=== PATIENT | male | born 1940 | race Caucasian/White ===

== ENCOUNTER 2016-08-18 17:53 | Inpatient (IN) | payer BC, MEDICARE, OTHER ==
[2016-08-18] MEDS ORDERED: NORMAL SALINE 1000 ML 250 ML IV ONE (18:00)
--- NOTE | 2016-08-18 18:31 | ER Document Report ---
ED Respiratory Problem - General Time seen by provider: 17:56 Mode of Arrival: Medic Information source: Patient TRAVEL OUTSIDE OF THE [place] IN LAST 30 DAYS: No - HPI EMS treatments: Oxygen Similar symptoms previously: Yes Recently seen / treated by doctor: Yes <JAYE WILL - Last Filed: 08/18/16 19:43> <NATHANBURTON RUDY - Last Filed: 08/18/16 22:17> - General Chief Complaint: Breathing Difficulty Stated Complaint: SHORTNESS OF BREATH Notes: Patient is a 76 year old male presenting to the emergency department for flu like symptoms. Patient states he started feeling sick Tuesday night. Patient states he went to work today and went to [facility] with his after he got home. Patient was positive for influenza B at this facility and was also diagnosed with pneumonia. Patient states he has been feeling nauseated, had abdominal cramps, and has had some fevers. Patient denies any recent steroid or antibiotic use. Patient denies any at home oxygen use. Patient has a history of COPD and states he has been admitted for pneumonia x3 times in the past but not within the past 2 years. Patient did receive the pneumonia and influenza vaccinations this season. Patient's primary care physician is Dr. Alba. Patient is allergic to codeine. 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 (JAYE WILL) - Related Data Allergies/Adverse Reactions: codeine [Codeine] Adverse Reaction (Intermediate, Verified 08/18/16 18:15) Anxiety Home Medications: Current Home Medications Tiotropium [place] [Spiriva Handihaler 18 mcg/dose (30 Dose)] 1 cap IH DAILY 04/24 [History] Tramadol HCl [Ultram 50 mg Tablet] 50 mg PO TID 08/18/16 [History] Past Medical History - General Information source: Patient - Social History Smoking Status: Smoker,Current Status Unk Family History: Reviewed & Not Pertinent, Malignancy - Past Medical History Cardiac Medical History: Reports: Hx Coronary Artery Disease, Hx Hypercholesterolemia, Hx Hypertension, Hx Peripheral Vascular Disease Pulmonary Medical History: Reports: Hx Bronchitis, Hx COPD, Hx Pneumonia GI Medical History: Reports: Hx Gastroesophageal Reflux Disease, Hx Ulcer Musculoskeltal Medical History: Denies Hx Arthritis - Painful joints, but no diagnosis of arthritis per se Past Surgical History: Reports: Hx Appendectomy, Hx Cardiac Surgery - bipass, Hx Coronary Artery Bypass Graft - 5 VESSEL, September 1999, Hx Orthopedic Surgery - back, Hx Tonsillectomy - Immunizations Hx Diphtheria, Pertussis, Tetanus Vaccination: Yes Hx Pneumococcal Vaccination: 12/22/09 <JAYE WILL - Last Filed: 08/18/16 19:43> Review of Systems - Review of Systems Constitutional: See HPI, Fever, Malaise EENT: No symptoms reported Cardiovascular: No symptoms reported Respiratory: No symptoms reported Gastrointestinal: See HPI, Abdominal pain, Nausea Genitourinary: No symptoms reported Male Genitourinary: No symptoms reported Musculoskeletal: No symptoms reported Skin: No symptoms reported Hematologic/Lymphatic: No symptoms reported Neurological/Psychological: No symptoms reported -: Yes All other systems reviewed and negative <JAYE WILL - Last Filed: 08/18/16 19:43> Physical Exam - Vital signs Interpretation: Hypoxic, Tachypneic - General General appearance: Alert In distress: Mild - Respiratory Respiratory status: Depressed respirations Breath sounds: Decreased air movement - b/l, Wheezing - Cardiovascular Rhythm: Regular - Abdominal Inspection: Normal Distension: No distension Bowel sounds: Normal Tenderness: Nontender Organomegaly: No organomegaly - Back Back: Normal, Nontender - Extremities General upper extremity: Normal inspection, Nontender, Normal color, Normal ROM , Normal temperature General lower extremity: Normal inspection, Nontender, Normal color, Normal ROM , Normal temperature, Normal weight bearing. No: Humberto's sign - Neurological Neuro grossly intact: Yes Cognition: Normal Orientation: AAOx4 [place] Coma Scale Eye Opening: Spontaneous Josh Coma Scale Verbal: Oriented [place] Coma Scale Motor: Obeys Commands Josh Coma Scale Total: 15 Speech: Normal Motor strength normal: LUE, RUE, LLE, RLE Sensory: Normal - Psychological Associated symptoms: Normal affect, Normal mood - Skin Skin Temperature: Warm Skin Moisture: Dry Skin Color: Normal <BURTON EVANS - Last Filed: 08/18/16 22:17> - Vital signs Vitals: Temp Pulse Resp BP Pulse Ox 99.8 F 81 24 H 129/86 H 94 08/18/16 18:00 08/18/16 18:00 08/18/16 18:00 08/18/16 18:00 08/18/16 18:00 Course - Laboratory Result Diagrams: 08/18/16 18:15 08/18/16 18:15 - Consults Dr. Cardona Time consulted: 18:18 Dr. Mitchell Time consulted: 19:20 Consulted provider: will see as inpatient <JAYE WILL - Last Filed: 08/18/16 19:43> - Laboratory Result Diagrams: 08/18/16 18:15 08/18/16 18:15 - Diagnostic Test Radiology reviewed: Reports reviewed <BURTON EVANS - Last Filed: 08/18/16 22:17> - Re-evaluation Re-evalutation: 08/18/16 22:14 Patient comes with report from outpatient showing pneumonia. Patient has a history of COPD and is wheezing on exam. Patient given nebulizer treatment, Solu-Medrol, and started on antibiotics including vancomycin for influenza related pneumonia. Patient is resting comfortably on nasal cannula. He is hypoxemic without it. He does not have oxygen at home. Patient discussed with the hospitalist service and will be admitted. Agrees with this plan. 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 (BURTON EVANS) - Vital Signs Vital signs: Temp Pulse Resp BP Pulse Ox 99.8 F 81 19 125/74 94 08/18/16 18:00 08/18/16 18:00 08/18/16 20:01 08/18/16 20:01 08/18/16 20:01 - Laboratory Laboratory results interpreted by me: 08/18/16 08/18/16 08/18/16 18:15 18:15 18:15 WBC 14.2 H Hgb 11.4 L Hct 35.0 L MCV 79 L MCH 25.6 L RDW 15.8 H Seg Neutrophils % 86.0 H Lymphocytes % 8.2 L Absolute Neutrophils 12.2 H PT 15.8 H Glucose 125 H - Consults Dr. Cardona Reason for consultation: 08/18/16 18:[address] 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 (JAYE WILL) Dr. Mitchell Reason for consultation: 08/18/16 19:[address] Mitchell about patient; he will admit the patient to IMCU. (JAYE WILL) Critical Care Note - Critical Care Note Total time excluding time spent on procedures (mins): 45 - evaluation and management of respiratory distress, pneumonia, multiple re-evaluations, coordination of admission <BURTON EVANS - Last Filed: 08/18/16 22:17> Discharge <JAYE WILL - Last Filed: 08/18/16 19:43> - Discharge Admitting Provider: [place] [facility] Admitted: IMCU <BURTON EVANS - Last Filed: 08/18/16 22:17> - Discharge Clinical Impression: Hypoxemia, COPD exacerbation Pneumonia Qualifiers: Pneumonia type: due to unspecified organism Laterality: bilateral Lung location : unspecified part of lung Qualified Code(s): J18.9 - Pneumonia, unspecified organism Condition: Stable Disposition: ADMITTED INPATIENT Scribe Attestation: 08/18/16 22:15 I personally performed the services described in the documentation, reviewed and edited the documentation which was dictated to the scribe in my presence, and it accurately records my words and actions. (BURTON EVANS) Scribe Documentation - Scribe Written by Scribe:: Jaye Will 08/18/16 19:12 acting as scribe for :: Nathan <JAYE WILL - Last Filed: 08/18/16 19:43>
[2016-08-18 18:36] LABS: ABSOLUTE EOSINOPHILS # (AUTO) 0.1 10^3/uL (0.0-0.6); ABSOLUTE LYMPHOCYTES (AUTO) 1.2 10^3/uL (0.5-4.7); ABSOLUTE MONOCYTES (AUTO) 0.7 10^3/uL (0.1-1.4); ABSOLUTE NEUT (AUTO) 12.2 10^3/uL (1.7-8.2); BASOPHILS % (AUTO) 0.2 % (0-2); EOSINOPHILS % (AUTO) 0.8 % (0-6); HEMOGLOBIN 11.4 g/dL (13.5-17.0); HGB HCT DIFFERENCE -0.8; LYMPHOCYTES % (AUTO) 8.2 % (13-45); MEAN CORPUSCULAR HEMOGLOBIN 25.6 pg (27.0-33.4); MEAN CORPUSCULAR HGB CONC 32.6 g/dL (32.0-36.0); MEAN CORPUSCULAR VOLUME 79 fl (80-97); MONOCYTES % (AUTO) 4.8 % (3-13); RED BLOOD COUNT 4.45 10^6/uL (4.35-5.55); RED CELL DISTRIBUTION WIDTH 15.8 % (11.5-14.0); WHITE BLOOD COUNT 14.2 10^3/uL (4.0-10.5)
[2016-08-18] MEDS ORDERED: IPRATROPIUM/ALBUTEROL 0.5-2.5 MG/3 ML AMPUL NEB ONE ×2 (18:42→22:13)
[2016-08-18] MEDS ORDERED: METHYLPREDNISOLONE INJ 125 MG/2 ML SDV IV ONE (18:42)
[2016-08-18 18:43] LABS: APPEARANCE,URINE CLEAR; BILIRUBIN,URINE NEGATIVE (NEGATIVE); GLUCOSE, URINE NEGATIVE (NEGATIVE); KETONES,URINE NEGATIVE (NEGATIVE); LEUKOCYTE ESTERASE,URINE NEGATIVE (NEGATIVE); NITRITE,URINE NEGATIVE (NEGATIVE); PROTEIN,URINE NEGATIVE (NEGATIVE); URINE SPECIFIC GRAVITY 1.014; UROBILINOGEN,URINE NEGATIVE mg/dL (<2.0)
[2016-08-18 18:44] LABS: PROTHROMBIN TIME 15.8 SEC (11.4-15.4)
[2016-08-18 18:52] LABS: ALANINE AMINOTRANSFERASE 24 U/L (21-72); ALBUMIN 4.3 g/dL (3.5-5.0); ALKALINE PHOSPHATASE 97 U/L (38-126); ANION GAP 16 (5-19); ASPARTATE AMINO TRANSFERASE 19 U/L (17-59); BILIRUBIN,DIRECT 0.2 mg/dL (0.0-0.4); BILIRUBIN,TOTAL 1.3 mg/dL (0.2-1.3); BLOOD UREA NITROGEN 18 mg/dL (7-20); CALCIUM 9.2 mg/dL (8.4-10.2); CARBON DIOXIDE 22 mmol/L (22-30); CHLORIDE 104 mmol/L (98-107); GLUCOSE 125 mg/dL (75-110); SODIUM 141.7 mmol/L (137-145); TOTAL PROTEIN 7.4 g/dL (6.3-8.2)
[2016-08-18 18:58] LABS: VENOUS BLOOD HCO3 22.6 mmol/L (20-32); VENOUS BLOOD PCO2 38.1 mmHg (35-63); VENOUS BLOOD PH 7.39 (7.30-7.42)
--- NOTE | 2016-08-18 19:09 | EKG REPORT ---
SEVERITY:- ABNORMAL ECG - ECTOPIC ATRIAL RHYTHM LEFT VENTRICULAR HYPERTROPHY : Confirmed by: Gregory Pascual MD 18-Aug-2016 19:08:46
[2016-08-18] MEDS ORDERED: LEVOFLOXACIN 750 MG/D5W RTU 150 ML IV ONE (19:10)
[2016-08-18] MEDS ORDERED: VANCOMYCIN HCL INJ 1000 MG VIAL IV ONE (19:10)
[2016-08-18] MEDS ORDERED: CEFEPIME 2 GM/D5W RTU 50 ML IV ONE (19:10)
[2016-08-18] MEDS ORDERED: OXYCODONE HCL IR 5 MG TABLET PO PRN (19:30)
[2016-08-18] MEDS ORDERED: IPRATROPIUM/ALBUTEROL 0.5-2.5 MG/3 ML AMPUL NEB PRN (19:32)
[2016-08-18] MEDS ORDERED: ONDANSETRON HCL INJ/PF 4 MG/2 ML SDV IV PRN (19:32)
[2016-08-18] MEDS ORDERED: NORMAL SALINE 1000 ML 1,000 ML IV ONE (19:35)
[2016-08-18] MEDS ORDERED: OSELTAMIVIR PHOSPHATE 75 MG CAPSULE PO ONE (20:00)
[2016-08-18] MEDS: IPRATROPIUM/ALBUTEROL 0.5-2.5 MG/3 ML AMPUL NEB SCH (21:33)
[2016-08-18] MEDS ORDERED: MAGNESIUM SULFATE/D5W 100 ML IV SCH (22:15)
[2016-08-18] MEDS ORDERED: VANCOMYCIN HCL INJ 1000 MG VIAL ONE (23:04)
[2016-08-18] MEDS ORDERED: CEFEPIME 2 GM/D5W RTU 2 GM/50 ML RTUPB IV ONE (23:04)
[2016-08-18] MEDS: FLUTICASONE/SALMETEROL DISKUS 250-50 MCG/DOSE IH SCH (23:54)
[2016-08-18] MEDS: ACETAMINOPHEN 325 MG TABLET PO PRN (23:55)
[2016-08-18] MEDS: GABAPENTIN 300 MG CAPSULE PO SCH (23:56)
[2016-08-18] MEDS: MONTELUKAST SODIUM 10 MG TABLET PO SCH (23:56)
[2016-08-18] MEDS: ATORVASTATIN CALCIUM 40 MG TABLET PO SCH (23:56)
[2016-08-18] MEDS: HEPARIN SOD (PORCINE) 5,000 UNIT/ML 1 ML SYRINGE SUBCUT SCH (23:58)
--- NOTE | 2016-08-19 03:31 | PDOC H&P ---
History of Present Illness Admission Date/PCP: 08/18/16 19:32 BLAINE MCKAY, Patient complains of: Myalgias and shortness of breath History of Present Illness: HARVEY YBARRA is a 76 year old male with a past medical history of COPD who is had 48 hours of myalgias shortness of breath and nonproductive cough prompting to seek evaluation at the [facility] where his found to have influenza B and referred to the hospital ER for evaluation where his found to be febrile, tachypneic with leukocytosis. He started on vancomycin cefepime and Levaquin empirically and referred to the hospitalist for admission. Patient admits exposure to his granddaughter thought to have influenza, denying recent change in medications chest pain or nausea. Past Medical History Cardiac Medical History: Reports: Coronary Artery Disease, Hyperlipidema, Hypertension, Peripheral Vascular Disease Denies: Atrial Fibrillation, Congestive Heart Failure, DVT, Pulmonary Embolism Pulmonary Medical History: Reports: Bronchitis, Chronic Obstructive Pulmonary Disease (COPD), Pneumonia Denies: Tuberculosis Neurological Medical History: Denies: Seizures Endocrine Medical History: Denies: Diabetes Mellitus Type 1, Diabetes Mellitus Type 2, Hyperthyroidism, Hypothyroidism GI Medical History: Reports: Gastroesophageal Reflux Disease Denies: Cirrhosis, Hepatitis Musculoskeltal Medical History: Denies: Arthritis - Painful joints, but no diagnosis of arthritis per se Skin Medical History: Denies: Eczema, Psoriasis Psychiatric Medical History: Denies: Depression Past Surgical History Past Surgical History: Reports: Appendectomy, Coronary Artery Bypass Graft - 5 VESSEL, September 1999, Orthopedic Surgery - back, Tonsillectomy Denies: Pacemaker Social History Information Source: Patient, Emergency Med Personnel Lives with: Family Smoking Status: Unknown if Ever Smoked Frequency of Alcohol Use: None Hx Recreational Drug Use: No Drugs: None Hx Prescription Drug Abuse: No - Advance Directive Resuscitation Status: Full Code Family History Family History: Malignancy Parental Family History Reviewed: Yes Children Family History Reviewed: Yes Sibling(s) Family History Reviewed.: Yes Medication/Allergy Home Medications: Aspirin [Aspirin 81 mg Chewable Tablet] 81 mg PO DAILY 04/13/16 Atorvastatin Calcium [Lipitor 40 mg Tablet] 40 mg PO DAILY 04/13/16 Cetirizine HCl [Zyrtec] 10 mg PO DAILY 04/13/16 Clopidogrel Bisulfate [Plavix] 75 mg PO DAILY 04/13/16 Cyanocobalamin (Vitamin B-12) [B-12] 1,000 mcg PO DAILY 04/13/16 Esomeprazole Mag Trihydrate [Nexium] 40 mg PO DAILY 04/13/16 Fluticasone/Salmeterol [Advair 250-50 Diskus 28 dose] 1 inh IH Q12 04/13/16 Folic Acid 1 mg PO DAILY 04/13/16 Gabapentin 300 mg PO Q12 04/13/16 Isosorbide Mononitrate [Imdur 30 mg Tablet.er] 30 mg PO DAILY 04/13/16 Metoprolol Succinate 50 mg PO DAILY 04/13/16 Montelukast Sodium 10 mg PO QHS 04/13/16 Ranolazine [Ranexa 500 mg Tab.sr] 500 mg PO Q12 04/13/16 Tiotropium [place] [Spiriva Handihaler 18 mcg/dose (30 Dose)] 1 cap IH DAILY 04/24 Tramadol HCl [Ultram 50 mg Tablet] 50 mg PO TID 08/18/16 Allergies/Adverse Reactions: codeine [Codeine] Adverse Reaction (Intermediate, Verified 08/18/16 18:15) Anxiety Review of Systems Constitutional: ABSENT: chills, fever(s), headache(s), weight gain, weight loss Eyes: ABSENT: visual disturbances Ears: ABSENT: hearing changes Cardiovascular: ABSENT: chest pain, dyspnea on exertion, edema, orthropnea, palpitations Respiratory: ABSENT: cough, hemoptysis Gastrointestinal: ABSENT: abdominal pain, constipation, diarrhea, hematemesis, hematochezia, nausea, vomiting Genitourinary: ABSENT: dysuria, hematuria Musculoskeletal: ABSENT: joint swelling Integumentary: ABSENT: rash, wounds Neurological: ABSENT: abnormal gait, abnormal speech, confusion, dizziness, focal weakness, syncope Psychiatric: ABSENT: anxiety, depression, homidical ideation, suicidal ideation Endocrine: ABSENT: cold intolerance, heat intolerance, polydipsia, polyuria Hematologic/Lymphatic: ABSENT: easy bleeding, easy bruising Physical Exam Vital Signs: Temp Pulse Resp BP Pulse Ox 98 F 62 20 129/64 H 96 08/19/16 02:23 08/19/16 02:23 08/19/16 02:23 08/19/16 02:23 08/19/16 02:23 Intake & Output 08/17/16 08/18/16 08/19/16 11:59 11:59 11:59 Weight 96.5 kg General appearance: PRESENT: cooperative, mild distress Head exam: PRESENT: atraumatic, normocephalic Eye exam: PRESENT: conjunctiva pink, EOMI, PERRLA. ABSENT: scleral icterus Ear exam: PRESENT: normal external ear exam Mouth exam: PRESENT: moist, tongue midline Neck exam: ABSENT: carotid bruit, JVD, lymphadenopathy, thyromegaly Respiratory exam: PRESENT: accessory muscle use, crackles, prolonged expiratory phas, rales, rhonchi, symmetrical, tachypnea. ABSENT: chest wall tenderness, wheezes Cardiovascular exam: PRESENT: RRR. ABSENT: diastolic murmur, rubs, systolic murmur Pulses: PRESENT: normal dorsalis pedis pul Vascular exam: PRESENT: normal capillary refill GI/Abdominal exam: PRESENT: normal bowel sounds, soft. ABSENT: distended, guarding, mass, organolmegaly, rebound, tenderness Rectal exam: PRESENT: deferred Extremities exam: PRESENT: full ROM. ABSENT: calf tenderness, clubbing, pedal edema Neurological exam: PRESENT: alert, awake, oriented to person, oriented to place , oriented to time, oriented to situation, CN II-XII grossly intact. ABSENT: motor sensory deficit Psychiatric exam: PRESENT: appropriate affect, normal mood. ABSENT: homicidal ideation, suicidal ideation Skin exam: PRESENT: dry, intact, warm. ABSENT: cyanosis, rash Assessment & Plan - Diagnosis (1) Influenza Is this a current diagnosis for this admission?: YesPlan: Symptomatically management, Tamiflu initiated continuation of empiric antibiotics given COPD and risk of decompensation, follow-up CBC and 2 view chest x-ray (2) COPD exacerbation Is this a current diagnosis for this admission?: YesPlan: In addition to above flutter valve, incentive spirometry, albuterol and Atrovent - Time Time Spent: 30 to 50 Minutes
[2016-08-19 05:41] LABS: HEMATOCRIT 33.9 % (37.9-51.0); HEMOGLOBIN 11.2 g/dL (13.5-17.0); HGB HCT DIFFERENCE -0.3; MEAN CORPUSCULAR HEMOGLOBIN 25.8 pg (27.0-33.4); MEAN CORPUSCULAR VOLUME 78 fl (80-97); RED BLOOD COUNT 4.34 10^6/uL (4.35-5.55); RED CELL DISTRIBUTION WIDTH 15.8 % (11.5-14.0); WHITE BLOOD COUNT 14.6 10^3/uL (4.0-10.5)
[2016-08-19] MEDS: HEPARIN SOD (PORCINE) 5,000 UNIT/ML 1 ML SYRINGE SUBCUT SCH (05:45)
[2016-08-19] MEDS: ACETAMINOPHEN 325 MG TABLET PO PRN ×2 (05:45→17:10)
[2016-08-19 05:54] LABS: BASOPHILS % (MANUAL) 0 % (0-2); EOSINOPHILS % (MANUAL) 0 % (0-6); LYMPHOCYTES % (MANUAL) 5 % (13-45); TOTAL CELLS COUNTED 100
[2016-08-19 05:57] LABS: ANISOCYTOSIS SLIGHT; HYPOCHROMASIA SLIGHT; MICROCYTOSIS SLIGHT; OVALOCYTES SLIGHT; TOXIC GRANULATION SLIGHT
[2016-08-19] MEDS: IPRATROPIUM/ALBUTEROL 0.5-2.5 MG/3 ML AMPUL NEB SCH ×3 (08:04→20:11)
--- NOTE | 2016-08-19 08:30 | PDOC PROGRESS REPORT ---
Subjective Progress Note for:: 08/19/16 Subjective:: The patient states to feel slightly better compared to yesterday. He is still short of breath with productive cough. The myalgias have improved. Physical Exam Vital Signs: Temp Pulse Resp BP Pulse Ox 97.4 F 71 18 140/61 H 90 L 08/19/16 04:00 08/19/16 08:10 08/19/16 08:07 08/19/16 04:00 08/19/16 08:07 Intake & Output 08/18/16 08/19/16 08/20/16 06:59 06:59 06:59 Intake Total 300 Balance 300 Weight 96.5 kg General appearance: PRESENT: mild distress Head exam: PRESENT: atraumatic Eye exam: PRESENT: conjunctiva pink Neck exam: PRESENT: full ROM. ABSENT: carotid bruit Respiratory exam: PRESENT: prolonged expiratory phas, rhonchi, wheezes Cardiovascular exam: PRESENT: RRR, +S1, +S2 Pulses: PRESENT: normal carotid pulses Vascular exam: PRESENT: normal capillary refill GI/Abdominal exam: PRESENT: normal bowel sounds, soft Extremities exam: PRESENT: full ROM Neurological exam: PRESENT: alert, awake Results Laboratory Results: 08/19/16 04:00 08/19/16 04:00 WBC 14.6 H RBC 4.34 L Hgb 11.2 L Hct 33.9 L MCV 78 L MCH 25.8 L MCHC 33.0 RDW 15.8 H Plt Count 254 Seg Neutrophils % Not Reportable Lymphocytes % Not Reportable Monocytes % Not Reportable Eosinophils % Not Reportable Basophils % Not Reportable Absolute Neutrophils Not Reportable Absolute Lymphocytes Not Reportable Absolute Monocytes Not Reportable Absolute Eosinophils Not Reportable Absolute Basophils Not Reportable Assessment & Plan - Diagnosis (1) COPD exacerbation Is this a current diagnosis for this admission?: YesPlan: We'll continue nebulization treatments and IV steroids (2) Bacterial pneumonia Is this a current diagnosis for this admission?: YesPlan: We'll switch to by mouth Levaquin and Z-Abhi (3) CAD (coronary artery disease) Qualifiers: Coronary Disease-Associated Artery/Lesion type: unspecified vessel or lesion type [place] vs. transplanted heart: [place] heart Associated angina: angina presence unspecified Qualified Code(s): I25.10 - Atherosclerotic heart disease of [place] coronary artery without angina pectoris Is this a current diagnosis for this admission?: YesPlan: Stable continue current medications (4) Influenza Is this a current diagnosis for this admission?: YesPlan: We'll continue with current medications (5) Hypertensive disorder, systemic arterial Is this a current diagnosis for this admission?: YesPlan: Continue current medications
[2016-08-19] MEDS ORDERED: (PENDING PHARMACY ID) (Cetirizine Hcl [Zyrtec] 10 MG) PO SCH (10:00)
[2016-08-19] MEDS ORDERED: (PENDING PHARMACY ID) (Esomeprazole Mag Trihydrate [Nexium] 40 MG) PO SCH (10:00)
[2016-08-19] MEDS: METHYLPREDNISOLONE INJ 125 MG/2 ML SDV IV SCH ×3 (10:15→21:25)
[2016-08-19] MEDS: AZITHROMYCIN 250 MG TABLET PO SCH (10:15)
[2016-08-19] MEDS: METOPROLOL SUCCINATE 50 MG TAB.SR.24H PO SCH (10:16)
[2016-08-19] MEDS: CETIRIZINE 10 MG TABLET PO SCH (10:16)
[2016-08-19] MEDS: CYANOCOBALAMIN (VITAMIN B-12) 1,000 MCG TABLET PO SCH (10:16)
[2016-08-19] MEDS: LANSOPRAZOLE 30 MG TAB.RAP.DR PO SCH (10:16)
[2016-08-19] MEDS: ASPIRIN 81 MG TABLET, CHEWABLE PO SCH (10:17)
[2016-08-19] MEDS: GABAPENTIN 300 MG CAPSULE PO SCH ×2 (10:17→21:25)
[2016-08-19] MEDS: FOLIC ACID 1 MG TABLET PO SCH (10:17)
[2016-08-19] MEDS: LEVOFLOXACIN 500 MG TABLET PO SCH (10:17)
[2016-08-19] MEDS: DOCUSATE SODIUM 100 MG CAPSULE PO SCH ×2 (10:17→17:10)
[2016-08-19] MEDS: CLOPIDOGREL BISULFATE 75 MG TABLET PO SCH (10:17)
[2016-08-19] MEDS: ISOSORBIDE MONONITRATE 30 MG TAB.ER.24H PO SCH (10:18)
[2016-08-19] MEDS: FLUTICASONE/SALMETEROL DISKUS 250-50 MCG/DOSE IH SCH ×2 (10:18→21:25)
[2016-08-19] MEDS: ATORVASTATIN CALCIUM 40 MG TABLET PO SCH (21:25)
[2016-08-19] MEDS: MONTELUKAST SODIUM 10 MG TABLET PO SCH (21:25)
[2016-08-20] MEDS: METHYLPREDNISOLONE INJ 125 MG/2 ML SDV IV SCH ×4 (05:07→22:05)
[2016-08-20 06:10] LABS: HEMATOCRIT 33.2 % (37.9-51.0); HEMOGLOBIN 11.2 g/dL (13.5-17.0); HGB HCT DIFFERENCE 0.4; MEAN CORPUSCULAR HGB CONC 33.8 g/dL (32.0-36.0); MEAN CORPUSCULAR VOLUME 77 fl (80-97); RED BLOOD COUNT 4.32 10^6/uL (4.35-5.55); RED CELL DISTRIBUTION WIDTH 16.2 % (11.5-14.0); WHITE BLOOD COUNT 18.4 10^3/uL (4.0-10.5)
[2016-08-20 06:15] LABS: ALANINE AMINOTRANSFERASE 24 U/L (21-72); ALBUMIN 3.6 g/dL (3.5-5.0); ALKALINE PHOSPHATASE 84 U/L (38-126); ANION GAP 13 (5-19); ASPARTATE AMINO TRANSFERASE 15 U/L (17-59); BILIRUBIN,DIRECT 0.2 mg/dL (0.0-0.4); BILIRUBIN,TOTAL 0.6 mg/dL (0.2-1.3); BLOOD UREA NITROGEN 28 mg/dL (7-20); CALCIUM 9.4 mg/dL (8.4-10.2); CARBON DIOXIDE 21 mmol/L (22-30); CHLORIDE 108 mmol/L (98-107); CREATININE RESULT 0.89 mg/dL (0.52-1.25); GLUCOSE 145 mg/dL (75-110); POTASSIUM 4.6 mmol/L (3.6-5.0); SODIUM 142.4 mmol/L (137-145); TOTAL PROTEIN 6.6 g/dL (6.3-8.2)
[2016-08-20 06:30] LABS: ANISOCYTOSIS 1+; BAND NEUTROPHILS % (MANUAL) 2 % (3-5); BASOPHILS % (MANUAL) 0 % (0-2); BURR CELLS SLIGHT; EOSINOPHILS % (MANUAL) 0 % (0-6); HYPOCHROMASIA SLIGHT; LYMPHOCYTES % (MANUAL) 6 % (13-45); MICROCYTOSIS SLIGHT; OVALOCYTES SLIGHT; POIKILOCYTOSIS SLIGHT; POLYCHROMASIA SLIGHT; SCHISTOCYTES SLIGHT; TOTAL CELLS COUNTED 100; TOXIC VACUOLATION PRESENT
[2016-08-20] MEDS: IPRATROPIUM/ALBUTEROL 0.5-2.5 MG/3 ML AMPUL NEB SCH ×3 (08:06→20:10)
[2016-08-20] MEDS: ACETAMINOPHEN 325 MG TABLET PO PRN (08:14)
[2016-08-20] MEDS: LEVOFLOXACIN 500 MG TABLET PO SCH (09:41)
[2016-08-20] MEDS: FLUTICASONE/SALMETEROL DISKUS 250-50 MCG/DOSE IH SCH ×2 (09:41→22:05)
[2016-08-20] MEDS: DOCUSATE SODIUM 100 MG CAPSULE PO SCH ×2 (09:42→17:07)
[2016-08-20] MEDS: CYANOCOBALAMIN (VITAMIN B-12) 1,000 MCG TABLET PO SCH (09:42)
[2016-08-20] MEDS: CLOPIDOGREL BISULFATE 75 MG TABLET PO SCH (09:42)
[2016-08-20] MEDS: FOLIC ACID 1 MG TABLET PO SCH (09:42)
[2016-08-20] MEDS: ASPIRIN 81 MG TABLET, CHEWABLE PO SCH (09:42)
[2016-08-20] MEDS: AZITHROMYCIN 250 MG TABLET PO SCH (09:42)
[2016-08-20] MEDS: GABAPENTIN 300 MG CAPSULE PO SCH ×2 (09:42→22:06)
[2016-08-20] MEDS: ISOSORBIDE MONONITRATE 30 MG TAB.ER.24H PO SCH (09:42)
[2016-08-20] MEDS: METOPROLOL SUCCINATE 50 MG TAB.SR.24H PO SCH (09:43)
[2016-08-20] MEDS: CETIRIZINE 10 MG TABLET PO SCH (09:43)
[2016-08-20] MEDS: LANSOPRAZOLE 30 MG TAB.RAP.DR PO SCH (09:43)
[2016-08-20] MEDS ORDERED: VANCOMYCIN HCL 0 MG in DEXTROSE 5%-WATER 250 ML IV NR (13:30)
[2016-08-20] MEDS: VANCOMYCIN HCL 1,250 MG in DEXTROSE 5%-WATER 250 ML IV SCH (15:03)
--- NOTE | 2016-08-20 16:26 | PDOC PROGRESS REPORT ---
Subjective Progress Note for:: 08/20/16 Subjective:: Patient states is having some chest pressure And more difficulty breathing He does not have much more productive cough The somewhat tachypneic today and his leukocytosis is increased at 18,000 Physical Exam Vital Signs: Temp Pulse Resp BP Pulse Ox 97.5 F 77 22 H 156/71 H 94 08/20/16 15:48 08/20/16 15:48 08/20/16 15:48 08/20/16 15:48 08/20/16 15:48 Intake & Output 08/19/16 08/20/16 08/21/16 00:59 00:59 00:59 Intake Total 3425 360 Balance 3425 360 Weight 96.5 kg 96.5 kg General appearance: PRESENT: cooperative, mild distress, well-developed, well- nourished Head exam: PRESENT: atraumatic, normocephalic Eye exam: PRESENT: conjunctiva pink, EOMI, PERRLA. ABSENT: scleral icterus Neck exam: ABSENT: carotid bruit, JVD, lymphadenopathy, thyromegaly Respiratory exam: PRESENT: clear to auscultation stephanie, tachypnea. ABSENT: accessory muscle use Cardiovascular exam: PRESENT: RRR. ABSENT: diastolic murmur, rubs, systolic murmur Pulses: PRESENT: normal dorsalis pedis pul GI/Abdominal exam: PRESENT: normal bowel sounds, soft. ABSENT: distended, guarding, mass, organolmegaly, rebound, tenderness Neurological exam: PRESENT: alert, awake, oriented to person, oriented to place , oriented to time, oriented to situation, CN II-XII grossly intact. ABSENT: motor sensory deficit Results Laboratory Results: 08/20/16 05:05 08/20/16 05:05 08/20/16 08/20/16 05:05 05:05 WBC 18.4 H RBC 4.32 L Hgb 11.2 L Hct 33.2 L MCV 77 L MCH 26.0 L MCHC 33.8 RDW 16.2 H Plt Count 299 Seg Neutrophils % Not Reportable Lymphocytes % Not Reportable Monocytes % Not Reportable Eosinophils % Not Reportable Basophils % Not Reportable Absolute Neutrophils Not Reportable Absolute Lymphocytes Not Reportable Absolute Monocytes Not Reportable Absolute Eosinophils Not Reportable Absolute Basophils Not Reportable Sodium 142.4 Potassium 4.6 Chloride 108 H Carbon Dioxide 21 L Anion Gap 13 BUN 28 H Creatinine 0.89 Est GFR ( Amer) > 60 Est GFR (Non-Af Amer) > 60 Glucose 145 H Calcium 9.4 Total Bilirubin 0.6 AST 15 L ALT 24 Alkaline Phosphatase 84 Total Protein 6.6 Albumin 3.6 08/20/16 13:47 Troponin I < 0.012 EKG Comments: SINUS RHYTHM [LVH] . LEFT VENTRICULAR HYPERTROPHY Impressions: Chest X-Ray 08/19/16 00:00 IMPRESSION: COPD AND CHRONIC CHANGES ABOVE. INCREASED DENSITY IN THE RIGHT LUNG BASE SUSPICIOUS FOR PNEUMONIA. Chest/Abdomen CTA 08/20/16 13:26 IMPRESSION: 1. NORMAL CTA OF THE CHEST. NO PULMONARY EMBOLI. 2. COPD. SCATTERED LINEAR DENSITIES IN THE LUNG BASES MOST CONSISTENT WITH ATELECTASIS AND SCARRING. THIS CORRESPONDS WITH THE DENSITY SEEN ON THE RECENT CHEST X-RAY. PNEUMONIA IS FELT TO BE LESS LIKELY. 3. DILATION OF THE ASCENDING THORACIC AORTA, CURRENTLY MEASURING 4.6 CM. PREVIOUS MEASUREMENTS UP TO 5 CM. NO DISSECTION. Assessment & Plan - Diagnosis (1) COPD exacerbation Is this a current diagnosis for this admission?: YesPlan: Continue the present management patient is currently on steroids and nebs (2) Influenza Is this a current diagnosis for this admission?: YesPlan: Patient states he had a positive flu test on Tuesday at [facility] We will treat him with Tamiflu (3) Pneumonia Qualifiers: Pneumonia type: due to unspecified organism Laterality: bilateral Lung location: unspecified part of lung Qualified Code(s): J18.9 - Pneumonia , unspecified organism Is this a current diagnosis for this admission?: YesPlan: We will broaden the spectrum of antibiotics with cefepime and and vancomycin as the patient seems to have worsened since his admission (4) Coronary artery disease Is this a current diagnosis for this admission?: YesPlan: EKG is normal and initial trauma troponins are normal We will cycle troponins to exclude an acute coronary syndrome - Time Time Spent with patient: CTA of the chest was essentially negative excluding pulmonary embolism and pericardial effusion We will continue the present management and continue to monitor Time Spent with patient: 35 or more minutes
--- NOTE | 2016-08-20 16:30 | EKG REPORT ---
SEVERITY:- ABNORMAL ECG - SINUS RHYTHM LEFT VENTRICULAR HYPERTROPHY : Confirmed by: Gregory Pascual MD 20-Aug-2016 16:30:09
[2016-08-20] MEDS: CEFEPIME HCL 2 GM in DEXTROSE 5%-WATER 100 ML IV SCH (17:06)
[2016-08-20] MEDS: OSELTAMIVIR PHOSPHATE 75 MG CAPSULE PO SCH (17:06)
[2016-08-20] MEDS ORDERED: FLUTICASONE/SALMETEROL DISKUS 250-50 MCG/DOSE IH ONE (21:54)
[2016-08-20] MEDS ORDERED: CEFEPIME 2 GM/D5W RTU 50 ML IV SCH (22:00)
[2016-08-20] MEDS: MONTELUKAST SODIUM 10 MG TABLET PO SCH (22:05)
[2016-08-20] MEDS: ATORVASTATIN CALCIUM 40 MG TABLET PO SCH (22:05)
[2016-08-21] MEDS: VANCOMYCIN HCL 1,250 MG in DEXTROSE 5%-WATER 250 ML IV SCH ×2 (03:50→14:25)
[2016-08-21] MEDS: ACETAMINOPHEN 325 MG TABLET PO PRN ×3 (03:57→14:25)
[2016-08-21] MEDS: CEFEPIME HCL 2 GM in DEXTROSE 5%-WATER 100 ML IV SCH ×2 (06:21→17:41)
[2016-08-21] MEDS: IPRATROPIUM/ALBUTEROL 0.5-2.5 MG/3 ML AMPUL NEB SCH ×3 (08:25→20:08)
[2016-08-21] MEDS: ASPIRIN 81 MG TABLET, CHEWABLE PO SCH (10:29)
[2016-08-21] MEDS: ISOSORBIDE MONONITRATE 30 MG TAB.ER.24H PO SCH (10:30)
[2016-08-21] MEDS: CYANOCOBALAMIN (VITAMIN B-12) 1,000 MCG TABLET PO SCH (10:30)
[2016-08-21] MEDS: METOPROLOL SUCCINATE 50 MG TAB.SR.24H PO SCH (10:30)
[2016-08-21] MEDS ORDERED: BENZONATATE 100 MG CAPSULE PO ONE (10:30)
[2016-08-21] MEDS: GABAPENTIN 300 MG CAPSULE PO SCH ×2 (10:30→21:26)
[2016-08-21] MEDS: DOCUSATE SODIUM 100 MG CAPSULE PO SCH ×2 (10:30→17:41)
[2016-08-21] MEDS: FOLIC ACID 1 MG TABLET PO SCH (10:30)
[2016-08-21] MEDS: CETIRIZINE 10 MG TABLET PO SCH (10:31)
[2016-08-21] MEDS: CLOPIDOGREL BISULFATE 75 MG TABLET PO SCH (10:31)
[2016-08-21] MEDS: METHYLPREDNISOLONE INJ 125 MG/2 ML SDV IV SCH (10:31)
[2016-08-21] MEDS: LANSOPRAZOLE 30 MG TAB.RAP.DR PO SCH (10:31)
[2016-08-21] MEDS: FLUTICASONE/SALMETEROL DISKUS 250-50 MCG/DOSE IH SCH ×2 (10:32→21:27)
[2016-08-21] MEDS: OSELTAMIVIR PHOSPHATE 75 MG CAPSULE PO SCH ×2 (10:44→17:41)
[2016-08-21] MEDS: BENZONATATE 100 MG CAPSULE PO SCH ×2 (14:24→21:27)
--- NOTE | 2016-08-21 15:18 | PDOC PROGRESS REPORT ---
Subjective Progress Note for:: 08/21/16 Subjective:: Patient is improved somewhat Decreased pleuritic chest pain No fever no chills Oxygenating adequately on room air Physical Exam Vital Signs: Temp Pulse Resp BP Pulse Ox 97.8 F 69 16 132/61 H 94 08/21/16 12:00 08/21/16 13:32 08/21/16 13:31 08/21/16 12:00 08/21/16 13:31 Intake & Output 08/20/16 08/21/16 08/22/16 00:59 00:59 00:59 Intake Total 3425 2380 372 Balance 3425 2380 372 Weight 96.5 kg 96.5 kg 96.5 kg Results Laboratory Results: 08/20/16 05:05 08/20/16 05:05 08/20/16 08/20/16 08/21/16 13:47 19:25 01:25 Troponin I < 0.012 < 0.012 < 0.012 Impressions: Chest X-Ray 08/19/16 00:00 IMPRESSION: COPD AND CHRONIC CHANGES ABOVE. INCREASED DENSITY IN THE RIGHT LUNG BASE SUSPICIOUS FOR PNEUMONIA. Chest/Abdomen CTA 08/20/16 13:26 IMPRESSION: 1. NORMAL CTA OF THE CHEST. NO PULMONARY EMBOLI. 2. COPD. SCATTERED LINEAR DENSITIES IN THE LUNG BASES MOST CONSISTENT WITH ATELECTASIS AND SCARRING. THIS CORRESPONDS WITH THE DENSITY SEEN ON THE RECENT CHEST X-RAY. PNEUMONIA IS FELT TO BE LESS LIKELY. 3. DILATION OF THE ASCENDING THORACIC AORTA, CURRENTLY MEASURING 4.6 CM. PREVIOUS MEASUREMENTS UP TO 5 CM. NO DISSECTION. Assessment & Plan - Diagnosis (1) COPD exacerbation Is this a current diagnosis for this admission?: Yes (2) Influenza Is this a current diagnosis for this admission?: Yes (3) Pneumonia Qualifiers: Pneumonia type: due to unspecified organism Laterality: bilateral Lung location: unspecified part of lung Qualified Code(s): J18.9 - Pneumonia , unspecified organism Is this a current diagnosis for this admission?: Yes (4) Coronary artery disease Is this a current diagnosis for this admission?: Yes - Time Time Spent with patient: We'll continue present management Decrease steroids Evaluate for discharge in a.m.
[2016-08-21] MEDS: FLUTICASONE NASAL SPRAY 50 MCG/SPRY 120 SPRAY/16 GM NASL SCH (17:41)
[2016-08-21] MEDS: MONTELUKAST SODIUM 10 MG TABLET PO SCH (21:26)
[2016-08-21] MEDS: ATORVASTATIN CALCIUM 40 MG TABLET PO SCH (21:26)
[2016-08-22] MEDS: VANCOMYCIN HCL 1,250 MG in DEXTROSE 5%-WATER 250 ML IV SCH (03:11)
[2016-08-22 03:22] LABS: ABSOLUTE LYMPHOCYTES (AUTO) 1.2 10^3/uL (0.5-4.7); ABSOLUTE NEUT (AUTO) 13.4 10^3/uL (1.7-8.2); BASOPHILS % (AUTO) 0.2 % (0-2); HEMOGLOBIN 11.8 g/dL (13.5-17.0); HGB HCT DIFFERENCE -0.6; LYMPHOCYTES % (AUTO) 7.6 % (13-45); MEAN CORPUSCULAR HEMOGLOBIN 25.7 pg (27.0-33.4); MEAN CORPUSCULAR HGB CONC 32.8 g/dL (32.0-36.0); MEAN CORPUSCULAR VOLUME 78 fl (80-97); MONOCYTES % (AUTO) 6.1 % (3-13); RED BLOOD COUNT 4.59 10^6/uL (4.35-5.55); RED CELL DISTRIBUTION WIDTH 16.5 % (11.5-14.0); SEGMENTED NEUTROPHILS % (AUTO) 86.1 % (42-78); WHITE BLOOD COUNT 15.6 10^3/uL (4.0-10.5)
[2016-08-22 03:35] LABS: ALANINE AMINOTRANSFERASE 86 U/L (21-72); ALBUMIN 3.4 g/dL (3.5-5.0); ALKALINE PHOSPHATASE 75 U/L (38-126); ANION GAP 10 (5-19); ASPARTATE AMINO TRANSFERASE 43 U/L (17-59); BILIRUBIN,DIRECT 0.3 mg/dL (0.0-0.4); BILIRUBIN,TOTAL 0.6 mg/dL (0.2-1.3); BLOOD UREA NITROGEN 24 mg/dL (7-20); CALCIUM 9.1 mg/dL (8.4-10.2); CARBON DIOXIDE 25 mmol/L (22-30); CHLORIDE 109 mmol/L (98-107); CREATININE RESULT 0.92 mg/dL (0.52-1.25); GLUCOSE 116 mg/dL (75-110); POTASSIUM 4.2 mmol/L (3.6-5.0); TOTAL PROTEIN 6.6 g/dL (6.3-8.2)
[2016-08-22] MEDS: CEFEPIME HCL 2 GM in DEXTROSE 5%-WATER 100 ML IV SCH (06:42)
[2016-08-22] MEDS: BENZONATATE 100 MG CAPSULE PO SCH ×3 (06:42→22:12)
[2016-08-22] MEDS: IPRATROPIUM/ALBUTEROL 0.5-2.5 MG/3 ML AMPUL NEB SCH ×3 (08:15→20:18)
[2016-08-22] MEDS: ACETAMINOPHEN 325 MG TABLET PO PRN ×2 (09:04→17:23)
[2016-08-22] MEDS: CLOPIDOGREL BISULFATE 75 MG TABLET PO SCH (09:05)
[2016-08-22] MEDS: ASPIRIN 81 MG TABLET, CHEWABLE PO SCH (09:05)
[2016-08-22] MEDS: LANSOPRAZOLE 30 MG TAB.RAP.DR PO SCH (09:05)
[2016-08-22] MEDS: CYANOCOBALAMIN (VITAMIN B-12) 1,000 MCG TABLET PO SCH (09:05)
[2016-08-22] MEDS: CETIRIZINE 10 MG TABLET PO SCH (09:05)
[2016-08-22] MEDS: ISOSORBIDE MONONITRATE 30 MG TAB.ER.24H PO SCH (09:05)
[2016-08-22] MEDS: METOPROLOL SUCCINATE 50 MG TAB.SR.24H PO SCH (09:06)
[2016-08-22] MEDS: DOCUSATE SODIUM 100 MG CAPSULE PO SCH ×2 (09:06→17:21)
[2016-08-22] MEDS: OSELTAMIVIR PHOSPHATE 75 MG CAPSULE PO SCH ×2 (09:06→17:21)
[2016-08-22] MEDS: GABAPENTIN 300 MG CAPSULE PO SCH ×2 (09:06→22:12)
[2016-08-22] MEDS: FLUTICASONE NASAL SPRAY 50 MCG/SPRY 120 SPRAY/16 GM NASL SCH ×2 (09:06→17:21)
[2016-08-22] MEDS: FOLIC ACID 1 MG TABLET PO SCH (09:06)
[2016-08-22] MEDS: FLUTICASONE/SALMETEROL DISKUS 250-50 MCG/DOSE IH SCH ×2 (09:07→22:11)
[2016-08-22] MEDS ORDERED: ONDANSETRON 4 MG TAB.RAPDIS PO PRN (09:47)
[2016-08-22] MEDS ORDERED: PREDNISONE 20 MG TABLET PO SCH (10:00)
--- NOTE | 2016-08-22 12:38 | PDOC PROGRESS REPORT ---
Subjective Progress Note for:: 08/22/16 Subjective:: Patient is definitely doing much better He was nauseous this morning But his breathing is good His oxygenation is adequate on room air The pleuritic chest pain has decreased He likely will be well enough to go home tomorrow Physical Exam Vital Signs: Temp Pulse Resp BP Pulse Ox 98.0 F 63 18 117/63 98 08/22/16 12:00 08/22/16 12:00 08/22/16 12:00 08/22/16 12:00 08/22/16 12:00 Intake & Output 08/21/16 08/22/16 08/23/16 00:59 00:59 00:59 Intake Total 2380 1922 1524 Balance 2380 1922 1524 Weight 96.5 kg 96.5 kg 95.2 kg General appearance: PRESENT: no acute distress, well-developed, well-nourished Head exam: PRESENT: atraumatic, normocephalic Eye exam: PRESENT: conjunctiva pink, EOMI, PERRLA. ABSENT: scleral icterus Ear exam: PRESENT: normal external ear exam Mouth exam: PRESENT: moist, tongue midline Neck exam: ABSENT: carotid bruit, JVD, lymphadenopathy, thyromegaly Respiratory exam: PRESENT: clear to auscultation stephanie. ABSENT: rales, rhonchi, wheezes Cardiovascular exam: PRESENT: RRR. ABSENT: diastolic murmur, rubs, systolic murmur Pulses: PRESENT: normal dorsalis pedis pul Vascular exam: PRESENT: normal capillary refill GI/Abdominal exam: PRESENT: normal bowel sounds, soft. ABSENT: distended, guarding, mass, organolmegaly, rebound, tenderness Rectal exam: PRESENT: deferred Extremities exam: PRESENT: full ROM. ABSENT: calf tenderness, clubbing, pedal edema Neurological exam: PRESENT: alert, awake, oriented to person, oriented to place , oriented to time, oriented to situation, CN II-XII grossly intact. ABSENT: motor sensory deficit Psychiatric exam: PRESENT: appropriate affect, normal mood. ABSENT: homicidal ideation, suicidal ideation Skin exam: PRESENT: dry, intact, warm. ABSENT: cyanosis, rash Results Laboratory Results: 08/22/16 03:10 08/22/16 03:10 08/22/16 08/22/16 03:10 03:10 WBC 15.6 H RBC 4.59 Hgb 11.8 L Hct 36.0 L MCV 78 L MCH 25.7 L MCHC 32.8 RDW 16.5 H Plt Count 330 Seg Neutrophils % 86.1 H Lymphocytes % 7.6 L Monocytes % 6.1 Eosinophils % 0.0 Basophils % 0.2 Absolute Neutrophils 13.4 H Absolute Lymphocytes 1.2 Absolute Monocytes 1.0 Absolute Eosinophils 0.0 Absolute Basophils 0.0 Sodium 144.0 Potassium 4.2 Chloride 109 H Carbon Dioxide 25 Anion Gap 10 BUN 24 H Creatinine 0.92 Est GFR ( Amer) > 60 Est GFR (Non-Af Amer) > 60 Glucose 116 H Calcium 9.1 Total Bilirubin 0.6 AST 43 ALT 86 H Alkaline Phosphatase 75 Total Protein 6.6 Albumin 3.4 L 08/20/16 08/20/16 08/21/16 13:47 19:25 01:25 Troponin I < 0.012 < 0.012 < 0.012 Impressions: Chest X-Ray 08/19/16 00:00 IMPRESSION: COPD AND CHRONIC CHANGES ABOVE. INCREASED DENSITY IN THE RIGHT LUNG BASE SUSPICIOUS FOR PNEUMONIA. Chest/Abdomen CTA 08/20/16 13:26 IMPRESSION: 1. NORMAL CTA OF THE CHEST. NO PULMONARY EMBOLI. 2. COPD. SCATTERED LINEAR DENSITIES IN THE LUNG BASES MOST CONSISTENT WITH ATELECTASIS AND SCARRING. THIS CORRESPONDS WITH THE DENSITY SEEN ON THE RECENT CHEST X-RAY. PNEUMONIA IS FELT TO BE LESS LIKELY. 3. DILATION OF THE ASCENDING THORACIC AORTA, CURRENTLY MEASURING 4.6 CM. PREVIOUS MEASUREMENTS UP TO 5 CM. NO DISSECTION. Assessment & Plan - Diagnosis (1) COPD exacerbation Is this a current diagnosis for this admission?: Yes (2) Influenza Is this a current diagnosis for this admission?: Yes (3) Pneumonia Qualifiers: Pneumonia type: due to unspecified organism Laterality: bilateral Lung location: unspecified part of lung Qualified Code(s): J18.9 - Pneumonia , unspecified organism Is this a current diagnosis for this admission?: Yes (4) Coronary artery disease Is this a current diagnosis for this admission?: Yes - Time Time Spent with patient: We'll switch medications to by mouth Patient to continue doxycycline and Tamiflu Decrease prednisone Discharge in a.m. if stable Time Spent with patient: 25-34 minutes
[2016-08-22] MEDS ORDERED: PREDNISONE 20 MG TABLET PO ONE (14:00)
[2016-08-22] MEDS ORDERED: VANCOMYCIN HCL 1,500 MG in DEXTROSE 5%-WATER 250 ML IV SCH (15:00)
[2016-08-22] MEDS: ATORVASTATIN CALCIUM 40 MG TABLET PO SCH (22:12)
[2016-08-22] MEDS: MONTELUKAST SODIUM 10 MG TABLET PO SCH (22:12)
[2016-08-22] MEDS: DOXYCYCLINE HYCLATE 100 MG TABLET PO SCH (22:12)
[2016-08-23] MEDS: BENZONATATE 100 MG CAPSULE PO SCH (06:24)
[2016-08-23] MEDS: ACETAMINOPHEN 325 MG TABLET PO PRN (06:26)
--- NOTE | 2016-08-23 07:46 | PDOC DISCHARGE SUMMARY ---
General - Admit/Disc Date/PCP Admission Date/Primary Care Provider: 08/18/16 19:32 BLAINE MCKAY, Discharge Date: 08/23/16 - Discharge Diagnosis (1) COPD exacerbation Is this a current diagnosis for this admission?: Yes (2) Bacterial pneumonia Is this a current diagnosis for this admission?: Yes (3) CAD (coronary artery disease) Is this a current diagnosis for this admission?: Yes (4) Influenza Is this a current diagnosis for this admission?: Yes (5) Hypertensive disorder, systemic arterial Is this a current diagnosis for this admission?: Yes - Additional Information Resuscitation Status: Full Code Home Medications: Aspirin [Aspirin 81 mg Chewable Tablet] 81 mg PO DAILY 04/13/16 Atorvastatin Calcium [Lipitor 40 mg Tablet] 40 mg PO DAILY 04/13/16 Cetirizine HCl [Zyrtec] 10 mg PO DAILY 04/13/16 Clopidogrel Bisulfate [Plavix] 75 mg PO DAILY 04/13/16 Cyanocobalamin (Vitamin B-12) [B-12] 1,000 mcg PO DAILY 04/13/16 Esomeprazole Mag Trihydrate [Nexium] 40 mg PO DAILY 04/13/16 Fluticasone/Salmeterol [Advair 250-50 Diskus 28 dose] 1 inh IH Q12 04/13/16 Folic Acid 1 mg PO DAILY 04/13/16 Gabapentin 300 mg PO Q12 04/13/16 Isosorbide Mononitrate [Imdur 30 mg Tablet.er] 30 mg PO DAILY 04/13/16 Metoprolol Succinate 50 mg PO DAILY 04/13/16 Montelukast Sodium 10 mg PO QHS 04/13/16 Ranolazine [Ranexa 500 mg Tab.sr] 500 mg PO Q12 04/13/16 Tiotropium [place] [Spiriva Handihaler 18 mcg/dose (30 Dose)] 1 cap IH DAILY 04/24 Tramadol HCl [Ultram 50 mg Tablet] 50 mg PO TID 08/18/16 Doxycycline Hyclate [Vibramycin 100 mg Tablet] 100 mg PO Q12 #10 tablet Oseltamivir Phosphate [Tamiflu 75 mg Capsule] 75 mg PO BID #4 capsule 08/23/16 Prednisone [Deltasone 20 mg Tablet] 20 mg PO DAILY #20 tablet 08/23/16 History of Present Illness History of Present Illness: HARVEY YBARRA is a 76 year old male Hospital Course Hospital Course: The patient did well during hospitalization. His upper respiratory symptoms have improved. He tolerated medications well. Physical Exam Vital Signs: Temp Pulse Resp BP Pulse Ox 98.0 F 60 16 153/76 H 94 08/23/16 03:59 08/23/16 03:59 08/23/16 03:59 08/23/16 03:59 08/23/16 03:59 Intake & Output 08/22/16 08/23/16 08/24/16 06:59 06:59 06:59 Intake Total 2474 1496 Output Total 1100 Balance 2474 396 Weight 95.2 kg 95.2 kg General appearance: PRESENT: no acute distress Head exam: PRESENT: atraumatic Eye exam: PRESENT: conjunctiva pink Neck exam: ABSENT: carotid bruit Respiratory exam: PRESENT: rhonchi. ABSENT: wheezes Cardiovascular exam: PRESENT: RRR, +S1, +S2 Pulses: PRESENT: normal carotid pulses GI/Abdominal exam: PRESENT: normal bowel sounds, soft Extremities exam: PRESENT: full ROM Musculoskeletal exam: PRESENT: ambulatory Neurological exam: PRESENT: alert, awake Results Laboratory Results: 08/22/16 03:10 08/22/16 03:10 08/20/16 08/20/16 08/21/16 13:47 19:25 01:25 Troponin I < 0.012 < 0.012 < 0.012 Impressions: Chest X-Ray 08/19/16 00:00 IMPRESSION: COPD AND CHRONIC CHANGES ABOVE. INCREASED DENSITY IN THE RIGHT LUNG BASE SUSPICIOUS FOR PNEUMONIA. Chest/Abdomen CTA 08/20/16 13:26 IMPRESSION: 1. NORMAL CTA OF THE CHEST. NO PULMONARY EMBOLI. 2. COPD. SCATTERED LINEAR DENSITIES IN THE LUNG BASES MOST CONSISTENT WITH ATELECTASIS AND SCARRING. THIS CORRESPONDS WITH THE DENSITY SEEN ON THE RECENT CHEST X-RAY. PNEUMONIA IS FELT TO BE LESS LIKELY. 3. DILATION OF THE ASCENDING THORACIC AORTA, CURRENTLY MEASURING 4.6 CM. PREVIOUS MEASUREMENTS UP TO 5 CM. NO DISSECTION. Plan Discharge Plan: The patient is being discharged home. Continue current medications. Complete antibiotics and steroids. Follow up in the office in one week and when necessary thank you
[2016-08-23] MEDS: IPRATROPIUM/ALBUTEROL 0.5-2.5 MG/3 ML AMPUL NEB SCH (08:22)
[2016-08-23 08:29] VITALS: BP 123/55
[2016-08-23] MEDS: LANSOPRAZOLE 30 MG TAB.RAP.DR PO SCH (09:22)
[2016-08-23] MEDS: CLOPIDOGREL BISULFATE 75 MG TABLET PO SCH (09:23)
[2016-08-23] MEDS: FLUTICASONE/SALMETEROL DISKUS 250-50 MCG/DOSE IH SCH (09:23)
[2016-08-23] MEDS: ASPIRIN 81 MG TABLET, CHEWABLE PO SCH (09:23)
[2016-08-23] MEDS: DOCUSATE SODIUM 100 MG CAPSULE PO SCH (09:24)
[2016-08-23] MEDS: FLUTICASONE NASAL SPRAY 50 MCG/SPRY 120 SPRAY/16 GM NASL SCH (09:24)
[2016-08-23] MEDS: CYANOCOBALAMIN (VITAMIN B-12) 1,000 MCG TABLET PO SCH (09:25)
[2016-08-23] MEDS: FOLIC ACID 1 MG TABLET PO SCH (09:25)
[2016-08-23] MEDS: CETIRIZINE 10 MG TABLET PO SCH (09:25)
[2016-08-23] MEDS: GABAPENTIN 300 MG CAPSULE PO SCH (09:25)
[2016-08-23] MEDS: OSELTAMIVIR PHOSPHATE 75 MG CAPSULE PO SCH (09:25)
[2016-08-23] MEDS: ISOSORBIDE MONONITRATE 30 MG TAB.ER.24H PO SCH (09:26)
[2016-08-23] MEDS: DOXYCYCLINE HYCLATE 100 MG TABLET PO SCH (09:26)
[2016-08-23] MEDS: METOPROLOL SUCCINATE 50 MG TAB.SR.24H PO SCH (09:26)
[2016-08-23] MEDS ORDERED: PREDNISONE 20 MG TABLET PO SCH (10:00)
== END 2016-08-23 11:13 | disposition home or self-care (01) | DRG 190 ==
LOC: ER 17:53 → EH 19:32 → UNDOADMIN 21:31 → 4N 08-19 02:09
PROVIDERS: ADMIT Internal Medicine; ATTEND Internal Medicine
PROC: 3E0F73Z Introduction of Anti-inflammatory into Respiratory Tract, Via Natural or Artificial Opening (ICD-10-PCS; principal; 2016-08-18)
PROC: 5A09457 Assistance with Respiratory Ventilation, 24-96 Consecutive Hours, Continuous Positive Airway Pressure (ICD-10-PCS; 2016-08-18)
DX: J44.0 Chronic obstructive pulmonary disease with (acute) lower respiratory infection (principal); J15.9 Unspecified bacterial pneumonia; J44.1 Chronic obstructive pulmonary disease with (acute) exacerbation; I25.10 Atherosclerotic heart disease of native coronary artery without angina pectoris; I10 Essential (primary) hypertension; J11.1 Influenza due to unidentified influenza virus with other respiratory manifestations; I77.810 Thoracic aortic ectasia; E78.5 Hyperlipidemia, unspecified; I73.9 Peripheral vascular disease, unspecified; I51.7 Cardiomegaly; M19.90 Unspecified osteoarthritis, unspecified site; K21.9 Gastro-esophageal reflux disease without esophagitis; Z79.899 Other long term (current) drug therapy; Z95.1 Presence of aortocoronary bypass graft; Z79.82 Long term (current) use of aspirin; Z88.6 Allergy status to analgesic agent; Z88.8 Allergy status to other drugs, medicaments and biological substances; Z80.9 Family history of malignant neoplasm, unspecified
CPT/HCPCS: 36415; 71020; 71275; 80053; 80202; 81001; 82803; 83605; 84484; 85025; 85610; 87040; 87086; 93005; 93010; 94667; 94668; 94799; 99291; J0692; J1644; J1956; J2930; J3370; J3475; J3490; J7030; J7060; J7512; J7620; S0119

== ENCOUNTER → 2017-03-02 | Outpatient (CLI) | payer BC, MEDICARE, OTHER ==
[2017-03-02 15:48] LABS: ABSOLUTE EOSINOPHILS # (AUTO) 0.2 10^3/uL (0.0-0.6); ABSOLUTE LYMPHOCYTES (AUTO) 1.6 10^3/uL (0.5-4.7); ABSOLUTE MONOCYTES (AUTO) 0.6 10^3/uL (0.1-1.4); ABSOLUTE NEUT (AUTO) 6.4 10^3/uL (1.7-8.2); BASOPHILS % (AUTO) 0.5 % (0-2); EOSINOPHILS % (AUTO) 1.7 % (0-6); HEMOGLOBIN 11.5 g/dL (13.5-17.0); HGB HCT DIFFERENCE 0.5; LYMPHOCYTES % (AUTO) 18.7 % (13-45); MEAN CORPUSCULAR HEMOGLOBIN 26.7 pg (27.0-33.4); MEAN CORPUSCULAR VOLUME 78 fl (80-97); MONOCYTES % (AUTO) 6.8 % (3-13); RED BLOOD COUNT 4.33 10^6/uL (4.35-5.55); RED CELL DISTRIBUTION WIDTH 16.2 % (11.5-14.0); SEGMENTED NEUTROPHILS % (AUTO) 72.3 % (42-78); WHITE BLOOD COUNT 8.8 10^3/uL (4.0-10.5)
--- NOTE | 2017-03-02 15:52 | RADIOLOGY REPORT (SQ) ---
EXAM DESCRIPTION: CHEST PA/LATERAL COMPLETED DATE/TIME: 03/02/2017 3:38 pm REASON FOR STUDY: SHORTNESS OF BREATH,COUGH COMPARISON: CT chest 02/19/2016, 04/12/2016, 08/20/2016 Chest films 02/19/2016, 04/12/2016, 08/19/2016 EXAM PARAMETERS: NUMBER OF VIEWS: two views TECHNIQUE: Digital Frontal and Lateral radiographic views of the chest acquired. RADIATION DOSE: NA LIMITATIONS: none FINDINGS: LUNGS AND PLEURA: Minimal bibasilar bandlike atelectasis. No fluffy alveolar infiltrates worrisome for edema or pneumonia. No pleural effusion. No pneumothor ax. MEDIASTINUM AND HILAR STRUCTURES: No masses or contour abnormalities. HEART AND VASCULAR STRUCTURES: Moderate cardiomegaly. Old sternotomy and CABG. BONES: Osteopenic. No thoracic compression fractures HARDWARE: None in the chest. OTHER: No other significant finding. IMPRESSION: Bibasilar bandlike atelectasis or scarring TECHNICAL DOCUMENTATION: JOB ID: [id number] [employer]- All Rights Reserved
== END ==
LOC: OD 15:04
PROVIDERS: ATTEND Internal Medicine
DX: J06.9 Acute upper respiratory infection, unspecified (principal); J20.9 Acute bronchitis, unspecified; R06.02 Shortness of breath; R05 Cough
CPT/HCPCS: 36415; 71020; 85025

== ENCOUNTER → 2017-04-12 | Outpatient (CLI) | payer BC, MEDICARE, OTHER ==
--- NOTE | 2017-04-12 16:39 | RADIOLOGY REPORT (SQ) ---
EXAM DESCRIPTION: KNEE LEFT 2 VIEWS COMPLETED DATE/TIME: 04/12/2017 4:24 pm REASON FOR STUDY: PAIN IN LEFT KNEE M25.562 PAIN IN LEFT KNEE COMPARISON: April 2016 NUMBER OF VIEWS: Two views TECHNIQUE: AP and lateral radiographic images acquired of the left knee. LIMITATIONS: None. FINDINGS: MINERALIZATION: Normal. BONES: There is some residual cortical irregularity and residual depression of the lateral tibial [place] related to the previously described lateral tibial plateau fracture. No definite acute changes are identified. Patellar spurring is identified. JOINT: No effusion. SOFT TISSUES: No soft tissue swelling. No radio-opaque foreign body. Vascular calcifications are ag ain identified. OTHER: Multiple surgical clips are again identified IMPRESSION: No acute changes are identified. There is some residual cortical irregularity and resid ual depression of the lateral tibial plateau related to the previously described lateral tibial plate au fracture. Other findings as noted above TECHNICAL DOCUMENTATION: JOB ID: [id number] [employer]- All Rights Reserved
== END ==
LOC: OD 15:45
PROVIDERS: ATTEND Internal Medicine
DX: M25.562 Pain in left knee (principal)

== ENCOUNTER → 2017-05-06 | Outpatient (CLI) | payer BC, MEDICARE, OTHER ==
--- NOTE | 2017-05-06 16:19 | RADIOLOGY REPORT (SQ) ---
EXAM DESCRIPTION: MRI LT LOWER JOINT WITHOUT COMPLETED DATE/TIME: 05/06/2017 3:08 pm REASON FOR STUDY: S82.142A DISPLACED BICONDYLAR FRACTURE OF LEFT TIBIA, INIT S82.142A DISPLACED BIC ONDYLAR FRACTURE OF LEFT TIBIA, INIT COMPARISON: Plain radiograph TECHNIQUE: Leftknee images acquired and stored on PACS. Multiplanar images include fat sensitive se quences as T1, water sensitive sequences as FST2 or STIR, cartilage sensitive sequences as FSPD, and gradient echo sequences. LIMITATIONS: None. FINDINGS: JOINT AND BURSAE: Joint effusion. 5 cm popliteal cyst. BONE CORTEX AND MARROW: No alteration of signal to suggest marrow replacement. No worrisome bone lesi ons. No occult fracture. ACL: Intact. No degeneration or ganglion cyst. PCL: Intact. MCL: Intact. No periligamentous edema or fluid. LCL: Intact. No periligamentous edema or fluid. MEDIAL MENISCUS: Flap tear of the posterior horn the medial meniscus. The flap is displaced inferior ly along the medial joint line. LATERAL MENISCUS: No tears. No abnormal signal. MEDIAL COMPARTMENT: Cartilage preserved. No bone bruises or reactive marrow edema. No osteophytes. LATERAL COMPARTMENT: Cartilage preserved. No bone bruises or reactive marrow edema. No osteophytes. 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 Trochlear cartilage is normal. EXTENSOR MECHANISM: Intact. Quadriceps and patella tendons normal. SOFT TISSUES: Adjacent muscles and subcutaneous tissues normal. Normal flow void in popliteal artery and vein. OTHER: No other significant finding. IMPRESSION: Flap tear with a displaced fragment along the medial joint line medial meniscus. Large joint effusion with popliteal cyst. TECHNICAL DOCUMENTATION: JOB ID: [id number] [employer]- All Rights Reserved
== END ==
LOC: RAD 04-28 07:22
PROVIDERS: ATTEND Internal Medicine
DX: S82.142A Displaced bicondylar fracture of left tibia, initial encounter for closed fracture (principal); X58.XXXA Exposure to other specified factors, initial encounter

== ENCOUNTER 2017-06-15 05:36 | Day surgery (SDC) | payer BC, MEDICARE, OTHER ==
[2017-06-09 10:49] LABS: ABSOLUTE EOSINOPHILS # (AUTO) 0.2 10^3/uL (0.0-0.6); ABSOLUTE LYMPHOCYTES (AUTO) 1.4 10^3/uL (0.5-4.7); ABSOLUTE MONOCYTES (AUTO) 0.5 10^3/uL (0.1-1.4); ABSOLUTE NEUT (AUTO) 5.4 10^3/uL (1.7-8.2); BASOPHILS % (AUTO) 0.6 % (0-2); EOSINOPHILS % (AUTO) 2.3 % (0-6); HEMATOCRIT 34.3 % (37.9-51.0); HEMOGLOBIN 11.1 g/dL (13.5-17.0); LYMPHOCYTES % (AUTO) 19.1 % (13-45); MEAN CORPUSCULAR HEMOGLOBIN 24.5 pg (27.0-33.4); MEAN CORPUSCULAR HGB CONC 32.2 g/dL (32.0-36.0); MEAN CORPUSCULAR VOLUME 76 fl (80-97); MONOCYTES % (AUTO) 6.9 % (3-13); PLATELET COUNT 241 10^3/uL (150-450); RED BLOOD COUNT 4.52 10^6/uL (4.35-5.55); RED CELL DISTRIBUTION WIDTH 15.9 % (11.5-14.0); SEGMENTED NEUTROPHILS % (AUTO) 71.1 % (42-78); TOTAL CELLS COUNTED % (AUTO) 100 %; WHITE BLOOD COUNT 7.6 10^3/uL (4.0-10.5)
[2017-06-09 10:57] LABS: APPEARANCE,URINE CLEAR; BILIRUBIN,URINE NEGATIVE (NEGATIVE); COLOR,URINE YELLOW; GLUCOSE, URINE NEGATIVE (NEGATIVE); KETONES,URINE NEGATIVE (NEGATIVE); LEUKOCYTE ESTERASE,URINE NEGATIVE (NEGATIVE); NITRITE,URINE NEGATIVE (NEGATIVE); PROTEIN,URINE NEGATIVE (NEGATIVE); URINE SPECIFIC GRAVITY 1.025; UROBILINOGEN,URINE NEGATIVE mg/dL (<2.0)
[2017-06-09 11:07] LABS: ANION GAP 9 (5-19); BLOOD UREA NITROGEN 22 mg/dL (7-20); CALCIUM 9.5 mg/dL (8.4-10.2); CARBON DIOXIDE 25 mmol/L (22-30); CHLORIDE 108 mmol/L (98-107); GLUCOSE 99 mg/dL (75-110); POTASSIUM 4.7 mmol/L (3.6-5.0); SODIUM 142.2 mmol/L (137-145)
--- NOTE | 2017-06-09 11:29 | RADIOLOGY REPORT (SQ) ---
EXAM DESCRIPTION: CHEST PA/LATERAL COMPLETED DATE/TIME: 06/09/2017 10:38 am REASON FOR STUDY: PRE-OP COMPARISON: TWO-VIEW CHEST 03/02/2017, 08/19/2016, 04/12/2016 CT ANGIO CHEST 08/20/2016, 04/12/2016 EXAM PARAMETERS: NUMBER OF VIEWS: two views TECHNIQUE: Digital Frontal and Lateral radiographic views of the chest acquired. RADIATION DOSE: NA LIMITATIONS: none FINDINGS: LUNGS AND PLEURA: Mild bibasilar bandlike atelectasis. No fluffy alveolar infiltrates worrisome for edema or pneumonia. No pleural effusion. No pneumothorax. MEDIASTINUM AND HILAR STRUCTURES: No masses or contour abnormalities. HEART AND VASCULAR STRUCTURES: Stable moderate cardiomegaly, old sternotomy and CABG BONES: Osteopenic with multilevel thoracic spine degenerative disc changes HARDWARE: None in the chest. OTHER: No other significant finding. IMPRESSION: Bibasilar bandlike atelectasis or scarring TECHNICAL DOCUMENTATION: JOB ID: [id number] [employer]- All Rights Reserved
--- NOTE | 2017-06-09 12:59 | EKG REPORT ---
SEVERITY:- OTHERWISE NORMAL ECG - SINUS BRADYCARDIA ATRIAL PREMATURE COMPLEX : Confirmed by: Gregory Pascual MD 09-Jun-2017 12:58:30
[~2017-06-15 05:36] MED LIST: CEFAZOLIN 2 GM/D5W RTU 2 GM/50 ML RTUPB IV PRN; LACTATED RINGERS 1000 ML IV PRN; LIDOCAINE 0.5% INJ-PF (5 MG/ML) 50 ML SDV SUBCUT PRN
[2017-06-15 06:20] LABS: INTERNATIONAL RATION (INR) 1.13; PROTHROMBIN TIME 15.3 SEC (11.4-15.4)
[2017-06-15 06:21] LABS: PARTIAL THROMBOPLASTIN TIME 30.4 SEC (23.5-35.8)
[2017-06-15] MEDS ORDERED: ALBUTEROL SULFATE 0.083% NEB 2.5 MG/3 ML AMPUL NEB ONE (06:22)
[2017-06-15] MEDS ORDERED: BUPIVACAINE HCL 0.5 % INJ/PF 30 ML SDV ONE (06:43)
[2017-06-15] MEDS ORDERED: LIDOCAINE 1%/EPINEPHRINE INJ 20 ML VIAL ONE (06:44)
[2017-06-15] MEDS ORDERED: MIDAZOLAM 2 MG/2 ML INJ ONE (07:11)
[2017-06-15] MEDS ORDERED: FENTANYL CITRATE INJ/PF 100 MCG/2 ML AMPUL ONE (07:11)
[2017-06-15] MEDS ORDERED: EPHEDRINE SULFATE INJ 50 MG/1 ML AMPULE ONE (07:12)
[2017-06-15] MEDS ORDERED: PROPOFOL INJ 200 MG/20 ML VIAL IV ONE (07:12)
[2017-06-15] MEDS ORDERED: KETAMINE HCL INJ 500 MG/10 ML VIAL ONE (07:12)
[2017-06-15] MEDS ORDERED: MEPERIDINE HCL/PF INJ 25 MG/1 ML DISP.SYRIN IV PRN (07:44)
[2017-06-15] MEDS ORDERED: DIPHENHYDRAMINE HCL 50 MG/ML VIAL IV PRN (07:44)
[2017-06-15] MEDS ORDERED: PROMETHAZINE HCL INJ 25 MG/1 ML VIAL IV PRN ×2 (07:44)
[2017-06-15] MEDS ORDERED: FENTANYL CITRATE INJ/PF 100 MCG/2 ML AMPUL IV PRN ×3 (07:44)
[2017-06-15] MEDS ORDERED: OXYCODONE-ACETAMINOPHEN 5-325 MG TABLET PO PRN ×2 (07:44)
[2017-06-15] MEDS ORDERED: MORPHINE SULFATE 10 MG/ML INJ IV PRN (07:44)
--- NOTE | 2017-06-15 07:54 | Operative Report ---
Operative Report DATE OF SURGERY: 06/15/17 PREOPERATIVE DIAGNOSIS: Left medial meniscal tear POSTOPERATIVE DIAGNOSIS: Left medial meniscal tear. Grade II-III chondromalacia the medial compartment. Intact ACL. Grade 1-2 chondral malacia lateral compartment. Lateral meniscal tear. 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 The knee is insufflated with combination of Marcaine, Xylocaine, and epinephrine. Subsequent medial lateral infrapatellar portals are created for the introduction of the arthroscope and debridement instrumentation. These are inserted. Subsequent the joint is examined in a systematic fashion with the findings as above. Using a combination of mechanical rondure, mechanical shaver, electric frequency ablation probe a partial medial meniscectomy was performed from approximately 8:00 to 12:00 on the face of the dial. Partial lateral meniscectomy performed from approximately 3:00 to 12:00 on the face of the dial. The joint is again examined in systematic fashion with no new findings. Instrumentation was removed. Portals closed with interrupted nylon. Sterile compressive dressing is applied. The patient's return to the PACU in satisfactory condition.
[2017-06-15] MEDS ORDERED: OXYCODONE HCL IR 5 MG TABLET PO PRN (08:13)
[2017-06-15] MEDS ORDERED: ONDANSETRON 4 MG TAB.RAPDIS SL PRN (08:14)
[2017-06-15 10:23] VITALS: BP 173/83
[2017-06-15] MEDS ORDERED: DEXAMETHASONE SOD PHOSPHATE INJ 4 MG/1 ML VIAL ONE (10:57)
[2017-06-15] MEDS ORDERED: LIDOCAINE 2% INJ-PF (20 MG/ML) 2 ML AMPUL ONE (10:57)
== END 2017-06-15 09:30 | disposition home or self-care (01) ==
LOC: OROUT 05:36
PROVIDERS: ATTEND Orthopaedic Surgery
PROC: 0SBD4ZZ Excision of Left Knee Joint, Percutaneous Endoscopic Approach (ICD-10-PCS; 2017-06-15)
PROC: 0SBD4ZZ Excision of Left Knee Joint, Percutaneous Endoscopic Approach (ICD-10-PCS; principal; 2017-06-15 07:30)
DX: S83.222A Peripheral tear of medial meniscus, current injury, left knee, initial encounter (principal); S83.282A Other tear of lateral meniscus, current injury, left knee, initial encounter; X58.XXXA Exposure to other specified factors, initial encounter; M22.42 Chondromalacia patellae, left knee; E78.5 Hyperlipidemia, unspecified; I10 Essential (primary) hypertension; J44.9 Chronic obstructive pulmonary disease, unspecified; K21.9 Gastro-esophageal reflux disease without esophagitis; M19.90 Unspecified osteoarthritis, unspecified site; Z88.5 Allergy status to narcotic agent; Z79.51 Long term (current) use of inhaled steroids; Z79.82 Long term (current) use of aspirin; Z79.899 Other long term (current) drug therapy; Z79.891 Long term (current) use of opiate analgesic
CPT/HCPCS: 93005; 36415 ×2; 85025; 85610; 85730; 80048; 81001; 71046; 93010; 29880; J2250; J3490 ×4; J1100; J3010; J2704; J0690; 1400

== ENCOUNTER → 2017-08-24 | Outpatient (CLI) | payer BC, MEDICARE, OTHER ==
--- NOTE | 2017-08-24 14:52 | RADIOLOGY REPORT (SQ) ---
EXAM DESCRIPTION: CTA CHEST COMPLETED DATE/TIME: 08/24/2017 2:30 pm REASON FOR STUDY: THORACIC AORTIC ANEURYSM (I71.2) I71.2 THORACIC AORTIC ANEURYSM, WITHOUT RUPTURE COMPARISON: 2016. TECHNIQUE: CT scan of the chest performed using helical scanning technique with dynamic intravenous contrast injection. Images reviewed with lung, soft tissue and bone windows. Reconstructed coronal and sagittal MPR images reviewed. Additional 3 dimensional post-processing performed to develop Maximal Intensity Projection images (ME P). All images stored on PACS. All CT scanners at this facility use dose modulation, iterative reconstruction, and/or weight based d osing when appropriate to reduce radiation dose to as low as reasonably achievable (ALARA). [facility]: Dose Right [facility]: CareDose [facility]: Dose Right [facility]: Teradose 4D [facility]: IPM [place] CONTRAST TYPE AND DOSE: contrast/concentration: Isovue 370.00 mg/ml; Total Contrast Delivered: 58.0 ml; Total Saline Delivered: 72.0 ml Contrast bolus optimized for the aorta. Limited assessment of the pulmonary arteries. RENAL FUNCTION: GFR > 60. RADIATION DOSE: CT Rad equipment meets quality standard of care and radiation dose reduction techniq ues were employed. CTDIvol: 14.4 - 37.6 mGy. DLP: 568 mGy-cm. . LIMITATIONS: None. FINDINGS: LUNGS AND PLEURA: Mild motion artifact. No acute or suspicious lesions or significant ple ural disease. AORTA AND GREAT VESSELS: Dilated ascending aorta, 4.5 cm. No change detected. No dissection. Great vessel origins look normal. HEART: Cardiac enlargement without pericardial fluid. Previous CABG. PULMONARY ARTERIES: No gross central thrombus. Limited assessment due to contrast bolus. HILAR AND MEDIASTINAL STRUCTURES: No identified masses or abnormal nodes. HARDWARE: None in the chest. UPPER ABDOMEN: No significant findings. Limited exam. THYROID AND OTHER SOFT TISSUES: No masses. No adenopathy. BONES: No acute or significant finding. 3D MIPS: Confirm above findings. OTHER: No other significant finding. IMPRESSION: 1. Stable dilation of the ascending aorta, 4.5 cm. COMMENT: Quality ID # [id number]: Final reports with documentation of one or more dose reduction techniques (e.g., Automated exposure control, adjustment of the mA and/or kV according to patient size, use of iterative reconstruction technique) TECHNICAL DOCUMENTATION: JOB ID: [id number] [employer]- All Rights Reserved Reading location - IP/workstation name: [email or web address]
== END ==
LOC: RAD 13:33
PROVIDERS: ATTEND Internal Medicine Cardiovascular Disease
DX: I71.2 Thoracic aortic aneurysm, without rupture (principal)
CPT/HCPCS: 71275; 82565

== ENCOUNTER 2017-10-02 06:06 | Emergency (ER) | payer BC, MEDICARE, OTHER ==
[2017-10-02 07:42] LABS: ABSOLUTE EOSINOPHILS # (AUTO) 0.1 10^3/uL (0.0-0.6); ABSOLUTE LYMPHOCYTES (AUTO) 1.2 10^3/uL (0.5-4.7); ABSOLUTE MONOCYTES (AUTO) 0.8 10^3/uL (0.1-1.4); ABSOLUTE NEUT (AUTO) 6.6 10^3/uL (1.7-8.2); BASOPHILS % (AUTO) 0.5 % (0-2); EOSINOPHILS % (AUTO) 1.7 % (0-6); HEMATOCRIT 36.1 % (37.9-51.0); HEMOGLOBIN 11.7 g/dL (13.5-17.0); LYMPHOCYTES % (AUTO) 13.8 % (13-45); MEAN CORPUSCULAR HEMOGLOBIN 24.8 pg (27.0-33.4); MEAN CORPUSCULAR HGB CONC 32.5 g/dL (32.0-36.0); MEAN CORPUSCULAR VOLUME 76 fl (80-97); MONOCYTES % (AUTO) 8.8 % (3-13); PLATELET COUNT 216 10^3/uL (150-450); RED BLOOD COUNT 4.72 10^6/uL (4.35-5.55); SEGMENTED NEUTROPHILS % (AUTO) 75.2 % (42-78); TOTAL CELLS COUNTED % (AUTO) 100 %; WHITE BLOOD COUNT 8.7 10^3/uL (4.0-10.5)
[2017-10-02 07:44] LABS: INTERNATIONAL RATION (INR) 1.07; PROTHROMBIN TIME 14.4 SEC (11.4-15.4)
[2017-10-02 07:59] LABS: ALANINE AMINOTRANSFERASE 26 U/L (21-72); ALBUMIN 4.2 g/dL (3.5-5.0); ALKALINE PHOSPHATASE 98 U/L (38-126); ANION GAP 12 (5-19); ASPARTATE AMINO TRANSFERASE 22 U/L (17-59); BILIRUBIN,DIRECT 0.3 mg/dL (0.0-0.4); BILIRUBIN,TOTAL 0.3 mg/dL (0.2-1.3); BLOOD UREA NITROGEN 23 mg/dL (7-20); CALCIUM 9.3 mg/dL (8.4-10.2); CARBON DIOXIDE 28 mmol/L (22-30); CHLORIDE 106 mmol/L (98-107); CREATINE KINASE 89 U/L (55-170); GLUCOSE 97 mg/dL (75-110); POTASSIUM 4.3 mmol/L (3.6-5.0); SODIUM 146.1 mmol/L (137-145); TOTAL PROTEIN 7.2 g/dL (6.3-8.2)
[2017-10-02 08:09] LABS: CREATINE KINASE MB 6.64 ng/mL (<4.55)
[2017-10-02 08:11] LABS: TROPONIN I 0.685 ng/mL
--- NOTE | 2017-10-02 08:17 | RADIOLOGY REPORT (SQ) ---
EXAM DESCRIPTION: CHEST 2 VIEWS COMPLETED DATE/TIME: 10/02/2017 7:50 am REASON FOR STUDY: sob COMPARISON: 08/19/2016 EXAM PARAMETERS: NUMBER OF VIEWS: two views TECHNIQUE: Digital Frontal and Lateral radiographic views of the chest acquired. RADIATION DOSE: NA LIMITATIONS: none FINDINGS: LUNGS AND PLEURA: Chronic interstitial changes. Scarring in the lung bases. Mild hyperin flation. Attenuated vessels. MEDIASTINUM AND HILAR STRUCTURES: Stable. HEART AND VASCULAR STRUCTURES: Stable cardiomegaly. BONES: No acute findings. HARDWARE: CABG. OTHER: No other significant finding. IMPRESSION: COPD. Cardiomegaly. No acute findings. TECHNICAL DOCUMENTATION: JOB ID: [id number] [employer]- All Rights Reserved Reading location - IP/workstation name: [email or web address]
[2017-10-02] MEDS ORDERED: IPRATROPIUM/ALBUTEROL 0.5-2.5 MG/3 ML AMPUL NEB ONE (08:53)
--- NOTE | 2017-10-02 09:04 | EKG REPORT ---
SEVERITY:- ABNORMAL ECG - SINUS RHYTHM LEFT VENTRICULAR HYPERTROPHY : Confirmed by: Gregory Pascual MD 02-Oct-2017 09:03:59
[2017-10-02] MEDS ORDERED: METOPROLOL SUCCINATE 50 MG TAB.SR.24H PO ONE (09:26)
[2017-10-02] MEDS ORDERED: CLOPIDOGREL BISULFATE 75 MG TABLET PO ONE (09:37)
[2017-10-02] MEDS ORDERED: ASPIRIN 325 MG TABLET PO ONE (09:37)
[2017-10-02 13:47] VITALS: BP 165/79
--- NOTE | 2017-10-02 13:59 | ER Document Report ---
ED General - General Chief Complaint: Shortness Of Breath Stated Complaint: DIFFICULTY BREATHING Time Seen by Provider: 10/02/17 06:47 TRAVEL OUTSIDE OF THE [place] IN LAST 30 DAYS: No - HPI Patient complains to provider of: Dyspnea Notes: Patient coming in for dyspnea patient is status post 2 stent placement at [facility] on the of this month. States shortness of breath since discharge denies any chest pain states chills shortness of breath worse at 2:00 this morning therefore came into the ER for further evaluation patient came in the 6:00. Patient denies any chest pain denies any fever chills nausea vomiting diarrhea denies productive cough. Patient does have a history of COPD states he has been compliant with his medications. Patient does not currently smoke. Patient catheterization was done through the right groin with dressing still in place. - Related Data Allergies/Adverse Reactions: codeine [Codeine] Adverse Reaction (Intermediate, Verified 06/09/17 08:57) Anxiety Past Medical History - Social History Smoking Status: Former Smoker Chew tobacco use (# tins/day): No Frequency of alcohol use: None Drug Abuse: None Family History: Malignancy Patient has suicidal ideation: No Patient has homicidal ideation: No - Past Medical History Cardiac Medical History: Reports: Hx Coronary Artery Disease, Hx Hypercholesterolemia, Hx Hypertension, Hx Peripheral Vascular Disease Denies: Hx Atrial Fibrillation, Hx Congestive Heart Failure, Hx DVT, Hx Heart Attack, Hx Pulmonary Embolism Pulmonary Medical History: Reports: Hx COPD, Hx Pneumonia Denies: Hx Asthma, Hx Bronchitis, Hx Tuberculosis Neurological Medical History: Denies: Hx Cerebrovascular Accident, Hx Seizures Endocrine Medical History: Denies: Hx Diabetes Mellitus Type 1, Hx Diabetes Mellitus Type 2, Hx Hyperthyroidism, Hx Hypothyroidism Renal/ Medical History: Denies: Hx Peritoneal Dialysis GI Medical History: Reports: Hx Gastroesophageal Reflux Disease, Hx Ulcer. Denies: Hx Cirrhosis, Hx Hepatitis Musculoskeltal Medical History: Reports Hx Arthritis - GENERALIZED Skin Medical History: Denies Hx Eczema, Denies Hx Psoriasis Psychiatric Medical History: Denies: Hx Depression Infectious Medical History: Denies: Hx Hepatitis Past Surgical History: Reports: Hx Appendectomy, Hx Cardiac Surgery - bipass, Hx Coronary Artery Bypass Graft - 5 VESSEL, September 1999, Hx Orthopedic Surgery - back, Hx Tonsillectomy. Denies: Hx Pacemaker - Immunizations Hx Diphtheria, Pertussis, Tetanus Vaccination: - UNSURE Hx Pneumococcal Vaccination: 05/09/14 Review of Systems - Review of Systems Constitutional: No symptoms reported EENT: No symptoms reported Cardiovascular: No symptoms reported Respiratory: Short of breath Gastrointestinal: No symptoms reported Genitourinary: No symptoms reported Male Genitourinary: No symptoms reported Musculoskeletal: No symptoms reported Skin: No symptoms reported Hematologic/Lymphatic: No symptoms reported Neurological/Psychological: No symptoms reported -: Yes All other systems reviewed and negative Physical Exam - Vital signs Vitals: Temp Pulse Resp BP Pulse Ox 97.9 F 57 L 28 H 174/77 H 97 10/02/17 06:22 10/02/17 06:22 10/02/17 06:22 10/02/17 06:22 10/02/17 06:22 Interpretation: Tachypneic - General General appearance: Appears well, Alert - HEENT Head: Normocephalic, Atraumatic Eyes: Normal Pupils: PERRL - Respiratory Respiratory status: No respiratory distress, Tachypnea Chest status: Nontender Breath sounds: Normal Chest palpation: Normal - Cardiovascular Rhythm: Regular Heart sounds: Normal auscultation Murmur: No - Abdominal Inspection: Normal Distension: No distension Bowel sounds: Normal Tenderness: Nontender Organomegaly: No organomegaly - Genitourinary Notes: Right groin with dressing in place no swelling or hematoma formation - Back Back: Normal, Nontender - Extremities General upper extremity: Normal inspection, Nontender, Normal color, Normal ROM , Normal temperature General lower extremity: Normal inspection, Nontender, Normal color, Normal ROM , Normal temperature, Normal weight bearing. No: Humberto's sign - Neurological Neuro grossly intact: Yes Cognition: Normal Orientation: AAOx4 [place] Coma Scale Eye Opening: Spontaneous [place] Coma Scale Verbal: Oriented Josh Coma Scale Motor: Obeys Commands Josh Coma Scale Total: 15 Speech: Normal Motor strength normal: LUE, RUE, LLE, RLE Sensory: Normal - Psychological Associated symptoms: Normal affect, Normal mood - Skin Skin Temperature: Warm Skin Moisture: Dry Skin Color: Normal Course - Re-evaluation Re-evalutation: 10/02/17 13:56 Patient seen for dyspnea with recent cardiac stent placement. Bedside ultrasound did not show any signs of pericardial effusion. Patient's chest x- ray also did not show any significant pathology. Examination revealed patient was tachypneic with a mild amount of wheezing mostly on the right side. Patient was given a breathing treatment with improvement of his breathing symptoms however patient's initial troponin did come back slightly elevated at 0.6. 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 An EKG was repeated upon my entrance into the examination room at the time EKG was being done patient stated that he was no longer having any chest pain. Patient was unable to quantify the length of time he was having pain to the point to the middle of his chest. EKG did not show any acute changes. Second troponin did return at 0.9. Patient has remained chest pain-free did discuss with our broach trouble shooter here at [facility] for possible observation however states that he would recommend the patient be transferred to the facility to perform a cardiac catheterization. Did discuss with Dr. Kerns at [facility] to accept the patient in transfer. Patient has remained chest pain-free during the rest of his stay here. At this time I believe the slight elevation in his troponin is more likely due to unless any dyspnea but I do believe that it will require observation due to lack of cardiology being able to observe the patient here patient will necessitate transfer - Vital Signs Vital signs: Temp Pulse Resp BP Pulse Ox 98.3 F 57 L 18 165/79 H 96 10/02/17 13:44 10/02/17 06:22 10/02/17 13:44 10/02/17 13:44 10/02/17 13:44 - Laboratory Result Diagrams: 10/02/17 07:05 10/02/17 07:05 Laboratory results interpreted by me: 10/02/17 10/02/17 10/02/17 07:05 07:05 07:05 Hgb 11.7 L Hct 36.1 L MCV 76 L MCH 24.8 L RDW 18.0 H Sodium 146.1 H BUN 23 H CK-MB (CK-2) 6.64 H NT-Pro-B Natriuret Pep 535 H Discharge - Discharge Clinical Impression: Dyspnea, Wheezing, Elevated troponin Condition: Stable Disposition: [facility] Referrals: BLAINE MCKAY MD [Primary Care Provider] - Follow up as needed
--- NOTE | 2017-10-02 14:38 | ER Document Report ---
ED General - General Chief Complaint: Shortness Of Breath Stated Complaint: DIFFICULTY BREATHING Time Seen by Provider: 10/02/17 06:47 TRAVEL OUTSIDE OF THE [place] IN LAST 30 DAYS: No - Related Data Allergies/Adverse Reactions: codeine [Codeine] Adverse Reaction (Intermediate, Verified 06/09/17 08:57) Anxiety Past Medical History - Social History Smoking Status: Former Smoker Chew tobacco use (# tins/day): No Frequency of alcohol use: None Drug Abuse: None Family History: Malignancy Patient has suicidal ideation: No Patient has homicidal ideation: No - Past Medical History Cardiac Medical History: Reports: Hx Coronary Artery Disease, Hx Hypercholesterolemia, Hx Hypertension, Hx Peripheral Vascular Disease Denies: Hx Atrial Fibrillation, Hx Congestive Heart Failure, Hx DVT, Hx Heart Attack, Hx Pulmonary Embolism Pulmonary Medical History: Reports: Hx COPD, Hx Pneumonia Denies: Hx Asthma, Hx Bronchitis, Hx Tuberculosis Neurological Medical History: Denies: Hx Cerebrovascular Accident, Hx Seizures Endocrine Medical History: Denies: Hx Diabetes Mellitus Type 1, Hx Diabetes Mellitus Type 2, Hx Hyperthyroidism, Hx Hypothyroidism Renal/ Medical History: Denies: Hx Peritoneal Dialysis GI Medical History: Reports: Hx Gastroesophageal Reflux Disease, Hx Ulcer. Denies: Hx Cirrhosis, Hx Hepatitis Musculoskeltal Medical History: Reports Hx Arthritis - GENERALIZED Skin Medical History: Denies Hx Eczema, Denies Hx Psoriasis Psychiatric Medical History: Denies: Hx Depression Infectious Medical History: Denies: Hx Hepatitis Past Surgical History: Reports: Hx Appendectomy, Hx Cardiac Surgery - bipass, Hx Coronary Artery Bypass Graft - 5 VESSEL, September 1999, Hx Orthopedic Surgery - back, Hx Tonsillectomy. Denies: Hx Pacemaker - Immunizations Hx Diphtheria, Pertussis, Tetanus Vaccination: - UNSURE Hx Pneumococcal Vaccination: 05/09/14 Physical Exam - Vital signs Vitals: Temp Pulse Resp BP Pulse Ox 97.9 F 57 L 28 H 174/77 H 97 10/02/17 06:22 10/02/17 06:22 10/02/17 06:22 10/02/17 06:22 10/02/17 06:22 Course - Vital Signs Vital signs: Temp Pulse Resp BP Pulse Ox 98.3 F 57 L 18 165/79 H 96 10/02/17 13:44 10/02/17 06:22 10/02/17 13:44 10/02/17 13:44 10/02/17 13:44 - Laboratory Result Diagrams: 10/02/17 07:05 10/02/17 07:05 Laboratory results interpreted by me: 10/02/17 10/02/17 10/02/17 07:05 07:05 07:05 Hgb 11.7 L Hct 36.1 L MCV 76 L MCH 24.8 L RDW 18.0 H Sodium 146.1 H BUN 23 H CK-MB (CK-2) 6.64 H NT-Pro-B Natriuret Pep 535 H Discharge - Discharge Clinical Impression: Dyspnea, Wheezing, Elevated troponin Condition: Stable Disposition: [facility] Referrals: BLAINE MCKAY MD [Primary Care Provider] - Follow up as needed
--- NOTE | 2017-10-02 14:45 | EKG REPORT ---
SEVERITY:- ABNORMAL ECG - ECTOPIC ATRIAL RHYTHM LEFT VENTRICULAR HYPERTROPHY : Confirmed by: Gregory Pascual MD 02-Oct-2017 14:45:20
== END 2017-10-02 14:15 | disposition short-term general hospital (02) ==
LOC: ER 06:06
DX: R06.02 Shortness of breath (principal); R06.00 Dyspnea, unspecified; R06.2 Wheezing; R94.8 Abnormal results of function studies of other organs and systems; E78.00 Pure hypercholesterolemia, unspecified; J44.9 Chronic obstructive pulmonary disease, unspecified; I25.10 Atherosclerotic heart disease of native coronary artery without angina pectoris; Z98.890 Other specified postprocedural states; Z88.6 Allergy status to analgesic agent; Z95.1 Presence of aortocoronary bypass graft
CPT/HCPCS: 93005; 94640; 99285; 36415; 82553; 82550; 85025; 85610; 80053; 84484; 83880; 71046; 93010; J7620

== ENCOUNTER → 2017-10-10 | Outpatient (CLI) | payer BC, MEDICARE, OTHER ==
[2017-10-10 15:01] LABS: ALBUMIN 3.8 g/dL (3.5-5.0); ANION GAP 10 (5-19); BLOOD UREA NITROGEN 21 mg/dL (7-20); CALCIUM 8.9 mg/dL (8.4-10.2); CARBON DIOXIDE 28 mmol/L (22-30); CHLORIDE 106 mmol/L (98-107); GLUCOSE 80 mg/dL (75-110); PHOSPHORUS 3.2 mg/dL (2.5-4.5); POTASSIUM 4.6 mmol/L (3.6-5.0)
== END ==
LOC: OD 13:50
PROVIDERS: ATTEND Internal Medicine
DX: N17.9 Acute kidney failure, unspecified (principal)
CPT/HCPCS: 36415; 80069

== ENCOUNTER → 2017-12-16 | Outpatient (CLI) | payer BC, MEDICARE, OTHER ==
--- NOTE | 2017-12-16 11:41 | RADIOLOGY REPORT (SQ) ---
EXAM DESCRIPTION: U/S ABDOMEN COMPLETE W/O DOP COMPLETED DATE/TIME: 12/16/2017 11:28 am REASON FOR STUDY: UNSPECIFIED ABDOMINAL PAIN R10.9 UNSPECIFIED ABDOMINAL PAIN N20.0 CALCULUS OF KI DNEY K80.20 CALCULUS OF GALLBLADDER W/O CHOLECYSTITIS W/O OBSTRUC COMPARISON: None. TECHNIQUE: Dynamic and static grayscale images acquired of the abdomen and recorded on PACS. Additio nal selected color Doppler and spectral images recorded. LIMITATIONS: None. FINDINGS: PANCREAS: Poorly seen. No obvious masses. LIVER: 16.7 cm. Normal echotexture. LIVER VASCULATURE: Normal directional flow of the main portal vein and hepatic veins. GALLBLADDER: Gallbladder is somewhat contracted. Multiple gallstones. The largest is 1 cm. Gallbla dder wall is slightly thickened at 4 mm. ULTRASOUND-DETECTED DESAI'S SIGN: Negative. INTRAHEPATIC DUCTS AND COMMON DUCT: CBD and intrahepatic ducts normal caliber. No filling defects. INFERIOR VENA CAVA: Patent. AORTA: Poorly seen. RIGHT KIDNEY: Normal size, 10.5 cm. Normal echogenicity. No solid or suspicious masses. A 14 mm cortical cyst. No hydronephrosis. No calcifications. LEFT KIDNEY: Normal size, 9.9 cm. Normal echogenicity. No solid or suspicious masses. Multiple cortical cysts. The largest measures 3 cm. No hydronephrosis. No calcifications. SPLEEN: Normal size, 11 cm. No masses. PERITONEAL AND PLEURAL SPACES: No ascites or effusions. OTHER: No other significant finding. IMPRESSION: Cholelithiasis with slight thickening of gallbladder wall that may merely be secondary t o nondistention. There is no sonographic Desai sign. There is no ductal dilatation. TECHNICAL DOCUMENTATION: JOB ID: [id number] [employer]- All Rights Reserved Reading location - IP/workstation name: [email or web address]
== END ==
LOC: RAD 10:48
PROVIDERS: ATTEND Internal Medicine
DX: K80.20 Calculus of gallbladder without cholecystitis without obstruction (principal); R10.9 Unspecified abdominal pain; N20.0 Calculus of kidney
CPT/HCPCS: 76700

== ENCOUNTER → 2017-12-16 | Outpatient (CLI) | payer BC, MEDICARE, OTHER ==
[2017-12-16 14:36] LABS: ABSOLUTE EOSINOPHILS # (AUTO) 0.1 10^3/uL (0.0-0.6); ABSOLUTE LYMPHOCYTES (AUTO) 1.7 10^3/uL (0.5-4.7); ABSOLUTE MONOCYTES (AUTO) 0.7 10^3/uL (0.1-1.4); ABSOLUTE NEUT (AUTO) 3.8 10^3/uL (1.7-8.2); BASOPHILS % (AUTO) 0.5 % (0-2); HEMATOCRIT 35.5 % (37.9-51.0); HEMOGLOBIN 11.6 g/dL (13.5-17.0); LYMPHOCYTES % (AUTO) 26.8 % (13-45); MEAN CORPUSCULAR HEMOGLOBIN 25.1 pg (27.0-33.4); MEAN CORPUSCULAR HGB CONC 32.6 g/dL (32.0-36.0); MEAN CORPUSCULAR VOLUME 77 fl (80-97); MONOCYTES % (AUTO) 10.9 % (3-13); PLATELET COUNT 278 10^3/uL (150-450); RED BLOOD COUNT 4.61 10^6/uL (4.35-5.55); RED CELL DISTRIBUTION WIDTH 17.4 % (11.5-14.0); SEGMENTED NEUTROPHILS % (AUTO) 59.8 % (42-78); TOTAL CELLS COUNTED % (AUTO) 100 %; WHITE BLOOD COUNT 6.4 10^3/uL (4.0-10.5)
[2017-12-16 14:52] LABS: APPEARANCE,URINE CLEAR; BILIRUBIN,URINE NEGATIVE (NEGATIVE); COLOR,URINE YELLOW; GLUCOSE, URINE NEGATIVE (NEGATIVE); KETONES,URINE NEGATIVE (NEGATIVE); LEUKOCYTE ESTERASE,URINE NEGATIVE (NEGATIVE); NITRITE,URINE NEGATIVE (NEGATIVE); PROTEIN,URINE NEGATIVE (NEGATIVE); URINE SPECIFIC GRAVITY 1.013; UROBILINOGEN,URINE NEGATIVE mg/dL (<2.0)
[2017-12-16 15:14] LABS: ALANINE AMINOTRANSFERASE 30 U/L (21-72); ALBUMIN 4.4 g/dL (3.5-5.0); ALKALINE PHOSPHATASE 75 U/L (38-126); ANION GAP 13 (5-19); ASPARTATE AMINO TRANSFERASE 21 U/L (17-59); BILIRUBIN,DIRECT 0.3 mg/dL (0.0-0.4); BILIRUBIN,TOTAL 0.7 mg/dL (0.2-1.3); BLOOD UREA NITROGEN 38 mg/dL (7-20); CALCIUM 8.8 mg/dL (8.4-10.2); CARBON DIOXIDE 24 mmol/L (22-30); CHLORIDE 106 mmol/L (98-107); GLUCOSE 87 mg/dL (75-110); POTASSIUM 4.9 mmol/L (3.6-5.0); SODIUM 143.1 mmol/L (137-145); TOTAL PROTEIN 7.4 g/dL (6.3-8.2)
== END ==
LOC: OD 13:30
PROVIDERS: ATTEND Internal Medicine
DX: N20.0 Calculus of kidney (principal); I10 Essential (primary) hypertension; K80.20 Calculus of gallbladder without cholecystitis without obstruction
CPT/HCPCS: 36415; 80053; 81001; 85025; 87086

== ENCOUNTER 2018-07-21 09:12 | Emergency (ER) | payer BC, MEDICARE, OTHER ==
[2018-07-21] MEDS ORDERED: IPRATROPIUM/ALBUTEROL 0.5-2.5 MG/3 ML AMPUL NEB ONE ×2 (10:46→12:59)
--- NOTE | 2018-07-21 10:50 | ER Document Report ---
ED General - General Chief Complaint: Cold Symptoms Stated Complaint: COLD SYMPTOMS Time Seen by Provider: 07/21/18 10:41 Primary Care Provider: BLAINE MCKAY MD [Primary Care Provider] - Follow up as needed TRAVEL OUTSIDE OF THE [place] IN LAST 30 DAYS: No - HPI Notes: Patient is a 78-year-old male that presents to the emergency department for chief complaint of cough and congestion. Patient reports cough, congestion and intermittent fevers over the last week. He is currently on 01/16 of [facility]. Patient states he was feeling much better and return to work Tuesday and Tuesday however on (yesterday) he began to feel worse. He states yesterday he had subjective fever, chills and increased coughing. Patient did use his home albuterol inhaler yesterday and today and states today he feels much better. He came to the emergency room today because yesterday he spoke with the nursing line at his PCPs office who instructed him to come to the emergency room if he is not improved since his primary care is out of the office. Today he states he is feeling much better. He denies any fevers today. He does have a coarse cough which he states was improved with his albuterol inhaler that he used at 6 AM. He denies associated chest pain, lightheadedness, numbness, weakness, headache, vision changes, nausea/vomiting and abdominal pain Past Medical History: Hypertension, hyperlipidemia, COPD Past Surgical History: Reviewed in chart Social History: Reviewed in chart Family History: Reviewed and noncontributory for presenting illness Allergies: Reviewed, see documented allergy list. REVIEW OF SYSTEMS: CONSTITUTIONAL : fever chills No diaphoresis recent illness EENT: No vision changes congestion No sore throat CARDIOVASCULAR: No chest pain No palpitations RESPIRATORY: shortness of breath cough No difficulty breathing GASTROINTESTINAL: No abdominal pain No nausea No vomiting No diarrhea GENITOURINARY: No dysuria No hematuria No difficulty urinating MUSCULOSKELETAL: No back pain No leg pain No arm pain SKIN: No rashes No lesions LYMPHATIC: No swollen, enlarged glands. NEUROLOGICAL: No lightheadedness No headache No weakness No paresthesias PSYCHIATRIC: No anxiety No depression PHYSICAL EXAMINATION: Vital signs reviewed, nursing noted reviewed. GENERAL: Well-appearing, well-nourished and in no acute distress. HEAD: Atraumatic, normocephalic. EYES: Eyes appear normal, extraocular movements intact, sclera anicteric, conjunctiva are normal. ENT: nares patent, oropharynx clear without exudates. Moist mucous membranes. NECK: Normal range of motion, supple without lymphadenopathy LUNGS: Breath sounds coarse to auscultation bilaterally with no accessory muscle use or tachypnea HEART: Regular rate and rhythm without murmurs ABDOMEN: Soft, nontender, normoactive bowel sounds. No rebound, guarding, or rigidity. No masses appreciated. EXTREMITIES: Nontender, good range of motion, no pitting or edema. NEUROLOGICAL: No focal neurological deficits. Moves all extremities spontaneously Motor and sensory grossly intact on exam. PSYCH: Normal mood, normal affect. SKIN: Warm, Dry, normal turgor, no rashes or lesions noted on exposed skin - Related Data Allergies/Adverse Reactions: codeine [Codeine] Adverse Reaction (Intermediate, Verified 06/09/17 08:57) Anxiety Past Medical History - Social History Smoking Status: Former Smoker Chew tobacco use (# tins/day): No Frequency of alcohol use: None Drug Abuse: None Family History: Malignancy Patient has suicidal ideation: No Patient has homicidal ideation: No - Past Medical History Cardiac Medical History: Reports: Hx Coronary Artery Disease, Hx Hypercholesterolemia, Hx Hypertension, Hx Peripheral Vascular Disease Denies: Hx Atrial Fibrillation, Hx Congestive Heart Failure, Hx DVT, Hx Heart Attack, Hx Pulmonary Embolism Pulmonary Medical History: Reports: Hx COPD, Hx Pneumonia Denies: Hx Asthma, Hx Bronchitis, Hx Tuberculosis Neurological Medical History: Denies: Hx Cerebrovascular Accident, Hx Seizures Endocrine Medical History: Denies: Hx Diabetes Mellitus Type 1, Hx Diabetes Mellitus Type 2, Hx Hyperthyroidism, Hx Hypothyroidism Renal/ Medical History: Denies: Hx Peritoneal Dialysis GI Medical History: Reports: Hx Gastroesophageal Reflux Disease, Hx Ulcer. D enies: Hx Cirrhosis, Hx Hepatitis Musculoskeletal Medical History: Reports Hx Arthritis - GENERALIZED Skin Medical History: Denies Hx Eczema, Denies Hx Psoriasis Psychiatric Medical History: Denies: Hx Depression Infectious Medical History: Denies: Hx Hepatitis Past Surgical History: Reports: Hx Appendectomy, Hx Cardiac Surgery - bipass and stents, Hx Coronary Artery Bypass Graft - 5 VESSEL, September 1999, Hx Orthopedic Surgery - back, Hx Tonsillectomy. Denies: Hx Pacemaker - Immunizations Hx Diphtheria, Pertussis, Tetanus Vaccination: - UNSURE Hx Pneumococcal Vaccination: 05/09/14 Physical Exam - Vital signs Vitals: Temp Resp BP Pulse Ox 97.8 F 16 135/75 H 93 07/21/18 09:25 07/21/18 09:25 07/21/18 09:25 07/21/18 09:25 Course - Re-evaluation Re-evalutation: 07/21/18 10:50 Vitals reviewed. Nursing notes reviewed. Patient is well-appearing and in no acute respiratory distress. He is afebrile and nontoxic. He was given DuoNeb for cough and shortness of breath. 07/21/18 13:38 After aerosols patient states he is feeling better. His lung sounds are clear to auscultation. Chest x-ray shows bibasilar atelectasis versus edema versus pneumonia. Patient is otherwise afebrile and nontoxic in appearance. He is able to ambulate without excessive tachypnea. He will be started on prednisone for his likely COPD exacerbation. We will switch his antibiotic to Augmentin. He has a mild leukocytosis but no other Sirs criteria and is not septic. Patient encouraged to continue using home albuterol every 4 hours. He will follow with his primary care doctor for reevaluation in the next few days. He will return for new or worsening symptoms. He is stable at discharge. Laboratory 07/21/18 07/21/18 07/21/18 11:27 11:27 12:45 WBC Cancelled 12.5 H RBC Cancelled 4.40 Hgb Cancelled 10.1 L Hct Cancelled 31.8 L MCV Cancelled 72 L MCH Cancelled 22.9 L MCHC Cancelled 31.7 L RDW Cancelled 17.2 H Plt Count Cancelled 232 Seg Neutrophils % Cancelled 79.0 H Lymphocytes % Cancelled 12.2 L Monocytes % Cancelled 6.0 Eosinophils % Cancelled 2.6 Basophils % Cancelled 0.2 Absolute Neutrophils Cancelled 9.9 H Absolute Lymphocytes Cancelled 1.5 Absolute Monocytes Cancelled 0.8 Absolute Eosinophils Cancelled 0.3 Absolute Basophils Cancelled 0.0 Platelet Estimate Cancelled Sodium 140.0 Potassium 4.0 Chloride 106 Carbon Dioxide 26 Anion Gap 8 BUN 36 H Creatinine 1.09 Est GFR ( Amer) > 60 Est GFR (Non-Af Amer) > 60 Glucose 101 Calcium 8.4 Slides for Path Review Cancelled Chest X-Ray 07/21/18 10:42 IMPRESSION: COPD. Basilar atelectasis versus developing pneumonia or asymmetric edema. Clinical correlation is needed. - Vital Signs Vital signs: Temp Pulse Resp BP Pulse Ox 97.8 F 47 L 16 135/75 H 98 07/21/18 09:25 07/21/18 10:43 07/21/18 09:25 07/21/18 09:25 07/21/18 10:45 - Laboratory Result Diagrams: 07/21/18 12:45 07/21/18 11:27 Laboratory results interpreted by me: 07/21/18 07/21/18 11:27 12:45 WBC 12.5 H Hgb 10.1 L Hct 31.8 L MCV 72 L MCH 22.9 L MCHC 31.7 L RDW 17.2 H Seg Neutrophils % 79.0 H Lymphocytes % 12.2 L Absolute Neutrophils 9.9 H BUN 36 H Discharge - Discharge Clinical Impression: COPD exacerbation Community acquired pneumonia Qualifiers: Laterality: unspecified laterality Qualified Code(s): J18.9 - Pneumonia, unspecified organism Condition: Stable Disposition: HOME, SELF-CARE Instructions: Chronic Obstructive Lung Disease ([facility]), Pneumonia ([facility]) Additional Instructions: Please return to the emergency department if you have any worsening, or concern of your symptoms. Please return to the emergency department if you develop chest pain, difficulty breathing, severe abdominal pain, or ongoing vomiting. Please follow-up with your primary care physician in 2-3 days and any other recommended physicians. If prescribed, take all medications as directed. If you have any questions or concerns do not hesitate to return the emergency department for evaluation. Use your albuterol inhaler 2 puffs every 4 hours or 1 nebulized treatment every 4 hours for cough and shortness of breath Prescriptions: Amox Tr/Potassium Clavulanate [Augmentin 875-125 Tablet] 1 tab PO BID 10 Days tablet Prednisone [Deltasone 20 mg Tablet] 2 tab PO DAILY 5 Days tablet Referrals: BLAINE MCKAY MD [Primary Care Provider] - Follow up in 3-5 days
--- NOTE | 2018-07-21 11:13 | RADIOLOGY REPORT (SQ) ---
EXAM DESCRIPTION: CHEST 2 VIEWS COMPLETED DATE/TIME: 07/21/2018 10:55 am REASON FOR STUDY: cough COMPARISON: 10/02/2017 EXAM PARAMETERS: NUMBER OF VIEWS: two views TECHNIQUE: Digital Frontal and Lateral radiographic views of the chest acquired. RADIATION DOSE: NA LIMITATIONS: none FINDINGS: LUNGS AND PLEURA: COPD. Subsegmental airspace opacities in the lung bases partially silho uetting the right diaphragm. MEDIASTINUM AND HILAR STRUCTURES: Stable. HEART AND VASCULAR STRUCTURES: Stable heart size. No evidence for failure. BONES: No acute findings. HARDWARE: None in the chest. OTHER: No other significant finding. IMPRESSION: COPD. Basilar atelectasis versus developing pneumonia or asymmetric edema. Clinical co rrelation is needed. TECHNICAL DOCUMENTATION: JOB ID: [id number] [employer]- All Rights Reserved Reading location - IP/workstation name: [email or web address]
[2018-07-21] MEDS ORDERED: PREDNISONE 20 MG TABLET PO ONE (11:15)
[2018-07-21 12:04] LABS: ANION GAP 8 (5-19); BLOOD UREA NITROGEN 36 mg/dL (7-20); CALCIUM 8.4 mg/dL (8.4-10.2); CARBON DIOXIDE 26 mmol/L (22-30); CHLORIDE 106 mmol/L (98-107); GLUCOSE 101 mg/dL (75-110)
[2018-07-21 13:12] LABS: ABSOLUTE EOSINOPHILS # (AUTO) 0.3 10^3/uL (0.0-0.6); ABSOLUTE LYMPHOCYTES (AUTO) 1.5 10^3/uL (0.5-4.7); ABSOLUTE MONOCYTES (AUTO) 0.8 10^3/uL (0.1-1.4); ABSOLUTE NEUT (AUTO) 9.9 10^3/uL (1.7-8.2); BASOPHILS % (AUTO) 0.2 % (0-2); EOSINOPHILS % (AUTO) 2.6 % (0-6); HEMATOCRIT 31.8 % (37.9-51.0); HEMOGLOBIN 10.1 g/dL (13.5-17.0); LYMPHOCYTES % (AUTO) 12.2 % (13-45); MEAN CORPUSCULAR HEMOGLOBIN 22.9 pg (27.0-33.4); MEAN CORPUSCULAR HGB CONC 31.7 g/dL (32.0-36.0); MEAN CORPUSCULAR VOLUME 72 fl (80-97); PLATELET COUNT 232 10^3/uL (150-450); RED CELL DISTRIBUTION WIDTH 17.2 % (11.5-14.0); TOTAL CELLS COUNTED % (AUTO) 100 %; WHITE BLOOD COUNT 12.5 10^3/uL (4.0-10.5)
[2018-07-21] MEDS ORDERED: AMOXICILLIN TRIHYD 250 MG CAPSULE PO ONE (13:37)
[2018-07-21] MEDS ORDERED: AMOXICILLIN TR/POT CLAVULANATE 500-125 MG TAB PO ONE (13:37)
[2018-07-21 14:21] VITALS: BP 155/79
== END 2018-07-21 14:21 | disposition home or self-care (01) ==
LOC: ER 09:12
DX: J44.1 Chronic obstructive pulmonary disease with (acute) exacerbation (principal); J18.9 Pneumonia, unspecified organism; R68.89 Other general symptoms and signs; I25.10 Atherosclerotic heart disease of native coronary artery without angina pectoris; E78.00 Pure hypercholesterolemia, unspecified; I10 Essential (primary) hypertension; Z95.1 Presence of aortocoronary bypass graft; Z88.6 Allergy status to analgesic agent
CPT/HCPCS: 94640; 99283; 36415; 85025; 80048; 71046; J3490; J7512; J7620

== ENCOUNTER 2018-08-06 16:58 | Inpatient (IN) | payer BC, MEDICARE, OTHER ==
--- NOTE | 2018-08-06 17:24 | ER Document Report ---
ED Medical Screen (RME) - General Chief Complaint: Cough Stated Complaint: COUGH Time Seen by Provider: 08/06/18 17:20 Primary Care Provider: BLAINE MCKAY MD [Primary Care Provider] - Follow up as needed Mode of Arrival: Ambulatory Information source: Patient, Relative TRAVEL OUTSIDE OF THE [place] IN LAST 30 DAYS: No - HPI Patient complains to provider of: cough; fever Onset: Other - pt has been trteated with abx for URI/PNA for the past 2-3 weeks. Finished meds today but not much better. - Related Data Allergies/Adverse Reactions: codeine [Codeine] Adverse Reaction (Intermediate, Verified 06/09/17 08:57) Anxiety Past Medical History - Past Medical History Cardiac Medical History: Reports: Hx Coronary Artery Disease, Hx Hypercholesterolemia, Hx Hypertension, Hx Peripheral Vascular Disease Denies: Hx Atrial Fibrillation, Hx Congestive Heart Failure, Hx DVT, Hx Heart Attack, Hx Pulmonary Embolism Pulmonary Medical History: Reports: Hx COPD, Hx Pneumonia Denies: Hx Asthma, Hx Bronchitis, Hx Tuberculosis Neurological Medical History: Denies: Hx Cerebrovascular Accident, Hx Seizures Endocrine Medical History: Denies: Hx Diabetes Mellitus Type 1, Hx Diabetes Mellitus Type 2, Hx Hyperthyroidism, Hx Hypothyroidism Renal/ Medical History: Denies: Hx Peritoneal Dialysis GI Medical History: Reports: Hx Gastroesophageal Reflux Disease, Hx Ulcer. Denies: Hx Cirrhosis, Hx Hepatitis Musculoskeltal Medical History: Reports Hx Arthritis - GENERALIZED Skin Medical History: Denies Hx Eczema, Denies Hx Psoriasis Psychiatric Medical History: Denies: Hx Depression Infectious Medical History: Denies: Hx Hepatitis Past Surgical History: Reports: Hx Appendectomy, Hx Cardiac Surgery - bipass and stents, Hx Coronary Artery Bypass Graft - 5 VESSEL, September 1999, Hx Orthopedic Surgery - back, Hx Tonsillectomy. Denies: Hx Pacemaker - Immunizations Hx Diphtheria, Pertussis, Tetanus Vaccination: - UNSURE History of Influenza Vaccine for 02/2017 - 07/2017 Season: Yes Influenza Administration Date for 02/2017 - 07/2017 Season: 05/09/17 Physical Exam - Vital signs Vitals: Temp Pulse Resp BP Pulse Ox 98.3 F 66 18 111/55 L 92 08/06/18 17:10 08/06/18 17:10 08/06/18 17:10 08/06/18 17:10 08/06/18 17:10 Course - Vital Signs Vital signs: Temp Pulse Resp BP Pulse Ox 98.3 F 66 18 111/55 L 92 08/06/18 17:10 08/06/18 17:10 08/06/18 17:10 08/06/18 17:10 08/06/18 17:10 Doctor's Discharge - Discharge Referrals: BLAINE MCKAY MD [Primary Care Provider] - Follow up as needed
[2018-08-06 18:03] LABS: ABSOLUTE LYMPHOCYTES (AUTO) 1.1 10^3/uL (0.5-4.7); ABSOLUTE MONOCYTES (AUTO) 0.7 10^3/uL (0.1-1.4); ABSOLUTE NEUT (AUTO) 7.5 10^3/uL (1.7-8.2); BASOPHILS % (AUTO) 0.3 % (0-2); EOSINOPHILS % (AUTO) 0.2 % (0-6); HEMATOCRIT 34.2 % (37.9-51.0); LYMPHOCYTES % (AUTO) 11.9 % (13-45); MEAN CORPUSCULAR HGB CONC 32.1 g/dL (32.0-36.0); MEAN CORPUSCULAR VOLUME 72 fl (80-97); MONOCYTES % (AUTO) 7.7 % (3-13); PLATELET COUNT 227 10^3/uL (150-450); RED BLOOD COUNT 4.78 10^6/uL (4.35-5.55); RED CELL DISTRIBUTION WIDTH 17.3 % (11.5-14.0); SEGMENTED NEUTROPHILS % (AUTO) 79.9 % (42-78); TOTAL CELLS COUNTED % (AUTO) 100 %; WHITE BLOOD COUNT 9.4 10^3/uL (4.0-10.5)
--- NOTE | 2018-08-06 18:14 | RADIOLOGY REPORT (SQ) ---
EXAM DESCRIPTION: CHEST 2 VIEWS COMPLETED DATE/TIME: 08/06/2018 6:01 pm REASON FOR STUDY: cough;fever COMPARISON: 07/21/2018. EXAM PARAMETERS: NUMBER OF VIEWS: two views TECHNIQUE: Digital Frontal and Lateral radiographic views of the chest acquired. RADIATION DOSE: NA LIMITATIONS: none FINDINGS: LUNGS AND PLEURA: Streaky basilar densities. Patchy density in the posterior lung bases b est seen on the lateral image. No large pleural effusion. No pneumothorax. MEDIASTINUM AND HILAR STRUCTURES: No masses or contour abnormalities. HEART AND VASCULAR STRUCTURES: Cardiomegaly. BONES: No acute findings. HARDWARE: Sternotomy wires. OTHER: No other significant finding. IMPRESSION: STABLE CARDIOMEGALY. BASILAR ATELECTASIS. CANNOT EXCLUDE UNDERLYING PNEUMONIA. VEL Barrientos APPEARANCE TO THE PRIOR STUDY. TECHNICAL DOCUMENTATION: JOB ID: [id number] I[employer]- All Rights Reserved Reading location - IP/workstation name: SAM
[2018-08-06 18:15] LABS: ALANINE AMINOTRANSFERASE 26 U/L (21-72); ALKALINE PHOSPHATASE 97 U/L (38-126); ANION GAP 8 (5-19); ASPARTATE AMINO TRANSFERASE 15 U/L (17-59); BILIRUBIN,DIRECT 0.3 mg/dL (0.0-0.4); BILIRUBIN,TOTAL 1.3 mg/dL (0.2-1.3); BLOOD UREA NITROGEN 22 mg/dL (7-20); CALCIUM 8.6 mg/dL (8.4-10.2); CARBON DIOXIDE 27 mmol/L (22-30); CHLORIDE 104 mmol/L (98-107); GLUCOSE 112 mg/dL (75-110); POTASSIUM 4.5 mmol/L (3.6-5.0); SODIUM 139.4 mmol/L (137-145); TOTAL PROTEIN 6.6 g/dL (6.3-8.2)
[2018-08-06 18:18] LABS: APPEARANCE,URINE CLEAR; BILIRUBIN,URINE NEGATIVE (NEGATIVE); COLOR,URINE YELLOW; GLUCOSE, URINE NEGATIVE (NEGATIVE); KETONES,URINE NEGATIVE (NEGATIVE); LEUKOCYTE ESTERASE,URINE NEGATIVE (NEGATIVE); NITRITE,URINE NEGATIVE (NEGATIVE); PROTEIN,URINE NEGATIVE (NEGATIVE); URINE SPECIFIC GRAVITY 1.014; UROBILINOGEN,URINE NEGATIVE mg/dL (<2.0)
[2018-08-06 18:23] LABS: A TYPE INFLUENZA AG NEGATIVE (NEGATIVE); B INFLUENZA AG NEGATIVE (NEGATIVE)
[2018-08-06] MEDS ORDERED: ALBUTEROL SULFATE 0.083% NEB 2.5 MG/3 ML AMPUL NEB ONE (19:13)
[2018-08-06] MEDS ORDERED: ALBUTEROL SULFATE HFA (90 MCG/PUFF) 8 GM MDI (1 MDI/ER DISP) IH ONE (21:27)
[2018-08-06] MEDS ORDERED: AZITHROMYCIN 250 MG TABLET PO ONE (21:27)
[2018-08-06] MEDS ORDERED: METHYLPREDNISOLONE INJ 125 MG/2 ML SDV IV ONE (21:55)
[2018-08-06] MEDS ORDERED: AZITHROMYCIN INJ 500 MG VIAL IV ONE (21:55)
--- NOTE | 2018-08-06 22:00 | ER Document Report ---
Entered by MYESHA HOLLINGSWORTH SCRIBE 08/06/18 [id number] Acting as scribe for:JEREMIAS ECHEVARRIA DO ED Respiratory Problem - General Chief Complaint: Cough Stated Complaint: COUGH Time Seen by Provider: 08/06/18 17:20 Primary Care Provider: BLAINE MCKAY MD [Primary Care Provider] - Follow up as needed Mode of Arrival: Ambulatory Information source: Patient Notes: 78 year old male that presents to the emergency department today with complaints of a productive cough with associated nasal congestion for about the last x3 weeks. Patient states he has had intermittent nausea as well. at bedside states the patient was started on what she believes was a cephalosporin and was then switched to amoxicillin along with prednisone. and state that the patient has taken all of his medications without any improvement. states that the patient has been more tired than normal. Patient denies any chest pain, shortness of breath, or history of PE/DVT. TRAVEL OUTSIDE OF THE [place] IN LAST 30 DAYS: No - Related Data Allergies/Adverse Reactions: codeine [Codeine] Adverse Reaction (Intermediate, Verified 08/06/18 20:23) Anxiety Past Medical History - General Information source: Patient, Relative - Social History Smoking Status: Former Smoker Cigarette use (# per day): No Frequency of alcohol use: None Drug Abuse: None Lives with: Spouse/Significant other Family History: Reviewed & Not Pertinent, Malignancy Patient has suicidal ideation: No Patient has homicidal ideation: No - Past Medical History Cardiac Medical History: Reports: Hx Coronary Artery Disease, Hx Hypercholesterolemia, Hx Hypertension, Hx Peripheral Vascular Disease Pulmonary Medical History: Reports: Hx COPD, Hx Pneumonia GI Medical History: Reports: Hx Gastroesophageal Reflux Disease, Hx Ulcer Musculoskeletal Medical History: Reports Hx Arthritis - GENERALIZED Past Surgical History: Reports: Hx Appendectomy, Hx Cardiac Surgery - bipass and stents, Hx Coronary Artery Bypass Graft - 5 VESSEL, September 1999, Hx Orthopedic Surgery - back, Hx Tonsillectomy - Immunizations Hx Diphtheria, Pertussis, Tetanus Vaccination: - UNSURE Hx Pneumococcal Vaccination: 05/09/14 Review of Systems - Review of Systems Constitutional: See HPI, Diaphoresis, Malaise EENT: See HPI, Nose congestion Cardiovascular: denies: Chest pain Respiratory: See HPI, Cough. denies: Short of breath Gastrointestinal: See HPI, Nausea Genitourinary: No symptoms reported Male Genitourinary: No symptoms reported Musculoskeletal: No symptoms reported Skin: No symptoms reported Hematologic/Lymphatic: No symptoms reported Neurological/Psychological: No symptoms reported -: Yes All other systems reviewed and negative Physical Exam - Vital signs Vitals: Temp Pulse Resp BP Pulse Ox 98.3 F 66 18 111/55 L 92 08/06/18 17:10 08/06/18 17:10 08/06/18 17:10 08/06/18 17:10 08/06/18 17:10 - Notes Notes: PHYSICAL EXAM GENERAL: Sleeping, awakens easily for exam. Hard of hearing but interacts well. No acute distress. HEAD: Normocephalic, atraumatic. EYES: Pupils equal, round, and reactive to light. Extraocular movements intact. ENT: Oral mucosa moist, tongue midline. NECK: Full range of motion. Supple. Trachea midline. LUNGS: Bilateral upper lobe rhonchi, no wheezing, lower lobes are clear. tachypneic during my exam, wet cough. HEART: Regular rate and rhythm. No murmurs, gallops, or rubs. ABDOMEN: Soft, non-tender. Non-distended. Bowel sounds present in all 4 quadrants. No guarding, rigidity, or rebound. EXTREMITIES: Moves all 4 extremities spontaneously. Trace edema of the right lower extremity. NEUROLOGICAL: Alert and oriented x3. Normal speech. PSYCH: Normal affect, normal mood. SKIN: Warm, dry, normal turgor. No rashes or lesions noted. Course - Re-evaluation Re-evalutation: 08/06/18 21:18 CBC shows anemia with hemoglobin 11.0, no leukocytosis, CMP shows slightly elevated BUN at 22, glucose elevated at 112 otherwise unremarkable, lactic acid normal at 1.5, urinalysis shows small blood but no signs of infection or dehydration, flu and strep swabs are negative, chest x-ray shows bibasilar atelectasis and cannot exclude underlying pneumonia, streaky basilar densities and patchy density in the posterior lung bases best seen on the lateral image. Given patient's continuing symptoms, continuing productive cough and continuing shortness of breath patient will be started on a third antibiotic. He is already taken amoxicillin and possibly a cephalosporin according to his . Given the patient's COPD history he will be placed on azithromycin. Patient also notes that he is allergic to pine pollen and thinks that may be worsening things. I agree. Patient will be encouraged to take daily antiallergy medication such as Claritin or Zyrtec, use Flonase, use albuterol inhaler 2 puffs every 4 hours for the next 48 hours, take Mucinex and to follow-up with Dr. Mckay as an outpatient. Patient does not meet any indication for admission. He was ambulated without any difficulty. Had no hypoxia. 08/06/18 21:45 As we are getting ready to discharge the patient and medications were going to be given by mouth the patient fell asleep and while he was sleeping his oxygen saturation dropped down to 84%, when the patient is awake and it will go back up into the low 90s however he has fallen asleep several more times and his oxygen saturation stays between 84 and 87%. This is hypoxic and is concerning to me given the fact that it does have a good waveform. Patient has been placed on 2 L via nasal cannula and will be discussed with the hospitalist for admission. 08/06/18 21:[address] Mitchell, agrees to accept the patient to his service in ob servation status. - Vital Signs Vital signs: Temp Pulse Resp BP Pulse Ox 98.3 F 66 18 111/55 L 92 08/06/18 17:10 08/06/18 17:10 08/06/18 17:10 08/06/18 17:10 08/06/18 17:10 - Laboratory Result Diagrams: 08/06/18 17:41 08/06/18 17:41 Laboratory results interpreted by me: 08/06/18 08/06/18 08/06/18 17:41 17:41 17:41 Hgb 11.0 L Hct 34.2 L MCV 72 L MCH 23.0 L RDW 17.3 H Seg Neutrophils % 79.9 H Lymphocytes % 11.9 L BUN 22 H Glucose 112 H AST 15 L Urine Blood SMALL H Discharge - Discharge Clinical Impression: Hypoxia Pneumonia Qualifiers: Pneumonia type: due to unspecified organism Laterality: bilateral Lung location: lower lobe of lung Qualified Code(s): J18.1 - Lobar pneumonia, unspecified organism Condition: Fair Disposition: ADMITTED OBSERVATION Admitting Provider: Anjali Unit Admitted: Telemetry Additional Instructions: Pneumonia Your examination indicates that you have pneumonia. This is an infection of the lung tissue, usually caused by bacteria or a virus. Symptoms include cough, fever, shaking chills, chest pain, shortness of breath, and coughing up bloody sputum. Treatment for bacterial pneumonia includes rest, antibiotics, increasing your clear liquid intake, a cool mist humidifier at your bedside, and fever medication. Often, a repeat chest X-ray is performed in a few weeks--even if you feel better--to ascertain whether the infection has completely resolved and no underlying lung problem is present. You should call the physician if you develop persistent vomiting, high fever that does not respond to fever medication, increasing shortness of breath, confusion, or lethargy. Also, failure to improve within two to three days is an indication for re-examination. Please take the azithromycin as directed until it is gone. Please use the albuterol inhaler that we gave you 2 puffs every 4 hours while you are awake wit h a needed or not for the next 48 hours. Please use Mucinex also known as guaifenesin as directed. Please continue to take your daily Zyrtec. Please follow-up with Dr. Mckay in 2-3 days for a recheck. Prescriptions: Azithromycin [Zithromax 250 mg Tablet] 250 mg PO DAILY #4 tablet Fluticasone Propionate [Flonase Nasal [place] 50 Mcg/[place] 16 gm] 1 spray NASL Q12 #1 inhaler Guaifenesin [Guaifenesin ER] 600 mg PO BID #20 tab.er.12h Referrals: BLAINE MCKAY MD [Primary Care Provider] - Follow up as needed I personally performed the services described in the documentation, reviewed and edited the documentation which was dictated to the scribe in my presence, and it accurately records my words and actions.
[2018-08-06 22:15] LABS: VENOUS BLOOD BASE EXCESS -0.2 mmol/L; VENOUS BLOOD PCO2 43.2 mmHg (35-63); VENOUS BLOOD PH 7.38 (7.30-7.42)
[2018-08-06] MEDS ORDERED: LACTULOSE SYRUP 20 GM/30 ML UDCUP PO ONE (22:16)
[2018-08-06] MEDS ORDERED: HYDRALAZINE HCL INJ/PF 20 MG/1 ML SDV IV PRN (22:16)
[2018-08-06] MEDS ORDERED: IPRATROPIUM/ALBUTEROL 0.5-2.5 MG/3 ML AMPUL NEB PRN (22:17)
[2018-08-06] MEDS ORDERED: FUROSEMIDE 40 MG TABLET PO ONE (23:53)
[2018-08-07] MEDS: GABAPENTIN 300 MG CAPSULE PO SCH ×3 (00:04→23:12)
[2018-08-07] MEDS: PREDNISONE 20 MG TABLET PO SCH ×3 (00:05→17:56)
[2018-08-07] MEDS ORDERED: CEFTRIAXONE 1 GM/D5W RTU 1 GM/50 ML RTUPB IV ONE (01:00)
[2018-08-07] MEDS: FLUTICASONE NASAL SPRAY 50 MCG/SPRY 120 SPRAY/16 GM NASL SCH ×2 (01:32→10:53)
[2018-08-07] MEDS: CHLORPHENIRAMINE MALEATE 4 MG TABLET PO SCH ×4 (01:42→17:56)
[2018-08-07] MEDS: IPRATROPIUM/ALBUTEROL 0.5-2.5 MG/3 ML AMPUL NEB SCH ×4 (03:25→21:22)
[2018-08-07] MEDS ORDERED: HEPARIN SOD (PORCINE) 5,000 UNIT/ML 1 ML SYRINGE SUBCUT SCH (06:00)
--- NOTE | 2018-08-07 06:02 | PDOC H&P ---
History of Present Illness Admission Date/PCP: 08/06/18 22:16 BLAINE MCKAY MD Patient complains of: Shortness of breath and nonproductive cough History of Present Illness: HARVEY YBARRA is a 78 year old male with a past medical history of coronary artery disease, COPD, hypertension, dyslipidemia and GERD. He presents with 2 weeks of unresolving shortness of breath for which she has had 2 prescriptions of antibiotics the last being Augmentin without significant improvement. In the emergency room he is found to have tachypnea, diminished breath sounds, bilateral rhonchi, anemia and a chest x-ray with bibasilar infiltrate versus atelectasis. He complains of facial pain, rhinorrhea, nasal drip and orthopnea, denies sore throat or uncontrolled GERD. He receives empiric antibiotics and referred to the hospitalist for admission. Denying chest pain nausea vomiting diaphoresis or palpitations and no recent change to medications other than antibiotics. Past Medical History Cardiac Medical History: Reports: Coronary Artery Disease, Hyperlipidema, Hypertension, Peripheral Vascular Disease Denies: Atrial Fibrillation, Congestive Heart Failure, DVT, Myocardial Infarction, Pulmonary Embolism Pulmonary Medical History: Reports: Chronic Obstructive Pulmonary Disease (COPD), Pneumonia Denies: Asthma, Bronchitis, Tuberculosis Neurological Medical History: Denies: Seizures Endocrine Medical History: Denies: Diabetes Mellitus Type 1, Diabetes Mellitus Type 2, Hyperthyroidism, Hypothyroidism GI Medical History: Reports: Gastroesophageal Reflux Disease Denies: Cirrhosis, Hepatitis Musculoskeltal Medical History: Reports: Arthritis - GENERALIZED Skin Medical History: Denies: Eczema, Psoriasis Psychiatric Medical History: Denies: Depression Hematology: Denies: Anemia Past Surgical History Past Surgical History: Reports: Appendectomy, Coronary Artery Bypass Graft - 5 VESSEL, September 1999, Orthopedic Surgery - back, Tonsillectomy Denies: Pacemaker Social History Information Source: Patient, Relative, Emergency Med Personnel, [facility] Records Lives with: Spouse/Significant other Smoking Status: Former Smoker Frequency of Alcohol Use: None Hx Recreational Drug Use: No Drugs: None Hx Prescription Drug Abuse: No - Advance Directive Resuscitation Status: Full Code Family History Family History: COPD, Malignancy Parental Family History Reviewed: Yes Children Family History Reviewed: Yes Sibling(s) Family History Reviewed.: Yes Medication/Allergy Home Medications: Aspirin [Aspirin 81 mg Chewable Tablet] 81 mg PO DAILY 04/13/16 Atorvastatin Calcium [Lipitor 40 mg Tablet] 40 mg PO DAILY 04/13/16 Cetirizine HCl [Zyrtec] 10 mg PO DAILY 04/13/16 Clopidogrel Bisulfate [Plavix] 75 mg PO DAILY 04/13/16 Cyanocobalamin (Vitamin B-12) [B-12] 1,000 mcg PO DAILY 04/13/16 Esomeprazole Mag Trihydrate [Nexium] 40 mg PO DAILY 04/13/16 Fluticasone/Salmeterol [Advair 250-50 Diskus 28 dose] 1 inh IH Q12 04/13/16 Folic Acid 1 mg PO DAILY 04/13/16 Gabapentin 300 mg PO Q12 04/13/16 Isosorbide Mononitrate [Imdur 30 mg Tablet.er] 30 mg PO DAILY 04/13/16 Metoprolol Succinate 50 mg PO DAILY 04/13/16 Montelukast Sodium 10 mg PO QHS 04/13/16 Ranolazine [Ranexa 500 mg Tab.sr] 500 mg PO Q12 04/13/16 Tiotropium [place] [Spiriva Handihaler 18 mcg/dose (30 Dose)] 1 cap IH DAILY 08/18/16 Tramadol HCl [Ultram 50 mg Tablet] 50 mg PO TID 08/18/16 Amox Tr/Potassium Clavulanate [Augmentin 875-125 Tablet] 1 tab PO BID 10 Days tablet 07/21/18 Prednisone [Deltasone 20 mg Tablet] 2 tab PO DAILY 5 Days tablet 07/21/18 Azithromycin [Zithromax 250 mg Tablet] 250 mg PO DAILY #4 tablet 08/06/18 Fluticasone Propionate [Flonase Nasal [place] 50 Mcg/[place] 16 gm] 1 spray NASL Q12 #1 inhaler 08/06/18 Guaifenesin [Guaifenesin ER] 600 mg PO BID #20 tab.er.12h 08/06/18 Allergies/Adverse Reactions: codeine [Codeine] Adverse Reaction (Intermediate, Verified 08/06/18 20:23) Anxiety Review of Systems Constitutional: PRESENT: as per HPI, anorexia, fatigue. ABSENT: fever(s) Eyes: ABSENT: visual disturbances Ears: ABSENT: hearing changes Cardiovascular: PRESENT: dyspnea on exertion, orthropnea. ABSENT: chest pain, edema, palpitations Physical Exam Vital Signs: Temp Pulse Resp BP Pulse Ox 98.3 F 67 19 147/74 H 96 08/07/18 03:56 08/07/18 03:56 08/07/18 03:56 08/07/18 03:56 08/07/18 03:56 Intake & Output 08/05/18 08/06/18 08/07/18 11:59 11:59 11:59 Intake Total 370 Output Total 150 Balance 220 Weight 90.2 kg General appearance: PRESENT: cooperative, mild distress. ABSENT: disheveled, hard of hearing Head exam: PRESENT: atraumatic, normocephalic Eye exam: PRESENT: conjunctiva pink, EOMI, PERRLA. ABSENT: scleral icterus Ear exam: PRESENT: normal external ear exam Mouth exam: PRESENT: moist, tongue midline Neck exam: ABSENT: carotid bruit, JVD, lymphadenopathy, thyromegaly Respiratory exam: PRESENT: accessory muscle use, crackles, decreased breath sounds, prolonged expiratory phas, retraction, rhonchi, symmetrical, tachypnea Cardiovascular exam: PRESENT: RRR, +S2, systolic murmur. ABSENT: diastolic murmur, rubs Pulses: PRESENT: normal dorsalis pedis pul Vascular exam: PRESENT: normal capillary refill GI/Abdominal exam: PRESENT: normal bowel sounds, soft. ABSENT: distended, guarding, mass, organolmegaly, rebound, tenderness Rectal exam: PRESENT: deferred Extremities exam: PRESENT: full ROM, +1 edema. ABSENT: calf tenderness, clubbing Neurological exam: PRESENT: alert, awake, oriented to person, oriented to place, oriented to time, oriented to situation, CN II-XII grossly intact. ABSENT: motor sensory deficit Psychiatric exam: PRESENT: appropriate affect, normal mood. ABSENT: homicidal ideation, suicidal ideation Skin exam: PRESENT: dry, intact, warm. ABSENT: cyanosis, rash Results Laboratory Results: 08/06/18 17:41 08/06/18 17:41 08/06/18 08/06/18 08/06/18 17:41 17:41 17:41 WBC 9.4 RBC 4.78 Hgb 11.0 L Hct 34.2 L MCV 72 L MCH 23.0 L MCHC 32.1 RDW 17.3 H Plt Count 227 Seg Neutrophils % 79.9 H Lymphocytes % 11.9 L Monocytes % 7.7 Eosinophils % 0.2 Basophils % 0.3 Absolute Neutrophils 7.5 Absolute Lymphocytes 1.1 Absolute Monocytes 0.7 Absolute Eosinophils 0.0 Absolute Basophils 0.0 VBG pH VBG pCO2 VBG HCO3 VBG Base Excess Sodium 139.4 Potassium 4.5 Chloride 104 Carbon Dioxide 27 Anion Gap 8 BUN 22 H Creatinine 1.06 Est GFR ( Amer) > 60 Est GFR (Non-Af Amer) > 60 Glucose 112 H Lactic Acid 1.5 Calcium 8.6 Total Bilirubin 1.3 AST 15 L ALT 26 Alkaline Phosphatase 97 Total Protein 6.6 Albumin 4.0 Urine Color Urine Appearance Urine pH Ur Specific [place] Urine Protein Urine Glucose (UA) Urine Ketones Urine Blood Urine Nitrite Ur Leukocyte Esterase Urine WBC (Auto) Urine RBC (Auto) 08/06/18 08/06/18 17:41 21:56 WBC RBC Hgb Hct MCV MCH MCHC RDW Plt Count Seg Neutrophils % Lymphocytes % Monocytes % Eosinophils % Basophils % Absolute Neutrophils Absolute Lymphocytes Absolute Monocytes Absolute Eosinophils Absolute Basophils VBG pH 7.38 VBG pCO2 43.2 VBG HCO3 25.0 VBG Base Excess -0.2 Sodium Potassium Chloride Carbon Dioxide Anion Gap BUN Creatinine Est GFR ( Amer) Est GFR (Non-Af Amer) Glucose Lactic Acid Calcium Total Bilirubin AST ALT Alkaline Phosphatase Total Protein Albumin Urine Color YELLOW Urine Appearance CLEAR Urine pH 6.0 Ur Specific [place] 1.014 Urine Protein NEGATIVE Urine Glucose (UA) NEGATIVE Urine Ketones NEGATIVE Urine Blood SMALL H Urine Nitrite NEGATIVE Ur Leukocyte Esterase NEGATIVE Urine WBC (Auto) 1 Urine RBC (Auto) 2 08/06/18 17:41 NT-Pro-B Natriuret Pep 1860 H Impressions: Chest X-Ray 08/06/18 17:20 IMPRESSION: STABLE CARDIOMEGALY. BASILAR ATELECTASIS. CANNOT EXCLUDE UNDERLYING PNEUMONIA. SIMILAR APPEARANCE TO THE PRIOR STUDY. Assessment and Plan - Diagnosis (1) Pneumonia Is this a current diagnosis for this admission?: Yes Plan: Atypical pneumonia complicated by sinusitis. Incentive spirometry and supplemental oxygen, empiric antibiotic initiated. Follow-up CBC, sputum and blood culture. (2) Sinusitis Is this a current diagnosis for this admission?: Yes Plan: Established history of allergic sinusitis, continue antihistamine, Flonase, sputum culture (3) Congestive heart failure Is this a current diagnosis for this admission?: Yes Plan: Suggested by exam with a flow murmur, Lasix 40 mg x1, follow-up BNP and 2D echo (4) Anemia Is this a current diagnosis for this admission?: Yes Plan: Microcytic likely iron deficient, follow-up anemia studies and CBC (5) COPD exacerbation Is this a current diagnosis for this admission?: Yes Plan: Flutter valve, incentive spirometry, supplemental oxygen, albuterol and Atrovent (6) Shortness of breath Is this a current diagnosis for this admission?: Yes Plan: Multifactorial shortness of breath, sinusitis, atypical pneumonia, anemia, likely high output congestive heart failure. Follow-up studies indicated above - Time Time Spent with patient: 35 or more minutes - Inpatient Certification Medical Necessity: Need Close Monitoring Due to Risk of Patient Decompensation
[2018-08-07] MEDS: PANTOPRAZOLE SODIUM 40 MG TABLET.DR PO SCH (06:29)
[2018-08-07] MEDS: ACETAMINOPHEN 325 MG TABLET PO PRN (06:35)
[2018-08-07 06:54] LABS: HEMATOCRIT 34.9 % (37.9-51.0); HEMOGLOBIN 11.3 g/dL (13.5-17.0); MEAN CORPUSCULAR HGB CONC 32.5 g/dL (32.0-36.0); MEAN CORPUSCULAR VOLUME 71 fl (80-97); PLATELET COUNT 227 10^3/uL (150-450); RED BLOOD COUNT 4.93 10^6/uL (4.35-5.55); RED CELL DISTRIBUTION WIDTH 17.6 % (11.5-14.0)
[2018-08-07 07:13] LABS: ABSOLUTE RETICS # 0.043 10^6/uL (0.028-0.122); RETICULOCYTE COUNT (AUTO) 0.86 % (0.66-2.85)
[2018-08-07 07:24] LABS: ANION GAP 12 (5-19); BLOOD UREA NITROGEN 20 mg/dL (7-20); CALCIUM 9.6 mg/dL (8.4-10.2); CARBON DIOXIDE 24 mmol/L (22-30); CHLORIDE 103 mmol/L (98-107); GLUCOSE 180 mg/dL (75-110); SODIUM 138.9 mmol/L (137-145)
[2018-08-07 08:28] LABS: FOLATE > 20.00 ng/mL (>2.76)
--- NOTE | 2018-08-07 09:41 | Physician Advisory Note ---
Physician Advisor ProgressNote .: [facility] I have reviewed the medical record for this patient. Physician Advisor Statement: 78yo BCFederal pt w/CAD/HTN/PVD/COPD, ?allergy to pollen, on beta harsha. Having cough/nasal congestion x 3 wks, despite 2 courses of po abx. CXR w/bilat atelectasis, ?patchy PNA. - ED dr reported bilat rhonchi, wet cough, tachypnea. GAve Zmax, Solumedrol, albuterol; rec'd Flonase, Zyrtec, Mucinex. Then hypoxemia noted during sleep -> O2. - Admitting attg reported tachypnea, rhonchi, facial pain, rhiinorrhea, orthopnea, REY, fatigue, anorexia, mild distress, accessory muscle use, crackles, retractions, rhonchi, 1+ edema, flow murmur. Dx'd "atypical PNA", sinusitis, COPD exac, possible CHF. Ordered Lasix 40mg po x1, ECHO, O2, Rocephin/Zithromax IV, prednisone 20mg bid, Duonebs q6h + prn, antihist. Definition: Acute Hypoxemic Resp Failure = combo of (1) acute hypoxemia AND (2) increased work of breathing. Attending, please clarify in documentation: 1. Is PNA ruled in or ruled out? - If ruled in, what is the likely reason for equivocal CXR result? Does pt need repeat film to clarify dx (why/why not)? - if (+), what is likely underlying type bacteria - gram neg? gram pos? ... - please be specific. 2. Is sinusitis acute, chronic, or acute on chronic? 3. (As more info comes in): Is CHF ruled in or out? - If ruled in, is it Acute or chronic or both? Systolic or diastolic or both? 4. Is COPD exac ruled in or ruled out? [give reasons] 5. Did patient have Acute Hypoxemic Resp Failure on admission [due to ____?], or was that dx ruled out? (Or does pt more likely have ALEXYS, or ...?) 6. STatus: reasonable to start as Obs, while attending evaluates response to tx.s & results of testing to determine whether or not pt continues to need hospitalization or not. If pt is not quickly responding to tx & safe for d/c, please document ongoing clinical concerns. Thanks! CK
[2018-08-07] MEDS ORDERED: ISOSORBIDE MONONITRATE 30 MG TAB.ER.24H PO SCH (10:00)
[2018-08-07] MEDS ORDERED: ASPIRIN 81 MG TABLET, CHEWABLE PO SCH (10:00)
[2018-08-07] MEDS ORDERED: ATORVASTATIN CALCIUM 40 MG TABLET PO SCH (10:00)
[2018-08-07] MEDS: CLOPIDOGREL BISULFATE 75 MG TABLET PO SCH (10:52)
[2018-08-07] MEDS: METOPROLOL SUCCINATE 50 MG TAB.SR.24H PO SCH (10:52)
[2018-08-07] MEDS: LORATADINE 10 MG TABLET PO SCH (10:52)
[2018-08-07] MEDS ORDERED: BENZONATATE 100 MG CAPSULE PO PRN (11:40)
[2018-08-07] MEDS: APIXABAN 5 MG TABLET PO SCH (17:56)
[2018-08-07] MEDS: PSYLLIUM SEED-SF 5.85 GM PACKET PO SCH (17:56)
[2018-08-07] MEDS: CEFTRIAXONE 1 GM/D5W RTU 1 GM/50 ML RTUPB IV SCH (17:57)
[2018-08-07] MEDS ORDERED: FIBER PO SCH (18:00)
[2018-08-07] MEDS: AZITHROMYCIN 500 MG in DEXTROSE 5%-WATER 250 ML IV SCH (18:31)
--- NOTE | 2018-08-07 19:35 | PDOC PROGRESS REPORT ---
Subjective Progress Note for:: 08/07/18 Subjective:: not feeling good. sob cough Reason For Visit: ACUTE COPD EXACERBATION,PNEUMONIA Physical Exam Vital Signs: Temp Pulse Resp BP Pulse Ox 98.2 F 71 18 125/58 L 93 08/07/18 16:04 08/07/18 16:04 08/07/18 16:04 08/07/18 16:04 08/07/18 16:04 Intake & Output 08/06/18 08/07/18 08/08/18 06:59 06:59 06:59 Intake Total 370 998 Output Total 150 Balance 220 998 Weight 90.2 kg General appearance: PRESENT: mild distress Head exam: PRESENT: atraumatic Eye exam: PRESENT: conjunctival injection Mouth exam: PRESENT: dry mucosa Neck exam: ABSENT: carotid bruit, JVD Respiratory exam: PRESENT: prolonged expiratory phas, rhonchi, tachypnea, wheezes Cardiovascular exam: PRESENT: +S1, +S2 GI/Abdominal exam: PRESENT: normal bowel sounds, soft Extremities exam: PRESENT: full ROM Musculoskeletal exam: PRESENT: ambulatory Neurological exam: PRESENT: alert, awake Results Laboratory Results: 08/07/18 05:54 08/07/18 05:54 08/06/18 08/07/18 08/07/18 21:56 05:54 05:54 WBC 6.0 RBC 4.93 Hgb 11.3 L Hct 34.9 L MCV 71 L MCH 23.0 L MCHC 32.5 RDW 17.6 H Plt Count 227 Retic Count (auto) Absolute Retic VBG pH 7.38 VBG pCO2 43.2 VBG HCO3 25.0 VBG Base Excess -0.2 Sodium 138.9 Potassium 4.0 Chloride 103 Carbon Dioxide 24 Anion Gap 12 BUN 20 Creatinine 0.96 Est GFR ( Amer) > 60 Est GFR (Non-Af Amer) > 60 Glucose 180 H Calcium 9.6 Iron TIBC % Saturation Ferritin Vitamin B12 Folate 08/07/18 08/07/18 05:54 05:54 WBC RBC Hgb Hct MCV MCH MCHC RDW Plt Count Retic Count (auto) 0.86 Absolute Retic 0.043 VBG pH VBG pCO2 VBG HCO3 VBG Base Excess Sodium Potassium Chloride Carbon Dioxide Anion Gap BUN Creatinine Est GFR ( Amer) Est GFR (Non-Af Amer) Glucose Calcium Iron 18.0 L TIBC 398 % Saturation 5 Ferritin 43.20 Vitamin B12 908.0 Folate > 20.00 08/06/18 17:41 NT-Pro-B Natriuret Pep 1860 H Impressions: Chest X-Ray 08/06/18 17:20 IMPRESSION: STABLE CARDIOMEGALY. BASILAR ATELECTASIS. CANNOT EXCLUDE UNDERLYING PNEUMONIA. SIMILAR APPEARANCE TO THE PRIOR STUDY. Assessment & Plan - Diagnosis (1) Anemia Qualifiers: Anemia type: iron deficiency Is this a current diagnosis for this admission?: Yes Plan: add feso4 (2) Congestive heart failure Qualifiers: Heart failure type: combined systolic and diastolic Heart failure chronicity: chronic Qualified Code(s): I50.42 - Chronic combined systolic (congestive) and diastolic (congestive) heart failure Is this a current diagnosis for this admission?: Yes Plan: continue current meds (3) Bacterial pneumonia Is this a current diagnosis for this admission?: Yes Plan: antibiotics (4) Acute exacerbation of chronic obstructive airways disease Is this a current diagnosis for this admission?: Yes Plan: steroids, nebs
[2018-08-07] MEDS ORDERED: (PENDING PHARMACY ID) (Fluticasone/Salmeterol [Advair 250-50 Diskus 28 Dose] 1 INH) IH SCH (22:00)
[2018-08-07] MEDS: MONTELUKAST SODIUM 10 MG TABLET PO SCH (23:12)
[2018-08-08] MEDS: IPRATROPIUM/ALBUTEROL 0.5-2.5 MG/3 ML AMPUL NEB SCH ×4 (02:41→19:34)
[2018-08-08 05:57] LABS: ABSOLUTE LYMPHOCYTES (AUTO) 0.7 10^3/uL (0.5-4.7); ABSOLUTE MONOCYTES (AUTO) 0.6 10^3/uL (0.1-1.4); ABSOLUTE NEUT (AUTO) 9.2 10^3/uL (1.7-8.2); BASOPHILS % (AUTO) 0.1 % (0-2); HEMATOCRIT 32.4 % (37.9-51.0); HEMOGLOBIN 10.5 g/dL (13.5-17.0); MEAN CORPUSCULAR HEMOGLOBIN 22.8 pg (27.0-33.4); MEAN CORPUSCULAR HGB CONC 32.5 g/dL (32.0-36.0); MEAN CORPUSCULAR VOLUME 70 fl (80-97); MONOCYTES % (AUTO) 5.6 % (3-13); PLATELET COUNT 220 10^3/uL (150-450); RED BLOOD COUNT 4.61 10^6/uL (4.35-5.55); RED CELL DISTRIBUTION WIDTH 17.4 % (11.5-14.0); SEGMENTED NEUTROPHILS % (AUTO) 87.3 % (42-78); TOTAL CELLS COUNTED % (AUTO) 100 %; WHITE BLOOD COUNT 10.5 10^3/uL (4.0-10.5)
[2018-08-08] MEDS: PANTOPRAZOLE SODIUM 40 MG TABLET.DR PO SCH (05:57)
[2018-08-08 06:16] LABS: CHLORIDE 105 mmol/L (98-107); POTASSIUM 4.4 mmol/L (3.6-5.0); SODIUM 139.5 mmol/L (137-145)
[2018-08-08 06:32] LABS: ALANINE AMINOTRANSFERASE 18 U/L (21-72); ALBUMIN 3.6 g/dL (3.5-5.0); ALKALINE PHOSPHATASE 78 U/L (38-126); ANION GAP 10 (5-19); ASPARTATE AMINO TRANSFERASE 14 U/L (17-59); BILIRUBIN,DIRECT 0.3 mg/dL (0.0-0.4); BILIRUBIN,TOTAL 0.8 mg/dL (0.2-1.3); BLOOD UREA NITROGEN 26 mg/dL (7-20); CALCIUM 9.5 mg/dL (8.4-10.2); CARBON DIOXIDE 25 mmol/L (22-30); GLUCOSE 153 mg/dL (75-110); TOTAL PROTEIN 6.3 g/dL (6.3-8.2)
--- NOTE | 2018-08-08 07:59 | EKG REPORT ---
SEVERITY:- ABNORMAL ECG - ATRIAL FIBRILLATION LEFT VENTRICULAR HYPERTROPHY BORDERLINE PROLONGED QT INTERVAL : Confirmed by: Gregory Pascual MD 08-Aug-2018 07:58:30
[2018-08-08] MEDS ORDERED: PANTOPRAZOLE SODIUM 40 MG TABLET.DR PO SCH (08:00)
[2018-08-08 08:12] LABS: ARTERIAL BLOOD BASE EXCESS 0.2 mmol/L; ARTERIAL BLOOD FIO2 21%; ARTERIAL BLOOD H2CO3 0.97 mmol/L (1.05-1.35); ARTERIAL BLOOD HCO3 23.2 mmol/L (20-24); ARTERIAL BLOOD O2 SATURATION 93.3 % (94-98); ARTERIAL BLOOD PCO2 32.3 mmHg (35-45); ARTERIAL BLOOD PH 7.48 (7.35-7.45); ARTERIAL BLOOD PO2 61.5 mmHg (80-100); ARTERIAL BLOOD TOTAL CO2 24.2 mmol/L (23-27)
--- NOTE | 2018-08-08 08:33 | PDOC PROGRESS REPORT ---
Subjective Progress Note for:: 08/08/18 Subjective:: The patient states to feel slightly better. He still has a lot of cough. He now has some rib cage discomfort because of cough. His breathing has improved. He denies any further fever Reason For Visit: ACUTE COPD EXACERBATION,PNEUMONIA Physical Exam Vital Signs: Temp Pulse Resp BP Pulse Ox 98.3 F 88 16 109/51 L 92 08/07/18 23:45 08/08/18 07:00 08/08/18 02:42 08/07/18 23:45 08/08/18 02:42 Intake & Output 08/07/18 08/08/18 08/09/18 06:59 06:59 06:59 Intake Total 370 1248 Output Total 150 Balance 220 1248 Weight 90.2 kg 90.1 kg General appearance: PRESENT: mild distress Head exam: PRESENT: atraumatic Eye exam: PRESENT: conjunctival injection Mouth exam: PRESENT: moist Neck exam: PRESENT: carotid bruit. ABSENT: JVD Respiratory exam: PRESENT: decreased breath sounds, rhonchi. ABSENT: wheezes Cardiovascular exam: PRESENT: RRR, +S1, +S2 GI/Abdominal exam: PRESENT: normal bowel sounds, soft Extremities exam: PRESENT: full ROM Musculoskeletal exam: PRESENT: ambulatory Neurological exam: PRESENT: alert, awake Results Laboratory Results: 08/08/18 05:12 08/08/18 05:12 08/08/18 08/08/18 08/08/18 05:12 05:12 06:32 WBC 10.5 RBC 4.61 Hgb 10.5 L Hct 32.4 L MCV 70 L MCH 22.8 L MCHC 32.5 RDW 17.4 H Plt Count 220 Seg Neutrophils % 87.3 H Lymphocytes % 7.0 L Monocytes % 5.6 Eosinophils % 0.0 Basophils % 0.1 Absolute Neutrophils 9.2 H Absolute Lymphocytes 0.7 Absolute Monocytes 0.6 Absolute Eosinophils 0.0 Absolute Basophils 0.0 Carbonic Acid 0.97 L HCO3/H2CO3 Ratio 23:1 ABG pH 7.48 H ABG pCO2 32.3 L ABG pO2 61.5 L ABG HCO3 23.2 ABG O2 Saturation 93.3 L ABG Base Excess 0.2 FiO2 21% Sodium 139.5 Potassium 4.4 Chloride 105 Carbon Dioxide 25 Anion Gap 10 BUN 26 H Creatinine 1.00 Est GFR ( Amer) > 60 Est GFR (Non-Af Amer) > 60 Glucose 153 H Calcium 9.5 Total Bilirubin 0.8 AST 14 L ALT 18 L Alkaline Phosphatase 78 Total Protein 6.3 Albumin 3.6 08/06/18 17:41 NT-Pro-B Natriuret Pep 1860 H Impressions: Chest X-Ray 08/06/18 17:20 IMPRESSION: STABLE CARDIOMEGALY. BASILAR ATELECTASIS. CANNOT EXCLUDE UNDERLYING PNEUMONIA. SIMILAR APPEARANCE TO THE PRIOR STUDY. Assessment & Plan - Diagnosis (1) Anemia Qualifiers: Anemia type: iron deficiency Is this a current diagnosis for this admission?: Yes Plan: add feso4 (2) Congestive heart failure Qualifiers: Heart failure type: combined systolic and diastolic Heart failure chronicity: chronic Qualified Code(s): I50.42 - Chronic combined systolic (congestive) and diastolic (congestive) heart failure Is this a current diagnosis for this admission?: Yes Plan: continue current meds (3) Bacterial pneumonia Is this a current diagnosis for this admission?: Yes Plan: antibiotics (4) Acute exacerbation of chronic obstructive airways disease Is this a current diagnosis for this admission?: Yes Plan: steroids, nebs (5) Paroxysmal atrial fibrillation Is this a current diagnosis for this admission?: Yes Plan: Continue current treatment
[2018-08-08] MEDS ORDERED: LISINOPRIL 5 MG TABLET PO SCH (10:00)
[2018-08-08] MEDS: ASPIRIN 81 MG TABLET, ENT COATED PO SCH (12:22)
[2018-08-08] MEDS: CLOPIDOGREL BISULFATE 75 MG TABLET PO SCH (12:22)
[2018-08-08] MEDS: CYANOCOBALAMIN (VITAMIN B-12) 1,000 MCG TABLET PO SCH (12:22)
[2018-08-08] MEDS: FUROSEMIDE 40 MG TABLET PO SCH (12:22)
[2018-08-08] MEDS: LORATADINE 10 MG TABLET PO SCH (12:22)
[2018-08-08] MEDS: APIXABAN 5 MG TABLET PO SCH ×2 (12:22→19:06)
[2018-08-08] MEDS: GABAPENTIN 300 MG CAPSULE PO SCH ×2 (12:23→21:52)
[2018-08-08] MEDS: FOLIC ACID 1 MG TABLET PO SCH (12:23)
[2018-08-08] MEDS: TAMSULOSIN HCL 0.4 MG CAP.SR.24H PO SCH (12:24)
[2018-08-08] MEDS: ISOSORBIDE MONONITRATE 30 MG TAB.ER.24H PO SCH (12:25)
[2018-08-08] MEDS: PREDNISONE 20 MG TABLET PO SCH ×2 (12:25→19:06)
[2018-08-08] MEDS: METOPROLOL SUCCINATE 50 MG TAB.SR.24H PO SCH (12:25)
[2018-08-08] MEDS: DOCUSATE SODIUM 100 MG CAPSULE PO SCH (12:25)
[2018-08-08] MEDS: FLUTICASONE NASAL SPRAY 50 MCG/SPRY 120 SPRAY/16 GM NASL SCH (12:27)
[2018-08-08] MEDS: PSYLLIUM SEED-SF 5.85 GM PACKET PO SCH ×2 (12:27→19:07)
[2018-08-08] MEDS: FLUTICASONE/VILANTEROL 200-25 MCG/DOSE IH SCH (12:30)
[2018-08-08] MEDS: TIOTROPIUM BROMIDE DPI 5 CAP/KIT (18 MCG/CAP) IH SCH (12:31)
[2018-08-08] MEDS: ACETAMINOPHEN 325 MG TABLET PO PRN ×2 (14:39→19:14)
[2018-08-08] MEDS: CEFTRIAXONE 1 GM/D5W RTU 1 GM/50 ML RTUPB IV SCH (19:08)
[2018-08-08] MEDS: AZITHROMYCIN 500 MG in DEXTROSE 5%-WATER 250 ML IV SCH (21:51)
[2018-08-08] MEDS: ATORVASTATIN CALCIUM 40 MG TABLET PO SCH (21:52)
[2018-08-08] MEDS: MONTELUKAST SODIUM 10 MG TABLET PO SCH (21:52)
--- NOTE | 2018-08-09 00:50 | XCELERA REPORT ---
[address] [address] Transthoracic Echocardiogram Report Name: HARVEY YBARRA Age: 78 yrs Gender: Male : 1940 [facility]: 08/07/2018 09:20 AM Height: 69 in Weight: 198 lb BSA: 2.1 m2 Procedure: A two-dimensional transthoracic echocardiogram with color flow Doppler was performed. The study was technically difficult with many images being suboptimal in quality. Reason For Study: systolic murmur History: systolic murmur. Ordering Physician: REJI CHUA Performed By: Nano Mike Interpretation Summary The left ventricle is normal in size. There is normal left ventricular wall thickness. The left ventricular ejection fraction is within normal limits. LV EF is > than 65% Doppler measurements suggest normal left ventricular diastolic function The left ventricular wall motion is normal. The right ventricle is not well visualized secondary to technical limitations The right atrium is normal. The left atrium is mildly dilated. There is no evidence of mitral valve prolapse. There is no vegetation seen on the mitral valve. There is no mitral valve stenosis. There is a trace to mild amount of mitral regurgitation There is no aortic valvular vegetation. There is mild aortic stenosis There is a peak gradient of 16 mm of Hg. No hemodynamically significant valvular aortic stenosis. There is no LVOT obstruction. There is a trace amount of aortic regurgitation There is no tricuspid stenosis. There is a trace amount of tricuspid regurgitation Right ventricular systolic pressure is normal. RVSP is 25 mm of Hg , with RA mean of 10. There is no pulmonic valvular stenosis. There is a trace amount of pulmonic regurgitation The aortic root is normal size. There is no pericardial effusion. MMode/2D Measurements & Calculations IVSd: 0.86 cm LVIDd: 5.6 cm FS: 39.2 % Ao root diam: 4.1 cm LVIDs: 3.4 cm EDV(Teich): 153.4 ml Ao root area: 12.9 cm2 LVPWd: 1.00 cm ESV(Teich): 47.5 ml EF(Teich): 69.0 % Doppler Measurements & Calculations MV E max piper: MV dec slope: Ao V2 max: LV V1 max P.9 cm/sec 341.3 cm/sec2 202.6 cm/sec 11.3 mmHg MV A max piper: MV dec time: Ao max PG: LV V1 max: 101.3 cm/sec 0.31 sec 16.4 mmHg 167.9 cm/sec MV E/A: 1.0 LV dP/dt: 5481 mmHg/s PA V2 max: PI end-d piper: TR max piper: 151.1 cm/sec 131.9 cm/sec 195.3 cm/sec PA max P.1 mmHg TR max P.3 mmHg Left Ventricle The left ventricle is normal in size. There is normal left ventricular wall thickness. The left ventricular ejection fraction is within normal limits. LV EF is > than 65%. Doppler measurements suggest normal left ventricular diastolic function. The left ventricular wall motion is normal. There is no thrombus. Right Ventricle The right ventricle is not well visualized secondary to technical limitations. Atria The right atrium is normal. The left atrium is mildly dilated. Mitral Valve There is no evidence of mitral valve prolapse. There is no vegetation seen on the mitral valve. There is no mitral valve stenosis. There is a trace to mild amount of mitral regurgitation. Aortic Valve There is no aortic valvular vegetation. There is mild aortic stenosis. There is a peak gradient of 16 mm of Hg. No hemodynamically significant valvular aortic stenosis. There is no LVOT obstruction. There is a trace amount of aortic regurgitation. Tricuspid Valve There is no tricuspid stenosis. There is a trace amount of tricuspid regurgitation. Right ventricular systolic pressure is normal. RVSP is 25 mm of Hg , with RA mean of 10. Pulmonic Valve There is no pulmonic valvular stenosis. There is a trace amount of pulmonic regurgitation. Great Vessels The aortic root is normal size. Effusions There is no pericardial effusion. : REJI CHUA > Aida Rodriguez
[2018-08-09] MEDS: IPRATROPIUM/ALBUTEROL 0.5-2.5 MG/3 ML AMPUL NEB SCH ×4 (01:41→19:49)
[2018-08-09] MEDS: PANTOPRAZOLE SODIUM 40 MG TABLET.DR PO SCH (05:50)
--- NOTE | 2018-08-09 08:01 | PDOC PROGRESS REPORT ---
Subjective Progress Note for:: 08/09/18 Subjective:: The patient states to feel slightly better. He is still very short of breath with exertion. His cough has improved. Reason For Visit: ACUTE COPD EXACERBATION,PNEUMONIA Physical Exam Vital Signs: Temp Pulse Resp BP Pulse Ox 98.5 F 88 16 112/65 93 08/08/18 23:15 08/09/18 02:00 08/09/18 01:44 08/08/18 23:15 08/09/18 01:44 Intake & Output 08/08/18 08/09/18 08/10/18 06:59 06:59 06:59 Intake Total 1248 2044 300 Balance 1248 2044 300 Weight 90.1 kg 89.5 kg General appearance: PRESENT: mild distress Head exam: PRESENT: atraumatic Eye exam: PRESENT: conjunctival injection Neck exam: PRESENT: carotid bruit. ABSENT: JVD Respiratory exam: PRESENT: rhonchi. ABSENT: wheezes Cardiovascular exam: PRESENT: irregular rhythm, +S1, +S2 GI/Abdominal exam: PRESENT: normal bowel sounds, soft Extremities exam: PRESENT: full ROM Musculoskeletal exam: PRESENT: ambulatory Neurological exam: PRESENT: alert, awake Results Laboratory Results: 08/08/18 05:12 08/08/18 05:12 08/08/18 06:32 Carbonic Acid 0.97 L HCO3/H2CO3 Ratio 23:1 ABG pH 7.48 H ABG pCO2 32.3 L ABG pO2 61.5 L ABG HCO3 23.2 ABG O2 Saturation 93.3 L ABG Base Excess 0.2 FiO2 21% 08/06/18 17:30 Throat Throat Culture - Final NORMAL BARNEY 08/06/18 17:41 NT-Pro-B Natriuret Pep 1860 H Impressions: Chest X-Ray 08/06/18 17:20 IMPRESSION: STABLE CARDIOMEGALY. BASILAR ATELECTASIS. CANNOT EXCLUDE UNDERLYING PNEUMONIA. SIMILAR APPEARANCE TO THE PRIOR STUDY. Assessment & Plan - Diagnosis (1) Anemia Qualifiers: Anemia type: iron deficiency Is this a current diagnosis for this admission?: Yes Plan: add feso4 will add iron and vitamin C. (2) Congestive heart failure Qualifiers: Heart failure type: combined systolic and diastolic Heart failure chronic ity: chronic Qualified Code(s): I50.42 - Chronic combined systolic (congestive) and diastolic (congestive) heart failure Is this a current diagnosis for this admission?: Yes Plan: Improved continue diureses (3) Bacterial pneumonia Is this a current diagnosis for this admission?: Yes Plan: Continue current medications. Will recheck x-ray (4) Acute exacerbation of chronic obstructive airways disease Is this a current diagnosis for this admission?: Yes Plan: Continue steroids and nebulization treatments. Will recheck O2 on room air at rest and with 6-minute walk (5) Paroxysmal atrial fibrillation Is this a current diagnosis for this admission?: Yes Plan: Continue current treatment. We will stop Plavix and continue Eliquis and aspirin
--- NOTE | 2018-08-09 09:16 | RADIOLOGY REPORT (SQ) ---
EXAM DESCRIPTION: CHEST 2 VIEWS COMPLETED DATE/TIME: 08/09/2018 8:52 am REASON FOR STUDY: pneumonia COMPARISON: 08/06/2018 EXAM PARAMETERS: NUMBER OF VIEWS: two views TECHNIQUE: Digital Frontal and Lateral radiographic views of the chest acquired. RADIATION DOSE: NA LIMITATIONS: none FINDINGS: LUNGS AND PLEURA: Persistent mild bibasilar opacities, not significantly changed trace eff usion on the right likely. No pneumothorax. MEDIASTINUM AND HILAR STRUCTURES: Stable. HEART AND VASCULAR STRUCTURES: Normal heart size. Ectatic atherosclerotic thoracic aorta. BONES: Median sternotomy changes. No acute findings. HARDWARE: CABG hardware. OTHER: No other significant finding. IMPRESSION: Stable bibasilar opacities possibly atelectasis or infection. Small right effusion, sta ble. TECHNICAL DOCUMENTATION: JOB ID: [id number] [employer]- All Rights Reserved Reading location - IP/workstation name: [email or web address]
[2018-08-09] MEDS: ACETAMINOPHEN 325 MG TABLET PO PRN ×2 (10:48→21:54)
[2018-08-09] MEDS: FUROSEMIDE 40 MG TABLET PO SCH (10:51)
[2018-08-09] MEDS: ISOSORBIDE MONONITRATE 30 MG TAB.ER.24H PO SCH (10:52)
[2018-08-09] MEDS: FERROUS SULFATE 325 MG TABLET PO SCH ×2 (10:52→18:59)
[2018-08-09] MEDS: PREDNISONE 20 MG TABLET PO SCH ×2 (10:52→18:59)
[2018-08-09] MEDS: APIXABAN 5 MG TABLET PO SCH ×2 (10:52→18:58)
[2018-08-09] MEDS: TAMSULOSIN HCL 0.4 MG CAP.SR.24H PO SCH (10:52)
[2018-08-09] MEDS: DOCUSATE SODIUM 100 MG CAPSULE PO SCH (10:52)
[2018-08-09] MEDS: CYANOCOBALAMIN (VITAMIN B-12) 1,000 MCG TABLET PO SCH (10:52)
[2018-08-09] MEDS: METOPROLOL SUCCINATE 50 MG TAB.SR.24H PO SCH (10:52)
[2018-08-09] MEDS: ASCORBIC ACID 500 MG TABLET PO SCH ×2 (10:53→18:58)
[2018-08-09] MEDS: ASPIRIN 81 MG TABLET, ENT COATED PO SCH (10:53)
[2018-08-09] MEDS: LORATADINE 10 MG TABLET PO SCH (10:53)
[2018-08-09] MEDS: GABAPENTIN 300 MG CAPSULE PO SCH ×2 (10:53→21:54)
[2018-08-09] MEDS: PSYLLIUM SEED-SF 5.85 GM PACKET PO SCH ×2 (10:53→18:58)
[2018-08-09] MEDS: TIOTROPIUM BROMIDE DPI 5 CAP/KIT (18 MCG/CAP) IH SCH (10:53)
[2018-08-09] MEDS: FOLIC ACID 1 MG TABLET PO SCH (10:53)
[2018-08-09] MEDS: FLUTICASONE/VILANTEROL 200-25 MCG/DOSE IH SCH (10:54)
[2018-08-09] MEDS: FLUTICASONE NASAL SPRAY 50 MCG/SPRY 120 SPRAY/16 GM NASL SCH (10:54)
[2018-08-09] MEDS ORDERED: MAG HYDROX/AL HYDROX/SIMETH SUSP 30 ML UDCUP PO PRN (16:20)
[2018-08-09] MEDS: CEFTRIAXONE 1 GM/D5W RTU 1 GM/50 ML RTUPB IV SCH (18:58)
[2018-08-09] MEDS: AZITHROMYCIN 500 MG in DEXTROSE 5%-WATER 250 ML IV SCH (18:59)
[2018-08-09] MEDS: MONTELUKAST SODIUM 10 MG TABLET PO SCH (21:54)
[2018-08-09] MEDS: ATORVASTATIN CALCIUM 40 MG TABLET PO SCH (21:54)
[2018-08-10] MEDS: IPRATROPIUM/ALBUTEROL 0.5-2.5 MG/3 ML AMPUL NEB SCH ×4 (02:06→21:11)
[2018-08-10] MEDS: PANTOPRAZOLE SODIUM 40 MG TABLET.DR PO SCH (06:00)
--- NOTE | 2018-08-10 08:28 | PDOC PROGRESS REPORT ---
Subjective Progress Note for:: 08/10/18 Subjective:: The patient states to feel slightly better. He still has productive cough. He had some heartburn last night which was controlled. His O2 saturation on room air with minimal exertion was 84%. The patient's O2 saturation on 2 L was about 91/92%. The patient will need to be discharged on home O2 most probably portable concentrator Reason For Visit: ACUTE COPD EXACERBATION,PNEUMONIA Physical Exam Vital Signs: Temp Pulse Resp BP Pulse Ox 98.8 F 83 16 124/74 91 L 08/09/18 23:46 08/10/18 07:36 08/10/18 07:36 08/09/18 23:46 08/10/18 07:36 Intake & Output 08/09/18 08/10/18 08/11/18 06:59 06:59 06:59 Intake Total 2043 1960 Balance 2043 1960 Weight 89.5 kg 89.7 kg General appearance: PRESENT: mild distress Head exam: PRESENT: atraumatic Eye exam: PRESENT: conjunctival injection Mouth exam: PRESENT: dry mucosa Respiratory exam: PRESENT: rhonchi. ABSENT: wheezes Cardiovascular exam: PRESENT: irregular rhythm, +S1, +S2 GI/Abdominal exam: PRESENT: normal bowel sounds, soft Extremities exam: PRESENT: full ROM Musculoskeletal exam: PRESENT: ambulatory Neurological exam: PRESENT: alert, awake Results Laboratory Results: 08/08/18 05:12 08/08/18 05:12 08/06/18 17:41 NT-Pro-B Natriuret Pep 1860 H Impressions: Chest X-Ray 08/09/18 00:00 IMPRESSION: Stable bibasilar opacities possibly atelectasis or infection. Small right effusion, stable. Assessment & Plan - Diagnosis (1) Anemia Qualifiers: Anemia type: iron deficiency Is this a current diagnosis for this admission?: Yes Plan: add feso4 will add iron and vitamin C. (2) Congestive heart failure Qualifiers: Heart failure type: combined systolic and diastolic Heart failure chronicity: chronic Qualified Code(s): I50.42 - Chronic combined systolic (congestive) and diastolic (congestive) heart failure Is this a current diagnosis for this admission?: Yes Plan: Improved we will continue fluid restriction and diuretics. (3) Bacterial pneumonia Is this a current diagnosis for this admission?: Yes Plan: We will stop azithromycin. We will add doxycycline. Will discharge patient with oral antibiotics (4) Acute exacerbation of chronic obstructive airways disease Is this a current diagnosis for this admission?: Yes Plan: We will continue with steroid nebulization treatments (5) Paroxysmal atrial fibrillation Is this a current diagnosis for this admission?: Yes Plan: Continue current treatment. We will stop Plavix and continue Eliquis and aspirin (6) Acute on chronic respiratory failure with hypoxemia Is this a current diagnosis for this admission?: Yes Plan: The patient O2 saturation is 84% on room air even after 4 days of aggressive treatments. The patient will need to be discharged home on portable O2
[2018-08-10] MEDS: CYANOCOBALAMIN (VITAMIN B-12) 1,000 MCG TABLET PO SCH (09:12)
[2018-08-10] MEDS: ASPIRIN 81 MG TABLET, ENT COATED PO SCH (09:12)
[2018-08-10] MEDS: FERROUS SULFATE 325 MG TABLET PO SCH ×2 (09:12→18:42)
[2018-08-10] MEDS: DOCUSATE SODIUM 100 MG CAPSULE PO SCH (09:12)
[2018-08-10] MEDS: GABAPENTIN 300 MG CAPSULE PO SCH ×2 (09:12→21:09)
[2018-08-10] MEDS: FOLIC ACID 1 MG TABLET PO SCH (09:13)
[2018-08-10] MEDS: APIXABAN 5 MG TABLET PO SCH ×2 (09:13→18:42)
[2018-08-10] MEDS: METOPROLOL SUCCINATE 50 MG TAB.SR.24H PO SCH (09:14)
[2018-08-10] MEDS: PREDNISONE 20 MG TABLET PO SCH ×2 (09:14→18:42)
[2018-08-10] MEDS: FUROSEMIDE 40 MG TABLET PO SCH (09:15)
[2018-08-10] MEDS: LORATADINE 10 MG TABLET PO SCH (09:15)
[2018-08-10] MEDS: ISOSORBIDE MONONITRATE 30 MG TAB.ER.24H PO SCH (09:16)
[2018-08-10] MEDS: TAMSULOSIN HCL 0.4 MG CAP.SR.24H PO SCH (09:16)
[2018-08-10] MEDS: FLUTICASONE/VILANTEROL 200-25 MCG/DOSE IH SCH (09:17)
[2018-08-10] MEDS: PSYLLIUM SEED-SF 5.85 GM PACKET PO SCH ×2 (09:17→18:42)
[2018-08-10] MEDS: FLUTICASONE NASAL SPRAY 50 MCG/SPRY 120 SPRAY/16 GM NASL SCH (09:18)
[2018-08-10] MEDS: TIOTROPIUM BROMIDE DPI 5 CAP/KIT (18 MCG/CAP) IH SCH (09:18)
[2018-08-10] MEDS: DOXYCYCLINE HYCLATE 100 MG TABLET PO SCH ×2 (09:19→21:09)
[2018-08-10] MEDS: ASCORBIC ACID 500 MG TABLET PO SCH ×2 (09:26→18:42)
[2018-08-10] MEDS: CHLORPHENIRAMINE MALEATE 4 MG TABLET PO SCH (12:06)
[2018-08-10] MEDS: CEFTRIAXONE 1 GM/D5W RTU 1 GM/50 ML RTUPB IV SCH (18:41)
[2018-08-10] MEDS: ATORVASTATIN CALCIUM 40 MG TABLET PO SCH (21:09)
[2018-08-10] MEDS: MONTELUKAST SODIUM 10 MG TABLET PO SCH (21:09)
[2018-08-11] MEDS: IPRATROPIUM/ALBUTEROL 0.5-2.5 MG/3 ML AMPUL NEB SCH ×3 (02:44→13:16)
[2018-08-11] MEDS: PANTOPRAZOLE SODIUM 40 MG TABLET.DR PO SCH (05:02)
[2018-08-11] MEDS: FERROUS SULFATE 325 MG TABLET PO SCH (08:35)
[2018-08-11] MEDS: GABAPENTIN 300 MG CAPSULE PO SCH (10:24)
[2018-08-11] MEDS: ASCORBIC ACID 500 MG TABLET PO SCH (10:24)
[2018-08-11] MEDS: ASPIRIN 81 MG TABLET, ENT COATED PO SCH (10:24)
[2018-08-11] MEDS: APIXABAN 5 MG TABLET PO SCH (10:25)
[2018-08-11] MEDS: METOPROLOL SUCCINATE 50 MG TAB.SR.24H PO SCH (10:25)
[2018-08-11] MEDS: CYANOCOBALAMIN (VITAMIN B-12) 1,000 MCG TABLET PO SCH (10:25)
[2018-08-11] MEDS: PREDNISONE 20 MG TABLET PO SCH (10:25)
[2018-08-11] MEDS: DOCUSATE SODIUM 100 MG CAPSULE PO SCH (10:25)
[2018-08-11] MEDS: FUROSEMIDE 40 MG TABLET PO SCH (10:25)
[2018-08-11] MEDS: FOLIC ACID 1 MG TABLET PO SCH (10:25)
[2018-08-11] MEDS: ISOSORBIDE MONONITRATE 30 MG TAB.ER.24H PO SCH (10:25)
[2018-08-11] MEDS: LORATADINE 10 MG TABLET PO SCH (10:25)
[2018-08-11] MEDS: PSYLLIUM SEED-SF 5.85 GM PACKET PO SCH (10:26)
[2018-08-11] MEDS: TAMSULOSIN HCL 0.4 MG CAP.SR.24H PO SCH (10:26)
[2018-08-11] MEDS: TIOTROPIUM BROMIDE DPI 5 CAP/KIT (18 MCG/CAP) IH SCH (10:27)
[2018-08-11] MEDS: FLUTICASONE/VILANTEROL 200-25 MCG/DOSE IH SCH (10:28)
[2018-08-11] MEDS: DOXYCYCLINE HYCLATE 100 MG TABLET PO SCH (10:30)
[2018-08-11] MEDS: FLUTICASONE NASAL SPRAY 50 MCG/SPRY 120 SPRAY/16 GM NASL SCH (10:30)
--- NOTE | 2018-08-11 11:37 | PDOC DISCHARGE SUMMARY ---
General - Admit/Disc Date/PCP Admission Date/Primary Care Provider: 08/07/18 11:38 BLAINE MCKAY MD Discharge Date: 08/11/18 - Discharge Diagnosis (1) Anemia Is this a current diagnosis for this admission?: Yes Summary: Continue with iron and vitamin C (2) Congestive heart failure Is this a current diagnosis for this admission?: Yes Summary: Resolved continue with diuretics (3) Bacterial pneumonia Is this a current diagnosis for this admission?: Yes Summary: Continue doxycycline for 9 more days (4) Acute exacerbation of chronic obstructive airways disease Is this a current diagnosis for this admission?: Yes Summary: Continue steroids and nebulization treatments (5) Paroxysmal atrial fibrillation Is this a current diagnosis for this admission?: Yes Summary: Continue current medications (6) Acute on chronic respiratory failure with hypoxemia Is this a current diagnosis for this admission?: Yes Summary: Continue with steroids and supplemental oxygen. Home oxygen arrangements have been made - Additional Information Resuscitation Status: Full Code Discharge Diet: Regular, Cardiac Discharge Activity: Activity As Tolerated Prescriptions: Doxycycline Hyclate [Vibramycin 100 mg Tablet] 100 mg PO Q12 #12 tablet Ferrous Sulfate [Feosol 325 mg Tablet] 325 mg PO BIDPCBS #60 tablet Prednisone [Deltasone 20 mg Tablet] 20 mg PO BID #40 tablet Home Medications: Atorvastatin Calcium [Lipitor 40 mg Tablet] 40 mg PO DAILY 04/13/16 Cetirizine HCl [Zyrtec] 10 mg PO DAILY 04/13/16 Cyanocobalamin (Vitamin B-12) [B-12] 1,000 mcg PO DAILY 04/13/16 Fluticasone/Salmeterol [Advair 250-50 Diskus 28 dose] 1 inh IH Q12 04/13/16 Folic Acid 1 mg PO DAILY 04/13/16 Gabapentin 300 mg PO Q12 04/13/16 Metoprolol Succinate 50 mg PO DAILY 04/13/16 Montelukast Sodium 10 mg PO QHS 04/13/16 Tiotropium [place] [Spiriva Handihaler 18 mcg/dose (30 Dose)] 1 cap IH DAILY 08/18/16 Tramadol HCl [Ultram 50 mg Tablet] 50 mg PO Q8HP PRN 08/18/16 Apixaban [Eliquis 5 mg Tablet] 5 mg PO BID 08/07/18 Aspirin [Ecotrin 81 mg EC Tablet] 81 mg PO DAILY 08/07/18 Benzonatate [Tessalon Perles 100 mg Capsule] 100 mg PO Q8HP PRN 08/07/18 Docusate Sodium [Stool Softener] 100 mg PO DAILY 08/07/18 Fiber [Fiber Diet] 1 each PO BID 08/07/18 Fluticasone Propionate [Flonase Nasal [place] 50 Mcg/[place] 16 gm] 1 spray NASL DAILY 08/07/18 Nitroglycerin [Nitrostat 0.4 mg (1/150 Gr) Tabs 25/Bottle] 1 tab SL Q5MP PRN 08/07/18 Pantoprazole Sodium [Protonix [address] Tablet] 40 mg PO QAM 08/07/18 Tamsulosin HCl [Flomax 0.4 mg Cap.sr] 0.4 mg PO DAILY 08/07/18 Doxycycline Hyclate [Vibramycin 100 mg Tablet] 100 mg PO Q12 #12 tablet 08/11/18 Ferrous Sulfate [Feosol 325 mg Tablet] 325 mg PO BIDPCBS #60 tablet 08/11/18 Prednisone [Deltasone 20 mg Tablet] 20 mg PO BID #40 tablet 08/11/18 History of Present Illness History of Present Illness: HARVEY YBARRA is a 78 year old male Hospital Course Hospital Course: The patient was admitted with an acute exacerbation of COPD. He was found to have a pneumonia. He was started on double antibiotics and steroids he has received nebulization treatments. His symptomatology has improved. His congestive heart failure was improved with fluid restrictions and diuretics. Th e patient does have a history of atrial fibrillation and is presently on anticoagulation. His rate is controlled with metoprolol. Will consider with cardiology to possibly place him on Cardizem. Arrangements have been made for the patient to have home oxygen because of low oxygen concentration all at rest and with exertion Physical Exam Vital Signs: Temp Pulse Resp BP Pulse Ox 97.8 F 82 18 136/90 H 93 08/11/18 07:25 08/11/18 08:19 08/11/18 08:19 08/11/18 07:25 08/11/18 08:19 Intake & Output 08/10/18 08/11/18 08/12/18 06:59 06:59 06:59 Intake Total 1960 842 Balance 1960 842 Weight 89.7 kg 89.1 kg General appearance: PRESENT: no acute distress Head exam: PRESENT: atraumatic Eye exam: PRESENT: conjunctiva pink Neck exam: PRESENT: carotid bruit. ABSENT: JVD Respiratory exam: PRESENT: rhonchi. ABSENT: wheezes Cardiovascular exam: PRESENT: irregular rhythm, +S1, +S2 GI/Abdominal exam: PRESENT: normal bowel sounds, soft Extremities exam: PRESENT: full ROM Musculoskeletal exam: PRESENT: ambulatory Neurological exam: PRESENT: alert, awake Results Laboratory Results: 08/08/18 05:12 08/08/18 05:12 08/06/18 17:41 NT-Pro-B Natriuret Pep 1860 H Impressions: Chest X-Ray 08/09/18 00:00 IMPRESSION: Stable bibasilar opacities possibly atelectasis or infection. Small right effusion, stable. Qualifiers - * PATIENT BEING DISCHARGED WITH ANY OF THE FOLLOWING DIAGNOSIS: No
[2018-08-11 15:46] VITALS: BP 108/68
[2018-08-11] MEDS ORDERED: CEFTRIAXONE SODIUM 1,000 MG in DEXTROSE 5%-WATER 50 ML IV SCH (18:00)
== END 2018-08-11 17:24 | disposition home or self-care (01) | DRG 193 ==
LOC: ER 16:58 → EH 22:16 → 5 08-07 01:09 → OBSVTOIN 08-07 11:38
PROVIDERS: ADMIT Internal Medicine; ATTEND Internal Medicine
DX: J15.9 Unspecified bacterial pneumonia (principal); J96.21 Acute and chronic respiratory failure with hypoxia; J44.1 Chronic obstructive pulmonary disease with (acute) exacerbation; J44.0 Chronic obstructive pulmonary disease with (acute) lower respiratory infection; I50.42 Chronic combined systolic (congestive) and diastolic (congestive) heart failure; I11.0 Hypertensive heart disease with heart failure; J30.1 Allergic rhinitis due to pollen; D50.9 Iron deficiency anemia, unspecified; I48.0 Paroxysmal atrial fibrillation; Z99.81 Dependence on supplemental oxygen; Z79.01 Long term (current) use of anticoagulants; M15.9 Polyosteoarthritis, unspecified; K21.9 Gastro-esophageal reflux disease without esophagitis; E78.5 Hyperlipidemia, unspecified; Z95.1 Presence of aortocoronary bypass graft; Z90.49 Acquired absence of other specified parts of digestive tract; Z87.891 Personal history of nicotine dependence; Z88.6 Allergy status to analgesic agent; Z79.899 Other long term (current) drug therapy
CPT/HCPCS: 36415; 36600; 71046; 80048; 80053; 81001; 82607; 82728; 82746; 82803; 83540; 83550; 83605; 83880; 85025; 85027; 85045; 87040; 87070; 87804; 87880; 93005; 93010; 93306; 94640; 94667; 94668; 94799; 96365; 96375; 99285; G0378; J0456; J0696; J1644; J2930; J3490; J7060; J7512; J7620

== ENCOUNTER 2018-09-22 10:03 | Emergency (ER) | payer BC, MEDICARE, OTHER ==
[2018-09-22] MEDS ORDERED: NORMAL SALINE 1000 ML 1,000 ML IV ONE (10:20)
--- NOTE | 2018-09-22 10:26 | ER Document Report ---
ED General - General Chief Complaint: Weakness Stated Complaint: NECK PAIN Time Seen by Provider: 09/22/18 10:14 Primary Care Provider: BLAINE MCKAY MD [Primary Care Provider] - Follow up as needed Notes: 78-year-old [place] Patient works at the post office and stable on hour prior to arrival he began feeling very weak. She just felt weak and tired all over. States his vision blurred in and out a little bit. He has no blurred vision now. The patient denies chest pain denies shortness of breath. His only complaint was had a little bit pain in the back of his neck. He has been seen for this in the past and his family doctor Dr. Lomeli has told him it is due to his posture. Patient complains just some aching pain in the back of his neck. He denies any fever chills cough or sore throat. Denies hematuria or dysuria denies black bloody or tarry stools denies diarrhea or constipation. The patient states she really just cannot describe that he just had a sudden onset of just diffuse weakness. And he came to the ER for evaluation. TRAVEL OUTSIDE OF THE [place] IN LAST 30 DAYS: No - Related Data Allergies/Adverse Reactions: codeine [Codeine] Adverse Reaction (Intermediate, Verified 09/22/18 10:03) Anxiety Past Medical History - Social History Smoking Status: Unknown if Ever Smoked Family History: COPD, Malignancy - Past Medical History Cardiac Medical History: Reports: Hx Coronary Artery Disease, Hx Hypercholesterolemia, Hx Hypertension, Hx Peripheral Vascular Disease Denies: Hx Atrial Fibrillation, Hx Congestive Heart Failure, Hx DVT, Hx Heart Attack, Hx Pulmonary Embolism Pulmonary Medical History: Reports: Hx COPD, Hx Pneumonia Denies: Hx Asthma, Hx Bronchitis, Hx Tuberculosis Neurological Medical History: Denies: Hx Cerebrovascular Accident, Hx Seizures Endocrine Medical History: Denies: Hx Diabetes Mellitus Type 1, Hx Diabetes Mellitus Type 2, Hx Hyperthyroidism, Hx Hypothyroidism Renal/ Medical History: Denies: Hx Peritoneal Dialysis GI Medical History: Reports: Hx Gastroesophageal Reflux Disease, Hx Ulcer. Denies: Hx Cirrhosis, Hx Hepatitis Musculoskeletal Medical History: Reports Hx Arthritis - GENERALIZED Skin Medical History: Denies Hx Eczema, Denies Hx Psoriasis Psychiatric Medical History: Denies: Hx Depression Infectious Medical History: Denies: Hx Hepatitis Past Surgical History: Reports: Hx Appendectomy, Hx Cardiac Surgery - bipass and stents, Hx Coronary Artery Bypass Graft - 5 VESSEL, September 1999, Hx Orthopedic Surgery - back, Hx Tonsillectomy. Denies: Hx Pacemaker - Immunizations Hx Diphtheria, Pertussis, Tetanus Vaccination: - UNSURE Hx Pneumococcal Vaccination: 05/09/14 Review of Systems - Review of Systems Constitutional: Malaise, Weakness. denies: Chills, Fever EENT: Blurred vision. denies: Tearing, Double vision, Sinus pressure, Throat pain Cardiovascular: denies: Chest pain, Palpitations, Dyspnea, Syncope, Dizziness, Lightheaded, Edema Respiratory: denies: Cough, Hurts to breathe, Hemoptysis, Short of breath, Wheezing Gastrointestinal: denies: Abdomen distended, Abdominal pain, Diarrhea, Nausea, Vomiting, Constipation, Blood streaked bowels, Blood in vomit, Black stools, Rectal bleeding Genitourinary: denies: Dysuria, Flank pain, Hematuria Musculoskeletal: Neck pain. denies: Back pain, Deformity Skin: denies: Rash Hematologic/Lymphatic: denies: Blood clots, Easy bleeding, Easy bruising Neurological/Psychological: denies: Depression, Anxiety, Headaches - Hello -: Yes All other systems reviewed and negative Physical Exam - Vital signs Vitals: Temp Pulse Resp BP Pulse Ox 97.6 F 83 16 89/49 L 93 09/22/18 10:07 09/22/18 10:07 09/22/18 10:07 09/22/18 10:07 09/22/18 10:07 - Notes Notes: GENERAL_APPEARANCE: well_nourished, alert, cooperative, no_acute_distress, no_obvious_discomfort. VITALS: reviewed, see vital signs table. HEAD: no_swelling\tenderness on the head. EYES: PERRL, EOMI, conjunctiva_clear. NOSE: no_nasal_discharge. MOUTH: (-)decreased moisture. THROAT: no_tonsilar_inflammation, no_airway_obstruction. no_lymphadenopathy NECK: supple, no_neck_tenderness, (-)thyromegaly. BACK: no_back_tenderness. CHEST_WALL: no_chest_tenderness. LUNGS: no_wheezing, no_rales, no_rhonchi, (-)accessory muscle use, good air exchange bilateral. HEART: normal_rate, normal_rhythm, normal_S1, normal_S2, (-)S3, (-)S4, no_murmur, no_rub. ABDOMEN: normal_BS, soft, no_abd_tenderness, (-)guarding, (-)rebound, no_o rganomegaly, no_abd_masses. EXTREMITIES: good pulses in all_extremities, no_swelling\tenderness in the extremities, no_edema. SKIN: warm, dry, good_color, no_rash. MENTAL_STATUS: speech_clear, oriented_X_3, normal_affect, responds_appropriately to questions. NEURO: Neg Motor or Sensory Deficits on exam, CN 2-12 intact, DTR 2+ symmetric x 4, No cerbellar signs Course - Re-evaluation Re-evalutation: 09/22/18 10:25 Patient had sudden onset of malaise and fatigue. He does states he feels weak neurologically he is without any unilateral focal motor or sensory deficit. He complained of some neck pain and possibly a brief soda blurred vision. No unilateral motor or sensory deficits. We will do a broad work-up on him. He has had this neck pain in the past and his family doctors told him it just due to age and posture. He has no carotid bruits when I listen to him. Good strong carotid pulses. No ripping or tearing sensation in the chest. Nothing to suggest aortic aneurysm. No chest pain whatsoever no shortness of breath. No fever chills. She is a very vague historian he just states he feels weak and I really cannot get more out of him than that versus the neck and the transient blurred vision it only lasted for several seconds. 09/22/18 15:53 Initial BP was a little low and patient looked dehydrated patient received a liter of IV fluid blood pressure is normal he is feeling better he is sleeping comfortably the states that he has been sleeping a lot lately. I look good list of his medications and he has a lot of sedating medications including Ultram and gabapentin. The patient will likely need to have some of these medicines removed especially if he is having increasing somnolence. At this time other than some mild dehydration causing some renal insufficiency he looks well. Encouraged the to have him drink plenty of fluids there is no UTI no pneumonia no signs of stroke he does have a history of a thoracic aneurysm which was scanned not showing any changes. Patient otherwise is doing well and will be discharged home he will follow-up with Dr. Lomeli further. - Vital Signs Vital signs: Temp Pulse Resp BP Pulse Ox 97.6 F 83 14 100/66 93 09/22/18 10:07 09/22/18 10:07 09/22/18 11:34 09/22/18 11:34 09/22/18 11:34 - Laboratory Result Diagrams: 09/22/18 11:13 09/22/18 11:13 Laboratory results interpreted by me: 09/22/18 09/22/18 11:13 11:13 Hgb 11.0 L Hct 34.9 L MCV 75 L MCH 23.7 L MCHC 31.6 L RDW 21.6 H Seg Neutrophils % 87.6 H Lymphocytes % 7.2 L Absolute Neutrophils 8.8 H BUN 49 H Creatinine 2.01 H Est GFR ( Amer) 39 L Est GFR (Non-Af Amer) 32 L Glucose 125 H AST 16 L Total Protein 6.2 L - Diagnostic Test Radiology reviewed: Reports reviewed Radiology results interpreted by me: 09/22/18 15:[address] 09/22/18 10:20 IMPRESSION: Degenerative disc disease. Spondylosis. Facet arthropathy. Small cyst in the odontoid. Aortic ectasia. No acute finding. Chest X-Ray 09/22/18 10:20 IMPRESSION: Borderline heart size without pulmonary edema. Head CT 09/22/18 10:20 IMPRESSION: No acute intracranial imaging findings. There is a small well- circumscribed cyst in the odontoid with sclerotic margins. EVIDENCE OF ACUTE STROKE: NO. Chest CT 09/22/18 11:29 IMPRESSION: Stable dilatation ascending thoracic aorta - EKG Interpretation by Me Rate: Normal Rhythm: A.Fib When compared to previous EKG there are: No significant change Additional EKG results interpreted by me: 09/22/18 15:52 Patient does have a history of A. fib. No acute changes Discharge - Discharge Clinical Impression: Malaise and fatigue, Dehydration Condition: Good Disposition: HOME, SELF-CARE Instructions: Dehydration ([facility]) Additional Instructions: Please follow-up with your doctor for further care. I feel that likely the cause of your somnolence is the sedating medication he is on the Ultram and gabapentin will cause significant sedation. Please speak with Dr. Lomeli about adjusting some of the medicines. Also he was dehydrated while he was here please have him drink plenty of fluids. Referrals: BLAINE MCKAY MD [Primary Care Provider] - Follow up as needed
--- NOTE | 2018-09-22 10:51 | RADIOLOGY REPORT (SQ) ---
EXAM DESCRIPTION: CT CERVICAL SPINE WITHOUT COMPLETED DATE/TIME: 09/22/2018 10:36 am REASON FOR STUDY: weakness - neck pain COMPARISON: None. TECHNIQUE: Axial images acquired through the cervical spine without intravenous contrast. Images re viewed with lung, soft tissue and bone windows. Reconstructed coronal and sagittal MPR images review ed. Images stored on PACS. All CT scanners at this facility use dose modulation, iterative reconstruction, and/or weight based d osing when appropriate to reduce radiation dose to as low as reasonably achievable (ALARA). [facility]: Dose Right [facility]: CareDose [facility]: Dose Right [facility]: Teradose 4D [facility]: Smart [employer] RADIATION DOSE: CT Rad equipment meets quality standard of care and radiation dose reduction techniq ues were employed. CTDIvol: 23.7 mGy. DLP: 604 mGy-cm. mGy. LIMITATIONS: None. FINDINGS: ALIGNMENT: Anatomic. MINERALIZATION: Normal. VERTEBRAL BODIES: There is a 6 mm benign-appearing cyst in the odontoid. No vertebral fractures are seen. DISCS: Disc spaces are narrowed from C3-C6 with small marginal osteophytes. FACETS, LATERAL MASSES, POSTERIOR ELEMENTS: Mild hypertrophic facet changes on the right. HARDWARE: None in the spine. VISUALIZED RIBS: No fractures. LUNG APICES AND SOFT TISSUES: No significant or acute findings. OTHER: There appears to be ectasia of the ascending aorta on the last couple of images. IMPRESSION: Degenerative disc disease. Spondylosis. Facet arthropathy. Small cyst in the odontoid . Aortic ectasia. No acute finding. TECHNICAL DOCUMENTATION: JOB ID: [id number] Quality ID # [id number]: Final reports with documentation of one or more dose reduction techniques (e.g., Au tomated exposure control, adjustment of the mA and/or kV according to patient size, use of iterative reconstruction technique) 2010 [employer])- All Rights Reserved Reading location - IP/workstation name: [email or web address]
--- NOTE | 2018-09-22 10:57 | RADIOLOGY REPORT (SQ) ---
EXAM DESCRIPTION: CT HEAD WITHOUT COMPLETED DATE/TIME: 09/22/2018 10:36 am REASON FOR STUDY: weakness - neck pain COMPARISON: 04/12/2016 TECHNIQUE: Axial images acquired through the brain without intravenous contrast. Images reviewed wi th bone, brain and subdural windows. Additional sagittal and coronal reconstructions were generated. Images stored on PACS. All CT scanners at this facility use dose modulation, iterative reconstruction, and/or weight based d osing when appropriate to reduce radiation dose to as low as reasonably achievable (ALARA). [facility]: Dose Right [facility]: CareDose [facility]: Dose Right [facility]: Teradose 4D [facility]: Smart [facility] RADIATION DOSE: CT Rad equipment meets quality standard of care and radiation dose reduction techniq ues were employed. CTDIvol: 53.2 mGy. DLP: 1124 mGy-cm. mGy. LIMITATIONS: None. FINDINGS: VENTRICLES: Normal size and contour. CEREBRUM: No masses. No hemorrhage. No midline shift. No evidence for acute infarction. Normal gra y/white matter differentiation. No areas of low density in the white matter. CEREBELLUM: No masses. No hemorrhage. No alteration of density. No evidence for acute infarction. EXTRAAXIAL SPACES: No fluid collections. No masses. ORBITS AND GLOBE: No intra- or extraconal masses. Normal contour of globe without masses. CALVARIUM: No fracture. PARANASAL SINUSES: No fluid or mucosal thickening. SOFT TISSUES: No mass or hematoma. OTHER: A small odontoid cyst is once again seen. This was noted on the CT of the cervical spine. Th is is not seen on the prior CT head from 2016. IMPRESSION: No acute intracranial imaging findings. There is a small well-circumscribed cyst in the odontoid with sclerotic margins. EVIDENCE OF ACUTE STROKE: NO. COMMENT: Quality ID # [id number]: Final reports with documentation of one or more dose reduction techniques (e.g., Automated exposure control, adjustment of the mA and/or kV according to patient size, use of iterative reconstruction technique) TECHNICAL DOCUMENTATION: JOB ID: [id number] [employer]- All Rights Reserved Reading location - IP/workstation name: [email or web address]
--- NOTE | 2018-09-22 11:02 | RADIOLOGY REPORT (SQ) ---
EXAM DESCRIPTION: CHEST SINGLE VIEW COMPLETED DATE/TIME: 09/22/2018 10:47 am REASON FOR STUDY: weakness - neck pain COMPARISON: None. EXAM PARAMETERS: NUMBER OF VIEWS: One view. TECHNIQUE: Single frontal radiographic view of the chest acquired. RADIATION DOSE: NA LIMITATIONS: None. FINDINGS: LUNGS AND PLEURA: Mild basilar atelectasis on the left. MEDIASTINUM AND HILAR STRUCTURES: No masses. Contour normal. HEART AND VASCULAR STRUCTURES: Borderline heart size. No pulmonary edema. BONES: Sternotomy wires. HARDWARE: None in the chest. OTHER: No other significant finding. IMPRESSION: Borderline heart size without pulmonary edema. TECHNICAL DOCUMENTATION: JOB ID: [id number] [employer]- All Rights Reserved Reading location - IP/workstation name: [email or web address]
[2018-09-22 12:03] LABS: APPEARANCE,URINE CLEAR; BILIRUBIN,URINE NEGATIVE (NEGATIVE); COLOR,URINE YELLOW; GLUCOSE, URINE NEGATIVE (NEGATIVE); KETONES,URINE NEGATIVE (NEGATIVE); LEUKOCYTE ESTERASE,URINE NEGATIVE (NEGATIVE); NITRITE,URINE NEGATIVE (NEGATIVE); PROTEIN,URINE NEGATIVE (NEGATIVE); URINE SPECIFIC GRAVITY 1.017; UROBILINOGEN,URINE NEGATIVE mg/dL (<2.0)
[2018-09-22 12:11] LABS: ABSOLUTE LYMPHOCYTES (AUTO) 0.7 10^3/uL (0.5-4.7); ABSOLUTE MONOCYTES (AUTO) 0.5 10^3/uL (0.1-1.4); ABSOLUTE NEUT (AUTO) 8.8 10^3/uL (1.7-8.2); BASOPHILS % (AUTO) 0.2 % (0-2); EOSINOPHILS % (AUTO) 0.3 % (0-6); HEMATOCRIT 34.9 % (37.9-51.0); LYMPHOCYTES % (AUTO) 7.2 % (13-45); MEAN CORPUSCULAR HEMOGLOBIN 23.7 pg (27.0-33.4); MEAN CORPUSCULAR HGB CONC 31.6 g/dL (32.0-36.0); MEAN CORPUSCULAR VOLUME 75 fl (80-97); MONOCYTES % (AUTO) 4.7 % (3-13); PLATELET COUNT 331 10^3/uL (150-450); RED BLOOD COUNT 4.67 10^6/uL (4.35-5.55); RED CELL DISTRIBUTION WIDTH 21.6 % (11.5-14.0); SEGMENTED NEUTROPHILS % (AUTO) 87.6 % (42-78); TOTAL CELLS COUNTED % (AUTO) 100 %; WHITE BLOOD COUNT 10.1 10^3/uL (4.0-10.5)
[2018-09-22 12:21] LABS: ALANINE AMINOTRANSFERASE 29 U/L (21-72); ALBUMIN 3.5 g/dL (3.5-5.0); ALKALINE PHOSPHATASE 61 U/L (38-126); ANION GAP 12 (5-19); ASPARTATE AMINO TRANSFERASE 16 U/L (17-59); BILIRUBIN,DIRECT 0.3 mg/dL (0.0-0.4); BILIRUBIN,TOTAL 0.7 mg/dL (0.2-1.3); BLOOD UREA NITROGEN 49 mg/dL (7-20); CALCIUM 8.8 mg/dL (8.4-10.2); CARBON DIOXIDE 26 mmol/L (22-30); CHLORIDE 105 mmol/L (98-107); CREATINE KINASE 104 U/L (55-170); GLUCOSE 125 mg/dL (75-110); POTASSIUM 4.7 mmol/L (3.6-5.0); SODIUM 142.9 mmol/L (137-145); TOTAL PROTEIN 6.2 g/dL (6.3-8.2)
--- NOTE | 2018-09-22 13:20 | RADIOLOGY REPORT (SQ) ---
EXAM DESCRIPTION: CT CHEST WITHOUT COMPLETED DATE/TIME: 09/22/2018 12:57 pm REASON FOR STUDY: hx of aneurysm neck pain; creatinine 2.01 COMPARISON: CT chest 08/24/2017, 08/20/2016, 01/13/2010 TECHNIQUE: CT scan performed of the chest without intravenous contrast. Images reviewed with lung, soft tissue and bone windows. Reconstructed coronal and sagittal MPR images reviewed. All images st ored on PACS. All CT scanners at this facility use dose modulation, iterative reconstruction, and/or weight based d osing when appropriate to reduce radiation dose to as low as reasonably achievable (ALARA). [facility]: Dose Right [facility]: CareDose [facility]: Dose Right [facility]: Teradose 4D [facility]: [employer] RADIATION DOSE: CT Rad equipment meets quality standard of care and radiation dose reduction techniq ues were employed. CTDIvol: 15.9 mGy. DLP: 625 mGy-cm. mGy. LIMITATIONS: No technical limitations. FINDINGS: LUNGS AND PLEURA: Obstructive lung disease is present. Mild hyperinflation and hyperlucen cy at the lung apices. No acute infiltrates. No pleural effusion. No pneumothorax. HILAR AND MEDIASTINAL STRUCTURES: No identified masses or abnormal nodes. Tiny hiatal hernia. HEART AND VASCULAR STRUCTURES: Post sternotomy for CABG. Ascending thoracic aorta is dilated, 4.5 cm in greatest diameter, stable. Thoracic aorta is 3 cm diameter at the origin of the great vessels, 3 .2 cm diameter along the proximal descending thoracic aorta, 2.5 cm in diameter along the distal desc ending thoracic aorta, and 2.6 cm diameter at the aortic hiatus. Stable mild cardiomegaly. No peric ardial effusion UPPER ABDOMEN: Calcified gallstones. Multiple left renal cortical cysts. THYROID AND OTHER SOFT TISSUES: No masses. No adenopathy. BONES: 25% upper endplate compression of L1, chronic in appearance but new compared to 08/24/2017. HARDWARE: Old sternotomy, CABG OTHER: No other significant findings. IMPRESSION: Stable dilatation ascending thoracic aorta TECHNICAL DOCUMENTATION: JOB ID: [id number] Quality ID # [id number]: Final reports with documentation of one or more dose reduction techniques (e.g., Au tomated exposure control, adjustment of the mA and/or kV according to patient size, use of iterative reconstruction technique) 2010 [employer]- All Rights Reserved Reading location - IP/workstation name: [email or web address]
[2018-09-22 16:44] VITALS: BP 157/90
--- NOTE | 2018-09-23 08:45 | EKG REPORT ---
SEVERITY:- ABNORMAL ECG - ATRIAL FIBRILLATION, V-RATE 54-83 LEFT VENTRICULAR HYPERTROPHY NONSPECIFIC ST-T CHANGES- INFERIOR LEADS : Confirmed by: Gregory Pascual MD 23-Sep-2018 08:45:02
== END 2018-09-22 16:44 | disposition home or self-care (01) ==
LOC: ER 10:03
DX: R53.81 Other malaise (principal); R53.83 Other fatigue; E86.0 Dehydration; R53.1 Weakness; M54.2 Cervicalgia; H53.8 Other visual disturbances; I25.10 Atherosclerotic heart disease of native coronary artery without angina pectoris; I11.0 Hypertensive heart disease with heart failure; J44.9 Chronic obstructive pulmonary disease, unspecified
CPT/HCPCS: 93005; 99284; 96360; 96361; 36415; 82550; 85025; 80053; 81001; 84484; 71045; 70450; 71250; 72125; 93010; J7030

== ENCOUNTER → 2018-10-03 | Outpatient (CLI) | payer BC, MEDICARE, OTHER ==
--- NOTE | 2018-10-03 17:03 | RADIOLOGY REPORT (SQ) ---
EXAM DESCRIPTION: CERV SP 4 OR 5 VIEWS COMPLETED DATE/TIME: 10/03/2018 4:13 pm REASON FOR STUDY: NECK PAIN M54.2 CERVICALGIA COMPARISON: 11/24/2011 CT CERVICAL SPINE 09/22/2018 NUMBER OF VIEWS: 6 views. TECHNIQUE: AP, lateral, obliques, swimmer's and odontoid radiographic images acquired of the cervica l spine. LIMITATIONS: Patient has accentuated kyphosis. Oblique views are limited FINDINGS: MINERALIZATION: Normal. ALIGNMENT: Anatomic. VERTEBRAE: Vertebral bodies of normal height. DISCS: No significant osteophytes or sclerosis. Disc height maintained. FORAMINA: Moderate right C3-4 foraminal narrowing. High-grade right, moderate left C4-5 foraminal na rrowing. Moderate bilateral C5-6 and C6-7 foraminal narrowing LATERAL AND POSTERIOR ELEMENTS: Multilevel facet arthropathy HARDWARE: None in the spine. SOFT TISSUES: No masses or calcifications. Lung apices clear. OTHER: No other significant finding. IMPRESSION: Diffuse degenerative changes with facet arthropathy and multilevel foraminal narrowing TECHNICAL DOCUMENTATION: JOB ID: [id number] [employer] [place]- All Rights Reserved Reading location - IP/workstation name: [email or web address]
== END ==
LOC: RAD 15:47
PROVIDERS: ATTEND Internal Medicine
DX: M54.2 Cervicalgia (principal)
CPT/HCPCS: 72050

== ENCOUNTER 2018-12-15 11:49 | Emergency (ER) | payer OTHER, BC, MEDICARE ==
[2018-12-15] MEDS ORDERED: ASPIRIN 81 MG TABLET, CHEWABLE PO ONE (11:54)
[2018-12-15 12:18] LABS: ABSOLUTE EOSINOPHILS # (AUTO) 0.1 10^3/uL (0.0-0.6); ABSOLUTE LYMPHOCYTES (AUTO) 1.4 10^3/uL (0.5-4.7); ABSOLUTE MONOCYTES (AUTO) 0.5 10^3/uL (0.1-1.4); ABSOLUTE NEUT (AUTO) 5.8 10^3/uL (1.7-8.2); BASOPHILS % (AUTO) 0.4 % (0-2); EOSINOPHILS % (AUTO) 1.1 % (0-6); HEMATOCRIT 34.2 % (37.9-51.0); LYMPHOCYTES % (AUTO) 18.2 % (13-45); MEAN CORPUSCULAR HEMOGLOBIN 24.6 pg (27.0-33.4); MEAN CORPUSCULAR HGB CONC 32.2 g/dL (32.0-36.0); MEAN CORPUSCULAR VOLUME 77 fl (80-97); MONOCYTES % (AUTO) 6.1 % (3-13); PLATELET COUNT 247 10^3/uL (150-450); RED BLOOD COUNT 4.47 10^6/uL (4.35-5.55); RED CELL DISTRIBUTION WIDTH 16.7 % (11.5-14.0); SEGMENTED NEUTROPHILS % (AUTO) 74.2 % (42-78); TOTAL CELLS COUNTED % (AUTO) 100 %; WHITE BLOOD COUNT 7.8 10^3/uL (4.0-10.5)
[2018-12-15 12:30] LABS: ALBUMIN 4.4 g/dL (3.5-5.0); ALKALINE PHOSPHATASE 88 U/L (38-126); ANION GAP 14 (5-19); ASPARTATE AMINO TRANSFERASE 17 U/L (17-59); BILIRUBIN,DIRECT 0.2 mg/dL (0.0-0.4); BILIRUBIN,TOTAL 1.2 mg/dL (0.2-1.3); BLOOD UREA NITROGEN 29 mg/dL (7-20); CALCIUM 9.4 mg/dL (8.4-10.2); CARBON DIOXIDE 27 mmol/L (22-30); CHLORIDE 99 mmol/L (98-107); CREATINE KINASE 86 U/L (55-170); GLUCOSE 114 mg/dL (75-110)
[2018-12-15 12:43] LABS: CREATINE KINASE MB 2.23 ng/mL (<4.55)
[2018-12-15 12:44] LABS: TROPONIN I < 0.012 ng/mL
--- NOTE | 2018-12-15 13:13 | ER Document Report ---
Addendum entered and electronically signed by DANA HERNANDEZ NP 12/15/18 16:54: Discharge - Discharge Clinical Impression: Chest pain Qualifiers: Chest pain type: unspecified Qualified Code(s): R07.9 - Chest pain, unspecified Condition: Stable Disposition: ADMITTED OBSERVATION Admitting Provider: Denisa (Hospitalist) Unit Admitted: Telemetry Referrals: BLAINE MCKAY MD [Primary Care Provider] - Follow up as needed Original Note: ED Cardiac - General Chief Complaint: Chest Pain Stated Complaint: CHEST PAIN Time Seen by Provider: 12/15/18 12:50 Primary Care Provider: BLAINE MCKAY MD [Primary Care Provider] - Follow up as needed Mode of Arrival: Medic Information source: Patient Notes: Patient is a 78-year-old male past medical history of quadruple bypass, COPD, hypertension, hyperlipidemia and 2 cardiac stents presenting to the emergency department with sudden onset chest pain. 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 He describes this pain as a sharp stabbing pain with nausea. He denies any shortness of breath or radiation of the pain. He reports he has nitroglycerin prescribed to him, he took 2 tablets with no relief. He states once EMS arrived on scene they gave him 4 baby aspirin's and 1 additional sublingual nitroglycerin which did relieve the pain. Currently he is rates the pain 1/5. He does have a membership advisor who is Dr. Knight at [facility]. He also reports his cardiac bypass was performed at [facility]. TRAVEL OUTSIDE OF THE [place] IN LAST 30 DAYS: No - Related Data Allergies/Adverse Reactions: codeine [Codeine] Adverse Reaction (Intermediate, Verified 09/22/18 10:03) Anxiety Past Medical History - General Information source: Patient - Social History Smoking Status: Former Smoker Frequency of alcohol use: None Drug Abuse: None Family History: COPD, Malignancy Patient has suicidal ideation: No Patient has homicidal ideation: No - Past Medical History Cardiac Medical History: Reports: Hx Atrial Fibrillation, Hx Coronary Artery Disease, Hx Hypercholesterolemia, Hx Hypertension, Hx Peripheral Vascular Disease Denies: Hx Congestive Heart Failure, Hx DVT, Hx Heart Attack, Hx Pulmonary Embolism Pulmonary Medical History: Reports: Hx COPD, Hx Pneumonia Denies: Hx Asthma, Hx Bronchitis, Hx Tuberculosis Neurological Medical History: Denies: Hx Cerebrovascular Accident, Hx Seizures Endocrine Medical History: Denies: Hx Diabetes Mellitus Type 1, Hx Diabetes Mellitus Type 2, Hx Hyperthyroidism, Hx Hypothyroidism Renal/ Medical History: Denies: Hx Peritoneal Dialysis GI Medical History: Reports: Hx Gastroesophageal Reflux Disease, Hx Ulcer. Denies: Hx Cirrhosis, Hx Hepatitis Musculoskeletal Medical History: Reports Hx Arthritis - GENERALIZED Skin Medical History: Denies Hx Eczema, Denies Hx Psoriasis Psychiatric Medical History: Denies: Hx Depression Infectious Medical History: Denies: Hx Hepatitis Past Surgical History: Reports: Hx Appendectomy, Hx Cardiac Surgery - bipass and stents, Hx Coronary Artery Bypass Graft - 5 VESSEL, September 1999, Hx Orthopedic Surgery - back, Hx Tonsillectomy. Denies: Hx Pacemaker - Immunizations Hx Diphtheria, Pertussis, Tetanus Vaccination: - UNSURE Hx Pneumococcal Vaccination: 05/09/14 Review of Systems - Review of Systems Constitutional: No symptoms reported EENT: No symptoms reported Cardiovascular: Chest pain Respiratory: No symptoms reported Gastrointestinal: Nausea Genitourinary: No symptoms reported Male Genitourinary: No symptoms reported Musculoskeletal: No symptoms reported Skin: No symptoms reported Hematologic/Lymphatic: No symptoms reported Neurological/Psychological: No symptoms reported Physical Exam - Vital signs Vitals: Pulse Ox 98 12/15/18 11:54 - Notes Notes: PHYSICAL EXAMINATION: GENERAL: Well-appearing, well-nourished and in no acute distress. HEAD: Atraumatic, normocephalic. EYES: Pupils equal round and reactive to light, extraocular movements intact, sclera anicteric, conjunctiva are normal. ENT: Nares patent, oropharynx clear without exudates. Moist mucous membranes. NECK: Normal range of motion, supple without lymphadenopathy LUNGS: Breath sounds clear to auscultation bilaterally and equal. No wheezes rales or rhonchi. HEART: Regular rate and rhythm without murmurs ABDOMEN: Soft, nontender, nondistended abdomen. No guarding, no rebound. No masses appreciated. Musculoskeletal: Normal range of motion, no pitting or edema. No cyanosis. NEUROLOGICAL: Cranial nerves grossly intact. Normal speech, normal gait. Normal sensory, motor exams PSYCH: Normal mood, normal affect. SKIN: Warm, Dry, normal turgor, no rashes or lesions noted. Course - Re-evaluation Re-evalutation: Chest X-Ray 12/15/18 00:00 IMPRESSION: Enlarged cardiac silhouette without overt edema or other acute intrathoracic process. Laboratory 12/15/18 12/15/18 12/15/18 11:40 11:40 11:40 WBC 7.8 RBC 4.47 Hgb 11.0 L Hct 34.2 L MCV 77 L MCH 24.6 L MCHC 32.2 RDW 16.7 H Plt Count 247 Seg Neutrophils % 74.2 Lymphocytes % 18.2 Monocytes % 6.1 Eosinophils % 1.1 Basophils % 0.4 Absolute Neutrophils 5.8 Absolute Lymphocytes 1.4 Absolute Monocytes 0.5 Absolute Eosinophils 0.1 Absolute Basophils 0.0 Sodium 139.5 Potassium 4.0 Chloride 99 Carbon Dioxide 27 Anion Gap 14 BUN 29 H Creatinine 1.65 H Est GFR ( Amer) 49 L Est GFR (Non-Af Amer) 41 L Glucose 114 H Calcium 9.4 Total Bilirubin 1.2 Direct Bilirubin 0.2 Neonat Total Bilirubin Not Reportable Neonat Direct Bilirubin Not Reportable Neonat Indirect Bili Not Reportable AST 17 ALT 14 Alkaline Phosphatase 88 Creatine Kinase 86 CK-MB (CK-2) 2.23 Troponin I < 0.012 Total Protein 7.0 Albumin 4.4 12/15/18 15:20 WBC RBC Hgb Hct MCV MCH MCHC RDW Plt Count Seg Neutrophils % Lymphocytes % Monocytes % Eosinophils % Basophils % Absolute Neutrophils Absolute Lymphocytes Absolute Monocytes Absolute Eosinophils Absolute Basophils Sodium Potassium Chloride Carbon Dioxide Anion Gap BUN Creatinine Est GFR ( Amer) Est GFR (Non-Af Amer) Glucose Calcium Total Bilirubin Direct Bilirubin Neonat Total Bilirubin Neonat Direct Bilirubin Neonat Indirect Bili AST ALT Alkaline Phosphatase Creatine Kinase CK-MB (CK-2) Troponin I < 0.012 Total Protein Albumin 12/15/18 16:19 Patient's work-up here in the emergency department has been unremarkable. He has now had 2- troponins. I did ask patient about doing a CTA of his chest to evaluate the ascending aortic aneurysm that he has. Patient reports he recently had imaging done at [facility], we will try to obtain records of this and hold off on imaging at this time. Due to patient's history as well as having a heart score of 6 I did contact the hospitalist team for patient admission. They have accepted admission to the telemetry floor. - Vital Signs Vital signs: Temp Pulse Resp BP Pulse Ox 98.0 F 13 125/77 95 12/15/18 12:03 12/15/18 15:01 12/15/18 15:01 12/15/18 15:01 - Laboratory Result Diagrams: 12/15/18 11:40 12/15/18 11:40 Laboratory results interpreted by me: 12/15/18 12/15/18 11:40 11:40 Hgb 11.0 L Hct 34.2 L MCV 77 L MCH 24.6 L RDW 16.7 H BUN 29 H Creatinine 1.65 H Est GFR ( Amer) 49 L Est GFR (Non-Af Amer) 41 L Glucose 114 H Discharge - Discharge Clinical Impression: Chest pain Qualifiers: Chest pain type: unspecified Qualified Code(s): R07.9 - Chest pain, unspecified Condition: Stable Disposition: HOME, SELF-CARE Referrals: BLAINE MCKAY MD [Primary Care Provider] - Follow up as needed
--- NOTE | 2018-12-15 13:32 | EKG REPORT ---
SEVERITY:- ABNORMAL ECG - ATRIAL FIBRILLATION, V-RATE 63-93 INCOMPLETE RBBB : Confirmed by: Gregory Pascual MD 15-Dec-2018 13:30:59
--- NOTE | 2018-12-15 14:14 | RADIOLOGY REPORT (SQ) ---
EXAM DESCRIPTION: CHEST SINGLE VIEW COMPLETED DATE/TIME: 12/15/2018 2:00 pm REASON FOR STUDY: chest pain COMPARISON: 09/22/2018 EXAM PARAMETERS: NUMBER OF VIEWS: One view. TECHNIQUE: Single frontal radiographic view of the chest acquired. RADIATION DOSE: NA LIMITATIONS: None. FINDINGS: LUNGS AND PLEURA: Stable chronic interstitial changes without focal consolidation, pleural effusion or pneumothorax. MEDIASTINUM AND HILAR STRUCTURES: Stable given rotation. HEART AND VASCULAR STRUCTURES: Enlarged cardiac silhouette. Tortuous atherosclerotic thoracic aorta. BONES: Median sternotomy changes. No acute findings. HARDWARE: Sternotomy hardware. OTHER: No other significant finding. IMPRESSION: Enlarged cardiac silhouette without overt edema or other acute intrathoracic process. TECHNICAL DOCUMENTATION: JOB ID: [id number] [employer]- All Rights Reserved Reading location - IP/workstation name: [email or web address]
[2018-12-15] MEDS ORDERED: TEMAZEPAM 15 MG CAPSULE PO PRN (16:41)
[2018-12-15] MEDS ORDERED: ONDANSETRON HCL INJ/PF 4 MG/2 ML SDV IV PRN (16:41)
[2018-12-15] MEDS ORDERED: OXYCODONE-ACETAMINOPHEN 5-325 MG TABLET PO PRN (16:41)
--- NOTE | 2018-12-15 16:55 | Progress Note Acknowledgement ---
Progress Note Acknowledgement Progess Note Acknowledgement: I, the undersigned member of the medical staff with appropriate privileges and with supervisory authority over [Coy Hurd], a dependent practice allied health professional, acknowledge that I have reviewed the progress notes entered on this patient, and in my professional judgment believe that the assessment made and/or any care evidenced was appropriate
--- NOTE | 2018-12-15 16:58 | PDOC H&P ---
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 Patient does have a history of quadruple bypass surgery along with multiple stents. Patient returned to the post office was given another nitro and aspirin his pain went away. Patient had 2- troponins in the ER and the ER physicians wanted him admitted so we can run a third troponin patient had no other treatment prior to arrival no aggravating factors. Past Medical History Cardiac Medical History: Reports: Atrial Fibrillation, Coronary Artery Disease, Hyperlipidema, Hypertension, Peripheral Vascular Disease Denies: Congestive Heart Failure, DVT, Myocardial Infarction, Pulmonary Embolism Pulmonary Medical History: Reports: Chronic Obstructive Pulmonary Disease (COPD), Pneumonia Denies: Asthma, Bronchitis, Tuberculosis Neurological Medical History: Denies: Seizures Endocrine Medical History: Denies: Diabetes Mellitus Type 1, Diabetes Mellitus Type 2, Hyperthyroidism, Hypothyroidism GI Medical History: Reports: Gastroesophageal Reflux Disease Denies: Cirrhosis, Hepatitis Musculoskeltal Medical History: Reports: Arthritis - GENERALIZED Skin Medical History: Denies: Eczema, Psoriasis Psychiatric Medical History: Denies: Depression Hematology: Denies: Anemia Past Surgical History Past Surgical History: Reports: Appendectomy, Coronary Artery Bypass Graft - 5 VESSEL, September 1999, Orthopedic Surgery - back, Tonsillectomy Denies: Pacemaker Social History Information Source: Patient Lives with: Family Smoking Status: Former Smoker Frequency of Alcohol Use: None Hx Recreational Drug Use: No Drugs: None Hx Prescription Drug Abuse: No - Advance Directive Resuscitation Status: Full Code Family History Family History: COPD, Malignancy Parental Family History Reviewed: Yes Children Family History Reviewed: Yes Sibling(s) Family History Reviewed.: Yes Medication/Allergy Home Medications: Atorvastatin Calcium [Lipitor 40 mg Tablet] 40 mg PO DAILY 04/13/16 Cetirizine HCl [Zyrtec] 10 mg PO DAILY 04/13/16 Cyanocobalamin (Vitamin B-12) [B-12] 1,000 mcg PO DAILY 04/13/16 Fluticasone/Salmeterol [Advair 250-50 Diskus 28 dose] 1 inh IH Q12 04/13/16 Folic Acid 1 mg PO DAILY 04/13/16 Gabapentin 300 mg PO Q12 04/13/16 Metoprolol Succinate 50 mg PO DAILY 04/13/16 Montelukast Sodium 10 mg PO QHS 04/13/16 Tiotropium [place] [Spiriva Handihaler 18 mcg/dose (30 Dose)] 1 cap IH DAILY 08/18/16 Tramadol HCl [Ultram 50 mg Tablet] 50 mg PO Q8HP PRN 08/18/16 Apixaban [Eliquis 5 mg Tablet] 5 mg PO BID 08/07/18 Aspirin [Ecotrin 81 mg EC Tablet] 81 mg PO DAILY 08/07/18 Benzonatate [Tessalon Perles 100 mg Capsule] 100 mg PO Q8HP PRN 08/07/18 Docusate Sodium [Stool Softener] 100 mg PO DAILY 08/07/18 Fiber [Fiber Diet] 1 each PO BID 08/07/18 Fluticasone Propionate [Flonase Nasal [place] 50 Mcg/[place] 16 gm] 1 spray NASL WHIT LY 08/07/18 Nitroglycerin [Nitrostat 0.4 mg (1/150 Gr) Tabs 25/Bottle] 1 tab SL Q5MP PRN 08/07/18 Pantoprazole Sodium [Protonix [address] Tablet] 40 mg PO QAM 08/07/18 Tamsulosin HCl [Flomax 0.4 mg Cap.sr] 0.4 mg PO DAILY 08/07/18 Doxycycline Hyclate [Vibramycin 100 mg Tablet] 100 mg PO Q12 #12 tablet 08/11/18 Ferrous Sulfate [Feosol 325 mg Tablet] 325 mg PO BIDPCBS #60 tablet 08/11/18 Prednisone [Deltasone 20 mg Tablet] 20 mg PO BID #40 tablet 08/11/18 Allergies/Adverse Reactions: codeine [Codeine] Adverse Reaction (Intermediate, Verified 09/22/18 10:03) Anxiety Review of Systems Constitutional: ABSENT: chills, fever(s), headache(s), weight gain, weight loss Eyes: ABSENT: visual disturbances Ears: ABSENT: hearing changes Cardiovascular: PRESENT: chest pain. ABSENT: dyspnea on exertion, edema, orthropnea, palpitations Respiratory: ABSENT: cough, hemoptysis Gastrointestinal: ABSENT: abdominal pain, constipation, diarrhea, hematemesis, hematochezia, nausea, vomiting Genitourinary: ABSENT: dysuria, hematuria Musculoskeletal: ABSENT: joint swelling Integumentary: ABSENT: rash, wounds Neurological: ABSENT: abnormal gait, abnormal speech, confusion, dizziness, focal weakness, syncope Psychiatric: ABSENT: anxiety, depression, homidical ideation, suicidal ideation Endocrine: ABSENT: cold intolerance, heat intolerance, polydipsia, polyuria Hematologic/Lymphatic: ABSENT: easy bleeding, easy bruising Physical Exam Vital Signs: Temp Pulse Resp BP Pulse Ox 98.0 F 13 125/77 95 12/15/18 12:03 12/15/18 15:01 12/15/18 15:01 12/15/18 15:01 Intake & Output 12/14/18 12/15/18 12/16/18 06:59 06:59 06:59 Weight 89.7 kg General appearance: PRESENT: no acute distress, well-developed, well-nourished Head exam: PRESENT: atraumatic, normocephalic Eye exam: PRESENT: conjunctiva pink, EOMI, PERRLA. ABSENT: scleral icterus Ear exam: PRESENT: normal external ear exam Mouth exam: PRESENT: moist, tongue midline Neck exam: ABSENT: carotid bruit, JVD, lymphadenopathy, thyromegaly Respiratory exam: PRESENT: clear to auscultation stephanie. ABSENT: rales, rhonchi, wheezes Cardiovascular exam: PRESENT: RRR. ABSENT: diastolic murmur, rubs, systolic murmur Pulses: PRESENT: normal dorsalis pedis pul Vascular exam: PRESENT: normal capillary refill GI/Abdominal exam: PRESENT: normal bowel sounds, soft. ABSENT: distended, guarding, mass, organolmegaly, rebound, tenderness Rectal exam: PRESENT: deferred Extremities exam: PRESENT: full ROM. ABSENT: calf tenderness, clubbing, pedal edema Neurological exam: PRESENT: alert, awake, oriented to person, oriented to place, oriented to time, oriented to situation, CN II-XII grossly intact. ABSENT: motor sensory deficit Psychiatric exam: PRESENT: appropriate affect, normal mood. ABSENT: homicidal ideation, suicidal ideation Skin exam: PRESENT: dry, intact, warm. ABSENT: cyanosis, rash Results Laboratory Results: 12/15/18 11:40 12/15/18 11:40 12/15/18 12/15/18 11:40 11:40 WBC 7.8 RBC 4.47 Hgb 11.0 L Hct 34.2 L MCV 77 L MCH 24.6 L MCHC 32.2 RDW 16.7 H Plt Count 247 Seg Neutrophils % 74.2 Lymphocytes % 18.2 Monocytes % 6.1 Eosinophils % 1.1 Basophils % 0.4 Absolute Neutrophils 5.8 Absolute Lymphocytes 1.4 Absolute Monocytes 0.5 Absolute Eosinophils 0.1 Absolute Basophils 0.0 Sodium 139.5 Potassium 4.0 Chloride 99 Carbon Dioxide 27 Anion Gap 14 BUN 29 H Creatinine 1.65 H Est GFR ( Amer) 49 L Est GFR (Non-Af Amer) 41 L Glucose 114 H Calcium 9.4 Total Bilirubin 1.2 AST 17 Alkaline Phosphatase 88 Total Protein 7.0 Albumin 4.4 12/15/18 12/15/18 12/15/18 11:40 11:40 15:20 Creatine Kinase 86 CK-MB (CK-2) 2.23 Troponin I < 0.012 < 0.012 Impressions: Chest X-Ray 12/15/18 00:00 IMPRESSION: Enlarged cardiac silhouette without overt edema or other acute intrathoracic process. Assessment and Plan - Diagnosis (1) Chest pain Qualifiers: Chest pain type: unspecified Qualified Code(s): R07.9 - Chest pain, unspecified Is this a current diagnosis for this admission?: Yes Plan: December 14, 2018-repeat troponin tonight at 2100. Anticipate discharge home in the a.m. (2) Chronic kidney disease, stage III (moderate) Is this a current diagnosis for this admission?: Yes Plan: Chronic in nature have patient followed up on outpatient basis - Time Time Spent with patient: 35 or more minutes
--- NOTE | 2018-12-16 08:15 | PDOC DISCHARGE SUMMARY ---
General - Admit/Disc Date/PCP Admission Date/Primary Care Provider: 12/15/18 16:52 BLAINE MCKAY MD Discharge Date: 12/16/18 - Discharge Diagnosis (1) Chest pain Is this a current diagnosis for this admission?: Yes (2) Chronic kidney disease, stage III (moderate) Is this a current diagnosis for this admission?: Yes - Additional Information Resuscitation Status: Full Code Discharge Diet: As Tolerated Discharge Activity: Activity As Tolerated Home Medications: Apixaban [Eliquis 5 mg Tablet] 5 mg PO BID 12/15/18 Aspirin [Adult Low Dose Aspirin EC] 81 mg PO DAILY 12/15/18 Atorvastatin Calcium [Lipitor 40 mg Tablet] 40 mg PO DAILY 12/15/18 Benzonatate [Tessalon [place] 100 mg Capsule] 100 mg PO Q8HP PRN 12/15/18 Cetirizine HCl [Zyrtec 10 mg Tablet] 10 mg PO DAILY 12/15/18 Cyanocobalamin (Vitamin B-12) [Vitamin B-12 1000 mcg Tablet] 1,000 mcg PO DAILY 12/15/18 Docusate Sodium [Colace 100 mg Capsule] 100 mg PO DAILY 12/15/18 Fiber [Fiber Diet] 1 each PO DAILY 12/15/18 Fluticasone Propionate [Flonase Nasal [place] 50 Mcg/[place] 16 gm] 1 spray NASL DAILY 12/15/18 Fluticasone/Salmeterol [Advair 250-50 Diskus 14 Dose/Diskus] 1 inh IH Q12H 12/15/18 Folic Acid [Folvite 1 mg Tablet] 1 mg PO DAILY 12/15/18 Gabapentin [Neurontin 300 mg Capsule] 300 mg PO Q12 12/15/18 Metoprolol Succinate [Toprol Xl 50 mg Tab.sr] 50 mg PO DAILY 12/15/18 Montelukast Sodium [Singulair 10 mg Tablet] 10 mg PO QHS 12/15/18 Nitroglycerin [Nitrostat 0.4 mg (1/150 Gr) Tabs 25/Bottle] 1 tab SL Q5MP PRN 12/15/18 Pantoprazole Sodium [Protonix [address] Tablet] 40 mg PO QAM 12/15/18 Prednisone [Deltasone] 20 mg PO BID 12/15/18 Ranitidine HCl [Zantac] 300 mg PO QHS 12/15/18 Tamsulosin HCl [Flomax] 0.4 mg PO DAILY 12/15/18 Tiotropium [place] [Spiriva Handihaler 5 Cap/Kit (18 Mcg/Cap)] 1 cap IH DAILY 12/15/18 Tramadol HCl [Ultram 50 mg Tablet] 50 mg PO Q8HP PRN 12/15/18 History of Present Illness History of Present Illness: HARVEY YBARRA is a 78 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 Patient does have a history of quadruple bypass surgery along with multiple stents. Patient returned to the post office was given another nitro and aspirin his pain went away. Patient had 2- troponins in the ER and the ER physicians wanted him admitted so we can run a third troponin patient had no other treatment prior to arrival no aggravating factors. Hospital Course Hospital Course: Patient was admitted overnight to continue serial troponins. Troponins have been negative. Patient will return home follow-up with aircraft instrument tester this week. Physical Exam Vital Signs: Temp Pulse Resp BP Pulse Ox 98.5 F 76 14 141/91 H 94 12/16/18 03:27 12/16/18 03:27 12/16/18 03:27 12/16/18 03:27 12/16/18 03:27 Intake & Output 12/15/18 12/16/18 12/17/18 06:59 06:59 06:59 Intake Total 760 Balance 760 Weight 90.8 kg General appearance: PRESENT: no acute distress, well-developed, well-nourished Head exam: PRESENT: atraumatic, normocephalic Eye exam: PRESENT: conjunctiva pink, EOMI, PERRLA. ABSENT: scleral icterus Ear exam: PRESENT: normal external ear exam Mouth exam: PRESENT: moist, tongue midline Neck exam: ABSENT: carotid bruit, JVD, lymphadenopathy, thyromegaly Respiratory exam: PRESENT: clear to auscultation stephanie. ABSENT: rales, rhonchi, wheezes Cardiovascular exam: PRESENT: RRR. ABSENT: diastolic murmur, rubs, systolic murmur Pulses: PRESENT: normal dorsalis pedis pul Vascular exam: PRESENT: normal capillary refill GI/Abdominal exam: PRESENT: normal bowel sounds, soft. ABSENT: distended, guarding, mass, organolmegaly, rebound, tenderness Rectal exam: PRESENT: deferred Extremities exam: PRESENT: full ROM. ABSENT: calf tenderness, clubbing, pedal edema Neurological exam: PRESENT: alert, awake, oriented to person, oriented to place, oriented to time, oriented to situation, CN II-XII grossly intact. ABSENT: motor sensory deficit Psychiatric exam: PRESENT: appropriate affect, normal mood. ABSENT: homicidal ideation, suicidal ideation Skin exam: PRESENT: dry, intact, warm. ABSENT: cyanosis, rash Results Laboratory Results: 12/15/18 11:40 12/15/18 11:40 12/15/18 12/15/18 11:40 11:40 WBC 7.8 RBC 4.47 Hgb 11.0 L Hct 34.2 L MCV 77 L MCH 24.6 L MCHC 32.2 RDW 16.7 H Plt Count 247 Seg Neutrophils % 74.2 Lymphocytes % 18.2 Monocytes % 6.1 Eosinophils % 1.1 Basophils % 0.4 Absolute Neutrophils 5.8 Absolute Lymphocytes 1.4 Absolute Monocytes 0.5 Absolute Eosinophils 0.1 Absolute Basophils 0.0 Sodium 139.5 Potassium 4.0 Chloride 99 Carbon Dioxide 27 Anion Gap 14 BUN 29 H Creatinine 1.65 H Est GFR ( Amer) 49 L Est GFR (Non-Af Amer) 41 L Glucose 114 H Calcium 9.4 Total Bilirubin 1.2 AST 17 Alkaline Phosphatase 88 Total Protein 7.0 Albumin 4.4 12/15/18 12/15/18 12/15/18 11:40 11:40 15:20 Creatine Kinase 86 CK-MB (CK-2) 2.23 Troponin I < 0.012 < 0.012 12/15/18 22:05 Creatine Kinase CK-MB (CK-2) Troponin I < 0.012 Impressions: Chest X-Ray 12/15/18 00:00 IMPRESSION: Enlarged cardiac silhouette without overt edema or other acute in trathoracic process. Qualifiers - * PATIENT BEING DISCHARGED WITH ANY OF THE FOLLOWING DIAGNOSIS: No Acute Heart Failure - Is this a Heart Failure Patient?: No Plan Time Spent: Greater than 30 Minutes
[2018-12-16 09:05] VITALS: BP 147/74
== END 2018-12-16 10:16 | disposition home or self-care (01) ==
LOC: ER 11:49 → EH 16:52 → 5 18:33
PROVIDERS: ADMIT Internal Medicine; ATTEND Internal Medicine
DX: R07.9 Chest pain, unspecified (principal); I12.9 Hypertensive chronic kidney disease with stage 1 through stage 4 chronic kidney disease, or unspecified chronic kidney disease; N18.3 Chronic kidney disease, stage 3 (moderate); J44.9 Chronic obstructive pulmonary disease, unspecified; E78.5 Hyperlipidemia, unspecified; Z95.1 Presence of aortocoronary bypass graft; Z88.6 Allergy status to analgesic agent
CPT/HCPCS: 93005; 36415; 82553; 82550; 85025; 80053; 84484; 71045; 93010; J3490; 99285

== ENCOUNTER 2019-03-26 15:25 | Inpatient (IN) | payer BC, MEDICARE, OTHER ==
--- NOTE | 2019-03-26 15:57 | ER Document Report ---
ED General - General Chief Complaint: General Weakness Stated Complaint: WEAKNESS Time Seen by Provider: 03/26/19 15:33 Primary Care Provider: DOUG MCKAY MD [Primary Care Provider] - Follow up as needed Notes: 78-year-old male who states that he woke up this morning feeling terrible. States that he had the chills and uncontrollable shakes, has been feeling sleepy all day. Has been having a worsening productive cough for the past week although he denies any fever. Patient also states he was short of breath this morning though he did not have any chest pain. Shortness of breath has resolved. Admits a history of recurrent pneumonia with a history of COPD requiring hospitalization. Last time he was on any antibiotics was approximately 2 weeks ago with a Z-Abhi. He was not hospitalized at that time. Patient also states that he has been having twitching and shaking of his extremities since he woke up this morning and this is very concerning to him. It interferes with his activities of daily living and makes him drop things when he tries to pick them up such as his coffee cup. Initially family states that he is never had this before but then they state that it actually happened back in August or September. Patient also states that he noticed it happening a little bit 4 to 5 days ago. Patient had a routine follow-up appointment today with his primary care physician Doug Mckay MD at 2 PM. Doug Mckay MD sent him to the emergency department due to concerns over possible recurrent pneumonia as well as possible concerns over intracranial process. Doug Mckay MD did call me later on and discuss his concerns that this patient is on Eliquis and is having new neurologic symptoms such as twitching and shaking and requests a CAT scan of the head. TRAVEL OUTSIDE OF THE [place] IN LAST 30 DAYS: No - Related Data Allergies/Adverse Reactions: codeine [Codeine] Adverse Reaction (Intermediate, Verified 09/22/18 10:03) Anxiety Past Medical History - General Information source: Patient, Relative - Social History Smoking Status: Former Smoker Frequency of alcohol use: None Drug Abuse: None Family History: COPD, Malignancy - Past Medical History Cardiac Medical History: Reports: Hx Atrial Fibrillation, Hx Congestive Heart Failure, Hx Coronary Artery Disease, Hx Hypercholesterolemia, Hx Hypertension, Hx Peripheral Vascular Disease Denies: Hx DVT, Hx Heart Attack, Hx Pulmonary Embolism Pulmonary Medical History: Reports: Hx Bronchitis, Hx COPD, Hx Pneumonia Denies: Hx Asthma, Hx Tuberculosis Neurological Medical History: Denies: Hx Cerebrovascular Accident, Hx Seizures, Hx Parkinson's Disease Endocrine Medical History: Denies: Hx Diabetes Mellitus Type 1, Hx Diabetes Mellitus Type 2, Hx Hyperthyroidism, Hx Hypothyroidism Renal/ Medical History: Denies: Hx Benign Prostatic Hyperplasia, Hx End Stage Renal Disease, Hx Kidney Stones, Hx Peritoneal Dialysis GI Medical History: Reports: Hx Gastroesophageal Reflux Disease, Hx Ulcer. Denies: Hx Cirrhosis, Hx Hepatitis Musculoskeletal Medical History: Denies Hx Arthritis, Denies Hx Multiple Sclerosis Skin Medical History: Denies Hx Eczema, Denies Hx Psoriasis Psychiatric Medical History: Denies: Hx Bipolar Disorder, Hx Depression, Hx Schizophrenia Infectious Medical History: Denies: Hx Hepatitis Past Surgical History: Reports: Hx Appendectomy, Hx Cardiac Surgery - bipass and stents, Hx Coronary Artery Bypass Graft - 5 VESSEL, September 1999, Hx Orthopedic Surgery - back, Hx Tonsillectomy. Denies: Hx Pacemaker - Immunizations Hx Diphtheria, Pertussis, Tetanus Vaccination: - UNSURE Hx Pneumococcal Vaccination: 05/09/14 Review of Systems - Review of Systems Constitutional: See HPI, Chills EENT: No symptoms reported Cardiovascular: No symptoms reported Respiratory: See HPI Neurological/Psychological: See HPI -: Yes All other systems reviewed and negative Physical Exam - Vital signs Vitals: Temp Pulse 98.5 F 95 03/26/19 15:38 03/26/19 15:38 Interpretation: Tachypneic - Notes Notes: GENERAL: Somewhat fatigued, awakens easily for examination, interacts well. No acute distress. Hard of hearing. HEAD: Normocephalic, atraumatic EYES: Pupils equal, round and reactive to light, extraocular movements intact. ENT: Oral mucosa moist, tongue midline. NECK: Full range of motion, supple, trachea midline. LUNGS: Coarse breath sounds right middle to lower lobe, no wheezes, no respiratory distress. HEART: Irregularly irregular, no murmurs, gallops, rubs. ABDOMEN: Soft, nontender, nondistended, bowel sounds present in all 4 quadrants. EXTREMITIES: Moves all 4 extremities spontaneously, no edema, radial and dorsalis pedis pulses 2/4 bilaterally. No cyanosis. NEUROLOGICAL: Alert and oriented x3, normal speech, cranial nerves II through XII grossly intact, biceps and patellar DTRs 2+ bilaterally. PSYCH: Normal mood, normal affect. SKIN: Warm, Dry, normal turgor. Course - Re-evaluation Re-evalutation: 03/26/19 18:10 Examination is nonfocal, nothing to suggest stroke. I did CT scan his head as he is on Eliquis and his primary care physician is quite concerned because these tremors and shakes are new. No sign of acute intracranial hemorrhage or mass. CBC shows leukocytosis at 17.4, this is new, renal function is very slightly worsened from baseline, GFR is 46, cardiac enzymes negative, chest x-ray shows bilateral pneumonias left worse than right which appears to be a possible limited right lower lobe pneumonia. Patient was started on cefepime and Levaquin as he has structural lung disease. No evidence of sepsis at this time. Patient was discussed with Felix HERBERT who agrees to admit the patient to Dr. george service on the telemetry care unit for further work-up and treatment. - Vital Signs Vital signs: Temp Pulse Resp BP Pulse Ox 98.5 F 95 13 113/79 94 03/26/19 15:38 03/26/19 15:38 03/26/19 17:12 03/26/19 17:12 03/26/19 17:11 - Laboratory Result Diagrams: 03/26/19 15:38 03/26/19 15:38 Laboratory results interpreted by me: 03/26/19 03/26/19 15:38 15:38 WBC 17.4 H Hgb 11.7 L Hct 36.1 L MCH 26.2 L RDW 18.5 H Lymph % (Auto) 5.3 L Absolute Neuts (auto) 15.3 H Seg Neutrophils % 88.1 H BUN 48 H Creatinine 1.49 H Est GFR ( Amer) 55 L Est GFR (MDRD) Non-Af 46 L Creatine Kinase 40 L - EKG Interpretation by Me Additional EKG results interpreted by me: 03/26/19 15:52 EKG shows rate of 79 rhythm is atrial fibrillation, normal axis, normal intervals, no ST segment elevations or depressions, no T-wave inversions, normal r-wave progression per my interpretation. Discharge - Discharge Clinical Impression: Tremor Left lower lobe pneumonia Qualifiers: Pneumonia type: due to unspecified organism Qualified Code(s): J18.9 - Pneumonia, unspecified organism Right lower lobe pneumonia Qualifiers: Pneumonia type: due to unspecified organism Qualified Code(s): J18.9 - Pneumonia, unspecified organism Condition: Fair Disposition: ADMITTED INPATIENT Admitting Provider: Naga (Hospitalist) - [facility] Unit Admitted: Telemetry Referrals: DOUG MCKAY MD [Primary Care Provider] - Follow up as needed
[2019-03-26 16:07] LABS: ABSOLUTE LYMPHOCYTES (AUTO) 0.9 10^3/uL (0.5-4.7); ABSOLUTE MONOCYTES (AUTO) 1.1 10^3/uL (0.1-1.4); ABSOLUTE NEUT (AUTO) 15.3 10^3/uL (1.7-8.2); BASOPHILS % (AUTO) 0.2 % (0-2); EOSINOPHILS % (AUTO) 0.2 % (0-6); HEMATOCRIT 36.1 % (37.9-51.0); HEMOGLOBIN 11.7 g/dL (13.5-17.0); LYMPHOCYTES % (AUTO) 5.3 % (13-45); MEAN CORPUSCULAR HEMOGLOBIN 26.2 pg (27.0-33.4); MEAN CORPUSCULAR HGB CONC 32.4 g/dL (32.0-36.0); MEAN CORPUSCULAR VOLUME 81 fl (80-97); MONOCYTES % (AUTO) 6.2 % (3-13); PLATELET COUNT 184 10^3/uL (150-450); RED BLOOD COUNT 4.48 10^6/uL (4.35-5.55); RED CELL DISTRIBUTION WIDTH 18.5 % (11.5-14.0); SEGMENTED NEUTROPHILS % (AUTO) 88.1 % (42-78); TOTAL CELLS COUNTED % (AUTO) 100 %; WHITE BLOOD COUNT 17.4 10^3/uL (4.0-10.5)
[2019-03-26 16:29] LABS: ALKALINE PHOSPHATASE 69 U/L (38-126); ANION GAP 9 (5-19); ASPARTATE AMINO TRANSFERASE 19 U/L (17-59); BILIRUBIN,DIRECT 0.1 mg/dL (0.0-0.4); BILIRUBIN,TOTAL 1.3 mg/dL (0.2-1.3); BLOOD UREA NITROGEN 48 mg/dL (7-20); CALCIUM 9.2 mg/dL (8.4-10.2); CARBON DIOXIDE 30 mmol/L (22-30); CHLORIDE 102 mmol/L (98-107); CREATINE KINASE 40 U/L (55-170); GLUCOSE 104 mg/dL (75-110); POTASSIUM 4.8 mmol/L (3.6-5.0); TOTAL PROTEIN 6.9 g/dL (6.3-8.2)
--- NOTE | 2019-03-26 16:55 | RADIOLOGY REPORT (SQ) ---
EXAM DESCRIPTION: CHEST 2 VIEWS COMPLETED DATE/TIME: 03/26/2019 4:24 pm REASON FOR STUDY: cough, abnormal breath sounds RLL COMPARISON: 12/15/2018 EXAM PARAMETERS: NUMBER OF VIEWS: two views TECHNIQUE: Digital Frontal and Lateral radiographic views of the chest acquired. RADIATION DOSE: NA LIMITATIONS: none FINDINGS: LUNGS AND PLEURA: There is patchy opacification in both lung bases, left more than right. MEDIASTINUM AND HILAR STRUCTURES: No masses or contour abnormalities. HEART AND VASCULAR STRUCTURES: Cardiomegaly. No errol pulmonary edema. BONES: No acute findings. HARDWARE: Sternotomy wires. OTHER: No other significant finding. IMPRESSION: Cardiomegaly without pulmonary edema. Left lower lobe pneumonia. Cannot exclude a limi britney right lower lobe pneumonia. TECHNICAL DOCUMENTATION: JOB ID: [id number] [employer]- All Rights Reserved Reading location - IP/workstation name: [email or web address]
--- NOTE | 2019-03-26 17:34 | RADIOLOGY REPORT (SQ) ---
EXAM DESCRIPTION: CT HEAD WITHOUT COMPLETED DATE/TIME: 03/26/2019 5:15 pm REASON FOR STUDY: new tremors, blood thinners, offbalance COMPARISON: 09/22/2018 TECHNIQUE: Axial images acquired through the brain without intravenous contrast. Images reviewed wit h bone, brain and subdural windows. Images stored on PACS. All CT scanners at this facility use dose modulation, iterative reconstruction, and/or weight based d osing when appropriate to reduce radiation dose to as low as reasonably achievable (ALARA). [facility]: Dose Right [facility]: CareDose [facility]: Dose Right [facility]: Teradose 4D [facility]: Smart SuperMama RADIATION DOSE: CT Rad equipment meets quality standard of care and radiation dose reduction techniq ues were employed. CTDIvol: 23.9 mGy. DLP: 553 mGy-cm.. LIMITATIONS: None. FINDINGS: VENTRICLES: Normal size and contour. CEREBRUM: No masses. No hemorrhage. No midline shift. Age appropriate white matter. No evidence for a cute infarction. CEREBELLUM: No masses. No hemorrhage. No alteration of density. No evidence for acute infarction. EXTRA-AXIAL SPACES: No fluid collections. ORBITS AND GLOBE: No intra- or extraconal masses. Normal contour of globe without masses. CALVARIUM: No fracture. PARANASAL SINUSES: No fluid or mucosal thickening. SOFT TISSUES: No mass or hematoma. OTHER: No other significant finding. IMPRESSION: NO ACUTE INTRACRANIAL FINDINGS. EVIDENCE OF ACUTE STROKE: NO. TECHNICAL DOCUMENTATION: JOB ID: [id number] Quality ID # [id number]: Final reports with documentation of one or more dose reduction techniques (e.g., Au tomated exposure control, adjustment of the mA and/or kV according to patient size, use of iterative reconstruction technique) 2010 [employer]- All Rights Reserved Reading location - IP/workstation name: [email or web address]
[2019-03-26] MEDS ORDERED: LEVOFLOXACIN 750 MG/D5W RTU 750 MG/150 ML RTUPB IV ONE (17:44)
[2019-03-26] MEDS ORDERED: CEFEPIME 2 GM/D5W RTU 2 GM/50 ML RTUPB IV ONE (17:44)
[2019-03-26 17:52] LABS: VENOUS BLOOD BASE EXCESS 3.3 mmol/L; VENOUS BLOOD HCO3 29.7 mmol/L (20-32); VENOUS BLOOD PCO2 53.6 mmHg (35-63); VENOUS BLOOD PH 7.36 (7.30-7.42)
--- NOTE | 2019-03-26 18:37 | PDOC H&P ---
History of Present Illness Admission Date/PCP: BLAINE MCKAY MD 03/26/2019 History of Present Illness: HARVEY YBARRA is a 78 year old male comes in with 1 day history of Rigors chil ls fever early this morning was short of breath. Patient has a long history of COPD as well as recurrent pneumonia. 2 weeks ago patient had a Z-Abhi for outpatient therapy for upper respiratory illness. Last time patient was admitted was earlier this year August 2018. Patient comes in now with a 1 day history of fever chills Reiger's and shortness of breath with chest x-ray showing pneumonia, potentially bilateral. White count 17,400 lactic acid is only 1.3, t initial roponin is normal Past Medical History Cardiac Medical History: Reports: Atrial Fibrillation, Congestive Heart Failure, Coronary Artery Disease, Hyperlipidema, Hypertension, Peripheral Vascular Disease Denies: DVT, Myocardial Infarction, Pulmonary Embolism Pulmonary Medical History: Reports: Bronchitis, Chronic Obstructive Pulmonary Disease (COPD), Pneumonia Denies: Asthma, Tuberculosis Neurological Medical History: Denies: Seizures Endocrine Medical History: Denies: Diabetes Mellitus Type 1, Diabetes Mellitus Type 2, Hyperthyroidism, Hypothyroidism Renal/ Medical History: Denies: End Stage Renal Disease GI Medical History: Reports: Gastroesophageal Reflux Disease Denies: Cirrhosis, Hepatitis Musculoskeltal Medical History: Denies: Arthritis Skin Medical History: Denies: Eczema, Psoriasis Psychiatric Medical History: Denies: Bipolar Disorder, Depression Hematology: Reports: Bleeding Tendencies Denies: Anemia Past Surgical History Past Surgical History: Reports: Appendectomy, Coronary Artery Bypass Graft - 5 VESSEL, September 1999, Orthopedic Surgery - back, Tonsillectomy Denies: Pacemaker Social History Smoking Status: Former Smoker Frequency of Alcohol Use: None Hx Recreational Drug Use: No Drugs: None Hx Prescription Drug Abuse: No - Advance Directive Resuscitation Status: Full Code Family History Family History: COPD, Malignancy Parental Family History Reviewed: No Children Family History Reviewed: No Sibling(s) Family History Reviewed.: No Medication/Allergy Home Medications: Apixaban [Eliquis 5 mg Tablet] 5 mg PO BID 12/15/18 Aspirin [Adult Low Dose Aspirin EC] 81 mg PO DAILY 12/15/18 Atorvastatin Calcium [Lipitor 40 mg Tablet] 40 mg PO DAILY 12/15/18 Benzonatate [Tessalon Perle 100 mg Capsule] 100 mg PO Q8HP PRN 12/15/18 Cetirizine HCl [Zyrtec 10 mg Tablet] 10 mg PO DAILY 12/15/18 Cyanocobalamin (Vitamin B-12) [Vitamin B-12 1000 mcg Tablet] 1,000 mcg PO DAILY 12/15/18 Docusate Sodium [Colace 100 mg Capsule] 100 mg PO DAILY 12/15/18 Fiber [Fiber Diet] 1 each PO DAILY 12/15/18 Fluticasone Propionate [Flonase Nasal [place] 50 Mcg/[place] 16 gm] 1 spray NASL DAILY 12/15/18 Fluticasone/Salmeterol [Advair 250-50 Diskus 14 Dose/Diskus] 1 inh IH Q12H 12/15/18 Folic Acid [Folvite 1 mg Tablet] 1 mg PO DAILY 12/15/18 Gabapentin [Neurontin 300 mg Capsule] 300 mg PO Q12 12/15/18 Metoprolol Succinate [Toprol Xl 50 mg Tab.sr] 50 mg PO DAILY 12/15/18 Montelukast Sodium [Singulair 10 mg Tablet] 10 mg PO QHS 12/15/18 Nitroglycerin [Nitrostat 0.4 mg (1/150 Gr) Tabs 25/Bottle] 1 tab SL Q5MP PRN 12/15/18 Pantoprazole Sodium [Protonix [address] Tablet] 40 mg PO QAM 12/15/18 Prednisone [Deltasone] 20 mg PO BID 12/15/18 Ranitidine HCl [Zantac] 300 mg PO QHS 12/15/18 Tamsulosin HCl [Flomax] 0.4 mg PO DAILY 12/15/18 Tiotropium [place] [Spiriva [place]haler 5 Cap/Kit (18 Mcg/Cap)] 1 cap IH DAILY 12/15/18 Tramadol HCl [Ultram 50 mg Tablet] 50 mg PO Q8HP PRN 12/15/18 Allergies/Adverse Reactions: codeine [Codeine] Adverse Reaction (Intermediate, Verified 09/22/18 10:03) Anxiety Review of Systems Constitutional: PRESENT: chills, fatigue, fever(s), weakness Cardiovascular: ABSENT: chest pain, dyspnea on exertion, edema, orthropnea, palpitations Respiratory: PRESENT: cough, dyspnea Neurological: PRESENT: tremor(s), other Psychiatric: ABSENT: anxiety, depression, homidical ideation, suicidal ideation Physical Exam Vital Signs: Temp Pulse Resp BP Pulse Ox 98.5 F 95 13 113/79 94 03/26/19 15:38 03/26/19 15:38 03/26/19 17:12 03/26/19 17:12 03/26/19 17:11 Intake & Output 03/25/19 03/26/19 03/27/19 06:59 06:59 06:59 Weight 89.1 kg General appearance: PRESENT: no acute distress, other - Sleeping when I walked in the room O2 sat 89% on room air Respiratory exam: PRESENT: rhonchi Cardiovascular exam: PRESENT: RRR. ABSENT: diastolic murmur, rubs, systolic murmur Neurological exam: PRESENT: alert, awake, oriented to person, oriented to place, oriented to time, oriented to situation, CN II-XII grossly intact. ABSENT: motor sensory deficit Psychiatric exam: PRESENT: flat affect Results Laboratory Results: 03/26/19 15:38 03/26/19 15:38 03/26/19 03/26/19 03/26/19 15:38 15:38 17:19 WBC 17.4 H RBC 4.48 Hgb 11.7 L Hct 36.1 L MCV 81 MCH 26.2 L MCHC 32.4 RDW 18.5 H Plt Count 184 Seg Neutrophils % 88.1 H VBG pH 7.36 VBG pCO2 53.6 VBG HCO3 29.7 VBG Base Excess 3.3 Sodium 140.7 Potassium 4.8 Chloride 102 Carbon Dioxide 30 Anion Gap 9 BUN 48 H Creatinine 1.49 H Est GFR ( Amer) 55 L Glucose 104 Calcium 9.2 Magnesium 1.8 Total Bilirubin 1.3 AST 19 Alkaline Phosphatase 69 Total Protein 6.9 Albumin 4.0 03/26/19 03/26/19 03/26/19 15:38 15:38 15:38 Creatine Kinase 40 L CK-MB (CK-2) 2.21 Troponin I < 0.012 Impressions: Chest X-Ray 03/26/19 15:52 IMPRESSION: Cardiomegaly without pulmonary edema. Left lower lobe pneumonia. Cannot exclude a limited right lower lobe pneumonia. Head CT 03/26/19 16:56 IMPRESSION: NO ACUTE INTRACRANIAL FINDINGS. EVIDENCE OF ACUTE STROKE: NO. Assessment and Plan - Diagnosis (1) Left lower lobe pneumonia Qualifiers: Pneumonia type: due to unspecified organism Qualified Code(s): J18.9 - Pneumonia, unspecified organism Is this a current diagnosis for this admission?: Yes (2) Right lower lobe pneumonia Qualifiers: Pneumonia type: due to unspecified organism Qualified Code(s): J18.9 - Pneumonia, unspecified organism Is this a current diagnosis for this admission?: Yes (3) Tremor Is this a current diagnosis for this admission?: Yes (4) Acute on chronic respiratory failure with hypoxemia Is this a current diagnosis for this admission?: Yes (5) COPD exacerbation Is this a current diagnosis for this admission?: Yes - Plan Summary Summary: 03/26/2019 Patient will be admitted for gentle IV hydration, IV antibiotics cefepime and Levaquin, serial lab work. Patient is over his pneumonia he also has a complaint of tremors but this may be associated only with pneumonia as he had the same symptoms back in August and they resolved when his pneumonia resolved No family was in the room and patient is somewhat of a poor historian. She is currently on Eliquis unfortunately his medications have not been reconciled at 1845 hrs... - Time Time Spent with patient: 35 or more minutes
[2019-03-26 19:17] LABS: APPEARANCE,URINE CLEAR; BILIRUBIN,URINE NEGATIVE (NEGATIVE); COLOR,URINE YELLOW; GLUCOSE, URINE NEGATIVE (NEGATIVE); KETONES,URINE NEGATIVE (NEGATIVE); LEUKOCYTE ESTERASE,URINE NEGATIVE (NEGATIVE); NITRITE,URINE NEGATIVE (NEGATIVE); PROTEIN,URINE NEGATIVE (NEGATIVE); URINE SPECIFIC GRAVITY 1.013; UROBILINOGEN,URINE NEGATIVE mg/dL (<2.0)
--- NOTE | 2019-03-26 19:17 | EKG REPORT ---
SEVERITY:- ABNORMAL ECG - ATRIAL FIBRILLATION EARLY PRECORDIAL TRANSITION, R/O OLD TRUE POST DC. : Confirmed by: Gregory Pascual MD 26-Mar-2019 19:17:01
[2019-03-26] MEDS: FAMOTIDINE 20 MG TABLET PO SCH (23:50)
[2019-03-27 06:32] LABS: ABSOLUTE EOSINOPHILS # (AUTO) 0.1 10^3/uL (0.0-0.6); ABSOLUTE MONOCYTES (AUTO) 0.9 10^3/uL (0.1-1.4); ABSOLUTE NEUT (AUTO) 9.3 10^3/uL (1.7-8.2); BASOPHILS % (AUTO) 0.1 % (0-2); EOSINOPHILS % (AUTO) 0.8 % (0-6); HEMATOCRIT 31.9 % (37.9-51.0); HEMOGLOBIN 10.4 g/dL (13.5-17.0); LYMPHOCYTES % (AUTO) 8.9 % (13-45); MEAN CORPUSCULAR HEMOGLOBIN 26.1 pg (27.0-33.4); MEAN CORPUSCULAR HGB CONC 32.7 g/dL (32.0-36.0); MEAN CORPUSCULAR VOLUME 80 fl (80-97); MONOCYTES % (AUTO) 8.3 % (3-13); PLATELET COUNT 146 10^3/uL (150-450); RED CELL DISTRIBUTION WIDTH 18.1 % (11.5-14.0); SEGMENTED NEUTROPHILS % (AUTO) 81.9 % (42-78); TOTAL CELLS COUNTED % (AUTO) 100 %; WHITE BLOOD COUNT 11.4 10^3/uL (4.0-10.5)
[2019-03-27 07:03] LABS: ANION GAP 6 (5-19); BLOOD UREA NITROGEN 29 mg/dL (7-20); CALCIUM 8.9 mg/dL (8.4-10.2); CARBON DIOXIDE 30 mmol/L (22-30); CHLORIDE 104 mmol/L (98-107); GLUCOSE 102 mg/dL (75-110); POTASSIUM 3.9 mmol/L (3.6-5.0)
[2019-03-27] MEDS: FAMOTIDINE 20 MG TABLET PO SCH ×2 (09:04→21:14)
[2019-03-27] MEDS: ACETAMINOPHEN 325 MG TABLET PO PRN (09:04)
[2019-03-27] MEDS ORDERED: CEFTRIAXONE 1 GM/D5W RTU 1 GM/50 ML RTUPB IV SCH (10:00)
[2019-03-27] MEDS ORDERED: TRAMADOL HCL 50 MG TABLET PO PRN (10:29)
[2019-03-27] MEDS ORDERED: ALBUTEROL SULFATE HFA (90 MCG/PUFF) 200 PUFF/8.5 GM MDI IH PRN (10:29)
[2019-03-27] MEDS: FOLIC ACID 1 MG TABLET PO SCH (11:46)
[2019-03-27] MEDS: GABAPENTIN 300 MG CAPSULE PO SCH ×2 (11:46→21:14)
[2019-03-27] MEDS: METOPROLOL SUCCINATE 50 MG TAB.SR.24H PO SCH (11:46)
[2019-03-27] MEDS: CETIRIZINE 10 MG TABLET PO SCH (11:46)
[2019-03-27] MEDS: FUROSEMIDE 40 MG TABLET PO SCH ×2 (11:46→17:12)
[2019-03-27] MEDS: ASPIRIN 81 MG TABLET, ENT COATED PO SCH (11:46)
[2019-03-27] MEDS: LISINOPRIL 5 MG TABLET PO SCH (11:47)
[2019-03-27] MEDS: ATORVASTATIN CALCIUM 40 MG TABLET PO SCH (11:47)
[2019-03-27] MEDS: TAMSULOSIN HCL 0.4 MG CAP.SR.24H PO SCH (11:47)
[2019-03-27] MEDS: APIXABAN 5 MG TABLET PO SCH ×2 (11:50→17:13)
[2019-03-27] MEDS: PANTOPRAZOLE SODIUM 40 MG TABLET.DR PO SCH (11:50)
--- NOTE | 2019-03-27 16:31 | PDOC PROGRESS REPORT ---
Subjective Progress Note for:: 03/27/19 Subjective:: This is a 78 year old male with COPD, atrial fibrillation, and hypertension who presented with chills, fever and shortness of breath. He was recently treated with azithromycin by his PCP. Patient was found to have left-sided pneumonia on chest x-ray. He was also noted to have acute kidney injury. He was given IV antibiotics and IV fluids. No acute event overnight. Patient says that he feels better today. Denies chest pain. He says that his shortness of breath has significantly improved. Reason For Visit: LATERAL PNEIMONIA,WEAKNESS,TREMORS,ATRAIL FIB Physical Exam Vital Signs: Temp Pulse Resp BP Pulse Ox 97.1 F 72 17 110/71 94 03/27/19 15:30 03/27/19 15:30 03/27/19 15:30 03/27/19 15:30 03/27/19 15:30 Intake & Output 03/26/19 03/27/19 03/28/19 06:59 06:59 06:59 Intake Total 200 650 Balance 200 650 Weight 193 lb 9.054 oz General appearance: PRESENT: no acute distress, well-developed, well-nourished Head exam: PRESENT: atraumatic, normocephalic Eye exam: PRESENT: conjunctiva pink, EOMI, PERRLA. ABSENT: scleral icterus Ear exam: PRESENT: normal external ear exam Mouth exam: PRESENT: moist, tongue midline Neck exam: ABSENT: carotid bruit, JVD, lymphadenopathy, thyromegaly Respiratory exam: PRESENT: rhonchi. ABSENT: rales, wheezes Cardiovascular exam: PRESENT: RRR. ABSENT: diastolic murmur, rubs, systolic murmur Pulses: PRESENT: normal dorsalis pedis pul GI/Abdominal exam: PRESENT: normal bowel sounds, soft. ABSENT: distended, guarding, mass, organolmegaly, rebound, tenderness Rectal exam: PRESENT: deferred Extremities exam: PRESENT: full ROM. ABSENT: calf tenderness, clubbing, pedal edema Neurological exam: PRESENT: alert, awake, oriented to person, oriented to place, oriented to time, oriented to situation, CN II-XII grossly intact. ABSENT: motor sensory deficit Results Laboratory Results: 03/27/19 06:07 03/27/19 06:07 03/26/19 03/26/1919 15:38 17:19 18:17 WBC RBC Hgb Hct MCV MCH MCHC RDW Plt Count Seg Neutrophils % VBG pH 7.36 VBG pCO2 53.6 VBG HCO3 29.7 VBG Base Excess 3.3 Sodium 140.7 Potassium 4.8 Chloride 102 Carbon Dioxide 30 Anion Gap 9 BUN 48 H Creatinine 1.49 H Est GFR ( Amer) 55 L Glucose 104 Calcium 9.2 Magnesium 1.8 Total Bilirubin 1.3 AST 19 Alkaline Phosphatase 69 Ammonia < 8.7 L Total Protein 6.9 Albumin 4.0 Urine Color Urine Appearance Urine pH Ur Specific [place] Urine Protein Urine Glucose (UA) Urine Ketones Urine Blood Urine Nitrite Ur Leukocyte Esterase Urine WBC (Auto) Urine RBC (Auto) 03/26/19 03/27/19 03/27/19 18:47 06:07 06:07 WBC 11.4 H RBC 4.00 L Hgb 10.4 L Hct 31.9 L MCV 80 MCH 26.1 L MCHC 32.7 RDW 18.1 H Plt Count 146 L Seg Neutrophils % 81.9 H VBG pH VBG pCO2 VBG HCO3 VBG Base Excess Sodium 140.4 Potassium 3.9 Chloride 104 Carbon Dioxide 30 Anion Gap 6 BUN 29 H Creatinine 1.06 Est GFR ( Amer) > 60 Glucose 102 Calcium 8.9 Magnesium Total Bilirubin AST Alkaline Phosphatase Ammonia Total Protein Albumin Urine Color YELLOW Urine Appearance CLEAR Urine pH 6.0 Ur Specific [place] 1.013 Urine Protein NEGATIVE Urine Glucose (UA) NEGATIVE Urine Ketones NEGATIVE Urine Blood NEGATIVE Urine Nitrite NEGATIVE Ur Leukocyte Esterase NEGATIVE Urine WBC (Auto) 0 Urine RBC (Auto) 0 03/26/19 03/26/19 03/26/19 15:38 15:38 15:38 Creatine Kinase 40 L CK-MB (CK-2) 2.21 Troponin I < 0.012 Impressions: Chest X-Ray 03/26/19 15:52 IMPRESSION: Cardiomegaly without pulmonary edema. Left lower lobe pneumonia. Cannot exclude a limited right lower lobe pneumonia. Head CT 03/26/19 16:56 IMPRESSION: NO ACUTE INTRACRANIAL FINDINGS. EVIDENCE OF ACUTE STROKE: NO. Assessment and Plan - Diagnosis (1) Bacterial pneumonia Is this a current diagnosis for this admission?: Yes Plan: Currently on Rocephin and levofloxacin. Discontinue Rocephin. Continue levofloxacin. Sputum culture pending. (2) Acute kidney injury Is this a current diagnosis for this admission?: Yes Plan: Resolving. (3) CAD (coronary artery disease) Qualifiers: Coronary Disease-Associated Artery/Lesion type: unspecified vessel or lesion type [place] vs. transplanted heart: [place] heart Associated angina: angina presence unspecified Qualified Code(s): I25.10 - Atherosclerotic heart disease of [place] coronary artery without angina pectoris Is this a current diagnosis for this admission?: Yes Plan: Stable. Resume home meds. (4) Paroxysmal atrial fibrillation Is this a current diagnosis for this admission?: Yes Plan: Resume home meds. - Time Time Spent with patient: 25-34 minutes
[2019-03-27] MEDS: RANOLAZINE 500 MG TAB.SR.12H PO SCH (17:12)
[2019-03-27] MEDS ORDERED: LEVOFLOXACIN 500 MG/D5W RTU 500 MG/100 ML RTUPB IV SCH (18:00)
[2019-03-27] MEDS: MONTELUKAST SODIUM 10 MG TABLET PO SCH (21:14)
[2019-03-28] MEDS: PANTOPRAZOLE SODIUM 40 MG TABLET.DR PO SCH (05:10)
[2019-03-28] MEDS: LEVALBUTEROL HCL NEB 1.25 MG/3 ML AMPUL NEB PRN ×3 (05:29→20:20)
[2019-03-28] MEDS: ATORVASTATIN CALCIUM 40 MG TABLET PO SCH (09:58)
[2019-03-28] MEDS: FAMOTIDINE 20 MG TABLET PO SCH ×2 (09:58→21:05)
[2019-03-28] MEDS: ASPIRIN 81 MG TABLET, ENT COATED PO SCH (09:58)
[2019-03-28] MEDS: GABAPENTIN 300 MG CAPSULE PO SCH ×2 (09:59→21:05)
[2019-03-28] MEDS: APIXABAN 5 MG TABLET PO SCH ×2 (09:59→18:32)
[2019-03-28] MEDS: TAMSULOSIN HCL 0.4 MG CAP.SR.24H PO SCH (09:59)
[2019-03-28] MEDS: METOPROLOL SUCCINATE 50 MG TAB.SR.24H PO SCH (09:59)
[2019-03-28] MEDS: LISINOPRIL 5 MG TABLET PO SCH (09:59)
[2019-03-28] MEDS: ACETAMINOPHEN 325 MG TABLET PO PRN (09:59)
[2019-03-28] MEDS: RANOLAZINE 500 MG TAB.SR.12H PO SCH ×2 (09:59→18:32)
[2019-03-28] MEDS: CETIRIZINE 10 MG TABLET PO SCH (10:00)
[2019-03-28] MEDS: FOLIC ACID 1 MG TABLET PO SCH (10:00)
[2019-03-28] MEDS ORDERED: (PENDING PHARMACY ID) (Potassium Citrate [Potassium Citrate Er] 10 MEQ) PO SCH (10:00)
[2019-03-28] MEDS: FUROSEMIDE 40 MG TABLET PO SCH ×2 (10:02→18:32)
--- NOTE | 2019-03-28 18:26 | PDOC PROGRESS REPORT ---
Subjective Progress Note for:: 03/28/19 Subjective:: This is a 78 year old male with COPD, atrial fibrillation, and hypertension who presented with chills, fever and shortness of breath. He was recently treated with azithromycin by his PCP. Patient was found to have left-sided pneumonia on chest x-ray. He was also noted to have acute kidney injury. He was given IV antibiotics and IV fluids. No acute event overnight. He says that his shortness of breath continue to improve but that he still feels ill today. He ambulated the hallway on room air and became dizzy and was unsteady on his feet. Reason For Visit: LATERAL PNEIMONIA,WEAKNESS,TREMORS,ATRAIL FIB Physical Exam Vital Signs: Temp Pulse Resp BP Pulse Ox 99.3 F 76 16 95/57 L 93 03/28/19 08:02 03/28/19 14:00 03/28/19 13:06 03/28/19 08:02 03/28/19 13:06 Intake & Output 03/27/19 03/28/19 03/29/19 06:59 06:59 06:59 Intake Total 200 1110 Balance 200 1110 Weight 193 lb 9.054 oz 195 lb 15.855 oz General appearance: PRESENT: no acute distress, well-developed, well-nourished Head exam: PRESENT: atraumatic, normocephalic Eye exam: PRESENT: conjunctiva pink, EOMI, PERRLA. ABSENT: scleral icterus Ear exam: PRESENT: normal external ear exam Mouth exam: PRESENT: moist, tongue midline Neck exam: ABSENT: carotid bruit, JVD, lymphadenopathy, thyromegaly Respiratory exam: PRESENT: rhonchi. ABSENT: rales, wheezes Cardiovascular exam: PRESENT: RRR. ABSENT: diastolic murmur, rubs, systolic murmur Pulses: PRESENT: normal dorsalis pedis pul GI/Abdominal exam: PRESENT: normal bowel sounds, soft. ABSENT: distended, guarding, mass, organolmegaly, rebound, tenderness Rectal exam: PRESENT: deferred Extremities exam: PRESENT: full ROM. ABSENT: calf tenderness, clubbing, pedal edema Neurological exam: PRESENT: alert, awake, oriented to person, oriented to place, oriented to time, oriented to situation, CN II-XII grossly intact. ABSENT: motor sensory deficit Results Laboratory Results: 03/27/19 06:07 03/27/19 06:07 03/27/19 06:07 TSH 0.48 03/26/19 03/26/19 03/26/19 15:38 15:38 15:38 Creatine Kinase 40 L CK-MB (CK-2) 2.21 Troponin I < 0.012 Impressions: Chest X-Ray 03/26/19 15:52 IMPRESSION: Cardiomegaly without pulmonary edema. Left lower lobe pneumonia. Cannot exclude a limited right lower lobe pneumonia. Head CT 03/26/19 16:56 IMPRESSION: NO ACUTE INTRACRANIAL FINDINGS. EVIDENCE OF ACUTE STROKE: NO. Assessment and Plan - Diagnosis (1) Bacterial pneumonia Is this a current diagnosis for this admission?: Yes Plan: Continue levofloxacin. Sputum culture pending. (2) Acute kidney injury Is this a current diagnosis for this admission?: Yes Plan: Resolving. (3) CAD (coronary artery disease) Qualifiers: Coronary Disease-Associated Artery/Lesion type: unspecified vessel or lesion type [place] vs. transplanted heart: [place] heart Associated angina: angina presence unspecified Qualified Code(s): I25.10 - Atherosclerotic heart disease of [place] coronary artery without angina pectoris Is this a current diagnosis for this admission?: Yes Plan: Stable. Continue home meds. (4) Paroxysmal atrial fibrillation Is this a current diagnosis for this admission?: Yes Plan: Continue home meds.
[2019-03-28] MEDS ORDERED: LEVOFLOXACIN 500 MG TABLET PO SCH (19:00)
[2019-03-28] MEDS: MONTELUKAST SODIUM 10 MG TABLET PO SCH (21:05)
[2019-03-29] MEDS: PANTOPRAZOLE SODIUM 40 MG TABLET.DR PO SCH (05:29)
[2019-03-29] MEDS: ACETAMINOPHEN 325 MG TABLET PO PRN (08:32)
[2019-03-29] MEDS: LEVALBUTEROL HCL NEB 1.25 MG/3 ML AMPUL NEB PRN ×2 (09:03→22:16)
[2019-03-29] MEDS: RANOLAZINE 500 MG TAB.SR.12H PO SCH ×2 (11:02→17:14)
[2019-03-29] MEDS: GABAPENTIN 300 MG CAPSULE PO SCH ×2 (11:02→21:49)
[2019-03-29] MEDS: ATORVASTATIN CALCIUM 40 MG TABLET PO SCH (11:02)
[2019-03-29] MEDS: FUROSEMIDE 40 MG TABLET PO SCH (11:03)
[2019-03-29] MEDS: FAMOTIDINE 20 MG TABLET PO SCH ×2 (11:03→21:49)
[2019-03-29] MEDS: ASPIRIN 81 MG TABLET, ENT COATED PO SCH (11:03)
[2019-03-29] MEDS: APIXABAN 5 MG TABLET PO SCH ×2 (11:03→17:14)
[2019-03-29] MEDS: FOLIC ACID 1 MG TABLET PO SCH (11:03)
[2019-03-29] MEDS: TAMSULOSIN HCL 0.4 MG CAP.SR.24H PO SCH (11:03)
[2019-03-29] MEDS: LISINOPRIL 5 MG TABLET PO SCH (11:03)
[2019-03-29] MEDS: METOPROLOL SUCCINATE 50 MG TAB.SR.24H PO SCH (11:03)
[2019-03-29] MEDS: CETIRIZINE 10 MG TABLET PO SCH (11:04)
--- NOTE | 2019-03-29 11:11 | RADIOLOGY REPORT (SQ) ---
EXAM DESCRIPTION: CT CHEST WITHOUT COMPLETED DATE/TIME: 03/29/2019 10:48 am REASON FOR STUDY: SOB, further reassess infiltrates COMPARISON: CT chest 01/13/2010, 09/20/2012, 04/12/2016, 08/20/2016, 08/24/2017, 09/22/2018 TECHNIQUE: CT scan performed of the chest without intravenous contrast. Images reviewed with lung, soft tissue and bone windows. Reconstructed coronal and sagittal MPR images reviewed. All images st ored on PACS. All CT scanners at this facility use dose modulation, iterative reconstruction, and/or weight based d osing when appropriate to reduce radiation dose to as low as reasonably achievable (ALARA). [facility]: Dose Right [facility]: CareDose [facility]: Dose Right [facility]: Teradose 4D [facility]: Smart [place] RADIATION DOSE: CT Rad equipment meets quality standard of care and radiation dose reduction techniq ues were employed. CTDIvol: 12.1 mGy. DLP: 574 mGy-cm. mGy. LIMITATIONS: No technical limitations. FINDINGS: LUNGS AND PLEURA: On today's study, there is bilateral lower lobe and lingular patchy airs pace disease with multiple alveolar nodules, bronchial wall thickening, and thickened interstitial ma rkings worrisome for bronchitis/pneumonia. No pleural effusions. No pneumothorax. Upper lobes are hyperlucent from obstructive disease. No gross worrisome pulmonary nodules. HILAR AND MEDIASTINAL STRUCTURES: No identified masses or abnormal nodes. No obvious aneurysm. HEART AND VASCULAR STRUCTURES: Stable ectasia of the thoracic aorta, ascending aorta 4.5 cm in diamet er, aorta 3 cm diameter at the takeoff of the great vessels and throughout the descending thoracic ao rta. Aorta at the hiatus 2.8 cm in diameter. Stable mild cardiomegaly. UPPER ABDOMEN: Calcified gallstones. Left renal cortical cysts. THYROID AND OTHER SOFT TISSUES: No masses. No adenopathy. BONES: 25% upper endplate chronic depression at L1. Old sternotomy for CABG HARDWARE: None in the chest. OTHER: No other significant findings. IMPRESSION: Bibasilar bronchitis/pneumonia TECHNICAL DOCUMENTATION: JOB ID: [id number] Quality ID # [id number]: Final reports with documentation of one or more dose reduction techniques (e.g., Au tomated exposure control, adjustment of the mA and/or kV according to patient size, use of iterative reconstruction technique) 2010 [employer]- All Rights Reserved Reading location - IP/workstation name: [facility]
[2019-03-29 11:21] LABS: ABSOLUTE EOSINOPHILS # (AUTO) 0.1 10^3/uL (0.0-0.6); ABSOLUTE MONOCYTES (AUTO) 0.6 10^3/uL (0.1-1.4); ABSOLUTE NEUT (AUTO) 4.7 10^3/uL (1.7-8.2); BASOPHILS % (AUTO) 0.4 % (0-2); EOSINOPHILS % (AUTO) 1.8 % (0-6); HEMATOCRIT 33.2 % (37.9-51.0); HEMOGLOBIN 11.1 g/dL (13.5-17.0); LYMPHOCYTES % (AUTO) 14.9 % (13-45); MEAN CORPUSCULAR HEMOGLOBIN 26.8 pg (27.0-33.4); MEAN CORPUSCULAR HGB CONC 33.5 g/dL (32.0-36.0); MEAN CORPUSCULAR VOLUME 80 fl (80-97); MONOCYTES % (AUTO) 9.2 % (3-13); PLATELET COUNT 137 10^3/uL (150-450); RED BLOOD COUNT 4.15 10^6/uL (4.35-5.55); RED CELL DISTRIBUTION WIDTH 18.2 % (11.5-14.0); SEGMENTED NEUTROPHILS % (AUTO) 73.7 % (42-78); TOTAL CELLS COUNTED % (AUTO) 100 %; WHITE BLOOD COUNT 6.4 10^3/uL (4.0-10.5)
[2019-03-29 11:40] LABS: ANION GAP 12 (5-19); BLOOD UREA NITROGEN 27 mg/dL (7-20); CALCIUM 8.8 mg/dL (8.4-10.2); CARBON DIOXIDE 27 mmol/L (22-30); CHLORIDE 102 mmol/L (98-107); GLUCOSE 132 mg/dL (75-110); POTASSIUM 3.7 mmol/L (3.6-5.0)
[2019-03-29 12:56] LABS: A TYPE INFLUENZA AG NEGATIVE (NEGATIVE); B INFLUENZA AG NEGATIVE (NEGATIVE)
[2019-03-29] MEDS: AZITHROMYCIN 250 MG TABLET PO SCH (13:24)
[2019-03-29] MEDS: NORMAL SALINE 1000 ML 1,000 ML IV PRN (13:25)
[2019-03-29] MEDS: CEFEPIME 1 GM/D5W RTU 1 GM/50 ML RTUPB IV SCH ×2 (13:25→21:49)
--- NOTE | 2019-03-29 14:31 | PDOC PROGRESS REPORT ---
Subjective Progress Note for:: 03/29/19 Subjective:: This is a 78 year old male with COPD, atrial fibrillation, and hypertension who presented with chills, fever and shortness of breath. He was recently treated with azithromycin by his PCP. Patient was found to have left-sided pneumonia on chest x-ray. He was also noted to have acute kidney injury. He was given IV antibiotics and IV fluids. 03/28: He says that his shortness of breath continue to improve but that he still feels ill today. He ambulated the hallway on room air and became dizzy and was unsteady on his feet. 03/29: This morning, he says that he still has shortness of breath and has not felt a significant improvement from yesterday. Chest CT pursued and shows multifocal pneumonia. Will switch him back to IV antibiotics today. Reason For Visit: LATERAL PNEIMONIA,WEAKNESS,TREMORS,ATRAIL FIB Physical Exam Vital Signs: Temp Pulse Resp BP Pulse Ox 99.9 F 72 16 110/61 93 03/29/19 07:46 03/29/19 09:03 03/29/19 09:03 03/29/19 07:46 03/29/19 09:03 Intake & Output 03/28/19 03/29/19 03/30/19 06:59 06:59 06:59 Intake Total 1110 1240 Balance 1110 1240 Weight 195 lb 15.855 oz 190 lb 0.615 oz General appearance: PRESENT: no acute distress, well-developed, well-nourished Head exam: PRESENT: atraumatic, normocephalic Eye exam: PRESENT: conjunctiva pink, EOMI, PERRLA. ABSENT: scleral icterus Ear exam: PRESENT: normal external ear exam Mouth exam: PRESENT: moist, tongue midline Neck exam: ABSENT: carotid bruit, JVD, lymphadenopathy, thyromegaly Respiratory exam: PRESENT: rales, rhonchi. ABSENT: wheezes Cardiovascular exam: PRESENT: RRR. ABSENT: diastolic murmur, rubs, systolic murmur Pulses: PRESENT: normal dorsalis pedis pul GI/Abdominal exam: PRESENT: normal bowel sounds, soft. ABSENT: distended, guarding, mass, organolmegaly, rebound, tenderness Rectal exam: PRESENT: deferred Extremities exam: PRESENT: full ROM. ABSENT: calf tenderness, clubbing, pedal edema Neurological exam: PRESENT: alert, awake, oriented to person, oriented to place, oriented to time, oriented to situation, CN II-XII grossly intact. ABSENT: motor sensory deficit Results Laboratory Results: 03/29/19 10:24 03/29/19 10:24 WBC 6.4 RBC 4.15 L Hgb 11.1 L Hct 33.2 L MCV 80 MCH 26.8 L MCHC 33.5 RDW 18.2 H Plt Count 137 L Seg Neutrophils % 73.7 03/26/19 03/26/19 03/26/19 15:38 15:38 15:38 Creatine Kinase 40 L CK-MB (CK-2) 2.21 Troponin I < 0.012 Impressions: Chest X-Ray 03/26/19 15:52 IMPRESSION: Cardiomegaly without pulmonary edema. Left lower lobe pneumonia. Cannot exclude a limited right lower lobe pneumonia. Head CT 03/26/19 16:56 IMPRESSION: NO ACUTE INTRACRANIAL FINDINGS. EVIDENCE OF ACUTE STROKE: NO. Chest CT 03/29/19 09:37 IMPRESSION: Bibasilar bronchitis/pneumonia Assessment and Plan - Diagnosis (1) Bacterial pneumonia Is this a current diagnosis for this admission?: Yes Plan: 03/29: Chest CT pursued and shows multifocal pneumonia. Will switch him back to IV antibiotics today. (2) Acute kidney injury Is this a current diagnosis for this admission?: Yes Plan: Resolving. 03/29: Creatinine trended up again. He has been having poor intake in the past 24 to 48 hours. Hold off on Lasix. We will give him gentle hydration and repeat BMP tomorrow. (3) CAD (coronary artery disease) Qualifiers: Coronary Disease-Associated Artery/Lesion type: unspecified vessel or lesion type [place] vs. transplanted heart: [place] heart Associated angina: angina presence unspecified Qualified Code(s): I25.10 - Atherosclerotic heart disease of [place] coronary artery without angina pectoris Is this a current diagnosis for this admission?: Yes Plan: Stable. Continue home meds. (4) Paroxysmal atrial fibrillation Is this a current diagnosis for this admission?: Yes Plan: Continue home meds. - Time Time Spent with patient: 25-34 minutes
[2019-03-29] MEDS ORDERED: FLUTICASONE/VILANTEROL 200-25 MCG/DOSE IH ONE (21:25)
[2019-03-29] MEDS ORDERED: UMECLIDINIUM BROMIDE 62.5 MCG/DOSE IH ONE (21:25)
[2019-03-29] MEDS: UMECLIDINIUM BROMIDE 62.5 MCG/DOSE IH SCH (21:49)
[2019-03-29] MEDS: FLUTICASONE/VILANTEROL 200-25 MCG/DOSE IH SCH (21:49)
[2019-03-29] MEDS: MONTELUKAST SODIUM 10 MG TABLET PO SCH (21:49)
[2019-03-30] MEDS: LEVALBUTEROL HCL NEB 1.25 MG/3 ML AMPUL NEB PRN (02:59)
[2019-03-30] MEDS: PANTOPRAZOLE SODIUM 40 MG TABLET.DR PO SCH (06:00)
[2019-03-30] MEDS: FAMOTIDINE 20 MG TABLET PO SCH ×2 (09:46→21:08)
[2019-03-30] MEDS: RANOLAZINE 500 MG TAB.SR.12H PO SCH ×2 (09:46→17:42)
[2019-03-30] MEDS: CEFEPIME 1 GM/D5W RTU 1 GM/50 ML RTUPB IV SCH ×2 (09:46→21:08)
[2019-03-30] MEDS: ASPIRIN 81 MG TABLET, ENT COATED PO SCH (09:46)
[2019-03-30] MEDS: TAMSULOSIN HCL 0.4 MG CAP.SR.24H PO SCH (09:47)
[2019-03-30] MEDS: AZITHROMYCIN 250 MG TABLET PO SCH (09:47)
[2019-03-30] MEDS: GABAPENTIN 300 MG CAPSULE PO SCH ×2 (09:47→21:07)
[2019-03-30] MEDS: CETIRIZINE 10 MG TABLET PO SCH (09:47)
[2019-03-30] MEDS: ATORVASTATIN CALCIUM 40 MG TABLET PO SCH (09:47)
[2019-03-30] MEDS: FOLIC ACID 1 MG TABLET PO SCH (09:47)
[2019-03-30] MEDS: FLUTICASONE/VILANTEROL 200-25 MCG/DOSE IH SCH (09:48)
[2019-03-30] MEDS: UMECLIDINIUM BROMIDE 62.5 MCG/DOSE IH SCH (09:48)
[2019-03-30] MEDS: APIXABAN 5 MG TABLET PO SCH ×2 (09:48→17:42)
[2019-03-30] MEDS: LISINOPRIL 5 MG TABLET PO SCH (09:49)
[2019-03-30] MEDS: METOPROLOL SUCCINATE 50 MG TAB.SR.24H PO SCH (10:00)
--- NOTE | 2019-03-30 14:21 | PDOC PROGRESS REPORT ---
Subjective Progress Note for:: 03/30/19 Subjective:: This is a 78 year old male with COPD, atrial fibrillation, and hypertension who presented with chills, fever and shortness of breath. He was recently treated with azithromycin by his PCP. Patient was found to have left-sided pneumonia on chest x-ray. He was also noted to have acute kidney injury. He was given IV antibiotics and IV fluids. 03/28: He says that his shortness of breath continue to improve but that he still feels ill today. He ambulated the hallway on room air and became dizzy and was unsteady on his feet. 03/29: This morning, he says that he still has shortness of breath and has not felt a significant improvement from yesterday. Chest CT pursued and shows multifocal pneumonia. Will switch him back to IV antibiotics today. 03/30: No acute event overnight. He says he feels much better today and is returning to his baseline. Denies chest pain or shortness of breath. Anticipate discharge in the next 24 hours. Reason For Visit: LATERAL PNEIMONIA,WEAKNESS,TREMORS,ATRAIL FIB Physical Exam Vital Signs: Temp Pulse Resp BP Pulse Ox 97.4 F 72 16 104/65 91 L 03/30/19 07:51 03/30/19 08:00 03/30/19 08:00 03/30/19 07:51 03/30/19 07:51 Intake & Output 03/29/19 03/30/19 03/31/19 06:59 06:59 06:59 Intake Total 1240 1800 Output Total 0 Balance 1240 1800 Weight 190 lb 0.615 oz General appearance: PRESENT: no acute distress, well-developed, well-nourished Head exam: PRESENT: atraumatic, normocephalic Eye exam: PRESENT: conjunctiva pink, EOMI, PERRLA. ABSENT: scleral icterus Ear exam: PRESENT: normal external ear exam Mouth exam: PRESENT: moist, tongue midline Neck exam: ABSENT: carotid bruit, JVD, lymphadenopathy, thyromegaly Respiratory exam: PRESENT: rhonchi. ABSENT: rales, wheezes Cardiovascular exam: PRESENT: RRR. ABSENT: diastolic murmur, rubs, systolic murmur Pulses: PRESENT: normal dorsalis pedis pul GI/Abdominal exam: PRESENT: normal bowel sounds, soft. ABSENT: distended, guarding, mass, organolmegaly, rebound, tenderness Rectal exam: PRESENT: deferred Extremities exam: PRESENT: full ROM. ABSENT: calf tenderness, clubbing, pedal edema Neurological exam: PRESENT: alert, awake, oriented to person, oriented to place, oriented to time, oriented to situation, CN II-XII grossly intact. ABSENT: motor sensory deficit Results Laboratory Results: 03/29/19 10:24 03/29/19 10:24 03/26/19 03/26/19 03/26/19 15:38 15:38 15:38 Creatine Kinase 40 L CK-MB (CK-2) 2.21 Troponin I < 0.012 Impressions: Chest X-Ray 03/26/19 15:52 IMPRESSION: Cardiomegaly without pulmonary edema. Left lower lobe pneumonia. Cannot exclude a limited right lower lobe pneumonia. Head CT 03/26/19 16:56 IMPRESSION: NO ACUTE INTRACRANIAL FINDINGS. EVIDENCE OF ACUTE STROKE: NO. Chest CT 03/29/19 09:37 IMPRESSION: Bibasilar bronchitis/pneumonia Assessment and Plan - Diagnosis (1) Bacterial pneumonia Is this a current diagnosis for this admission?: Yes Plan: 03/29: Chest CT pursued and shows multifocal pneumonia. Will switch him back to IV antibiotics today. 03/30: Improving. Continue antibiotics. Anticipate switching back to p.o. antibiotics and discharge tomorrow. (2) Acute kidney injury Is this a current diagnosis for this admission?: Yes Plan: Resolving. 03/29: Creatinine trended up again. He has been having poor intake in the past 24 to 48 hours. Hold off on Lasix. We will give him gentle hydration and repeat BMP tomorrow. 03/30: Repeat BMP today. (3) CAD (coronary artery disease) Qualifiers: Coronary Disease-Associated Artery/Lesion type: unspecified vessel or lesion type [place] vs. transplanted heart: [place] heart Associated angina: angina presence unspecified Qualified Code(s): I25.10 - Atherosclerotic heart disease of [place] coronary artery without angina pectoris Is this a current diagnosis for this admission?: Yes Plan: Stable. Continue home meds. (4) Paroxysmal atrial fibrillation Is this a current diagnosis for this admission?: Yes Plan: Continue home meds. - Time Time Spent with patient: 15-24 minutes
[2019-03-30 16:19] LABS: ANION GAP 9 (5-19); BLOOD UREA NITROGEN 29 mg/dL (7-20); CALCIUM 8.7 mg/dL (8.4-10.2); CARBON DIOXIDE 29 mmol/L (22-30); CHLORIDE 100 mmol/L (98-107); GLUCOSE 95 mg/dL (75-110); POTASSIUM 4.1 mmol/L (3.6-5.0)
[2019-03-30] MEDS: BENZONATATE 100 MG CAPSULE PO PRN (21:07)
[2019-03-30] MEDS: MONTELUKAST SODIUM 10 MG TABLET PO SCH (21:07)
[2019-03-31] MEDS: PANTOPRAZOLE SODIUM 40 MG TABLET.DR PO SCH (05:22)
[2019-03-31] MEDS: BENZONATATE 100 MG CAPSULE PO PRN ×2 (06:01→13:07)
[2019-03-31] MEDS: NORMAL SALINE 1000 ML 1,000 ML IV PRN (07:21)
[2019-03-31] MEDS: LEVALBUTEROL HCL NEB 1.25 MG/3 ML AMPUL NEB PRN (08:27)
[2019-03-31] MEDS: CEFEPIME 1 GM/D5W RTU 1 GM/50 ML RTUPB IV SCH (10:57)
[2019-03-31] MEDS: UMECLIDINIUM BROMIDE 62.5 MCG/DOSE IH SCH (10:57)
[2019-03-31] MEDS: GABAPENTIN 300 MG CAPSULE PO SCH (10:58)
[2019-03-31] MEDS: APIXABAN 5 MG TABLET PO SCH (10:58)
[2019-03-31] MEDS: FLUTICASONE/VILANTEROL 200-25 MCG/DOSE IH SCH (10:58)
[2019-03-31] MEDS: LISINOPRIL 5 MG TABLET PO SCH (10:58)
[2019-03-31] MEDS: CETIRIZINE 10 MG TABLET PO SCH (10:58)
[2019-03-31] MEDS: FOLIC ACID 1 MG TABLET PO SCH (10:59)
[2019-03-31] MEDS: TAMSULOSIN HCL 0.4 MG CAP.SR.24H PO SCH (10:59)
[2019-03-31] MEDS: FAMOTIDINE 20 MG TABLET PO SCH (10:59)
[2019-03-31] MEDS: ASPIRIN 81 MG TABLET, ENT COATED PO SCH (10:59)
[2019-03-31] MEDS: RANOLAZINE 500 MG TAB.SR.12H PO SCH (10:59)
[2019-03-31] MEDS: AZITHROMYCIN 250 MG TABLET PO SCH (11:00)
[2019-03-31] MEDS: ATORVASTATIN CALCIUM 40 MG TABLET PO SCH (11:00)
[2019-03-31] MEDS: METOPROLOL SUCCINATE 50 MG TAB.SR.24H PO SCH (11:00)
[2019-03-31 11:02] LABS: ANION GAP 11 (5-19); BLOOD UREA NITROGEN 26 mg/dL (7-20); CALCIUM 8.8 mg/dL (8.4-10.2); CARBON DIOXIDE 24 mmol/L (22-30); CHLORIDE 105 mmol/L (98-107); GLUCOSE 91 mg/dL (75-110); POTASSIUM 4.4 mmol/L (3.6-5.0)
[2019-03-31 12:42] VITALS: BP 89/50
--- NOTE | 2019-03-31 18:41 | PDOC DISCHARGE SUMMARY ---
Impression - Admit/DC Date/PCP Admission Date/Primary Care Provider: 03/26/19 18:31 BLAINE MCKAY MD Discharge Date: 03/31/19 - Discharge Diagnosis (1) Bacterial pneumonia Is this a current diagnosis for this admission?: Yes (2) Acute kidney injury Is this a current diagnosis for this admission?: Yes (3) CAD (coronary artery disease) Is this a current diagnosis for this admission?: Yes (4) Paroxysmal atrial fibrillation Is this a current diagnosis for this admission?: Yes - Additional Information Resuscitation Status: Full Code Discharge Diet: As Tolerated, Regular Discharge Activity: Activity As Tolerated, Balance Activity w/Rest, Slowly Increase Activity Referrals: BLAINE MCKAY MD [Primary Care Provider] - 04/03/19 1:45 pm Prescriptions: Fluticasone/Salmeterol [Advair 250-50 Diskus 14 Dose/Diskus] 1 puff IH Q12 #1 inhaler Levofloxacin [Levaquin 500 mg Tablet] 500 mg PO DAILY 4 Days #4 tablet Tiotropium [place] [Spiriva Respimat] 4 gm IH DAILY #30 mist.inhal Home Medications: Albuterol Sulfate [Proair HFA Inhalation Aerosol 8.5 gm MDI] 2 puff IH Q4HP PRN 03/26/19 Apixaban [Eliquis 5 mg Tablet] 5 mg PO BID 03/26/19 Aspirin [Ecotrin 81 mg EC Tablet] 81 mg PO DAILY 03/26/19 Atorvastatin Calcium [Lipitor 40 mg Tablet] 40 mg PO DAILY 03/26/19 Cetirizine HCl [Zyrtec 10 mg Tablet] 10 mg PO DAILY 03/26/19 Folic Acid [Folvite 1 mg Tablet] 1 mg PO DAILY 03/26/19 Furosemide [Lasix 40 mg Tablet] 40 mg PO BID 03/26/19 Gabapentin [Neurontin 300 mg Capsule] 300 mg PO Q12 03/26/19 Lisinopril [Prinivil 5 mg Tablet] 5 mg PO DAILY 03/26/19 Metoprolol Succinate [Toprol Xl 50 mg Tab.sr] 50 mg PO DAILY 03/26/19 Montelukast Sodium [Singulair 10 mg Tablet] 10 mg PO QHS 03/26/19 Pantoprazole Sodium [Protonix [address] Tablet] 40 mg PO Q6AM 03/26/19 Potassium Citrate [Potassium Citrate ER] 10 meq PO DAILY 03/26/19 Ranolazine [Ranexa 500 mg Tab.sr] 500 mg PO BID 03/26/19 Tamsulosin HCl [Flomax 0.4 mg Cap.sr] 0.4 mg PO DAILY 03/26/19 Tramadol HCl [Ultram 50 mg Tablet] 50 mg PO Q8HP PRN 03/26/19 Tiotropium [place] [Spiriva Respimat] 4 gm IH DAILY #30 mist.inhal 03/28/19 Fluticasone/Salmeterol [Advair 250-50 Diskus 14 Dose/Diskus] 1 puff IH Q12 #1 inhaler 03/31/19 Levofloxacin [Levaquin 500 mg Tablet] 500 mg PO DAILY 4 Days #4 tablet 03/31/19 History of Present Illiness History of Present Illness: Admitting hospitalist's H&P: HARVEY YBARRA is a 78 year old male comes in with 1 day history of Rigors chills fever early this morning was short of breath. Patient has a long history of COPD as well as recurrent pneumonia. 2 weeks ago patient had a [facility] for outpatient therapy for upper respiratory illness. Last time patient was admitted was earlier this year August 2018. Patient comes in now with a 1 day history of fever, chills, rigorsand shortness of breath with chest x-ray showing pneumonia, potentially bilateral. White count 17,400 lactic acid is only 1.3. Hospital Course Hospital Course: This is a 78 year old male with COPD, atrial fibrillation, and hypertension who presented with chills, fever and shortness of breath. He was recently treated with azithromycin by his PCP. Patient was found to have left-sided pneumonia on chest x-ray. He was also noted to have acute kidney injury. He was given IV antibiotics and IV fluids. Chest CT pursued and shows multifocal pneumonia. He slowly but gradually returned to his baseline. He was weaned off O2 and is able to ambulate the hallway. His creatinine also returned to his baseline. He will be discharged on p.o. levofloxacin. Physical Exam Vital Signs: Temp Pulse Resp BP Pulse Ox 98.6 F 64 18 89/50 L 95 03/31/19 13:16 03/31/19 13:16 03/31/19 13:16 03/31/19 12:13 03/31/19 13:16 Intake & Output 03/30/19 03/31/19 04/01/19 06:59 06:59 06:59 Intake Total 1800 2089 822 Output Total 0 Balance 1799 2089 822 Weight 193 lb 5.526 oz 193 lb 5.526 oz General appearance: PRESENT: no acute distress, well-developed, well-nourished Head exam: PRESENT: atraumatic, normocephalic Eye exam: PRESENT: conjunctiva pink, EOMI, PERRLA. ABSENT: scleral icterus Ear exam: PRESENT: normal external ear exam Mouth exam: PRESENT: moist, tongue midline Neck exam: ABSENT: carotid bruit, JVD, lymphadenopathy, thyromegaly Respiratory exam: PRESENT: rhonchi. ABSENT: rales, wheezes Cardiovascular exam: PRESENT: RRR. ABSENT: diastolic murmur, rubs, systolic murmur Pulses: PRESENT: normal dorsalis pedis pul GI/Abdominal exam: PRESENT: normal bowel sounds, soft. ABSENT: distended, guarding, mass, organolmegaly, rebound, tenderness Rectal exam: PRESENT: deferred Extremities exam: PRESENT: full ROM. ABSENT: calf tenderness, clubbing, pedal edema Neurological exam: PRESENT: alert, awake, oriented to person, oriented to place, oriented to time, oriented to situation, CN II-XII grossly intact. ABSENT: motor sensory deficit Results Laboratory Results: WBC 6.4 10^3/uL (4.0-10.5) 03/29/19 10:24 RBC 4.15 10^6/uL (4.35-5.55) L 03/29/19 10:24 Hgb 11.1 g/dL (13.5-17.0) L 03/29/19 10:24 Hct 33.2 % (37.9-51.0) L 03/29/19 10:24 MCV 80 fl (80-97) 03/29/19 10:24 MCH 26.8 pg (27.0-33.4) L 03/29/19 10:24 MCHC 33.5 g/dL (32.0-36.0) 03/29/19 10:24 RDW 18.2 % (11.5-14.0) H 03/29/19 10:24 Plt Count 137 10^3/uL (150-450) L 03/29/19 10:24 Lymph % (Auto) 14.9 % (13-45) 03/29/19 10:24 [place] % (Auto) 9.2 % (3-13) 03/29/19 10:24 Eos % (Auto) 1.8 % (0-6) 03/29/19 10:24 Baso % (Auto) 0.4 % (0-2) 03/29/19 10:24 Absolute Neuts (auto) 4.7 10^3/uL (1.7-8.2) 03/29/19 10:24 Absolute Lymphs (auto) 1.0 10^3/uL (0.5-4.7) 03/29/19 10:24 Absolute Monos (auto) 0.6 10^3/uL (0.1-1.4) 03/29/19 10:24 Absolute Eos (auto) 0.1 10^3/uL (0.0-0.6) 03/29/19 10:24 Absolute Basos (auto) 0.0 10^3/uL (0.0-0.2) 03/29/19 10:24 Seg Neutrophils % 73.7 % (42-78) 03/29/19 10:24 VBG pH 7.36 (7.30-7.42) 03/26/19 17:19 VBG pCO2 53.6 mmHg (35-63) 03/26/19 17:19 VBG HCO3 29.7 mmol/L (20-32) 03/26/19 17:19 VBG Base Excess 3.3 mmol/L 03/26/19 17:19 Sodium 139.6 mmol/L (137-145) 03/31/19 10:28 Potassium 4.4 mmol/L (3.6-5.0) 03/31/19 10:28 Chloride 105 mmol/L (98-107) 03/31/19 10:28 Carbon Dioxide 24 mmol/L (22-30) 03/31/19 10:28 Anion Gap 11 (5-19) 03/31/19 10:28 BUN 26 mg/dL (7-20) H 03/31/19 10:28 Creatinine 1.10 mg/dL (0.52-1.25) 03/31/19 10:28 Est GFR ( Amer) > 60 (>60) 03/31/19 10:28 Est GFR (MDRD) Non-Af > 60 (>60) 03/31/19 10:28 Glucose 91 mg/dL (75-110) 03/31/19 10:28 Lactic Acid (Sepsis) 1.3 mmol/L (0.7-2.1) 03/26/19 17:19 Calcium 8.8 mg/dL (8.4-10.2) 03/31/19 10:28 Magnesium 1.8 mg/dL (1.6-2.3) 03/26/19 15:38 Total Bilirubin 1.3 mg/dL (0.2-1.3) 03/26/19 15:38 Direct Bilirubin 0.1 mg/dL (0.0-0.4) 03/26/19 15:38 Neonat Total Bilirubin Not Reportable 03/26/19 15:38 Neonat Direct Bilirubin Not Reportable 03/26/19 15:38 Neonat Indirect Bili Not Reportable 03/26/19 15:38 AST 19 U/L (17-59) 03/26/19 15:38 ALT 16 U/L (<50) 03/26/19 15:38 Alkaline Phosphatase 69 U/L (38-126) 03/26/19 15:38 Ammonia < 8.7 umol/L (9-33) L 03/26/19 18:17 Creatine Kinase 40 U/L (55-170) L 03/26/19 15:38 CK-MB (CK-2) 2.21 ng/mL (<4.55) 03/26/19 15:38 Troponin I < 0.012 ng/mL 03/26/19 15:38 Total Protein 6.9 g/dL (6.3-8.2) 03/26/19 15:38 Albumin 4.0 g/dL (3.5-5.0) 03/26/19 15:38 TSH 0.48 uIU/mL (0.47-4.68) 03/27/19 06:07 Urine Color YELLOW 03/26/19 18:47 Urine Appearance CLEAR 03/26/19 18:47 Urine pH 6.0 (5.0-9.0) 03/26/19 18:47 Ur Specific [place] 1.013 03/26/19 18:47 Urine Protein NEGATIVE mg/dL (NEGATIVE) 03/26/19 18:47 Urine Glucose (UA) NEGATIVE mg/dL (NEGATIVE) 03/26/19 18:47 Urine Ketones NEGATIVE mg/dL (NEGATIVE) 03/26/19 18:47 Urine Blood NEGATIVE (NEGATIVE) 03/26/19 18:47 Urine Nitrite NEGATIVE (NEGATIVE) 03/26/19 18:47 Urine Bilirubin NEGATIVE (NEGATIVE) 03/26/19 18:47 Urine Urobilinogen NEGATIVE mg/dL (<2.0) 03/26/19 18:47 Ur Leukocyte Esterase NEGATIVE (NEGATIVE) 03/26/19 18:47 Urine WBC (Auto) 0 /HPF 03/26/19 18:47 Urine RBC (Auto) 0 /HPF 03/26/19 18:47 U Hyaline Cast (Auto) 4 /LPF 03/26/19 18:47 Squamous Epi Cells Auto <1 /HPF 03/26/19 18:47 Urine Mucus (Auto) RARE /LPF 03/26/19 18:47 Urine Ascorbic Acid NEGATIVE (NEGATIVE) 03/26/19 18:47 Influenza A (Rapid) NEGATIVE (NEGATIVE) 03/29/19 12:30 Influenza B (Rapid) NEGATIVE (NEGATIVE) 03/29/19 12:30 03/26/19 03/26/19 15:38 15:38 CK-MB (CK-2) 2.21 Troponin I < 0.012 Impressions: Chest X-Ray 03/26/19 15:52 IMPRESSION: Cardiomegaly without pulmonary edema. Left lower lobe pneumonia. Cannot exclude a limited right lower lobe pneumonia. Head CT 03/26/19 16:56 IMPRESSION: NO ACUTE INTRACRANIAL FINDINGS. EVIDENCE OF ACUTE STROKE: NO. Chest CT 03/29/19 09:37 IMPRESSION: Bibasilar bronchitis/pneumonia Stroke Is this a Stroke Patient?: No Acute Heart Failure - Is this a Heart Failure Patient?: No
== END 2019-03-31 14:30 | disposition home or self-care (01) | DRG 193 ==
LOC: ER 15:25 → EH 18:31 → 3W 03-27 00:49
PROVIDERS: ADMIT Internal Medicine; ATTEND Internal Medicine
DX: J18.9 Pneumonia, unspecified organism (principal); J96.21 Acute and chronic respiratory failure with hypoxia; N17.9 Acute kidney failure, unspecified; J44.1 Chronic obstructive pulmonary disease with (acute) exacerbation; I48.0 Paroxysmal atrial fibrillation; I50.9 Heart failure, unspecified; I25.10 Atherosclerotic heart disease of native coronary artery without angina pectoris; E78.00 Pure hypercholesterolemia, unspecified; I11.0 Hypertensive heart disease with heart failure; K21.9 Gastro-esophageal reflux disease without esophagitis; R25.1 Tremor, unspecified; Z79.01 Long term (current) use of anticoagulants; Z79.82 Long term (current) use of aspirin; Z79.51 Long term (current) use of inhaled steroids; Z79.52 Long term (current) use of systemic steroids; Z79.899 Other long term (current) drug therapy
CPT/HCPCS: 36415; 70450; 71046; 71250; 80048; 80053; 81001; 82140; 82550; 82553; 82803; 83605; 83735; 84443; 84484; 85025; 87040; 87070; 87205; 87804; 93005; 93010; 94640; 99285; J0692; J0696; J1956; J3490; J7030

== ENCOUNTER → 2019-07-04 | Outpatient (CLI) | payer BC, MEDICARE, OTHER ==
[2019-07-04 11:37] LABS: ABSOLUTE EOSINOPHILS # (AUTO) 0.1 10^3/uL (0.0-0.6); ABSOLUTE LYMPHOCYTES (AUTO) 1.2 10^3/uL (0.5-4.7); ABSOLUTE MONOCYTES (AUTO) 0.5 10^3/uL (0.1-1.4); ABSOLUTE NEUT (AUTO) 5.9 10^3/uL (1.7-8.2); BASOPHILS % (AUTO) 0.6 % (0-2); EOSINOPHILS % (AUTO) 1.8 % (0-6); HEMATOCRIT 31.8 % (37.9-51.0); HEMOGLOBIN 10.1 g/dL (13.5-17.0); LYMPHOCYTES % (AUTO) 15.8 % (13-45); MEAN CORPUSCULAR HEMOGLOBIN 23.5 pg (27.0-33.4); MEAN CORPUSCULAR HGB CONC 31.9 g/dL (32.0-36.0); MEAN CORPUSCULAR VOLUME 74 fl (80-97); MONOCYTES % (AUTO) 6.9 % (3-13); PLATELET COUNT 292 10^3/uL (150-450); RED BLOOD COUNT 4.31 10^6/uL (4.35-5.55); RED CELL DISTRIBUTION WIDTH 16.9 % (11.5-14.0); SEGMENTED NEUTROPHILS % (AUTO) 74.9 % (42-78); TOTAL CELLS COUNTED % (AUTO) 100 %; WHITE BLOOD COUNT 7.8 10^3/uL (4.0-10.5)
[2019-07-04 12:02] LABS: ALBUMIN 4.1 g/dL (3.5-5.0); ALKALINE PHOSPHATASE 76 U/L (38-126); ANION GAP 8 (5-19); ASPARTATE AMINO TRANSFERASE 17 U/L (17-59); BILIRUBIN,TOTAL 0.9 mg/dL (0.2-1.3); BLOOD UREA NITROGEN 26 mg/dL (7-20); CALCIUM 9.1 mg/dL (8.4-10.2); CARBON DIOXIDE 29 mmol/L (22-30); CHLORIDE 106 mmol/L (98-107); CHOLESTEROL 110.04 mg/dL (0-200); GLUCOSE 96 mg/dL (75-110); POTASSIUM 4.9 mmol/L (3.6-5.0); TRIGLYCERIDES 55 mg/dL (<150)
[2019-07-04 12:16] LABS: DIRECT LDL 70 mg/dL (<100)
[2019-07-05 16:43] LABS: ABSOLUTE RETICS # 0.052 10^6/uL (0.028-0.122); RETICULOCYTE COUNT (AUTO) 1.22 % (0.66-2.85)
[2019-07-05 16:48] LABS: IRON(TIBC) 31.8 ug/dL (49-181)
== END ==
LOC: OD 10:38
PROVIDERS: ATTEND Internal Medicine
DX: I25.10 Atherosclerotic heart disease of native coronary artery without angina pectoris (principal); I10 Essential (primary) hypertension; E78.5 Hyperlipidemia, unspecified; R53.83 Other fatigue; R35.1 Nocturia
CPT/HCPCS: 36415; 80053; 80061; 82728; 83540; 83550; 84153; 84443; 85025; 85045

== ENCOUNTER 2019-09-17 18:44 | Emergency (ER) | payer BC, MEDICARE, OTHER ==
[2019-09-17 18:52] VITALS: BP 175/106
--- NOTE | 2019-09-17 20:26 | ER Document Report ---
HPI - HPI Time Seen by Provider: 09/17/19 20:07 Pain Level: 5 Context: Patient is a 79-year-old male who presents emergency department with a chief complaint of pain to tooth number 9. Patient states that his tooth has been progressively hurting him for the past week. Patient states that he has been using [id number] Orajel and Tylenol. States that Tylenol stopped working for him today. Patient denies any fever, body aches, or any chills.Medical history includes atrial fibrillation, on Eliquis, COPD, CHF, coronary artery disease, pneumonia and chronic pain. - CONSTITUTIONAL Constitutional: DENIES: Fever, Chills - EENT EENT: DENIES: Sore Throat, Ear Pain, Eye problems Notes: tooth ache to tooth #9 - CARDIOVASCULAR Cardiovascular: DENIES: Chest pain - RESPIRATORY Respiratory: DENIES: Trouble Breathing, Coughing - GASTROINTESTINAL Gastrointestinal: DENIES: Abdominal Pain, Nausea, Patient vomiting - REPRODUCTIVE Reproductive: DENIES: : - MUSCULOSKELETAL Musculoskeletal: DENIES: Extremity pain - DERM Skin Color: Normal Skin Problems: None Past Medical History - Social History Smoking Status: Former Smoker Chew tobacco use (# tins/day): No Frequency of alcohol use: None Drug Abuse: None Family History: COPD, Malignancy Patient has homicidal ideation: No - Past Medical History Cardiac Medical History: Reports: Hx Atrial Fibrillation, Hx Congestive Heart Failure, Hx Coronary Artery Disease, Hx Hypercholesterolemia, Hx Hypertension, Hx Peripheral Vascular Disease Denies: Hx DVT, Hx Heart Attack, Hx Pulmonary Embolism Pulmonary Medical History: Reports: Hx Bronchitis, Hx COPD, Hx Pneumonia Denies: Hx Asthma, Hx Tuberculosis Neurological Medical History: Denies: Hx Cerebrovascular Accident, Hx Seizures, Hx Parkinson's Disease Endocrine Medical History: Denies: Hx Diabetes Mellitus Type 1, Hx Diabetes Mellitus Type 2, Hx Hyperthyroidism, Hx Hypothyroidism Renal/ Medical History: Denies: Hx Benign Prostatic Hyperplasia, Hx End Stage Renal Disease, Hx Kidney Stones, Hx Peritoneal Dialysis GI Medical History: Reports: Hx Gastroesophageal Reflux Disease, Hx Ulcer. Denies: Hx Cirrhosis, Hx Hepatitis Musculoskeletal Medical History: Denies Hx Arthritis, Denies Hx Multiple Sclerosis Skin Medical History: Denies Hx Eczema, Denies Hx Psoriasis Psychiatric Medical History: Denies: Hx Bipolar Disorder, Hx Depression, Hx Schizophrenia Infectious Medical History: Denies: Hx Hepatitis Past Surgical History: Reports: Hx Appendectomy, Hx Cardiac Catheterization - at least 2 stents, Hx Cardiac Surgery - 5v CABG, Hx Coronary Artery Bypass Graft - 5 VESSEL, September 1999, Hx Oral Surgery, Hx Orthopedic Surgery - back, lt knee, Hx Tonsillectomy. Denies: Hx Pacemaker - Immunizations Hx Diphtheria, Pertussis, Tetanus Vaccination: - UNSURE Hx Pneumococcal Vaccination: 05/09/14 Vertical Provider Document - CONSTITUTIONAL Agree With Documented VS: Yes Exam Limitations: No Limitations General Appearance: No Apparent Distress - INFECTION CONTROL TRAVEL OUTSIDE OF THE [place] IN LAST 30 DAYS: No - HEENT HEENT: Atraumatic, Normocephalic, PERRLA Mouth Diagram: 1 - half of tooth missing; severe decay; almost all teeth missing - NECK Neck: Normal Inspection. negative: Lymphadenopathy-Left, Lymphadenopathy-Right - RESPIRATORY Respiratory: Breath Sounds Normal, No Respiratory Distress - CARDIOVASCULAR Cardiovascular: Regular Rate Pulses: Normal: Radial - MUSCULOSKELETAL/EXTREMETIES Musculoskeletal/Extremeties: FROM - NEURO Level of Consciousness: Awake, Alert, Appropriate Motor/Sensory: No Motor Deficit, No Sensory Deficit - DERM Integumentary: Warm, Dry, No Rash Course - Re-evaluation Re-evalutation: 09/17/19 20:27 Patient's physical exam and history is most consistent with a infected tooth. Patient is able to swallow, no facial swelling noted, airway is patent, vital signs are normal. I do not suspect Keenan's angina, peritonsilar abscess, or airway obstruction. The patient will be started on oral antibiotics. I have given the patient education on their antibiotics. Patient was given instructions to follow-up with a dentist this week. Return precautions were given. Verbal discharge instructions were given. Patient verbalized understanding. Patient is stable for discharge. - Vital Signs Vital signs: Temp Pulse Resp BP Pulse Ox 98.7 F 89 18 175/106 H 96 09/17/19 18:53 09/17/19 18:51 09/17/19 18:51 09/17/19 18:51 09/17/19 18:51 Discharge - Discharge Clinical Impression: Tooth ache Condition: Stable Disposition: HOME, SELF-CARE Instructions: Penicillin V K ([facility]), Toothache ([facility]) Additional Instructions: You have been seen in the emergency department for a toothache. You may take Tylenol 1000 mg every 6 hours as needed for the pain. You have also been given topical lidocaine. Placed that to the affected tooth as needed to help with pain. You have also been prescribed antibiotics. Please take the antibiotics as prescribed, even if you start to feel better. If you develop a fever greater than 100.4 F, or have any symptoms that are worrisome to you, please return to the emergency department. Please follow-up with a dentist this week in regards to your visit. Family dental care across the street from [place] is open. See if you are able to get an appointment. You can also follow-up with [facility]. Prescriptions: Penicillin V Potassium [Penicillin Vk 500 mg Tablet] 500 mg PO QID #28 tablet Referrals: BLAINE MCKAY MD [Primary Care Provider] - Follow up as needed [facility] [Provider Group] - Follow up as needed
[2019-09-17] MEDS ORDERED: LIDOCAINE 2% VISCOUS SOLN 15 ML UDCUP PO ONE (20:28)
[2019-09-17] MEDS ORDERED: PENICILLIN V POTASSIUM 500 MG TABLET PO ONE (20:28)
== END 2019-09-17 20:43 | disposition home or self-care (01) ==
LOC: ER 18:44
DX: K08.89 Other specified disorders of teeth and supporting structures (principal); Z87.891 Personal history of nicotine dependence; I48.91 Unspecified atrial fibrillation; I50.9 Heart failure, unspecified; I25.10 Atherosclerotic heart disease of native coronary artery without angina pectoris; I11.0 Hypertensive heart disease with heart failure; J44.9 Chronic obstructive pulmonary disease, unspecified
CPT/HCPCS: 99282; J3490

== ENCOUNTER 2019-10-11 07:04 | Day surgery (SDC) | payer BC, MEDICARE, OTHER ==
[~2019-10-11 07:04] MED LIST changes: -CEFAZOLIN 2 GM/D5W RTU 2 GM/50 ML RTUPB IV PRN; +KETOROLAC TROMETHAMINE 0.45% 4 DROP/0.4 ML DROPERETTE OD PRN; -LACTATED RINGERS 1000 ML IV PRN; -LIDOCAINE 0.5% INJ-PF (5 MG/ML) 50 ML SDV SUBCUT PRN; +MIDAZOLAM 2 MG/2 ML INJ ONE
[2019-10-11] MEDS ORDERED: FENTANYL CITRATE INJ/PF 100 MCG/2 ML AMPUL ONE (07:05)
[2019-10-11] MEDS: CYCLOPENTOLATE 0.2%/PHENYLEPHRINE 1% OPH SOLN 2 ML OD PRN ×3 (07:16→07:41)
[2019-10-11] MEDS: TROPICAMIDE 1% OPH SOLN 15 ML OD PRN ×3 (07:16→07:41)
[2019-10-11] MEDS: TETRACAINE HCL 0.5% OPH SOLN 4 ML OD PRN ×4 (07:16→08:04)
[2019-10-11] MEDS: BESIFLOXACIN HCL 0.6% OPH SUSP 5 ML BOTTLE OD PRN ×4 (07:16→08:18)
[2019-10-11] MEDS: EPINEPHRINE INJ/PF 1 MG/1 ML AMPULE ONE ×2 (08:04)
[2019-10-11] MEDS: LIDOCAINE 1%/PHENYLEPHRINE 1.5% 1 ML VIAL ONE ×2 (08:04)
[2019-10-11] MEDS: CHONDR SU A NA/HYALUR INTRAOC KIT (SURGICARE) ONE ×2 (08:04)
[2019-10-11] MEDS: DORZOLAMIDE HCL 2%/TIMOLOL MALEAT 0.5% OPH SOLN 10 ML OD PRN ×2 (08:18)
--- NOTE | 2019-10-11 11:40 | Operative Report ---
Operative Report[facility] Operative Report: DATE OF SURGERY: 10/11/2019 PREOPERATIVE DIAGNOSIS: Cataract, right eye POSTOPERATIVE DIAGNOSIS: Cataract, right eye OPERATION: Cataract extraction with insertion of an IOL of the right eye. Intraocular Lens Model: [17.0 sn60wf] Underwent surgery for difficulty driving at night and difficulty seeing road signs SURGEON: Homero Price MD ANESTHESIA: Topical PROCEDURE: After obtaining appropriate consent, the patient's right eye was prepped and draped in a sterile fashion as well as the surgeon in the sterile manner and cataract surgery was started. First a paracentesis blade was used to make a side-port incision. Viscoelastic was used to inflate the anterior chamber. Next a 2.4 mm incision was made with a 2.4 mm blade, clear corneal temporarily. A continuous capsulorrhexis was made using a cystotome and Utrata forceps. Following this hydrodissection was carried out to make the dwight fully loose and mobile and it was rotated. Following this, a divide and conquer technique was used to phacoemulsify the dwight. The remaining cortex was removed with an irrigation/aspiration. Provisc was instilled into the capsular bag to inflate the bag. The intraocular lens was placed. The remaining viscoelastic material was removed with irrigation/aspiration. Following this, the incision was found to be watertight. Besivance and Cosopt was instilled into the eye and a protective shield was placed over the eye. The patient was reurned to the postoperative recovery in a stable condition.
== END 2019-10-11 08:53 | disposition home or self-care (01) ==
LOC: SC 07:04
PROVIDERS: ATTEND Internal Medicine
DX: H25.813 Combined forms of age-related cataract, bilateral (principal); E78.00 Pure hypercholesterolemia, unspecified; J44.9 Chronic obstructive pulmonary disease, unspecified; Z87.891 Personal history of nicotine dependence; Z79.82 Long term (current) use of aspirin; I10 Essential (primary) hypertension; I20.9 Angina pectoris, unspecified
CPT/HCPCS: 66984; J2250; J3490 ×2; J0171; J3010; V2632

== ENCOUNTER 2019-11-01 08:44 | Day surgery (SDC) | payer BC, MEDICARE, OTHER ==
[~2019-11-01 08:44] MED LIST changes: -KETOROLAC TROMETHAMINE 0.45% 4 DROP/0.4 ML DROPERETTE OD PRN; +KETOROLAC TROMETHAMINE 0.45% 4 DROP/0.4 ML DROPERETTE OS PRN; -MIDAZOLAM 2 MG/2 ML INJ ONE
[2019-11-01] MEDS ORDERED: FENTANYL CITRATE INJ/PF 100 MCG/2 ML AMPUL ONE (09:07)
[2019-11-01] MEDS ORDERED: ONDANSETRON HCL INJ/PF 4 MG/2 ML SDV ONE (09:07)
[2019-11-01] MEDS ORDERED: MIDAZOLAM 2 MG/2 ML INJ ONE (09:07)
[2019-11-01] MEDS: TROPICAMIDE 1% OPH SOLN 15 ML OS PRN ×3 (09:37→10:05)
[2019-11-01] MEDS: BESIFLOXACIN HCL 0.6% OPH SUSP 5 ML BOTTLE OS PRN ×4 (09:37→10:40)
[2019-11-01] MEDS: CYCLOPENTOLATE 0.2%/PHENYLEPHRINE 1% OPH SOLN 2 ML OS PRN ×3 (09:37→10:05)
[2019-11-01] MEDS: TETRACAINE HCL 0.5% OPH SOLN 4 ML OS PRN ×4 (09:37→10:12)
[2019-11-01] MEDS: LIDOCAINE 1%/PHENYLEPHRINE 1.5% 1 ML VIAL ONE ×2 (10:27)
[2019-11-01] MEDS: CHONDR SU A NA/HYALUR INTRAOC KIT (SURGICARE) ONE ×2 (10:27)
[2019-11-01] MEDS: EPINEPHRINE INJ/PF 1 MG/1 ML AMPULE ONE ×2 (10:27)
[2019-11-01] MEDS: DORZOLAMIDE HCL 2%/TIMOLOL MALEAT 0.5% OPH SOLN 10 ML OS PRN ×2 (10:40)
--- NOTE | 2019-11-01 13:10 | Operative Report ---
Operative Report[facility] Operative Report: DATE OF SURGERY: 11/01/19 PREOPERATIVE DIAGNOSIS: Cataracts, left eye POSTOPERATIVE DIAGNOSIS: Cataract, left eye OPERATION: Cataract extraction with insertion of an IOL of the left eye. Intraocular Lens Model: [17.5 sn60wf] surgery for difficulty driving at night secondary to glare from headlights SURGEON: Homero Price MD ANESTHESIA: Topical PROCEDURE: After obtaining appropriate consent, the patient's left eye was prepped and draped in a sterile fashion as well as the surgeon in the sterile manner and cataract surgery was started. First a paracentesis blade was used to make a side-port incision. Viscoelastic was used to inflate the anterior chamber. Next a 2.4 mm incision was made with a 2.4 mm blade, clear corneal temporarily. A continuous capsulorrhexis was made using a cystotome and Utrata forceps. Following this hydrodissection was carried out to make the lens fully loose and mobile and it was rotated 90 degrees. Following this, a divide and conquer technique was used to phacoemulsify the lens. The remaining cortex was removed with an irrigation/aspiration. Provisc was instilled into the capsular bag to inflate the bag.The intraocular lens was placed. The remaining viscoelastic material was removed with irrigation/aspiration. Following this, the incision was found to be watertight. Besivance and Cosopt was instilled into the eye and a protective shield was placed over the eye. The patient was returned to the postoperative recovery in a stable condition.
== END 2019-11-01 11:13 | disposition home or self-care (01) ==
LOC: SC 08:44
PROVIDERS: ATTEND Internal Medicine
DX: H25.812 Combined forms of age-related cataract, left eye (principal); Z96.1 Presence of intraocular lens; E78.00 Pure hypercholesterolemia, unspecified; J44.9 Chronic obstructive pulmonary disease, unspecified; K21.9 Gastro-esophageal reflux disease without esophagitis; I10 Essential (primary) hypertension; I25.10 Atherosclerotic heart disease of native coronary artery without angina pectoris; Z86.73 Personal history of transient ischemic attack (TIA), and cerebral infarction without residual deficits; Z79.82 Long term (current) use of aspirin; Z79.899 Other long term (current) drug therapy; Z88.5 Allergy status to narcotic agent
CPT/HCPCS: 66984; V2632; J2250; J3490 ×2; J0171; J2405; 142; J3010

== ENCOUNTER 2020-04-11 09:15 | Inpatient (IN) | payer BC, MEDICARE, OTHER ==
[2020-04-11] MEDS ORDERED: FUROSEMIDE INJ/PF 40 MG/4 ML SDV IV ONE (10:02)
[2020-04-11 10:08] LABS: ABSOLUTE BASOPHILS # (AUTO) 0.1 10^3/uL (0.0-0.2); ABSOLUTE EOSINOPHILS # (AUTO) 0.1 10^3/uL (0.0-0.6); ABSOLUTE LYMPHOCYTES (AUTO) 1.2 10^3/uL (0.5-4.7); ABSOLUTE MONOCYTES (AUTO) 0.8 10^3/uL (0.1-1.4); ABSOLUTE NEUT (AUTO) 11.3 10^3/uL (1.7-8.2); BASOPHILS % (AUTO) 0.4 % (0-2); EOSINOPHILS % (AUTO) 1.1 % (0-6); HEMATOCRIT 43.4 % (37.9-51.0); HEMOGLOBIN 14.7 g/dL (13.5-17.0); LYMPHOCYTES % (AUTO) 8.5 % (13-45); MEAN CORPUSCULAR HEMOGLOBIN 32.4 pg (27.0-33.4); MEAN CORPUSCULAR HGB CONC 33.8 g/dL (32.0-36.0); MEAN CORPUSCULAR VOLUME 96 fl (80-97); MONOCYTES % (AUTO) 5.8 % (3-13); PLATELET COUNT 172 10^3/uL (150-450); RED BLOOD COUNT 4.53 10^6/uL (4.35-5.55); RED CELL DISTRIBUTION WIDTH 13.2 % (11.5-14.0); SEGMENTED NEUTROPHILS % (AUTO) 84.2 % (42-78); TOTAL CELLS COUNTED % (AUTO) 100 %; WHITE BLOOD COUNT 13.5 10^3/uL (4.0-10.5)
[2020-04-11 10:12] LABS: APPEARANCE,URINE CLEAR; BILIRUBIN,URINE NEGATIVE (NEGATIVE); COLOR,URINE YELLOW; GLUCOSE, URINE NEGATIVE (NEGATIVE); KETONES,URINE NEGATIVE (NEGATIVE); LEUKOCYTE ESTERASE,URINE NEGATIVE (NEGATIVE); NITRITE,URINE NEGATIVE (NEGATIVE); PROTEIN,URINE NEGATIVE (NEGATIVE); URINE SPECIFIC GRAVITY 1.014; UROBILINOGEN,URINE NEGATIVE mg/dL (<2.0)
--- NOTE | 2020-04-11 10:17 | ER Document Report ---
Entered by ZHANG HUNTLEY SCRIBE 04/11/20 0945 Acting as scribe for:RUSTY HARRINGTON MD ED Respiratory Problem - General Chief Complaint: Shortness Of Breath Stated Complaint: SHORTNESS OF BREATH Primary Care Provider: BLAINE MCKAY MD [Primary Care Provider] - Follow up as needed Mode of Arrival: Ambulatory Information source: Patient Notes: This 79 year old male patient with a history of anemia, HTN, HLD, CAD s/p stent x2 and CABG x20 years ago, CHF, A fib on Eliquis, COPD, and CKD stage III presents to the ED today with complaints of shortness of breath that started last night. Patient reportedly had O2 sats of 85% on RA in triage. Patient reports associated cough and states that he did take his Lasix this morning. TRAVEL OUTSIDE OF THE [place] IN LAST 30 DAYS: No - Related Data Allergies/Adverse Reactions: codeine [Codeine] Adverse Reaction (Intermediate, Verified 04/11/20 09:24) Anxiety Past Medical History - General Information source: Patient, [facility] Records - Social History Smoking Status: Unknown if Ever Smoked Smoking Education Provided: No Family History: Reviewed & Not Pertinent, COPD, Malignancy - Past Medical History Cardiac Medical History: Reports: Hx Atrial Fibrillation, Hx Congestive Heart Failure, Hx Coronary Artery Disease, Hx Hypercholesterolemia, Hx Hypertension, Hx Peripheral Vascular Disease Pulmonary Medical History: Reports: Hx Bronchitis, Hx COPD, Hx Pneumonia GI Medical History: Reports: Hx Gastroesophageal Reflux Disease Past Surgical History: Reports: Hx Appendectomy, Hx Cardiac Catheterization - at least 2 stents, Hx Coronary Artery Bypass Graft - 5 VESSEL, September 1999, Hx Coronary Stent - x2, Hx Open Heart Surgery, Hx Oral Surgery, Hx Orthopedic Surgery - back, lt knee, Hx Tonsillectomy - Immunizations Hx Diphtheria, Pertussis, Tetanus Vaccination: - UNSURE Hx Pneumococcal Vaccination: 05/09/14 Review of Systems - Review of Systems Constitutional: No symptoms reported EENT: No symptoms reported Cardiovascular: No symptoms reported Respiratory: See HPI, Cough, Short of breath Gastrointestinal: No symptoms reported Genitourinary: No symptoms reported Male Genitourinary: No symptoms reported Musculoskeletal: No symptoms reported Skin: No symptoms reported Hematologic/Lymphatic: No symptoms reported Neurological/Psychological: No symptoms reported -: Yes All other systems reviewed and negative Physical Exam - Vital signs Vitals: Pulse Ox 97 04/11/20 09:30 - General General appearance: Alert - HEENT Head: Normocephalic, Atraumatic Eyes: Normal Pupils: PERRL - Respiratory Respiratory status: Other - O2 sats 97% on 40% FiO2 via BiPAP Chest status: Nontender Breath sounds: Decreased air movement - Diminished breath sounds, Rales - bibasilar Chest palpation: Normal - Cardiovascular Rhythm: Irregularly irregular Heart sounds: Normal auscultation Murmur: No Friction rub: No Gallop: None auscultated - Abdominal Inspection: Normal Distension: No distension Bowel sounds: Normal Tenderness: Nontender - Abdomen soft Organomegaly: No organomegaly - Back Back: Normal, Nontender - Extremities General upper extremity: Normal strength General lower extremity: Edema - Peripheral edema bilaterally - Neurological Neuro grossly intact: Yes Orientation: AAOx4 [place] Coma Scale Eye Opening: Spontaneous Josh Coma Scale Verbal: Oriented Josh Coma Scale Motor: Obeys Commands [place] Coma Scale Total: 15 - Psychological Associated symptoms: Normal affect, Normal mood - Skin Skin Temperature: Warm Skin Moisture: Dry Skin Color: Normal Course - Re-evaluation Re-evalutation: 04/11/20 12:15 Patient on BiPAP showing less signs of respiratory distress at this time Rales have improved and are diminished in the bases. - Vital Signs Vital signs: Temp Pulse Resp BP Pulse Ox 98.1 F 19 102/73 95 04/11/20 10:37 04/11/20 11:25 04/11/20 11:25 04/11/20 11:25 04/11/20 12:16 Vital signs as noted on BiPAP - Laboratory Result Diagrams: 04/11/20 09:37 04/11/20 09:37 Laboratory results interpreted by me: 04/11/20 04/11/20 04/11/20 09:37 09:37 09:37 WBC 13.5 H Lymph % (Auto) 8.5 L Absolute Neuts (auto) 11.3 H Seg Neutrophils % 84.2 H PT BUN 24 H Total Bilirubin 2.2 H NT-Pro-B Natriuret Pep Urine Ascorbic Acid 40 H 04/11/20 04/11/20 09:37 09:37 WBC Lymph % (Auto) Absolute Neuts (auto) Seg Neutrophils % PT 21.0 H BUN Total Bilirubin NT-Pro-B Natriuret Pep 1750 H Urine Ascorbic Acid Elevated white blood cell count of 13.5 BNP 1750 troponin less than detectable at this time. BUN 24 total bilirubin 2.2 04/11/20 12:17 Laboratories consistent with COPD/CHF exacerbation. During pandemic always a concern for COVID-19. - Diagnostic Test Radiology reviewed: Image reviewed, Reports reviewed Radiology results interpreted by me: 04/11/20 12:18 Chest X-Ray 04/11/20 09:30 IMPRESSION: Cardiomegaly and patchy bilateral basilar-predominant parenchymal opacities. Differential considerations include asymmetric pulmonary edema multifocal pneumonia. Chest x-ray shows cardiomegaly and bilateral base basilar parenchymal opacities differential included pulmonary edema versus multifocal pneumonia. Case was discussed with hospitalist who recommended that we do a rapid Covid test. Also he recommended that we do a CTA of patient chest to further define infiltrate versus opacities versus pulmonary edema. - EKG Interpretation by Me Additional EKG results interpreted by me: 04/11/20 12:21 Twelve-lead EKG shows atrial fibrillation with a ventricular rate between 80 and 113 incomplete right bundle branch block. Variable MN interval QRS interval within normal range variable QT intervals consistent with the chronic A. fib. Normal axis. No acute ST elevation. Critical Care Note - Critical Care Note Total time excluding time spent on procedures (mins): 45 - Respiratory distress/atrial fibrillation with RVR and hypoxia on arrival Discharge - Discharge Clinical Impression: Congestive heart failure, Shortness of breath, Paroxysmal atrial fibrillation, Acute on chronic respiratory failure with hypoxemia, Suspected COVID-19 virus infection, COPD exacerbation Condition: Fair Disposition: ADMITTED INPATIENT Admitting Provider: Cat (Hospitalist) Unit Admitted: IMCU Referrals: BLAINE MCKAY MD [Primary Care Provider] - Follow up as needed I personally performed the services described in the documentation, reviewed and edited the documentation which was dictated to the scribe in my presence, and it accurately records my words and actions.
[2020-04-11 10:40] LABS: ALBUMIN 4.7 g/dL (3.5-5.0); ALKALINE PHOSPHATASE 100 U/L (38-126); ANION GAP 10 (5-19); ASPARTATE AMINO TRANSFERASE 24 U/L (17-59); BILIRUBIN,DIRECT 0.3 mg/dL (0.0-0.4); BILIRUBIN,TOTAL 2.2 mg/dL (0.2-1.3); BLOOD UREA NITROGEN 24 mg/dL (7-20); CARBON DIOXIDE 28 mmol/L (22-30); CHLORIDE 103 mmol/L (98-107); GLUCOSE 104 mg/dL (75-110); POTASSIUM 4.7 mmol/L (3.6-5.0); TOTAL PROTEIN 7.7 g/dL (6.3-8.2)
[2020-04-11 10:49] LABS: NT PRO BNP 1750 pg/mL (<450)
[2020-04-11 10:50] LABS: PARTIAL THROMBOPLASTIN TIME 35.3 SEC (23.5-35.8)
[2020-04-11 10:51] LABS: TROPONIN I < 0.012 ng/mL
--- NOTE | 2020-04-11 10:52 | RADIOLOGY REPORT (SQ) ---
EXAM DESCRIPTION: CHEST SINGLE VIEW IMAGES COMPLETED DATE/TIME: 04/11/2020 10:17 am REASON FOR STUDY: difficulty breathing 85% RA COMPARISON: AP view of the chest from 04/11/2019. EXAM PARAMETERS: NUMBER OF VIEWS: One view. TECHNIQUE: An AP view of the chest was obtained. RADIATION DOSE: NA LIMITATIONS: None. FINDINGS: LUNGS AND PLEURA: Patchy parenchymal opacities in the inferior aspect of the left lung and to a lesser extent the inferior aspect of the right lung. The costophrenic sulci are blunted. Ther e is no pneumothorax MEDIASTINUM AND HILAR STRUCTURES: No mediastinal or hilar contour abnormality. HEART AND VASCULAR STRUCTURES: The cardiac silhouette is enlarged. BONES: No acute findings. HARDWARE: Sternotomy wires and mediastinal surgical clips. OTHER: No other finding. IMPRESSION: Cardiomegaly and patchy bilateral basilar-predominant parenchymal opacities. Differenti al considerations include asymmetric pulmonary edema multifocal pneumonia. TECHNICAL DOCUMENTATION: JOB ID: [id number] 2010 [employer]- All Rights Reserved Reading location - IP/workstation name: [email or web address]
[2020-04-11 11:31] LABS: ARTERIAL BLOOD BASE EXCESS -0.8 mmol/L; ARTERIAL BLOOD H2CO3 1.08 mmol/L (1.05-1.35); ARTERIAL BLOOD HCO3 23.1 mmol/L (20-24); ARTERIAL BLOOD O2 SATURATION 97.5 % (94-98); ARTERIAL BLOOD PCO2 35.9 mmHg (35-45); ARTERIAL BLOOD PH 7.43 (7.35-7.45); ARTERIAL BLOOD PO2 95.1 mmHg (80-100); ARTERIAL BLOOD TOTAL CO2 24.2 mmol/L (23-27)
[2020-04-11 11:50] LABS: ARTERIAL BLOOD FIO2 40%
--- NOTE | 2020-04-11 15:15 | RADIOLOGY REPORT (SQ) ---
EXAM DESCRIPTION: CTA CHEST IMAGES COMPLETED DATE/TIME: 04/11/2020 2:48 pm REASON FOR STUDY: Shortness of breath/pulmonary edema/basilar opacit COMPARISON: None. TECHNIQUE: CT scan of the chest performed using helical scanning technique with dynamic intravenous contrast injection. Images reviewed with lung, soft tissue and bone windows. Reconstructed coronal and sagittal MPR images reviewed. Additional 3 dimensional post-processing performed to develop Maximal Intensity Projection images (FL P). All images stored on PACS. All CT scanners at this facility use dose modulation, iterative reconstruction, and/or weight based d osing when appropriate to reduce radiation dose to as low as reasonably achievable (ALARA). [facility]: Dose Right [facility]: CareDose [facility]: Dose Right [facility]: Teradose 4D [facility]: [employer] CONTRAST TYPE AND DOSE: Contrast/concentration: Isovue 350.00 mmol/ml; Total Contrast Delivered: 65. 3 ml; Total Saline Delivered: 40.0 ml Contrast bolus optimized for the pulmonary arteries. RENAL FUNCTION: Creatinine 1.12 milligrams/deciliter. RADIATION DOSE: CT Rad equipment meets quality standard of care and radiation dose reduction techniq ues were employed. CTDIvol: 13.2 - 22.2 mGy. DLP: 849 mGy-cm. LIMITATIONS: Evaluation is limited due to respiratory motion artifact. FINDINGS: LUNGS AND PLEURA: The trachea and main bronchi are patent. There is upper lobe predominan t centrilobular emphysema. There are patchy consolidative opacities in the left upper lobe, left low er lobe and to a lesser extent the right lower lobe (image 95 of series 4). There is no sizable pleu ral effusion or pneumothorax. AORTA AND GREAT VESSELS: The ascending thoracic aorta measures 4.5 cm in transverse diameter (unchang ed compared to the CT from 03/29/2019. There is no thoracic aortic dissection. HEART: Status post CABG. The heart is enlarged and there is atherosclerotic calcification of the cor onary arteries and aortic annulus. There is no pericardial effusion. PULMONARY ARTERIES: No central or segmental pulmonary embolus. HILAR AND MEDIASTINAL STRUCTURES: No adenopathy or mass. HARDWARE: Sternotomy wires. UPPER ABDOMEN: No acute abnormality. THYROID AND OTHER SOFT TISSUES: No adenopathy or mass. BONES: Chronic compression deformity of the superior endplate of the L1 vertebral body associated wit h 25 to 50% loss of the vertebral body height. There is no acute fracture. 3D MIPS: Confirm above findings. OTHER: No other findings. IMPRESSION: Patchy consolidative opacities in the left upper lobe, left lower lobe and to a lesser e xtent the right lower lobe concerning for multifocal pneumonia. There is no central or segmental pul monary embolus. Evaluation of the subsegmental branches of the pulmonary arteries is limited due to respiratory motion artifact. COMMENT: Quality ID # [id number]: Final reports with documentation of one or more dose reduction techniques (e.g., Automated exposure control, adjustment of the mA and/or kV according to patient size, use of iterative reconstruction technique) TECHNICAL DOCUMENTATION: JOB ID: [id number] 2010 [employer]- All Rights Reserved Reading location - IP/workstation name: [email or web address]
--- NOTE | 2020-04-11 17:12 | EKG REPORT ---
SEVERITY:- ABNORMAL ECG - ATRIAL FIBRILLATION, V-RATE 82-113 INCOMPLETE RIGHT BUNDLE BRANCH BLOCK : Confirmed by: Davide Caruso MD 11-Apr-2020 17:12:35
[2020-04-11] MEDS ORDERED: ONDANSETRON 4 MG TAB.RAPDIS PO PRN (18:26)
[2020-04-11] MEDS ORDERED: IPRATROPIUM/ALBUTEROL 0.5-2.5 MG/3 ML AMPUL NEB PRN (18:26)
[2020-04-11] MEDS ORDERED: ONDANSETRON HCL INJ/PF 4 MG/2 ML SDV IV PRN (18:26)
--- NOTE | 2020-04-11 18:50 | PDOC H&P ---
History of Present Illness Admission Date/PCP: 04/11/20 12:43 BLAINE MCKAY MD History of Present Illness: HARVEY YBARRA is a 79 year old male with past medical history significant for CAD status post CABG x5 and stents, COPD, HTN, HLD, paroxysmal atrial fibrillation on Eliquis, history of pneumonia who presents to the ED with 2-day history of progressive shortness of breath/REY/cough which patient states became so severe that he was extremely weak unable to walk across the room. Patient was brought to ED and placed on BiPAP. ABG obtained on BiPAP at 40% supplemental oxygen did not show significant hypoxemia or hypercarbia and pH was normal. Clinically, patient is in acute respiratory distress requiring BiPAP and supplemental oxygen. Chest x-ray showed patchy bilateral basilar opacities. CTPA was negative for PE but did show multifocal pneumonia. Per nursing, jorge ent had a fever on admission. Patient does not recall having fevers at home. COVID-19 rapid test was obtained and this is negative. WBC count up to 13.5 with a left shift. BNP elevated to 1750. Suspect CHF exacerbated by multifocal pneumonia. We will treat cautiously with IV Lasix and close hemodynamic monitoring. Patient technically meets criteria for sepsis however in the setting of severe coronary artery disease requiring multiple previous surgeries including a 5X CABG and coronary stents, we will hold off on aggressive IV hydration and instead give the patient diuresis given he has a wet sounding cough and peripheral edema in his legs. If he becomes hypotensive Lasix will need to be stopped and IV fluids will need to be started cautiously. Past Medical History Cardiac Medical History: Reports: Atrial Fibrillation, Congestive Heart Failure, Coronary Artery Disease, Hyperlipidema, Hypertension, Peripheral Vascular Disease Denies: DVT, Myocardial Infarction, Pulmonary Embolism Pulmonary Medical History: Reports: Bronchitis, Chronic Obstructive Pulmonary Disease (COPD), Pneumonia Denies: Asthma, Tuberculosis Neurological Medical History: Denies: Seizures Endocrine Medical History: Denies: Diabetes Mellitus Type 1, Diabetes Mellitus Type 2, Hyperthyroidism, Hypothyroidism Renal/ Medical History: Denies: End Stage Renal Disease GI Medical History: Reports: Gastroesophageal Reflux Disease Denies: Cirrhosis, Hepatitis, Hiatal Hernia Musculoskeltal Medical History: Denies: Arthritis Skin Medical History: Denies: Eczema, Psoriasis Psychiatric Medical History: Denies: Bipolar Disorder, Depression Hematology: Reports: Bleeding Tendencies Denies: Anemia, Sickle Cell Disease Past Surgical History Past Surgical History: Reports: Appendectomy, Cardiac Catheterization - at least 2 stents, Coronary Artery Bypass Graft - 5 VESSEL, September 1999, Coronary Stent - x2, Orthopedic Surgery - back, lt knee, Tonsillectomy Denies: Pacemaker Social History Information Source: Patient, Emergency Med Personnel Lives with: Family Smoking Status: Former Smoker Frequency of Alcohol Use: None Hx Recreational Drug Use: No Drugs: None Hx Prescription Drug Abuse: No - Advance Directive Resuscitation Status: Full Code Surrogate healthcare decision maker:: Admitting diagnosis: Multifocal pneumonia All aspects of code status discussed with patient/POA including cardioversion, chest compressions, and intubation and the patient/POA indicated they wish to be full code MPOA is designated as: , Yumiko Time spent: Greater than 16 minutes Family History Family History: Reviewed & Not Pertinent, CAD, COPD, Malignancy Parental Family History Reviewed: Yes Children Family History Reviewed: Yes Sibling(s) Family History Reviewed.: Yes Medication/Allergy Home Medications: Atorvastatin Calcium [Lipitor 40 mg Tablet] 40 mg PO QHS 04/11/19 Gabapentin [Neurontin 300 mg Capsule] 300 mg PO Q12 04/11/19 Montelukast Sodium [Singulair 10 mg Tablet] 10 mg PO QHS 04/11/19 Tiotropium [place] [Spiriva Respimat] 2 puff IH DAILY 04/11/19 Apixaban [Eliquis 5 mg Tablet] 5 mg PO BID 04/11/20 Cetirizine HCl [Zyrtec 10 mg Tablet] 10 mg PO DAILY 04/11/20 Ferrous Sulfate [Feosol 325 mg Tablet] 325 mg PO DAILY 04/11/20 Furosemide [Lasix 40 mg Tablet] 40 mg PO DAILY 04/11/20 Pantoprazole Sodium [Protonix [address] Tablet] 40 mg PO DAILY 04/11/20 Tamsulosin HCl [Flomax] 0.4 mg PO DAILY 04/11/20 Allergies/Adverse Reactions: codeine [Codeine] Adverse Reaction (Intermediate, Verified 04/11/20 09:24) Anxiety Review of Systems All systems: reviewed and no additional remarkable complaints except as stated - Per HPI otherwise negative Physical Exam Vital Signs: Temp Pulse Resp BP Pulse Ox 98.1 F 99 22 H 123/84 97 04/11/20 10:37 04/11/20 16:20 04/11/20 16:00 04/11/20 14:00 04/11/20 16:00 Intake & Output 04/10/20 04/11/20 04/12/20 06:59 06:59 06:59 Output Total 1350 Balance -1350 Exam: General appearance: PRESENT: Mild respiratory distress, well-developed, well- nourished, acutely ill-appearing elderly white male Head exam: PRESENT: atraumatic, normocephalic Eye exam: PRESENT: conjunctiva pink. ABSENT: scleral icterus Mouth exam: PRESENT: moist Respiratory exam: PRESENT: Upper airway rales/rhonchi ABSENT:wheezes Cardiovascular exam: PRESENT: RRR. ABSENT: diastolic murmur, rubs, systolic murmur; +1-2 pitting peripheral edema GI/Abdominal exam: PRESENT: normal bowel sounds, soft. ABSENT: distended, guarding, mass, organolmegaly, rebound, tenderness Neurological exam: PRESENT: alert, awake, oriented to person, oriented to place, oriented to time, oriented to situation Psychiatric exam: PRESENT: appropriate affect, normal mood Skin exam: PRESENT: dry, intact, warm Results Laboratory Results: 04/11/20 09:37 04/11/20 09:37 04/11/20 04/11/20 04/11/20 09:37 09:37 09:37 WBC 13.5 H RBC 4.53 Hgb 14.7 Hct 43.4 MCV 96 MCH 32.4 MCHC 33.8 RDW 13.2 Plt Count 172 Seg Neutrophils % 84.2 H Carbonic Acid HCO3/H2CO3 Ratio ABG pH ABG pCO2 ABG pO2 ABG HCO3 ABG O2 Saturation ABG Base Excess FiO2 Sodium 140.9 Potassium 4.7 Chloride 103 Carbon Dioxide 28 Anion Gap 10 BUN 24 H Creatinine 1.12 Est GFR ( Amer) > 60 Glucose 104 Lactic Acid Calcium 9.0 Total Bilirubin 2.2 H AST 24 Alkaline Phosphatase 100 Total Protein 7.7 Albumin 4.7 Urine Color YELLOW Urine Appearance CLEAR Urine pH 5.0 Ur Specific [place] 1.014 Urine Protein NEGATIVE Urine Glucose (UA) NEGATIVE Urine Ketones NEGATIVE Urine Blood NEGATIVE Urine Nitrite NEGATIVE Ur Leukocyte Esterase NEGATIVE Urine WBC (Auto) 0 Urine RBC (Auto) 1 04/11/20 04/11/20 04/11/20 09:37 09:37 11:18 WBC RBC Hgb Hct MCV MCH MCHC RDW Plt Count Seg Neutrophils % Carbonic Acid 1.08 HCO3/H2CO3 Ratio 21:1 ABG pH 7.43 ABG pCO2 35.9 ABG pO2 95.1 ABG HCO3 23.1 ABG O2 Saturation 97.5 ABG Base Excess -0.8 FiO2 40% Sodium Potassium Chloride Carbon Dioxide Anion Gap BUN Creatinine Est GFR ( Amer) Glucose Lactic Acid 1.8 Calcium Total Bilirubin AST Alkaline Phosphatase Total Protein Albumin Urine Color Cancelled Urine Appearance Cancelled Urine pH Cancelled Ur Specific [place] Cancelled Urine Protein Cancelled Urine Glucose (UA) Cancelled Urine Ketones Cancelled Urine Blood Cancelled Urine Nitrite Cancelled Ur Leukocyte Esterase Cancelled Urine WBC (Auto) Cancelled Urine RBC (Auto) Cancelled 04/11/20 09:37 Troponin I < 0.012 NT-Pro-B Natriuret Pep 1750 H Impressions: Chest X-Ray 04/11/20 09:30 IMPRESSION: Cardiomegaly and patchy bilateral basilar-predominant parenchymal opacities. Differential considerations include asymmetric pulmonary edema multifocal pneumonia. Chest/Abdomen CTA 04/11/20 12:23 IMPRESSION: Patchy consolidative opacities in the left upper lobe, left lower lobe and to a lesser extent the right lower lobe concerning for multifocal pneumonia. There is no central or segmental pulmonary embolus. Evaluation of the subsegmental branches of the pulmonary arteries is limited due to respiratory motion artifact. Assessment and Plan - Diagnosis (1) Multifocal pneumonia Is this a current diagnosis for this admission?: Yes Plan: Chest x-ray showed bilateral opacities CTPA showed negative PE but did show multifocal pneumonia present Started on empiric ceftriaxone/azithromycin Respiratory culture Blood cultures Hold off on IV fluids in the setting of CHF exacerbation, may need to stop Lasix and start fluids if patient becomes septic and developed septic shock Bronchial hygiene (2) Acute on chronic systolic CHF (congestive heart failure) Is this a current diagnosis for this admission?: Yes Plan: -acute systolic chf exacerbation -diuresis -fluid restriction -I/O monitoring -Cardiology outpt FU needed within 7 days of discharge -TTE ordered -started appropriate goal directed cardiac meds -AICD consideration if EF falls to 35% or below Cardiology consulted (3) COPD (chronic obstructive pulmonary disease) Is this a current diagnosis for this admission?: Yes (4) Acute hypoxemic respiratory failure Is this a current diagnosis for this admission?: Yes Plan: Multifactorial: Multifocal pneumonia, COPD, acute CHF exacerbation Treat underlying causes with antibiotics, diuresis, duo nebs as needed BiPAP as needed Supplemental oxygen (5) Chronic a-fib Is this a current diagnosis for this admission?: Yes Plan: Continue home apixaban Rate controlled Continue home medications (6) HTN (hypertension) Is this a current diagnosis for this admission?: Yes Plan: Home medications continue Controlled (7) HLD (hyperlipidemia) Is this a current diagnosis for this admission?: Yes (8) CAD (coronary artery disease) Qualifiers: Coronary Disease-Associated Artery/Lesion type: unspecified vessel or lesion type [place] vs. transplanted heart: [place] heart Associated angina: angina presence unspecified Qualified Code(s): I25.10 - Atherosclerotic heart disease of [place] coronary artery without angina pectoris Is this a current diagnosis for this admission?: Yes Plan: Status post CABG x5 and coronary stents per patient Cardiology consulted (9) Chronic kidney disease, stage III (moderate) Is this a current diagnosis for this admission?: Yes - Time Time Spent with patient: 35 or more minutes Medications reviewed and adjusted accordingly: Yes Anticipated Discharge Disposition: Home with Home Health Anticipated Discharge Timeframe: within 72 hours - Inpatient Certification Based on my medical assessment, after consideration of the patient's comorbidities, presenting symptoms, or acuity I expect that the services needed warrant INPATIENT care.: Yes I certify that my determination is in accordance with my understanding of Medicare's requirements for reasonable and necessary INPATIENT services [42 CFR 412.3e].: Yes Medical Necessity: Significant Comorbidiites Make Outpatient Treatment Too Risky, Need Close Monitoring Due to Risk of Patient Decompensation, Need for IV Antibiotics, Risk of Complication if Not Cared For in Hospital, Risk of Diagnosis Which Will Require Inpatient Eval/Care/Monitoring
[2020-04-11] MEDS ORDERED: AZITHROMYCIN INJ 500 MG VIAL IV SCH (19:00)
[2020-04-11] MEDS: CEFTRIAXONE 2 GM/D5W RTU 2 GM/50 ML RTUPB IV SCH (21:07)
[2020-04-11] MEDS: MONTELUKAST SODIUM 10 MG TABLET PO SCH (21:13)
[2020-04-11] MEDS: FUROSEMIDE INJ/PF 40 MG/4 ML SDV IV SCH (21:13)
[2020-04-11] MEDS: ATORVASTATIN CALCIUM 40 MG TABLET PO SCH (21:13)
[2020-04-11] MEDS: GABAPENTIN 300 MG CAPSULE PO SCH (21:13)
[2020-04-11] MEDS: ACETAMINOPHEN 325 MG TABLET PO PRN (21:13)
[2020-04-11] MEDS: AZITHROMYCIN 500 MG in DEXTROSE 5%-WATER 250 ML IV SCH (21:14)
[2020-04-12] MEDS: PANTOPRAZOLE SODIUM 40 MG TABLET.DR PO SCH (05:42)
[2020-04-12 05:59] LABS: ABSOLUTE LYMPHOCYTES (AUTO) 0.7 10^3/uL (0.5-4.7); ABSOLUTE MONOCYTES (AUTO) 1.1 10^3/uL (0.1-1.4); ABSOLUTE NEUT (AUTO) 11.2 10^3/uL (1.7-8.2); BASOPHILS % (AUTO) 0.3 % (0-2); EOSINOPHILS % (AUTO) 0.1 % (0-6); HEMATOCRIT 41.6 % (37.9-51.0); HEMOGLOBIN 14.3 g/dL (13.5-17.0); LYMPHOCYTES % (AUTO) 5.6 % (13-45); MEAN CORPUSCULAR HEMOGLOBIN 32.5 pg (27.0-33.4); MEAN CORPUSCULAR HGB CONC 34.3 g/dL (32.0-36.0); MEAN CORPUSCULAR VOLUME 95 fl (80-97); MONOCYTES % (AUTO) 8.3 % (3-13); PLATELET COUNT 139 10^3/uL (150-450); RED BLOOD COUNT 4.39 10^6/uL (4.35-5.55); RED CELL DISTRIBUTION WIDTH 13.3 % (11.5-14.0); SEGMENTED NEUTROPHILS % (AUTO) 85.7 % (42-78); TOTAL CELLS COUNTED % (AUTO) 100 %
[2020-04-12 06:23] LABS: ANION GAP 11 (5-19); BLOOD UREA NITROGEN 28 mg/dL (7-20); CALCIUM 8.9 mg/dL (8.4-10.2); CARBON DIOXIDE 25 mmol/L (22-30); CHLORIDE 101 mmol/L (98-107); GLUCOSE 113 mg/dL (75-110); PHOSPHORUS 3.8 mg/dL (2.5-4.5)
[2020-04-12 06:30] LABS: POTASSIUM 3.7 mmol/L (3.6-5.0)
[2020-04-12] MEDS: APIXABAN 5 MG TABLET PO SCH ×2 (09:48→18:19)
[2020-04-12] MEDS: DOCUSATE SODIUM 100 MG CAPSULE PO SCH (09:48)
[2020-04-12] MEDS: GABAPENTIN 300 MG CAPSULE PO SCH ×2 (09:48→22:45)
[2020-04-12] MEDS: FERROUS SULFATE 325 MG TABLET PO SCH (09:48)
[2020-04-12] MEDS: FUROSEMIDE INJ/PF 40 MG/4 ML SDV IV SCH ×2 (09:48→22:46)
[2020-04-12] MEDS: TAMSULOSIN HCL 0.4 MG CAP.SR.24H PO SCH (09:48)
[2020-04-12] MEDS: CETIRIZINE 10 MG TABLET PO SCH (09:48)
[2020-04-12] MEDS ORDERED: (PENDING PHARMACY ID) (Tiotropium Bromide [Spiriva Respimat] 4 GM Mist.Inhal) IH SCH (10:00)
[2020-04-12] MEDS: CEFTRIAXONE 2 GM/D5W RTU 2 GM/50 ML RTUPB IV SCH (10:08)
[2020-04-12] MEDS: UMECLIDINIUM BROMIDE 62.5 MCG/DOSE IH SCH (10:08)
--- NOTE | 2020-04-12 14:36 | PDOC PROGRESS REPORT ---
Subjective Subjective:: HARVEY YBARRA is a 79 year old male with past medical history significant for CAD status post CABG x5 and stents, COPD, HTN, HLD, paroxysmal atrial fibrillation on Eliquis, history of pneumonia who presents to the ED with 2-day history of progressive shortness of breath/REY/cough which patient states became so severe that he was extremely weak unable to walk across the room. Patient was brought to ED and placed on BiPAP. ABG obtained on BiPAP at 40% supplemental oxygen did not show significant hypoxemia or hypercarbia and pH was normal. Clinically, patient is in acute respiratory distress requiring BiPAP and supplemental oxygen. Chest x-ray showed patchy bilateral basilar opacities. CTPA was negative for PE but did show multifocal pneumonia. Per nursing, patient had a fever on admission. Patient does not recall having fevers at home. COVID-19 rapid test was obtained and this is negative. WBC count up to 13.5 with a left shift. BNP elevated to 1750. Suspect CHF exacerbated by multifocal pneumonia. We will treat cautiously with IV Lasix and close hemodynamic monitoring. Patient technically meets criteria for sepsis however in the setting of severe coronary artery disease requiring multiple previous surgeries including a 5X CABG and coronary stents, we will hold off on aggressive IV hydration and instead give the patient diuresis given he has a wet sounding cough and peripheral edema in his legs. If he becomes hypotensive Lasix will need to be stopped and IV fluids will need to be started cautiously. 04/12/2020 Patient's breathing seems to be significantly improved from yesterday on admission. He is now off the BiPAP and on nasal cannula but still requiring 6 L. Patient states he is on baseline of 2 L nasal cannula with exertion at home. He denies using supplemental oxygen at rest at baseline. Blood cultures are still pending but negative so far. Rapid viral testing for Covid, flu, and RSV was negative on admission. Antibiotics continue. Patient has no new specific complaints. Reason For Visit: ACUTE ON CHRONIC SYSTOLIC CHF EXACERBATION,ACUTE Physical Exam Vital Signs: Temp Pulse Resp BP Pulse Ox 97.7 F 70 23 H 105/66 96 04/12/20 07:56 04/12/20 07:56 04/12/20 07:56 04/12/20 07:56 04/12/20 07:56 Intake & Output 04/11/20 04/12/20 04/13/20 06:59 06:59 06:59 Intake Total 550 120 Output Total 2100 225 Balance -1550 -105 Weight 91.9 kg Exam: General appearance: PRESENT: Mild respiratory distress, well-developed, well- nourished, chronically ill-appearing elderly white male, appears clinically imp roved now off BiPAP Head exam: PRESENT: atraumatic, normocephalic Eye exam: PRESENT: conjunctiva pink. ABSENT: scleral icterus Mouth exam: PRESENT: moist Respiratory exam: PRESENT: Persistent but less upper airway rales/rhonchi ABSENT:wheezes Cardiovascular exam: PRESENT: RRR. ABSENT: diastolic murmur, rubs, systolic murmur; +1 pitting peripheral edema GI/Abdominal exam: PRESENT: normal bowel sounds, soft. ABSENT: distended, guarding, mass, organolmegaly, rebound, tenderness Neurological exam: PRESENT: alert, awake, oriented to person, oriented to place, oriented to time, oriented to situation Psychiatric exam: PRESENT: appropriate affect, normal mood Skin exam: PRESENT: dry, intact, warm Results Laboratory Results: 04/12/20 05:04 04/12/20 05:04 04/12/20 04/12/20 05:04 05:04 WBC 13.0 H RBC 4.39 Hgb 14.3 Hct 41.6 MCV 95 MCH 32.5 MCHC 34.3 RDW 13.3 Plt Count 139 L Seg Neutrophils % 85.7 H Sodium 137.2 Potassium 3.7 D Chloride 101 Carbon Dioxide 25 Anion Gap 11 BUN 28 H Creatinine 1.10 Est GFR ( Amer) > 60 Glucose 113 H Calcium 8.9 Phosphorus 3.8 Magnesium 1.8 04/11/20 09:37 Troponin I < 0.012 NT-Pro-B Natriuret Pep 1750 H Impressions: Chest X-Ray 04/11/20 09:30 IMPRESSION: Cardiomegaly and patchy bilateral basilar-predominant parenchymal opacities. Differential considerations include asymmetric pulmonary edema multifocal pneumonia. Chest/Abdomen CTA 04/11/20 12:23 IMPRESSION: Patchy consolidative opacities in the left upper lobe, left lower lobe and to a lesser extent the right lower lobe concerning for multifocal pneumonia. There is no central or segmental pulmonary embolus. Evaluation of the subsegmental branches of the pulmonary arteries is limited due to respiratory motion artifact. Assessment and Plan - Diagnosis (1) Multifocal pneumonia Is this a current diagnosis for this admission?: Yes (2) Acute on chronic systolic CHF (congestive heart failure) Is this a current diagnosis for this admission?: Yes (3) COPD (chronic obstructive pulmonary disease) Is this a current diagnosis for this admission?: Yes (4) Acute hypoxemic respiratory failure Is this a current diagnosis for this admission?: Yes (5) Chronic a-fib Is this a current diagnosis for this admission?: Yes (6) HTN (hypertension) Is this a current diagnosis for this admission?: Yes (7) HLD (hyperlipidemia) Is this a current diagnosis for this admission?: Yes (8) CAD (coronary artery disease) Qualifiers: Coronary Disease-Associated Artery/Lesion type: unspecified vessel or lesion type [place] vs. transplanted heart: [place] heart Associated angina: angina presence unspecified Qualified Code(s): I25.10 - Atherosclerotic heart disease of [place] coronary artery without angina pectoris Is this a current diagnosis for this admission?: Yes (9) Chronic kidney disease, stage III (moderate) Is this a current diagnosis for this admission?: Yes - Plan Summary Summary: HARVEY YBARRA is a 79 year old male with past medical history significant for CAD status post CABG x5 and stents, COPD, HTN, HLD, paroxysmal atrial fibrillation on Eliquis, history of pneumonia who presents to the ED with 2-day history of progressive shortness of breath/REY/cough which patient states became so severe that he was extremely weak unable to walk across the room. Patient was brought to ED and placed on BiPAP. ABG obtained on BiPAP at 40% supplemental oxygen did not show significant hypoxemia or hypercarbia and pH was normal. Clinically, patient is in acute respiratory distress requiring BiPAP and supplemental oxygen. Chest x-ray showed patchy bilateral basilar opacities. CTPA was negative for PE but did show multifocal pneumonia. Per nursing, patient had a fever on admission. Patient does not recall having fevers at home. COVID-19 rapid test was obtained and this is negative. WBC count up to 13.5 with a left shift. BNP elevated to 1750. Suspect CHF exacerbated by multifocal pneumonia. We will treat cautiously with IV Lasix and close hemodynamic monitoring. Patient technically meets criteria for sepsis however in the setting of severe coronary artery disease requiring multiple previous surgeries including a 5X CABG and coronary stents, we will hold off on aggressi ve IV hydration and instead give the patient diuresis given he has a wet sounding cough and peripheral edema in his legs. If he becomes hypotensive Lasix will need to be stopped and IV fluids will need to be started cautiously. (1) Multifocal pneumonia Chest x-ray showed bilateral opacities CTPA showed negative PE but did show multifocal pneumonia present Started on empiric ceftriaxone/azithromycin Respiratory culture Blood cultures no growth Hold off on IV fluids in the setting of CHF exacerbation, may need to stop Lasix and start fluids if patient becomes septic and developed septic shock Bronchial hygiene (2) Acute on chronic systolic CHF (congestive heart failure) -acute systolic chf exacerbation -diuresis -fluid restriction -I/O monitoring -Cardiology outpt FU needed within 7 days of discharge -TTE ordered -started appropriate goal directed cardiac meds -AICD consideration if EF falls to 35% or below Cardiology consulted (3) COPD (chronic obstructive pulmonary disease) No exacerbation, chronic Continue Singulair and Spiriva (4) Acute hypoxemic respiratory failure Multifactorial: Multifocal pneumonia, COPD, acute CHF exacerbation Treat underlying causes with antibiotics, diuresis, duo nebs as needed BiPAP as needed Supplemental oxygen (5) Chronic a-fib Continue home apixaban Rate controlled Continue home medications (6) HTN (hypertension) Home medications continue Controlled (7) HLD (hyperlipidemia) Is this a current diagnosis for this admission?: Yes (8) CAD (coronary artery disease) Status post CABG x5 and coronary stents per patient Cardiology consulted (9) Chronic kidney disease, stage III (moderate) - Time Time Spent with patient: 25-34 minutes Medications reviewed and adjusted accordingly: Yes Anticipated Discharge Disposition: Home, Self Care Anticipated Discharge Timeframe: within 72 hours - Inpatient Certification Based on my medical assessment, after consideration of the patient's comorbidities, presenting symptoms, or acuity I expect that the services needed warrant INPATIENT care.: Yes I certify that my determination is in accordance with my understanding of Medicare's requirements for reasonable and necessary INPATIENT services [42 CFR 412.3e].: Yes Medical Necessity: Significant Comorbidiites Make Outpatient Treatment Too Risky, Need Close Monitoring Due to Risk of Patient Decompensation, Need for IV Antibiotics, Risk of Complication if Not Cared For in Hospital, Risk of Diagnosis Which Will Require Inpatient Eval/Care/Monitoring
[2020-04-12] MEDS: ACETAMINOPHEN 325 MG TABLET PO PRN (16:47)
[2020-04-12] MEDS: ATORVASTATIN CALCIUM 40 MG TABLET PO SCH (22:45)
[2020-04-12] MEDS: MONTELUKAST SODIUM 10 MG TABLET PO SCH (22:45)
[2020-04-12] MEDS: AZITHROMYCIN 500 MG in DEXTROSE 5%-WATER 250 ML IV SCH (22:46)
[2020-04-13] MEDS: ACETAMINOPHEN 325 MG TABLET PO PRN ×3 (03:43→23:36)
[2020-04-13 05:16] LABS: ANION GAP 9 (5-19); BLOOD UREA NITROGEN 35 mg/dL (7-20); CALCIUM 8.9 mg/dL (8.4-10.2); CARBON DIOXIDE 29 mmol/L (22-30); CHLORIDE 98 mmol/L (98-107); GLUCOSE 123 mg/dL (75-110); POTASSIUM 3.5 mmol/L (3.6-5.0)
[2020-04-13 05:20] LABS: HEMATOCRIT 41.1 % (37.9-51.0); MEAN CORPUSCULAR HEMOGLOBIN 31.9 pg (27.0-33.4); MEAN CORPUSCULAR VOLUME 94 fl (80-97); PLATELET COUNT 137 10^3/uL (150-450); RED BLOOD COUNT 4.38 10^6/uL (4.35-5.55); RED CELL DISTRIBUTION WIDTH 13.2 % (11.5-14.0); WHITE BLOOD COUNT 14.6 10^3/uL (4.0-10.5)
[2020-04-13 05:34] LABS: ABSOLUTE LYMPHOCYTES# (MANUAL) 0.4 10^3/uL (0.5-4.7); ABSOLUTE MONOCYTES # (MANUAL) 0.6 10^3/uL (0.1-1.4); BAND NEUTROPHILS % (MANUAL) 6 % (3-5); BASOPHILS % (MANUAL) 0 % (0-2); EOSINOPHILS % (MANUAL) 1 % (0-6); LYMPHOCYTES % (MANUAL) 3 % (13-45); MONOCYTES % (MANUAL) 4 % (3-13); PLATELET COMMENT ADEQUATE; RBC MORPHOLOGY COMMENT NORMO-CYTIC/CHROMIC; SEGMENTED NEUTROPHILS % (MAN) 86 % (42-78); TOTAL CELLS COUNTED 100
[2020-04-13] MEDS: PANTOPRAZOLE SODIUM 40 MG TABLET.DR PO SCH (06:39)
--- NOTE | 2020-04-13 10:57 | PDOC PROGRESS REPORT ---
Subjective Subjective:: HARVEY YBARRA is a 79 year old male with past medical history significant for CAD status post CABG x5 and stents, COPD, HTN, HLD, paroxysmal atrial fibrillation on Eliquis, history of pneumonia who presents to the ED with 2-day history of progressive shortness of breath/REY/cough which patient states became so severe that he was extremely weak unable to walk across the room. Patient was brought to ED and placed on BiPAP. ABG obtained on BiPAP at 40% supplemental oxygen did not show significant hypoxemia or hypercarbia and pH was normal. Clinically, patient is in acute respiratory distress requiring BiPAP and supplemental oxygen. Chest x-ray showed patchy bilateral basilar opacities. CTPA was negative for PE but did show multifocal pneumonia. Per nursing, patient had a fever on admission. Patient does not recall having fevers at home. COVID-19 rapid test was obtained and this is negative. WBC count up to 13.5 with a left shift. BNP elevated to 1750. Suspect CHF exacerbated by multifocal pneumonia. We will treat cautiously with IV Lasix and close hemodynamic monitoring. Patient technically meets criteria for sepsis however in the setting of severe coronary artery disease requiring multiple previous surgeries including a 5X CABG and coronary stents, we will hold off on aggressive IV hydration and instead give the patient diuresis given he has a wet sounding cough and peripheral edema in his legs. If he becomes hypotensive Lasix will need to be stopped and IV fluids will need to be started cautiously. 04/12/2020 Patient's breathing seems to be significantly improved from yesterday on admission. He is now off the BiPAP and on nasal cannula but still requiring 6 L. Patient states he is on baseline of 2 L nasal cannula with exertion at home. He denies using supplemental oxygen at rest at baseline. Blood cultures are still pending but negative so far. Rapid viral testing for Covid, flu, and RSV was negative on admission. Antibiotics continue. Patient has no new specific complaints. 04/13/2020 Patient is doing better than yesterday in terms of his temperature curve and his breathing. We need to be actively weaning his supplemental oxygen to an appropriate level for COPD. I discussed this with nursing. Potassium is low we will replete this. Creatinine is essentially the same for the third time in a row. Blood cultures negative. Antibiotics continue. Patient has no new complaints. Reason For Visit: ACUTE ON CHRONIC SYSTOLIC CHF EXACERBATION,ACUTE Physical Exam Vital Signs: Temp Pulse Resp BP Pulse Ox 99.8 F 95 20 110/64 93 04/13/20 09:23 04/13/20 07:00 04/13/20 03:31 04/13/20 03:31 04/13/20 03:31 Intake & Output 04/12/20 04/13/20 04/14/20 06:59 06:59 06:59 Intake Total 550 1084 Output Total 2100 1200 Balance -1550 -116 Weight 91.9 kg 90.8 kg Exam: General appearance: PRESENT: No distress, well-developed, well-nourished, chronically ill-appearing elderly white male, states he is breathing more comfortably today but still feels very tired Head exam: PRESENT: atraumatic, normocephalic Eye exam: PRESENT: conjunctiva pink. ABSENT: scleral icterus Mouth exam: PRESENT: moist Respiratory exam: PRESENT: Improved upper airway rales/rhonchi ABSENT:wheezes Cardiovascular exam: PRESENT: RRR. ABSENT: diastolic murmur, rubs, systolic murmur; +1 pitting peripheral edema GI/Abdominal exam: PRESENT: normal bowel sounds, soft. ABSENT: distended, guarding, mass, organolmegaly, rebound, tenderness Neurological exam: PRESENT: alert, awake, oriented to person, oriented to place, oriented to time, oriented to situation Psychiatric exam: PRESENT: appropriate affect, normal mood Skin exam: PRESENT: dry, intact, warm Results Laboratory Results: 04/13/20 04:37 04/13/20 04:37 04/13/20 04/13/20 04:37 04:37 WBC 14.6 H RBC 4.38 Hgb 14.0 Hct 41.1 MCV 94 MCH 31.9 MCHC 34.0 RDW 13.2 Plt Count 137 L Seg Neutrophils % Not Reportable Sodium 136.1 L Potassium 3.5 L Chloride 98 Carbon Dioxide 29 Anion Gap 9 BUN 35 H Creatinine 1.14 Est GFR ( Amer) > 60 Glucose 123 H Calcium 8.9 04/11/20 09:37 Troponin I < 0.012 NT-Pro-B Natriuret Pep 1750 H Impressions: Chest X-Ray 04/11/20 09:30 IMPRESSION: Cardiomegaly and patchy bilateral basilar-predominant parenchymal opacities. Differential considerations include asymmetric pulmonary edema multifocal pneumonia. Chest/Abdomen CTA 04/11/20 12:23 IMPRESSION: Patchy consolidative opacities in the left upper lobe, left lower lobe and to a lesser extent the right lower lobe concerning for multifocal pneumonia. There is no central or segmental pulmonary embolus. Evaluation of the subsegmental branches of the pulmonary arteries is limited due to respiratory motion artifact. Assessment and Plan - Diagnosis (1) Multifocal pneumonia Is this a current diagnosis for this admission?: Yes (2) Acute on chronic systolic CHF (congestive heart failure) Is this a current diagnosis for this admission?: Yes (3) COPD (chronic obstructive pulmonary disease) Is this a current diagnosis for this admission?: Yes (4) Acute hypoxemic respiratory failure Is this a current diagnosis for this admission?: Yes (5) Chronic a-fib Is this a current diagnosis for this admission?: Yes (6) HTN (hypertension) Is this a current diagnosis for this admission?: Yes (7) HLD (hyperlipidemia) Is this a current diagnosis for this admission?: Yes (8) CAD (coronary artery disease) Qualifiers: Coronary Disease-Associated Artery/Lesion type: unspecified vessel or lesion type [place] vs. transplanted heart: [place] heart Associated angina: angina presence unspecified Qualified Code(s): I25.10 - Atherosclerotic heart disease of [place] coronary artery without angina pectoris Is this a current diagnosis for this admission?: Yes (9) Chronic kidney disease, stage III (moderate) Is this a current diagnosis for this admission?: Yes - Plan Summary Summary: HARVEY YBARRA is a 79 year old male with past medical history significant for CAD status post CABG x5 and stents, COPD, HTN, HLD, paroxysmal atrial fibrillation on Eliquis, history of pneumonia who presents to the ED with 2-day history of progressive shortness of breath/REY/cough which patient states became so severe that he was extremely weak unable to walk across the room. Patient was brought to ED and placed on BiPAP. ABG obtained on BiPAP at 40% supplemental oxygen did not show significant hypoxemia or hypercarbia and pH was normal. Clinically, patient is in acute respiratory distress requiring BiPAP and supplemental oxygen. Chest x-ray showed patchy bilateral basilar opacities. CTPA was negative for PE but did show multifocal pneumonia. Per nursing, patient had a fever on admission. Patient does not recall having fevers at home. COVID-19 rapid test was obtained and this is negative. WBC count up to 13.5 with a left shift. BNP elevated to 1750. Suspect CHF exacerbated by multifocal pneumonia. We will treat cautiously with IV Lasix and close hemodynamic monitoring. Patient technically meets criteria for sepsis however in the setting of severe coronary artery disease requiring multiple previous surgeries including a 5X CABG and coronary stents, we will hold off on aggressive IV hydration and instead give the patient diuresis given he has a wet sounding cough and peripheral edema in his legs. If he becomes hypotensive Lasix will need to be stopped and IV fluids will need to be started cautiously. (1) Multifocal pneumonia Chest x-ray showed bilateral opacities CTPA showed negative PE but did show multifocal pneumonia present Started on empiric ceftriaxone/azithromycin Respiratory culture not collected Blood cultures no growth Hold off on IV fluids in the setting of CHF exacerbation, may need to stop Lasix and start fluids if patient becomes septic and developed septic shock Bronchial hygiene Slow to improve, expect he needs several days in the hospital to see lasting meaningful improvement (2) Acute on chronic systolic CHF (congestive heart failure) -acute systolic chf exacerbation -diuresis -fluid restriction -I/O monitoring -Cardiology outpt FU needed within 7 days of discharge -TTE ordered on admission -started appropriate goal directed cardiac meds -AICD consideration if EF falls to 35% or below Cardiology consulted (3) COPD (chronic obstructive pulmonary disease) No exacerbation, chronic Continue Singulair and Spiriva (4) Acute hypoxemic respiratory failure Multifactorial: Multifocal pneumonia, COPD, acute CHF exacerbation Treat underlying causes with antibiotics, diuresis, duo nebs as needed BiPAP as needed Supplemental oxygen (5) Chronic a-fib Continue home apixaban Rate controlled Continue home medications (6) HTN (hypertension) Home medications continue Controlled (7) HLD (hyperlipidemia) Is this a current diagnosis for this admission?: Yes (8) CAD (coronary artery disease) Status post CABG x5 and coronary stents per patient Cardiology consulted (9) Chronic kidney disease, stage III (moderate) - Time Time Spent with patient: 25-34 minutes Medications reviewed and adjusted accordingly: Yes Anticipated Discharge Disposition: Home with Home Health Anticipated Discharge Timeframe: within 72 hours - Inpatient Certification Based on my medical assessment, after consideration of the patient's comorbidities, presenting symptoms, or acuity I expect that the services needed warrant INPATIENT care.: Yes I certify that my determination is in accordance with my understanding of Medicare's requirements for reasonable and necessary INPATIENT services [42 CFR 412.3e].: Yes Medical Necessity: Significant Comorbidiites Make Outpatient Treatment Too Risky, Need Close Monitoring Due to Risk of Patient Decompensation, Need for Nebulizer Therapy and Monitoring of Response, Need for IV Antibiotics, Risk of Complication if Not Cared For in Hospital, Risk of Diagnosis Which Will Require Inpatient Eval/Care/Monitoring
[2020-04-13] MEDS: CEFTRIAXONE 2 GM/D5W RTU 2 GM/50 ML RTUPB IV SCH (10:59)
[2020-04-13] MEDS: FUROSEMIDE INJ/PF 40 MG/4 ML SDV IV SCH ×2 (11:07→21:04)
[2020-04-13] MEDS: POTASSIUM CHLORIDE 20 MEQ PACKET PO SCH ×2 (11:14→21:05)
[2020-04-13] MEDS: CETIRIZINE 10 MG TABLET PO SCH (11:15)
[2020-04-13] MEDS: DOCUSATE SODIUM 100 MG CAPSULE PO SCH (11:15)
[2020-04-13] MEDS: UMECLIDINIUM BROMIDE 62.5 MCG/DOSE IH SCH (11:15)
[2020-04-13] MEDS: GABAPENTIN 300 MG CAPSULE PO SCH ×2 (11:15→21:05)
[2020-04-13] MEDS: FERROUS SULFATE 325 MG TABLET PO SCH (11:15)
[2020-04-13] MEDS: APIXABAN 5 MG TABLET PO SCH ×2 (11:15→17:43)
[2020-04-13] MEDS: TAMSULOSIN HCL 0.4 MG CAP.SR.24H PO SCH (11:15)
[2020-04-13] MEDS: AZITHROMYCIN 500 MG in DEXTROSE 5%-WATER 250 ML IV SCH (21:05)
[2020-04-13] MEDS: ATORVASTATIN CALCIUM 40 MG TABLET PO SCH (21:05)
[2020-04-13] MEDS: MONTELUKAST SODIUM 10 MG TABLET PO SCH (21:05)
[2020-04-14] MEDS: PANTOPRAZOLE SODIUM 40 MG TABLET.DR PO SCH (05:22)
[2020-04-14 06:27] LABS: HEMATOCRIT 42.3 % (37.9-51.0); HEMOGLOBIN 14.5 g/dL (13.5-17.0); MEAN CORPUSCULAR HEMOGLOBIN 32.1 pg (27.0-33.4); MEAN CORPUSCULAR HGB CONC 34.2 g/dL (32.0-36.0); MEAN CORPUSCULAR VOLUME 94 fl (80-97); PLATELET COUNT 155 10^3/uL (150-450); RED BLOOD COUNT 4.51 10^6/uL (4.35-5.55); WHITE BLOOD COUNT 14.2 10^3/uL (4.0-10.5)
[2020-04-14 06:41] LABS: ANION GAP 9 (5-19); BLOOD UREA NITROGEN 38 mg/dL (7-20); CALCIUM 8.9 mg/dL (8.4-10.2); CARBON DIOXIDE 31 mmol/L (22-30); CHLORIDE 97 mmol/L (98-107); GLUCOSE 116 mg/dL (75-110); POTASSIUM 3.7 mmol/L (3.6-5.0)
[2020-04-14 07:24] LABS: ABSOLUTE LYMPHOCYTES# (MANUAL) 1.1 10^3/uL (0.5-4.7); ABSOLUTE MONOCYTES # (MANUAL) 0.6 10^3/uL (0.1-1.4); BASOPHILS % (MANUAL) 0 % (0-2); EOSINOPHILS % (MANUAL) 1 % (0-6); LYMPHOCYTES % (MANUAL) 6 % (13-45); MONOCYTES % (MANUAL) 4 % (3-13); PLATELET COMMENT ADEQUATE; SEGMENTED NEUTROPHILS % (MAN) 87 % (42-78); TOTAL CELLS COUNTED 100
[2020-04-14 07:26] LABS: POLYCHROMASIA SLIGHT
[2020-04-14 07:27] LABS: BURR CELLS SLIGHT; OVALOCYTES SLIGHT
[2020-04-14] MEDS: CEFTRIAXONE 2 GM/D5W RTU 2 GM/50 ML RTUPB IV SCH (09:28)
[2020-04-14] MEDS: DOCUSATE SODIUM 100 MG CAPSULE PO SCH (09:30)
[2020-04-14] MEDS: POTASSIUM CHLORIDE 20 MEQ PACKET PO SCH ×2 (09:30→21:25)
[2020-04-14] MEDS: FUROSEMIDE INJ/PF 40 MG/4 ML SDV IV SCH (09:30)
[2020-04-14] MEDS: CETIRIZINE 10 MG TABLET PO SCH (09:31)
[2020-04-14] MEDS: FERROUS SULFATE 325 MG TABLET PO SCH (09:31)
[2020-04-14] MEDS: UMECLIDINIUM BROMIDE 62.5 MCG/DOSE IH SCH (09:31)
[2020-04-14] MEDS: GABAPENTIN 300 MG CAPSULE PO SCH ×2 (09:31→21:25)
[2020-04-14] MEDS: APIXABAN 5 MG TABLET PO SCH ×2 (09:31→17:15)
[2020-04-14] MEDS: TAMSULOSIN HCL 0.4 MG CAP.SR.24H PO SCH (09:31)
[2020-04-14] MEDS: ACETAMINOPHEN 325 MG TABLET PO PRN (17:18)
--- NOTE | 2020-04-14 18:46 | XCELERA REPORT ---
[address] [address] Transthoracic Echocardiogram Report Name: HARVEY YBARRA Age: 79 yrs Gender: Male : 1940 Patient Status: Inpatient Patient Location: [address] [place] [address] Study Date: 04/14/2020 03:32 PM Height: 72 in Weight: 203 lb BSA: 2.1 m2 Procedure: A complete two-dimensional transthoracic echocardiogram was performed (2D, M-mode, spectral and color flow Doppler). The study was technically difficult with many images being suboptimal in quality. Reason For Study: CHF History: CAD. Ordering Physician: MARK PEREZ Performed By: Lorraine Loaiza Interpretation Summary The left ventricle is grossly normal size. The left ventricular ejection fraction is normal. The Ejection Fraction estimate is 60-65%. LV diastolic function could not be adequately assessed. Regional wall motion abnormalities cannot be excluded due to limited visualization. Thrombus can not be excluded. Trace MR, trace to mild AI, mild to moderate TR. Mildly to moderately elevated pulmonary pressures and estimated between 45 and 50 mmHg. When compared to a prior report dated AUG 25: -There is now pulmonary hypertension. -AI is now trace to mild. MMode/2D Measurements & Calculations RVDd: 4.1 cm LVIDd: 4.5 cm FS: 35.2 % Ao root diam: 3.5 cm IVSd: 1.0 cm LVIDs: 2.9 cm EDV(Teich): 94.2 ml Ao root area: 9.4 cm2 LVPWd: 1.0 cm ESV(Teich): 33.3 ml LA dimension: 5.7 cm EF(Teich): 64.6 % Doppler Measurements & Calculations MV E max piper: MV P1/2t max piper: Ao V2 max: LV V1 max P.3 cm/sec 134.8 cm/sec 129.6 cm/sec 6.8 mmHg MV P1/2t: 68.6 msec Ao max P.7 mmHgLV V1 max: MVA(P1/2t): 3.2 cm2 130.8 cm/sec MV dec slope: 575.4 cm/sec2 MV dec time: 0.24 sec PA V2 max: TR max piper: MV P1/2t-pr_phl: 103.7 cm/sec 319.0 cm/sec 68.6 msec PA max P.3 mmHgTR max P.7 mmHg Left Ventricle The left ventricle is grossly normal size. The left ventricular ejection fraction is normal. The Ejection Fraction estimate is 60-65%. LV diastolic function could not be adequately assessed. Regional wall motion abnormalities cannot be excluded due to limited visualization. Thrombus can not be excluded. Right Ventricle Limited visualization. The right ventricle is mildly dilated. The right ventricular systolic function is mildly reduced. Atria Limited visualization. The left atrium is moderately dilated. Interarterial septum not well visualized and not well dopplered. Cannot comment on ASD/PFO presence. Mitral Valve The mitral valve is grossly normal. There is no evidence of mitral valve prolapse. No significant mitral valve stenosis. There is a trace amount of mitral regurgitation. Aortic Valve The aortic valve is mildly calcified. There is no aortic valve stenosis. There is a trace to mild amount of aortic regurgitation. Tricuspid Valve The tricuspid valve is not well visualized secondary to technical limitations. There is a mild to moderate amount of tricuspid regurgitation. There is mild to moderate pulmonary hypertension by echo. Best estimated right ventricular systolic pressure is elevated at 40-50mmHg. Pulmonic Valve The pulmonic valve is not well visualized. There is no pulmonic valvular regurgitation. Great Vessels The inferior vena cava appeared normal and decreased > 50% with respiration (RAP 5-10 mmHg). Effusions There is no pericardial effusion. : MARK PEREZ Antonio
--- NOTE | 2020-04-14 18:49 | PDOC PROGRESS REPORT ---
Subjective Subjective:: HARVEY YBARRA is a 79 year old male with past medical history significant for CAD status post CABG x5 and stents, COPD, HTN, HLD, paroxysmal atrial fibrillation on Eliquis, history of pneumonia who presents to the ED with 2-day history of progressive shortness of breath/REY/cough which patient states became so severe that he was extremely weak unable to walk across the room. Patient was brought to ED and placed on BiPAP. ABG obtained on BiPAP at 40% supplemental oxygen did not show significant hypoxemia or hypercarbia and pH was normal. Clinically, patient is in acute respiratory distress requiring BiPAP and supplemental oxygen. Chest x-ray showed patchy bilateral basilar opacities. CTPA was negative for PE but did show multifocal pneumonia. Per nursing, patient had a fever on admission. Patient does not recall having fevers at home. COVID-19 rapid test was obtained and this is negative. WBC count up to 13.5 with a left shift. BNP elevated to 1750. Suspect CHF exacerbated by multifocal pneumonia. We will treat cautiously with IV Lasix and close hemodynamic monitoring. Patient technically meets criteria for sepsis however in the setting of severe coronary artery disease requiring multiple previous surgeries including a 5X CABG and coronary stents, we will hold off on aggressive IV hydration and instead give the patient diuresis given he has a wet sounding cough and peripheral edema in his legs. If he becomes hypotensive Lasix will need to be stopped and IV fluids will need to be started cautiously. 04/12/2020 Patient's breathing seems to be significantly improved from yesterday on admission. He is now off the BiPAP and on nasal cannula but still requiring 6 L. Patient states he is on baseline of 2 L nasal cannula with exertion at home. He denies using supplemental oxygen at rest at baseline. Blood cultures are still pending but negative so far. Rapid viral testing for Covid, flu, and RSV was negative on admission. Antibiotics continue. Patient has no new specific complaints. 04/13/2020 Patient is doing better than yesterday in terms of his temperature curve and his breathing. We need to be actively weaning his supplemental oxygen to an appropriate level for COPD. I discussed this with nursing. Potassium is low we will replete this. Creatinine is essentially the same for the third time in a row. Blood cultures negative. Antibiotics continue. Patient has no new complaints. 04/14/2020 Patient seems to be improved today and is breathing comfortably on nasal cannula. His fever curve is trending down though he did have some fevers up to 100.4 overnight. I discussed with nursing we need to continue to aggressively wean his supplemental oxygen. Patient must use incentive spirometer and flutter valve Pep. I ordered Mucinex to help clear some of the mucus he has in his upper airway. I expect him to remain hospitalized for another 2 to 3 days as he is extremely slow to recover from this pneumonia. Reason For Visit: ACUTE ON CHRONIC SYSTOLIC CHF EXACERBATION,ACUTE Physical Exam Vital Signs: Temp Pulse Resp BP Pulse Ox 99.0 F 92 20 133/76 H 96 04/14/20 16:00 04/14/20 16:00 04/14/20 16:00 04/14/20 16:00 04/14/20 16:00 Intake & Output 04/13/20 04/14/20 04/15/20 06:59 06:59 06:59 Intake Total 1084 1978 770 Output Total 1200 1925 550 Balance -116 53 220 Weight 90.8 kg 90.1 kg Exam: General appearance: PRESENT: No distress, well-developed, well-nourished, chronically ill-appearing elderly white male, states he is still mildly congested but gradually improving Head exam: PRESENT: atraumatic, normocephalic Eye exam: PRESENT: conjunctiva pink. ABSENT: scleral icterus Mouth exam: PRESENT: moist Respiratory exam: PRESENT: Improved but still persistent upper airway rales/rhonchi ABSENT:wheezes Cardiovascular exam: PRESENT: RRR. ABSENT: diastolic murmur, rubs, systolic murmur; +1 pitting peripheral edema GI/Abdominal exam: PRESENT: normal bowel sounds, soft. ABSENT: distended, guarding, mass, organolmegaly, rebound, tenderness Neurological exam: PRESENT: alert, awake, oriented to person, oriented to place, oriented to time, oriented to situation Psychiatric exam: PRESENT: appropriate affect, normal mood Skin exam: PRESENT: dry, intact, warm Results Laboratory Results: 04/14/20 05:50 04/14/20 05:55 04/14/20 04/14/20 05:50 05:55 WBC 14.2 H RBC 4.51 Hgb 14.5 Hct 42.3 MCV 94 MCH 32.1 MCHC 34.2 RDW 13.0 Plt Count 155 Seg Neutrophils % Not Reportable Sodium 137.4 Potassium 3.7 Chloride 97 L Carbon Dioxide 31 H Anion Gap 9 BUN 38 H Creatinine 1.13 Est GFR ( Amer) > 60 Glucose 116 H Calcium 8.9 04/11/20 09:37 Troponin I < 0.012 NT-Pro-B Natriuret Pep 1750 H Impressions: Chest X-Ray 04/11/20 09:30 IMPRESSION: Cardiomegaly and patchy bilateral basilar-predominant parenchymal opacities. Differential considerations include asymmetric pulmonary edema multifocal pneumonia. Chest/Abdomen CTA 04/11/20 12:23 IMPRESSION: Patchy consolidative opacities in the left upper lobe, left lower lobe and to a lesser extent the right lower lobe concerning for multifocal pneumonia. There is no central or segmental pulmonary embolus. Evaluation of the subsegmental branches of the pulmonary arteries is limited due to respiratory motion artifact. Assessment and Plan - Diagnosis (1) Multifocal pneumonia Is this a current diagnosis for this admission?: Yes (2) Acute on chronic systolic CHF (congestive heart failure) Is this a current diagnosis for this admission?: Yes (3) COPD (chronic obstructive pulmonary disease) Is this a current diagnosis for this admission?: Yes (4) Acute hypoxemic respiratory failure Is this a current diagnosis for this admission?: Yes (5) Chronic a-fib Is this a current diagnosis for this admission?: Yes (6) HTN (hypertension) Is this a current diagnosis for this admission?: Yes (7) HLD (hyperlipidemia) Is this a current diagnosis for this admission?: Yes (8) CAD (coronary artery disease) Qualifiers: Coronary Disease-Associated Artery/Lesion type: unspecified vessel or lesion type [place] vs. transplanted heart: [place] heart Associated angina: angina presence unspecified Qualified Code(s): I25.10 - Atherosclerotic heart disease of [place] coronary artery without angina pectoris Is this a current diagnosis for this admission?: Yes (9) Chronic kidney disease, stage III (moderate) Is this a current diagnosis for this admission?: Yes - Plan Summary Summary: 6%HARVEY YBARRA is a 79 year old male with past medical history significant for CAD status post CABG x5 and stents, COPD, HTN, HLD, paroxysmal atrial fibrillation on Eliquis, history of pneumonia who presents to the ED with 2-day history of progressive shortness of breath/REY/cough which patient states became so severe that he was extremely weak unable to walk across the room. Patient was brought to ED and placed on BiPAP. ABG obtained on BiPAP at 40% supplemen [place]ver oxygen did not show significant hypoxemia or hypercarbia and pH was normal. Clinically, patient is in acute respiratory distress requiring BiPAP and supplemental oxygen. Chest x-ray showed patchy bilateral basilar opacities. CTPA was negative for PE but did show multifocal pneumonia. Per nursing, patient had a fever on admission. Patient does not recall having fevers at home. COVID-19 rapid test was obtained and this is negative. WBC count up to 13.5 with a left shift. BNP elevated to 1750. Suspect CHF exacerbated by multifocal pneumonia. We will treat cautiously with IV Lasix and close hemodynamic monitoring. Patient technically meets criteria for sepsis however in the setting of severe coronary artery disease requiring multiple previous surgeries including a 5X CABG and coronary stents, we will hold off on aggressive IV hydration and instead give the patient diuresis given he has a wet sounding cough and peripheral edema in his legs. If he becomes hypotensive Lasix will need to be stopped and IV fluids will need to be started cautiously. (1) Multifocal pneumonia Chest x-ray showed bilateral opacities CTPA showed negative PE but did show multifocal pneumonia present Started on empiric ceftriaxone/azithromycin Respiratory culture not collected Blood cultures no growth Hold off on IV fluids in the setting of CHF exacerbation, may need to stop Lasix and start fluids if patient becomes septic and developed septic shock Bronchial hygiene Slow to improve, expect he needs several days in the hospital to see lasting meaningful improvement ICS and PEP (2) Acute on chronic systolic CHF (congestive heart failure) -acute systolic chf exacerbation -diuresis -fluid restriction -I/O monitoring -Cardiology outpt FU needed within 7 days of discharge -TTE showed EF, unable to assess diastolic function, new mild to moderate pulmonary hypertension -started appropriate goal directed cardiac meds -AICD consideration if EF falls to 35% or below Cardiology consulted (3) COPD (chronic obstructive pulmonary disease) No exacerbation, chronic Continue Singulair and Spiriva (4) Acute hypoxemic respiratory failure Multifactorial: Multifocal pneumonia, COPD, acute CHF exacerbation Treat underlying causes with antibiotics, diuresis, duo nebs as needed BiPAP as needed Supplemental oxygen (5) Chronic a-fib Continue home apixaban Rate controlled Continue home medications (6) HTN (hypertension) Home medications continue Controlled (7) HLD (hyperlipidemia) Is this a current diagnosis for this admission?: Yes (8) CAD (coronary artery disease) Status post CABG x5 and coronary stents per patient Cardiology consulted (9) Chronic kidney disease, stage III (moderate) - Time Time Spent with patient: 25-34 minutes Medications reviewed and adjusted accordingly: Yes Anticipated Discharge Disposition: Longterm Facility Anticipated Discharge Timeframe: within 72 hours - Inpatient Certification Based on my medical assessment, after consideration of the patient's comorbidities, presenting symptoms, or acuity I expect that the services needed warrant INPATIENT care.: Yes I certify that my determination is in accordance with my understanding of Medicare's requirements for reasonable and necessary INPATIENT services [42 CFR 412.3e].: Yes Medical Necessity: Significant Comorbidiites Make Outpatient Treatment Too [place], Need Close Monitoring Due to Risk of Patient Decompensation, Need for IV Antibiotics, Risk of Complication if Not Cared For in Hospital, Risk of Diagnosis Which Will Require Inpatient Eval/Care/Monitoring
--- NOTE | 2020-04-14 19:53 | CDI QUERY ---
CDI Query CDI Review: We are seeking further clarification of documentation to reflect the severity of illness of your patient. Per H&P: Patient technically meets criteria for sepsis however in the setting of severe coronary artery disease requiring multiple previous surgeries including a 5X CABG and coronary stents, we will hold off on aggressive IV hydration and instead give the patient diuresis given he has a wet sounding cough and peripheral edema in his legs. If he becomes hypotensive Lasix will need to be stopped and IV fluids will need to be started cautiously. Per Progress Notes: Hold off on IV fluids in the setting of CHF exacerbation, may need to stop Lasix and start fluids if patient becomes septic and developed septic shock Based on your medical judgement, can you further clarify in the Progress Notes and include in the Discharge Summary: Sepsis present on admission Sepsis resolved Sepsis ruled out Unable to determine Other Thank you for your consideration. RICKIE NarvaezN RN Clinical Subcontract Manager Physician Advisor
[2020-04-14] MEDS: GUAIFENESIN 600 MG TABLET.SA PO SCH ×2 (21:12→21:25)
[2020-04-14] MEDS: AZITHROMYCIN 500 MG in DEXTROSE 5%-WATER 250 ML IV SCH (21:22)
[2020-04-14] MEDS: ATORVASTATIN CALCIUM 40 MG TABLET PO SCH (21:25)
[2020-04-14] MEDS: FUROSEMIDE INJ/PF 20 MG/2 ML SDV IV SCH (21:25)
[2020-04-14] MEDS: MONTELUKAST SODIUM 10 MG TABLET PO SCH (21:25)
[2020-04-15] MEDS: ACETAMINOPHEN 325 MG TABLET PO PRN ×2 (04:50→18:14)
[2020-04-15] MEDS: PANTOPRAZOLE SODIUM 40 MG TABLET.DR PO SCH (05:00)
--- NOTE | 2020-04-15 08:13 | PDOC CONSULTATION ---
Consultation Consult Date: 04/15/20 Attending physician:: MARK PEREZ Provider Consulted: ROSA RIVERA Consult reason:: HF History of Present Illness Admission Date/PCP: 04/11/20 12:43 BLAINE MCKAY MD History of Present Illness: HARVEY YBARRA is a 79 year old male, well-known to me from prior evaluations in the outpatient setting, with history of three-vessel coronary artery disease status post CABG and status post LHC on 09/27/17 revealing SVG to OM with an 85% ostial stenosis followed by 70% stenosis in the mid vessel which was addressed with a 5.0 mm x 18 mm resolute KIMBERLY to the ostium and 4.0 mm x 18 mm Xience KIMBERLY to the mid vessel stenosis, heart failure with preserved ejection fraction, ascending aortic aneurysm, hypertension, permanent atrial fibrillation on Eliquis and hyperlipidemia who is consulted to our service for further evaluation of heart failure. The patient had been doing well until 2 to 3 days prior to admission when he began with shaking chills, subjective fevers, shortness of breath and cough. He was eventually admitted to our facility on 04/11/2020 when he was found to have multifocal pneumonia. He was also found to have a mildly elevated proBNP which is actually not too far of from his outpatient baseline level. Chart review demonstrates that he has progressed appropriately. This morning he has no cardiovascular complaints although continues to have fevers and cough. His telemetry demonstrates rate controlled atrial fibrillation. Physical exam on 04/15/2020: GENERAL: Pleasant and conversational. Oriented x3 with normal mood. Not in acute distress. Well groomed and well developed. HEENT: Normocephalic, atraumatic. Pupils equal. Sclerae anicteric. Oropharynx moist. NECK: No JVD. No carotid bruits. LUNGS: Inspiratory and expiratory wheezing in all gastelum. Normal respiratory effort without the use of accessory muscles or intercostal retractions. CARDIOVASCULAR: Irregularly irregular rate and rhythm, normal S1 and S2 without murmurs, rubs, or gallops. PMI not displaced. ABDOMEN: No masses or tenderness to palpation. No bruit. No splenomegaly or hepatomegaly. No abdominal aorta bruit noted. EXTREMITIES: No edema, no cyanosis, no clubbing. +2 pulses femoral and pedal pulses bilaterally. SKIN: No lesions or rashes. MUSCULOSKELETAL: No chest tenderness to palpation. NEUROLOGIC: Nonfocal. No gross sensory or motor deficits bilateral upper or lower extremities. Cardiac studies: Echocardiogram on 11/20/18: -At least normal in size. -Mild concentric LVH. -EF 55-60%. -Mild biatrial enlargement. -Mild MAC without stenosis. -Trace MR, mild TR, trace AI, trace PI. -Mildly dilated proximal ascending aorta at 3.9 cm. -Moderately dilated aortic root at 4.8 cm. LHC on 09/27/17: -Left main: 40-50% proximal stenosis. -LAD: 50% ostial stenosis followed by high-grade mid stenosis with occlusion in the midportion. -D1: Flush occlusion. -RCA: 100% proximally occluded. -PDA: 30-40% proximal stenosis. -SVG to RCA: Patent. -SVG to D1 -SVG to OM: 85% ostial stenosis followed by 70% stenosis in the mid vessel--> 5.0 mm x 18 mm resolute KIMBERLY to the ostium and 4.0 mm x 18 mm Xience KIMBERLY to the mid vessel stenosis.. -[place] to the LAD: Patent. Chest x-ray on 09/14/17: -Bypass of a scar atelectasis. -No acute pulmonary findings. -Borderline cardiomegaly. -Mild pulmonary vascular redistribution, cephalization, probably a chronic basis. Past Medical History Cardiac Medical History: Reports: Atrial Fibrillation, Congestive Heart Failure, Coronary Artery Disease, Hyperlipidema, Hypertension, Peripheral Vascular Disease Denies: DVT, Myocardial Infarction, Pulmonary Embolism Pulmonary Medical History: Reports: Bronchitis, Chronic Obstructive Pulmonary Disease (COPD), Pneumonia Denies: Asthma, Tuberculosis Neurological Medical History: Denies: Seizures Endocrine Medical History: Denies: Diabetes Mellitus Type 1, Diabetes Mellitus Type 2, Hyperthyroidism, Hypothyroidism Renal/ Medical History: Denies: End Stage Renal Disease GI Medical History: Reports: Gastroesophageal Reflux Disease Denies: Cirrhosis, Hepatitis, Hiatal Hernia Musculoskeltal Medical History: Denies: Arthritis Skin Medical History: Denies: Eczema, Psoriasis Psychiatric Medical History: Denies: Bipolar Disorder, Depression Hematology: Reports: Bleeding Tendencies Denies: Anemia, Sickle Cell Disease Past Surgical History Past Surgical History: Reports: Appendectomy, Cardiac Catheterization - at least 2 stents, Coronary Artery Bypass Graft - 5 VESSEL, September 1999, Coronary Stent - x2, Orthopedic Surgery - back, lt knee, Tonsillectomy Denies: Pacemaker Social History Lives with: Family Smoking Status: Former Smoker Frequency of Alcohol Use: None Hx Recreational Drug Use: No Drugs: None Hx Prescription Drug Abuse: No - Advance Directive Resuscitation Status: Full Code Family History Family History: Reviewed & Not Pertinent, CAD, COPD, Malignancy Parental Family History Reviewed: Yes Children Family History Reviewed: Yes Sibling(s) Family History Reviewed.: Yes Medication/Allergy Home Medications: Atorvastatin Calcium [Lipitor 40 mg Tablet] 40 mg PO QHS 04/11/19 Gabapentin [Neurontin 300 mg Capsule] 300 mg PO Q12 04/11/19 Montelukast Sodium [Singulair 10 mg Tablet] 10 mg PO QHS 04/11/19 Tiotropium [place] [Spiriva Respimat] 2 puff IH DAILY 04/11/19 Apixaban [Eliquis 5 mg Tablet] 5 mg PO BID 04/11/20 Cetirizine HCl [Zyrtec 10 mg Tablet] 10 mg PO DAILY 04/11/20 Ferrous Sulfate [Feosol 325 mg Tablet] 325 mg PO DAILY 04/11/20 Furosemide [Lasix 40 mg Tablet] 40 mg PO DAILY 04/11/20 Pantoprazole Sodium [Protonix [address] Tablet] 40 mg PO DAILY 04/11/20 Tamsulosin HCl [Flomax] 0.4 mg PO DAILY 04/11/20 Allergies/Adverse Reactions: codeine [Codeine] Adverse Reaction (Intermediate, Verified 04/11/20 09:24) Anxiety Physical Exam Vital Signs: Temp Pulse Resp BP Pulse Ox 99.7 F 94 19 116/72 93 04/15/20 05:50 04/15/20 04:09 04/15/20 04:09 04/15/20 04:09 04/15/20 04:09 Intake & Output 04/14/20 04/15/20 04/16/20 06:59 06:59 06:59 Intake Total 19770 Output Total 1104 4690 Balance 53 -450 Weight 90.1 kg 89.5 kg Results Laboratory Results: 04/14/20 05:50 04/14/20 05:55 04/14/20 05:50 WBC 14.2 H RBC 4.51 Hgb 14.5 Hct 42.3 MCV 94 MCH 32.1 MCHC 34.2 RDW 13.0 Plt Count 155 Seg Neutrophils % Not Reportable 04/11/20 09:37 Troponin I < 0.012 NT-Pro-B Natriuret Pep 1750 H Impressions: Chest X-Ray 04/11/20 09:30 IMPRESSION: Cardiomegaly and patchy bilateral basilar-predominant parenchymal opacities. Differential considerations include asymmetric pulmonary edema multifocal pneumonia. Chest/Abdomen CTA 04/11/20 12:23 IMPRESSION: Patchy consolidative opacities in the left upper lobe, left lower lobe and to a lesser extent the right lower lobe concerning for multifocal pneumonia. There is no central or segmental pulmonary embolus. Evaluation of the subsegmental branches of the pulmonary arteries is limited due to respiratory motion artifact. 04/14/20 05:50 04/14/20 05:55 MCV 94 fl (80-97) 04/14/20 05:50 MCH 32.1 pg (27.0-33.4) 04/14/20 05:50 MCHC 34.2 g/dL (32.0-36.0) 04/14/20 05:50 RDW 13.0 % (11.5-14.0) 04/14/20 05:50 Seg Neutrophils % Not Reportable 04/14/20 05:50 Carbonic Acid 1.08 mmol/L (1.05-1.35) 04/11/20 11:18 HCO3/H2CO3 Ratio 21:1 04/11/20 11:18 ABG pH 7.43 (7.35-7.45) 04/11/20 11:18 ABG pCO2 35.9 mmHg (35-45) 04/11/20 11:18 ABG pO2 95.1 mmHg (80-100) 04/11/20 11:18 ABG HCO3 23.1 mmol/L (20-24) 04/11/20 11:18 ABG O2 Saturation 97.5 % (94-98) 04/11/20 11:18 ABG Base Excess -0.8 mmol/L 04/11/20 11:18 FiO2 40% 04/11/20 11:18 Chloride 97 mmol/L (98-107) L 04/14/20 05:55 Carbon Dioxide 31 mmol/L (22-30) H 04/14/20 05:55 Anion Gap 9 (5-19) 04/14/20 05:55 Est GFR ( Amer) > 60 (>60) 04/14/20 05:55 Glucose 116 mg/dL (75-110) H 04/14/20 05:55 Lactic Acid 1.8 mmol/L (0.7-2.1) 04/11/20 09:37 Calcium 8.9 mg/dL (8.4-10.2) 04/14/20 05:55 Phosphorus 3.8 mg/dL (2.5-4.5) 04/12/20 05:04 Magnesium 1.8 mg/dL (1.6-2.3) 04/12/20 05:04 Total Bilirubin 2.2 mg/dL (0.2-1.3) H 04/11/20 09:37 AST 24 U/L (17-59) 04/11/20 09:37 Alkaline Phosphatase 100 U/L (38-126) 04/11/20 09:37 Total Protein 7.7 g/dL (6.3-8.2) 04/11/20 09:37 Albumin 4.7 g/dL (3.5-5.0) 04/11/20 09:37 Urine Color Cancelled 04/11/20 09:37 Urine Color YELLOW 04/11/20 09:37 Urine Appearance CLEAR 04/11/20 09:37 Urine Appearance Cancelled 04/11/20 09:37 Urine pH 5.0 (5.0-9.0) 04/11/20 09:37 Urine pH Cancelled 04/11/20 09:37 Ur Specific [place] 1.014 04/11/20 09:37 Ur Specific [place] Cancelled 04/11/20 09:37 Urine Protein Cancelled 04/11/20 09:37 Urine Protein NEGATIVE mg/dL (NEGATIVE) 04/11/20 09:37 Urine Glucose (UA) Cancelled 04/11/20 09:37 Urine Glucose (UA) NEGATIVE mg/dL (NEGATIVE) 04/11/20 09:37 Urine Ketones Cancelled 04/11/20 09:37 Urine Ketones NEGATIVE mg/dL (NEGATIVE) 04/11/20 09:37 Urine Blood Cancelled 04/11/20 09:37 Urine Blood NEGATIVE (NEGATIVE) 04/11/20 09:37 Urine Nitrite Cancelled 04/11/20 09:37 Urine Nitrite NEGATIVE (NEGATIVE) 04/11/20 09:37 Ur Leukocyte Esterase Cancelled 04/11/20 09:37 Ur Leukocyte Esterase NEGATIVE (NEGATIVE) 04/11/20 09:37 Urine WBC (Auto) 0 /HPF 04/11/20 09:37 Urine WBC (Auto) Cancelled 04/11/20 09:37 Urine RBC (Auto) 1 /HPF 04/11/20 09:37 Urine RBC (Auto) Cancelled 04/11/20 09:37 04/11/20 09:37 Troponin I < 0.012 NT-Pro-B Natriuret Pep 1750 H Current Medication List Generic Name Dose Route Start Last Admin Trade Name Freq PRN Reason Stop Dose Admin Acetaminophen 650 mg 04/11/20 18:26 04/15/20 04:50 Acetaminophen 325 Mg Tablet PO 05/11/20 18:25 650 mg Q4HP PRN Administration Pain or fever Albuterol/Ipratropium 3 ml 04/11/20 18:26 Ipratropium/Albuterol 0.5-2.5 Mg/3 Ml Ampul NEB 05/11/20 18:25 RTQ2HP PRN SHORTNESS OF BREATH Apixaban 5 mg 04/12/20 10:00 04/14/20 17:15 Apixaban 5 Mg Tablet PO 05/12/20 09:59 5 mg BID DELORES Administration Atorvastatin Calcium 40 mg 04/11/20 22:00 04/14/20 21:25 Atorvastatin Calcium 40 Mg Tablet PO 05/11/20 21:59 40 mg QHS DELORES Administration Cetirizine HCl 10 mg 04/12/20 10:00 04/14/20 09:31 Cetirizine 10 Mg Tablet PO 05/12/20 09:59 10 mg DAILY DELORES Administration Docusate Sodium 100 mg 04/12/20 10:00 04/14/20 09:30 Docusate Sodium 100 Mg Capsule PO 05/12/20 09:59 100 mg DAILY DELORES Administration Ferrous Sulfate 325 mg 04/12/20 10:00 04/14/20 09:31 Ferrous Sulfate 325 Mg Tablet PO 05/12/20 09:59 325 mg DAILY DELORES Administration Furosemide 20 mg 04/14/20 22:00 04/14/20 21:25 Furosemide Inj/Pf 20 Mg/2 Ml Sdv IV 05/12/20 21:59 20 mg Q12 DELORES Administration Gabapentin 300 mg 04/11/20 22:00 04/14/20 21:25 Gabapentin 300 Mg Capsule PO 05/11/20 21:59 300 mg Q12 DELORES Administration Guaifenesin 600 mg 04/14/20 19:00 04/14/20 21:25 Guaifenesin 600 Mg Tablet.Sa PO 05/14/20 18:59 600 mg Q12 DELORES Administration Ceftriaxone Sodium/Dextrose 2 gm in 50 mls @ 100 mls/hr 04/11/20 10:00 04/14/20 09:58 Rocephin Rtu 2 Gm/D5w 50 Ml Premix Bag IV 04/18/20 09:59 Infused DAILY DELORES Infusion Azithromycin 500 mg/ Dextrose 250 mls @ 250 mls/hr 04/11/20 22:00 04/14/20 22:22 IV 04/18/20 21:59 Infused QHS DELORES Infusion Montelukast Sodium 10 mg 04/11/20 22:00 04/14/20 21:25 Montelukast Sodium 10 Mg Tablet PO 05/11/20 21:59 10 mg QHS DELORES Administration Ondansetron HCl 4 mg 04/11/20 18:26 Ondansetron 4 Mg Tab.Rapdis PO 05/11/20 18:25 Q4HP PRN FOR NAUSEA/VOMITING Ondansetron HCl 4 mg 04/11/20 18:26 Ondansetron Hcl Inj/Pf 4 Mg/2 Ml Sdv IV 05/11/20 18:25 Q4HP PRN FOR NAUSEA/VOMITING Pantoprazole Sodium 40 mg 04/12/20 06:00 04/15/20 05:00 Pantoprazole Sodium 40 Mg Tablet.Dr PO 05/12/20 05:59 40 mg Q6AM DELORES Administration Potassium Chloride 20 meq 04/13/20 11:30 04/14/20 21:25 Potassium Chloride 20 Meq Packet PO 05/13/20 11:29 20 meq Q12 DELORES Administration Tamsulosin HCl 0.4 mg 04/12/20 10:00 04/14/20 09:31 Tamsulosin Hcl 0.4 Mg Cap.Sr.24h PO 05/12/20 09:59 0.4 mg DAILY DELORES Administration Umeclidinium [place] 1 inh 04/12/20 10:00 04/14/20 09:31 Umeclidinium [place] 62.5 Mcg/Dose IH 05/12/20 09:59 1 inhaler DAILY DELORES Administration Discontinued Medications Generic Name Dose Route Start Last Admin Trade Name Meghann PRN Reason Stop Dose Admin Furosemide 40 mg 04/11/20 10:02 04/11/20 10:16 Furosemide Inj/Pf 40 Mg/4 Ml Sdv IV 04/11/20 10:03 40 mg NOW ONE Administration Furosemide 40 mg 04/11/20 22:00 04/12/20 09:48 Furosemide Inj/Pf 40 Mg/4 Ml Sdv IV 05/11/20 21:59 40 mg Q12 DELORES Administration Furosemide 20 mg 04/12/20 22:00 04/14/20 09:30 Furosemide Inj/Pf 40 Mg/4 Ml Sdv IV 05/12/20 21:59 20 mg Q12 DELORES Administration Assessment & Plan - Diagnosis (1) Heart failure with preserved ejection fraction Is this a current diagnosis for this admission?: Yes Plan: The patient is euvolemic at this point, no evidence of fluid overload on physical exam. His net fluid balance is -2 L. He is not on GDMT yet. In the outpatient setting he was on lisinopril 5 mg daily, we held his beta-harsha because of episodes of hypotension. His blood pressure is currently at goal. His echocardiogram on 04/14/2020 demonstrated a normal ejection fraction. Recommendations: -May switch Lasix IV to Lasix p.o. 40 mg daily as tolerated by his blood pressure. -Restart lisinopril at a lower dose at 2.5 mg daily. -Restrict fluid intake to 1500 cc daily. -Low sodium diet, less than 1500 mg daily. -Strict intake and output. -Daily weights. -Continue with daily BMP and magnesium and replace electrolytes as needed. (2) Coronary artery disease Qualifiers: Coronary Disease-Associated Artery/Lesion type: bypass graft, autologous artery Is this a current diagnosis for this admission?: Yes Plan: [facility] on 09/27/17 was most remarkable for his SVG to OM with an 85% ostial stenosis followed by 70% stenosis in the mid vessel which was addressed with a 5.0 mm x 18 mm resolute KIMBERLY to the ostium and 4.0 mm x 18 mm Xience KIMBERLY to the mid vessel stenosis. He has remained free of angina, anginal equivalents. Recommendations: -Continue with current medical management. -We will continue to hold his beta-harsha due to his persistent wheezing. (3) HLD (hyperlipidemia) Is this a current diagnosis for this admission?: Yes Plan: Continue with current medical management. (4) HTN (hypertension) Qualifiers: Hypertension type: essential hypertension Qualified Code(s): I10 - Essential (primary) hypertension Is this a current diagnosis for this admission?: Yes Plan: His blood pressure is at goal. We will continue with current medical management. (5) Ascending aortic aneurysm Plan: His CTA during this admission demonstrated a stable aneurysm measuring 4.5 cm which is unchanged from a prior study in August 2017. His blood pressure is at goal. Recommendations: -Continue with current medical management. -Repeat CTA of the chest in April 2021. (6) Permanent atrial fibrillation Is this a current diagnosis for this admission?: Yes Plan: He is currently rate controlled and anticoagulated with Eliquis 5 mg twice daily without bleeding complications. Recommendations: -Continue with current medical management.
[2020-04-15] MEDS: GUAIFENESIN 600 MG TABLET.SA PO SCH ×2 (10:00→22:08)
[2020-04-15] MEDS: FUROSEMIDE INJ/PF 20 MG/2 ML SDV IV SCH ×2 (10:01→22:08)
[2020-04-15] MEDS: CEFTRIAXONE 2 GM/D5W RTU 2 GM/50 ML RTUPB IV SCH (10:02)
[2020-04-15] MEDS: TAMSULOSIN HCL 0.4 MG CAP.SR.24H PO SCH (10:02)
[2020-04-15] MEDS: DOCUSATE SODIUM 100 MG CAPSULE PO SCH (10:02)
[2020-04-15] MEDS: CETIRIZINE 10 MG TABLET PO SCH (10:02)
[2020-04-15] MEDS: FERROUS SULFATE 325 MG TABLET PO SCH (10:02)
[2020-04-15] MEDS: APIXABAN 5 MG TABLET PO SCH ×2 (10:02→18:14)
[2020-04-15] MEDS: GABAPENTIN 300 MG CAPSULE PO SCH ×2 (10:02→22:08)
[2020-04-15] MEDS: POTASSIUM CHLORIDE 20 MEQ PACKET PO SCH ×2 (10:02→22:09)
[2020-04-15] MEDS: UMECLIDINIUM BROMIDE 62.5 MCG/DOSE IH SCH (10:23)
--- NOTE | 2020-04-15 20:47 | PDOC PROGRESS REPORT ---
Subjective Date:: 04/15/20 Subjective:: HARVEY YBARRA is a 79 year old male with past medical history significant for CAD status post CABG x5 and stents, COPD, HTN, HLD, paroxysmal atrial fibrillation on Eliquis, history of pneumonia who presents to the ED with 2-day history of progressive shortness of breath/REY/cough which patient states became so severe that he was extremely weak unable to walk across the room. Patient was brought to ED and placed on BiPAP. ABG obtained on BiPAP at 40% supplemental oxygen did not show significant hypoxemia or hypercarbia and pH was normal. Clinically, patient is in acute respiratory distress requiring BiPAP and supplemental oxygen. Chest x-ray showed patchy bilateral basilar opacities. CTPA was negative for PE but did show multifocal pneumonia. Per nursing, patient had a fever on admission. Patient does not recall having fevers at home. COVID-19 rapid test was obtained and this is negative. WBC count up to 13.5 with a left shift. BNP elevated to 1750. Suspect CHF exacerbated by multifocal pneumonia. We will treat cautiously with IV Lasix and close hemody namic monitoring. Patient technically meets criteria for sepsis however in the setting of severe coronary artery disease requiring multiple previous surgeries including a 5X CABG and coronary stents, we will hold off on aggressive IV hydration and instead give the patient diuresis given he has a wet sounding cough and peripheral edema in his legs. If he becomes hypotensive Lasix will need to be stopped and IV fluids will need to be started cautiously. -Previous Hospitalist notes- 04/12/2020 Patient's breathing seems to be significantly improved from yesterday on admission. He is now off the BiPAP and on nasal cannula but still requiring 6 L. Patient states he is on baseline of 2 L nasal cannula with exertion at home. He denies using supplemental oxygen at rest at baseline. Blood cultures are still pending but negative so far. Rapid viral testing for Covid, flu, and RSV was negative on admission. Antibiotics continue. Patient has no new specific complaints. 04/13/2020 Patient is doing better than yesterday in terms of his temperature curve and his breathing. We need to be actively weaning his supplemental oxygen to an appropriate level for COPD. I discussed this with nursing. Potassium is low we will replete this. Creatinine is essentially the same for the third time in a row. Blood cultures negative. Antibiotics continue. Patient has no new complaints. 04/14/2020 Patient seems to be improved today and is breathing comfortably on nasal cannula. His fever curve is trending down though he did have some fevers up to 100.4 overnight. I discussed with nursing we need to continue to aggressively wean his supplemental oxygen. Patient must use incentive spirometer and flutter valve Pep. I ordered Mucinex to help clear some of the mucus he has in his upper airway. I expect him to remain hospitalized for another 2 to 3 days as he is extremely slow to recover from this pneumonia. - Current hospitalist notes- 04/15/20 Care assumed today. He was seen and examined at bedside. Still feels weak but respiratory-kwok he feels much better. He was seen by Dr. grewal today who recommended to start him on 2.5mg of lisinopril. Currently on ceftri and azithro for CAP, blood culture negative so far. Reason For Visit: ACUTE ON CHRONIC SYSTOLIC CHF EXACERBATION,ACUTE Physical Exam Vital Signs: Temp Pulse Resp BP Pulse Ox 100.1 F 91 20 116/68 98 04/15/20 19:41 04/15/20 16:54 04/15/20 16:54 04/15/20 16:54 04/15/20 16:54 Intake & Output 04/14/20 04/15/20 04/16/20 06:59 06:59 06:59 Intake Total 1977 1220 930 Output Total 5 1670 575 Balance 53 -450 355 Weight 90.1 kg 89.5 kg General appearance: PRESENT: cooperative, mild distress Head exam: PRESENT: atraumatic, normocephalic Eye exam: PRESENT: EOMI, PERRLA Mouth exam: PRESENT: moist Neck exam: PRESENT: full ROM Respiratory exam: PRESENT: rales, symmetrical, unlabored Cardiovascular exam: PRESENT: RRR, +S1, +S2 Pulses: PRESENT: +2 pedal pulses bilateral GI/Abdominal exam: PRESENT: normal bowel sounds, soft. ABSENT: rebound, tenderness Extremities exam: PRESENT: full ROM Musculoskeletal exam: PRESENT: full ROM Neurological exam: PRESENT: alert, awake, oriented to person, oriented to place, oriented to time, oriented to situation Psychiatric exam: PRESENT: normal mood Skin exam: PRESENT: normal color Results Laboratory Results: 04/14/20 05:50 04/14/20 05:55 04/11/20 09:37 Troponin I < 0.012 NT-Pro-B Natriuret Pep 1750 H Impressions: Chest X-Ray 04/11/20 09:30 IMPRESSION: Cardiomegaly and patchy bilateral basilar-predominant parenchymal opacities. Differential considerations include asymmetric pulmonary edema multifocal pneumonia. Chest/Abdomen CTA 04/11/20 12:23 IMPRESSION: Patchy consolidative opacities in the left upper lobe, left lower lobe and to a lesser extent the right lower lobe concerning for multifocal pneumonia. There is no central or segmental pulmonary embolus. Evaluation of the subsegmental branches of the pulmonary arteries is limited due to respiratory motion artifact. Assessment and Plan - Diagnosis (1) Acute hypoxemic respiratory failure Is this a current diagnosis for this admission?: Yes Plan: Multifactorial: Multifocal pneumonia, COPD, acute CHF exacerbation Treat underlying causes with antibiotics, diuresis, duo nebs as needed BiPAP as needed Supplemental oxygen. Wean off as tolerated (2) Multifocal pneumonia Is this a current diagnosis for this admission?: Yes Plan: Chest x-ray showed bilateral opacities CTPA showed negative PE but did show multifocal pneumonia present -Covid negative Started on empiric ceftriaxone/azithromycin Respiratory culture growing gram-positive cocci in clusters Blood cultures negative x48 hour Bronchial hygiene (3) Acute on chronic systolic CHF (congestive heart failure) Is this a current diagnosis for this admission?: Yes Plan: -acute systolic chf exacerbation - TTE EF 60 to 65%, LV diastolic function could not be adequately assessed, mild to moderate elevated pulmonary pressures estimated between 45 and 50 -diuretics with lasix 20 mg Iv daily -started on lisinopril, on statin -fluid restriction -I/O monitoring -Cardiology outpt FU needed within 7 days of discharge (4) COPD (chronic obstructive pulmonary disease) Qualifiers: COPD type: unspecified COPD Qualified Code(s): J44.9 - Chronic obstructive pulmonary disease, unspecified Is this a current diagnosis for this admission?: Yes Plan: -Continue Singulair and Spiriva (5) Chronic a-fib Is this a current diagnosis for this admission?: Yes Plan: Continue home apixaban Rate controlled Continue home medications (6) Coronary artery disease Qualifiers: Coronary Disease-Associated Artery/Lesion type: bypass graft, autologous artery Is this a current diagnosis for this admission?: Yes Plan: On statin and lisinopril -Not on aspirin (7) HLD (hyperlipidemia) Is this a current diagnosis for this admission?: Yes Plan: -Continue statin (8) HTN (hypertension) Qualifiers: Hypertension type: essential hypertension Qualified Code(s): I10 - Essential (primary) hypertension Is this a current diagnosis for this admission?: Yes Plan: Started on lisinopril 2.5 mg daily, beta-harsha held due to wheezing? Controlled (9) Chronic kidney disease, stage III (moderate) Is this a current diagnosis for this admission?: Yes Plan: - Crea 1.13 (10) Ascending aortic aneurysm Is this a current diagnosis for this admission?: Yes Plan: His CTA during this admission demonstrated a stable aneurysm measuring 4.5 cm which is unchanged from a prior study in August 2017. His blood pressure is at goal. Recommendations: -Continue with current medical management. -Repeat CTA of the chest in April 2021. (11) Physical deconditioning Is this a current diagnosis for this admission?: Yes Plan: - PT/OT - - Time Time Spent with patient: 25-34 minutes Medications reviewed and adjusted accordingly: Yes Anticipated Discharge Disposition: Home with Home Health Anticipated Discharge Timeframe: TBD
[2020-04-15] MEDS: ATORVASTATIN CALCIUM 40 MG TABLET PO SCH (22:08)
[2020-04-15] MEDS: MONTELUKAST SODIUM 10 MG TABLET PO SCH (22:09)
[2020-04-15] MEDS: AZITHROMYCIN 500 MG in DEXTROSE 5%-WATER 250 ML IV SCH (22:11)
[2020-04-16] MEDS: PANTOPRAZOLE SODIUM 40 MG TABLET.DR PO SCH (06:52)
[2020-04-16 09:45] LABS: ANION GAP 9 (5-19); BLOOD UREA NITROGEN 34 mg/dL (7-20); CARBON DIOXIDE 29 mmol/L (22-30); CHLORIDE 96 mmol/L (98-107); GLUCOSE 110 mg/dL (75-110); POTASSIUM 4.1 mmol/L (3.6-5.0)
[2020-04-16] MEDS: ACETAMINOPHEN 325 MG TABLET PO PRN ×2 (09:59→23:52)
[2020-04-16] MEDS: POTASSIUM CHLORIDE 20 MEQ PACKET PO SCH ×2 (09:59→23:43)
[2020-04-16] MEDS: CEFTRIAXONE 2 GM/D5W RTU 2 GM/50 ML RTUPB IV SCH (09:59)
[2020-04-16] MEDS: LISINOPRIL 5 MG TABLET PO SCH (10:00)
[2020-04-16] MEDS: APIXABAN 5 MG TABLET PO SCH ×2 (10:00→17:25)
[2020-04-16] MEDS: TAMSULOSIN HCL 0.4 MG CAP.SR.24H PO SCH (10:01)
[2020-04-16] MEDS: FUROSEMIDE INJ/PF 20 MG/2 ML SDV IV SCH (10:01)
[2020-04-16] MEDS: CETIRIZINE 10 MG TABLET PO SCH (10:01)
[2020-04-16] MEDS: GUAIFENESIN 600 MG TABLET.SA PO SCH ×2 (10:01→23:43)
[2020-04-16] MEDS: DOCUSATE SODIUM 100 MG CAPSULE PO SCH (10:01)
[2020-04-16] MEDS: GABAPENTIN 300 MG CAPSULE PO SCH ×2 (10:01→23:43)
[2020-04-16] MEDS: FERROUS SULFATE 325 MG TABLET PO SCH (10:01)
[2020-04-16] MEDS: UMECLIDINIUM BROMIDE 62.5 MCG/DOSE IH SCH (10:02)
--- NOTE | 2020-04-16 10:17 | RADIOLOGY REPORT (SQ) ---
EXAM DESCRIPTION: CHEST 2 VIEWS IMAGES COMPLETED DATE/TIME: 04/16/2020 9:30 am REASON FOR STUDY: Heart failure and pneumonia COMPARISON: 04/11/2020 EXAM PARAMETERS: NUMBER OF VIEWS: two views TECHNIQUE: Digital Frontal and Lateral radiographic views of the chest acquired. RADIATION DOSE: NA LIMITATIONS: none FINDINGS: LUNGS AND PLEURA: Persistent patchy bibasilar airspace disease. Possible trace bilateral effusions. No pneumothorax. MEDIASTINUM AND HILAR STRUCTURES: Stable status post sternotomy. HEART AND VASCULAR STRUCTURES: Enlarged, stable. Vascular calcifications. BONES: No acute findings. Sternotomy changes. HARDWARE: Sternotomy changes. OTHER: No other significant finding. IMPRESSION: Stable enlarged cardiac silhouette and patchy bibasilar opacities suspicious for pneumon ia. TECHNICAL DOCUMENTATION: JOB ID: [id number] 2010 [employer]- All Rights Reserved Reading location - IP/workstation name: [email or web address]
--- NOTE | 2020-04-16 11:20 | PDOC PROGRESS REPORT ---
Subjective Date:: 04/16/20 Subjective:: HARVEY YBARRA is a 79 year old male, well-known to me from prior evaluations i n the outpatient setting, with history of three-vessel coronary artery disease status post CABG and status post LHC on 09/27/17 revealing SVG to OM with an 85% ostial stenosis followed by 70% stenosis in the mid vessel which was addressed with a 5.0 mm x 18 mm resolute KIMBERLY to the ostium and 4.0 mm x 18 mm Xience KIMBERLY to the mid vessel stenosis, heart failure with preserved ejection fraction, ascending aortic aneurysm, hypertension, permanent atrial fibrillation on Eliquis and hyperlipidemia who is consulted to our service for further evaluation of heart failure. The patient had been doing well until 2 to 3 days prior to admission when he began with shaking chills, subjective fevers, shortness of breath and cough. He was eventually admitted to our facility on 04/11/2020 when he was found to have multifocal pneumonia. He was also found to have a mildly elevated proBNP which is actually not too far of from his outpatient baseline level. Chart review demonstrates that he has progressed appropriately. This morning he has no cardiovascular complaints although continues to have fevers and cough. His telemetry demonstrates rate controlled atrial fibrillation. 04/16/2020: The patient had an uneventful night from the cardiovascular standpoint however states that he did have a rough night from coughing and shortness of breath. His telemetry shows controlled atrial fibrillation without any significant ventricular dysrhythmias. Physical exam on 04/15/2020: GENERAL: Pleasant and conversational. Oriented x3 with normal mood. Not in acute distress. Well groomed and well developed. Appears more tired than yesterday. HEENT: Normocephalic, atraumatic. Pupils equal. Sclerae anicteric. Oropharynx moist. NECK: No JVD. No carotid bruits. LUNGS: Inspiratory and expiratory wheezing in all gastelum. Normal respiratory effort without the use of accessory muscles or intercostal retractions. CARDIOVASCULAR: Irregularly irregular rate and rhythm, no murmurs, rubs, or gallops. PMI not displaced. ABDOMEN: No masses or tenderness to palpation. No bruit. No splenomegaly or hepatomegaly. No abdominal aorta bruit noted. EXTREMITIES: No edema, no cyanosis, no clubbing. +2 pulses femoral and pedal pulses bilaterally. SKIN: No lesions or rashes. MUSCULOSKELETAL: No chest tenderness to palpation. NEUROLOGIC: Nonfocal. No gross sensory or motor deficits bilateral upper or lower extremities. Cardiac studies: Echocardiogram on 11/20/18: -At least normal in size. -Mild concentric LVH. -EF 55-60%. -Mild biatrial enlargement. -Mild MAC without stenosis. -Trace MR, mild TR, trace AI, trace PI. -Mildly dilated proximal ascending aorta at 3.9 cm. -Moderately dilated aortic root at 4.8 cm. LHC on 09/27/17: -Left main: 40-50% proximal stenosis. -LAD: 50% ostial stenosis followed by high-grade mid stenosis with occlusion in the midportion. -D1: Flush occlusion. -RCA: 100% proximally occluded. -PDA: 30-40% proximal stenosis. -SVG to RCA: Patent. -SVG to D1 -SVG to OM: 85% ostial stenosis followed by 70% stenosis in the mid vessel--> 5.0 mm x 18 mm resolute KIMBERLY to the ostium and 4.0 mm x 18 mm Xience KIMBERLY to the mid vessel stenosis.. -[place]OD to the LAD: Patent. Chest x-ray on 09/14/17: -Bypass of a scar atelectasis. -No acute pulmonary findings. -Borderline cardiomegaly. -Mild pulmonary vascular redistribution, cephalization, probably a chronic basis. Reason For Visit: ACUTE ON CHRONIC SYSTOLIC CHF EXACERBATION,ACUTE Physical Exam Vital Signs: Temp Pulse Resp BP Pulse Ox 99.1 F 91 20 126/78 H 95 04/16/20 10:00 04/16/20 08:08 04/16/20 08:08 04/16/20 08:08 04/16/20 08:08 Intake & Output 04/15/20 04/16/20 04/17/20 06:59 06:59 06:59 Intake Total 1220 1450 Output Total 1670 1350 Balance -450 100 Weight 89.5 kg 88.5 kg Results Laboratory Results: 04/14/20 05:50 04/16/20 08:25 04/16/20 08:25 Sodium 133.7 L Potassium 4.1 Chloride 96 L Carbon Dioxide 29 Anion Gap 9 BUN 34 H Creatinine 0.97 Est GFR ( Amer) > 60 Glucose 110 Calcium 9.0 04/11/20 10:36 Blood Blood Culture - Final NO GROWTH IN 5 DAYS 04/11/20 09:37 Blood Blood Culture - Final NO GROWTH IN 5 DAYS 04/11/20 04/16/20 09:37 08:25 Troponin I < 0.012 NT-Pro-B Natriuret Pep 1750 H 631 H Impressions: Chest/Abdomen CTA 04/11/20 12:23 IMPRESSION: Patchy consolidative opacities in the left upper lobe, left lower lobe and to a lesser extent the right lower lobe concerning for multifocal pneumonia. There is no central or segmental pulmonary embolus. Evaluation of the subsegmental branches of the pulmonary arteries is limited due to respiratory motion artifact. Chest X-Ray 04/16/20 08:05 IMPRESSION: Stable enlarged cardiac silhouette and patchy bibasilar opacities suspicious for pneumonia. 04/14/20 05:50 04/16/20 08:25 MCV 94 fl (80-97) 04/14/20 05:50 MCH 32.1 pg (27.0-33.4) 04/14/20 05:50 MCHC 34.2 g/dL (32.0-36.0) 04/14/20 05:50 RDW 13.0 % (11.5-14.0) 04/14/20 05:50 Seg Neutrophils % Not Reportable 04/14/20 05:50 Carbonic Acid 1.08 mmol/L (1.05-1.35) 04/11/20 11:18 HCO3/H2CO3 Ratio 21:1 04/11/20 11:18 ABG pH 7.43 (7.35-7.45) 04/11/20 11:18 ABG pCO2 35.9 mmHg (35-45) 04/11/20 11:18 ABG pO2 95.1 mmHg (80-100) 04/11/20 11:18 ABG HCO3 23.1 mmol/L (20-24) 04/11/20 11:18 ABG O2 Saturation 97.5 % (94-98) 04/11/20 11:18 ABG Base Excess -0.8 mmol/L 04/11/20 11:18 FiO2 40% 04/11/20 11:18 Chloride 96 mmol/L (98-107) L 04/16/20 08:25 Carbon Dioxide 29 mmol/L (22-30) 04/16/20 08:25 Anion Gap 9 (5-19) 04/16/20 08:25 Est GFR ( Amer) > 60 (>60) 04/16/20 08:25 Glucose 110 mg/dL (75-110) 04/16/20 08:25 Lactic Acid 1.8 mmol/L (0.7-2.1) 04/11/20 09:37 Calcium 9.0 mg/dL (8.4-10.2) 04/16/20 08:25 Phosphorus 3.8 mg/dL (2.5-4.5) 04/12/20 05:04 Magnesium 1.8 mg/dL (1.6-2.3) 04/12/20 05:04 Total Bilirubin 2.2 mg/dL (0.2-1.3) H 04/11/20 09:37 AST 24 U/L (17-59) 04/11/20 09:37 Alkaline Phosphatase 100 U/L (38-126) 04/11/20 09:37 Total Protein 7.7 g/dL (6.3-8.2) 04/11/20 09:37 Albumin 4.7 g/dL (3.5-5.0) 04/11/20 09:37 Urine Color Cancelled 04/11/20 09:37 Urine Color YELLOW 04/11/20 09:37 Urine Appearance CLEAR 04/11/20 09:37 Urine Appearance Cancelled 04/11/20 09:37 Urine pH 5.0 (5.0-9.0) 04/11/20 09:37 Urine pH Cancelled 04/11/20 09:37 Ur Specific [place] 1.014 04/11/20 09:37 Ur Specific Ovid Cancelled 04/11/20 09:37 Urine Protein Cancelled 04/11/20 09:37 Urine Protein NEGATIVE mg/dL (NEGATIVE) 04/11/20 09:37 Urine Glucose (UA) Cancelled 04/11/20 09:37 Urine Glucose (UA) NEGATIVE mg/dL (NEGATIVE) 04/11/20 09:37 Urine Ketones Cancelled 04/11/20 09:37 Urine Ketones NEGATIVE mg/dL (NEGATIVE) 04/11/20 09:37 Urine Blood Cancelled 04/11/20 09:37 Urine Blood NEGATIVE (NEGATIVE) 04/11/20 09:37 Urine Nitrite Cancelled 04/11/20 09:37 Urine Nitrite NEGATIVE (NEGATIVE) 04/11/20 09:37 Ur Leukocyte Esterase Cancelled 04/11/20 09:37 Ur Leukocyte Esterase NEGATIVE (NEGATIVE) 04/11/20 09:37 Urine WBC (Auto) 0 /HPF 04/11/20 09:37 Urine WBC (Auto) Cancelled 04/11/20 09:37 Urine RBC (Auto) 1 /HPF 04/11/20 09:37 Urine RBC (Auto) Cancelled 04/11/20 09:37 04/11/20 10:36 Blood Blood Culture - Final NO GROWTH IN 5 DAYS 04/11/20 09:37 Blood Blood Culture - Final NO GROWTH IN 5 DAYS 04/11/20 04/16/20 09:37 08:25 Troponin I < 0.012 NT-Pro-B Natriuret Pep 1750 H 631 H Current Medication List Generic Name Dose Route Start Last Admin Trade Name Freq PRN Reason Stop Dose Admin Acetaminophen 650 mg 04/11/20 18:26 04/16/20 09:59 Acetaminophen 325 Mg Tablet PO 05/11/20 18:25 650 mg Q4HP PRN Administration Pain or fever Albuterol/Ipratropium 3 ml 04/11/20 18:26 Ipratropium/Albuterol 0.5-2.5 Mg/3 Ml Ampul NEB 05/11/20 18:25 RTQ2HP PRN SHORTNESS OF BREATH Apixaban 5 mg 04/12/20 10:00 04/16/20 10:00 Apixaban 5 Mg Tablet PO 05/12/20 09:59 5 mg BID DELORES Administration Atorvastatin Calcium 40 mg 04/11/20 22:00 04/15/20 22:08 Atorvastatin Calcium 40 Mg Tablet PO 05/11/20 21:59 40 mg QHS DELORES Administration Cetirizine HCl 10 mg 04/12/20 10:00 04/16/20 10:01 Cetirizine 10 Mg Tablet PO 05/12/20 09:59 10 mg DAILY DELORES Administration Docusate Sodium 100 mg 04/12/20 10:00 04/16/20 10:01 Docusate Sodium 100 Mg Capsule PO 05/12/20 09:59 100 mg DAILY DELORES Administration Ferrous Sulfate 325 mg 04/12/20 10:00 04/16/20 10:01 Ferrous Sulfate 325 Mg Tablet PO 05/12/20 09:59 325 mg DAILY DELORES Administration Furosemide 20 mg 04/14/20 22:00 04/16/20 10:01 Furosemide Inj/Pf 20 Mg/2 Ml Sdv IV 05/12/20 21:59 20 mg Q12 DELORES Administration Gabapentin 300 mg 04/11/20 22:00 04/16/20 10:01 Gabapentin 300 Mg Capsule PO 05/11/20 21:59 300 mg Q12 DELORES Administration Guaifenesin 600 mg 04/14/20 19:00 04/16/20 10:01 Guaifenesin 600 Mg Tablet.Sa PO 05/14/20 18:59 600 mg Q12 DELORES Administration Ceftriaxone Sodium/Dextrose 2 gm in 50 mls @ 100 mls/hr 04/11/20 10:00 04/16/20 09:59 Rocephin Rtu 2 Gm/D5w 50 Ml Premix Bag IV 04/18/20 09:59 100 mls/hr DAILY DELORES 100 mls/hr Administration Azithromycin 500 mg/ Dextrose 250 mls @ 250 mls/hr 04/11/20 22:00 04/16/20 00:12 IV 04/18/20 21:59 Infused QHS DELORES Infusion Lisinopril 2.5 mg 04/16/20 10:00 04/16/20 10:00 Lisinopril 5 Mg Tablet PO 05/16/20 09:59 2.5 mg DAILY DELORES Administration Montelukast Sodium 10 mg 04/11/20 22:00 04/15/20 22:09 Montelukast Sodium 10 Mg Tablet PO 05/11/20 21:59 10 mg QHS DELORES Administration Ondansetron HCl 4 mg 04/11/20 18:26 Ondansetron 4 Mg Tab.Rapdis PO 05/11/20 18:25 Q4HP PRN FOR NAUSEA/VOMITING Ondansetron HCl 4 mg 04/11/20 18:26 Ondansetron Hcl Inj/Pf 4 Mg/2 Ml Sdv IV 05/11/20 18:25 Q4HP PRN FOR NAUSEA/VOMITING Pantoprazole Sodium 40 mg 04/12/20 06:00 04/16/20 06:52 Pantoprazole Sodium 40 Mg Tablet.Dr PO 05/12/20 05:59 Not Given Q6AM DELORES Potassium Chloride 20 meq 04/13/20 11:30 04/16/20 09:59 Potassium Chloride 20 Meq Packet PO 05/13/20 11:29 20 meq Q12 DELORES Administration Tamsulosin HCl 0.4 mg 04/12/20 10:00 04/16/20 10:01 Tamsulosin Hcl 0.4 Mg Cap.Sr.24h PO 05/12/20 09:59 0.4 mg DAILY DELORES Administration Umeclidinium [place] 1 inh 04/12/20 10:00 04/16/20 10:02 Umeclidinium [place] 62.5 Mcg/Dose IH 05/12/20 09:59 1 inhaler DAILY DELORES Administration Discontinued Medications Generic Name Dose Route Start Last Admin Trade Name Freq PRN Reason Stop Dose Admin Furosemide 40 mg 04/11/20 10:02 04/11/20 10:16 Furosemide Inj/Pf 40 Mg/4 Ml Sdv IV 04/11/20 10:03 40 mg NOW ONE Administration Furosemide 40 mg 04/11/20 22:00 04/12/20 09:48 Furosemide Inj/Pf 40 Mg/4 Ml Sdv IV 05/11/20 21:59 40 mg Q12 DELORES Administration Furosemide 20 mg 04/12/20 22:00 04/14/20 09:30 Furosemide Inj/Pf 40 Mg/4 Ml Sdv IV 05/12/20 21:59 20 mg Q12 DELORES Administration Assessment & Plan - Diagnosis (1) Heart failure with preserved ejection fraction Qualifiers: Heart failure chronicity: acute on chronic Qualified Code(s): I50.33 - Acute on chronic diastolic (congestive) heart failure Is this a current diagnosis for this admission?: Yes Plan: The patient is euvolemic at this point, no evidence of fluid overload on physical exam. His net fluid balance is approximately -2 L. He is tolerating low-dose lisinopril and his blood pressure is currently at goal. His echocardiogram on 04/14/2020 demonstrated a normal ejection fraction. His BNP has decreased significantly since admission. Recommendations: -Discontinue IV Lasix and start Lasix 40 mg p.o. daily as tolerated by his blood pressure. -Continue with lisinopril at current doses. -Continue to restrict fluid intake to 1500 cc daily. -Low sodium diet, less than 1500 mg daily. -Strict intake and output. -Daily weights. -Continue with daily BMP and magnesium and replace electrolytes as needed. (2) Coronary artery disease Qualifiers: Coronary Disease-Associated Artery/Lesion type: bypass graft, autologous artery Associated angina: without angina Qualified Code(s): I25.810 - Atherosclerosis of coronary artery bypass graft(s) without angina pectoris Is this a current diagnosis for this admission?: Yes Plan: [facility] on 09/27/17 was most remarkable for his SVG to OM with an 85% ostial stenosis followed by 70% stenosis in the mid vessel which was addressed with a 5.0 mm x 18 mm resolute KIMBERLY to the ostium and 4.0 mm x 18 mm Xience KIMBERLY to the mid vessel stenosis. He has remained free of angina, anginal equivalents. Recommendations: -Continue with current medical management. -We will continue to hold his beta-harsha due to his persistent wheezing. (3) HLD (hyperlipidemia) Is this a current diagnosis for this admission?: Yes Plan: Continue with current medical management. (4) HTN (hypertension) Qualifiers: Hypertension type: essential hypertension Qualified Code(s): I10 - Essential (primary) hypertension Is this a current diagnosis for this admission?: Yes Plan: His blood pressure is at goal. We will continue with current medical management. (5) Ascending aortic aneurysm Is this a current diagnosis for this admission?: Yes Plan: His CTA during this admission demonstrated a stable aneurysm measuring 4.5 cm which is unchanged from a prior study in August 2017. His blood pressure is at goal. Recommendations: -Continue with current medical management. -Repeat CTA of the chest in April 2021. (6) Permanent atrial fibrillation Is this a current diagnosis for this admission?: Yes Plan: He is currently rate controlled and anticoagulated with Eliquis 5 mg twice daily without bleeding complications. Recommendations: -Continue with current medical management.
--- NOTE | 2020-04-16 18:48 | PDOC PROGRESS REPORT ---
Subjective Date:: 04/16/20 Subjective:: HARVEY YBARRA is a 79 year old male with past medical history significant for CAD status post CABG x5 and stents, COPD, HTN, HLD, paroxysmal atrial fibrillation on Eliquis, history of pneumonia who presents to the ED with 2-day history of progressive shortness of breath/REY/cough which patient states became so severe that he was extremely weak unable to walk across the room. Patient was brought to ED and placed on BiPAP. ABG obtained on BiPAP at 40% supplemental oxygen did not show significant hypoxemia or hypercarbia and pH was normal. Clinically, patient is in acute respiratory distress requiring BiPAP and supplemental oxygen. Chest x-ray showed patchy bilateral basilar opacities. CTPA was negative for PE but did show multifocal pneumonia. Per nursing, patient had a fever on admission. Patient does not recall having fevers at home. COVID-19 rapid test was obtained and this is negative. WBC count up to 13.5 with a left shift. BNP elevated to 1750. Suspect CHF exacerbated by multifocal pneumonia. We will treat cautiously with IV Lasix and close hemody namic monitoring. Patient technically meets criteria for sepsis however in the setting of severe coronary artery disease requiring multiple previous surgeries including a 5X CABG and coronary stents, we will hold off on aggressive IV hydration and instead give the patient diuresis given he has a wet sounding cough and peripheral edema in his legs. If he becomes hypotensive Lasix will need to be stopped and IV fluids will need to be started cautiously. -Previous Hospitalist notes- 04/12/2020 Patient's breathing seems to be significantly improved from yesterday on admission. He is now off the BiPAP and on nasal cannula but still requiring 6 L. Patient states he is on baseline of 2 L nasal cannula with exertion at home. He denies using supplemental oxygen at rest at baseline. Blood cultures are still pending but negative so far. Rapid viral testing for Covid, flu, and RSV was negative on admission. Antibiotics continue. Patient has no new specific complaints. 04/13/2020 Patient is doing better than yesterday in terms of his temperature curve and his breathing. We need to be actively weaning his supplemental oxygen to an appropriate level for COPD. I discussed this with nursing. Potassium is low we will replete this. Creatinine is essentially the same for the third time in a row. Blood cultures negative. Antibiotics continue. Patient has no new complaints. 04/14/2020 Patient seems to be improved today and is breathing comfortably on nasal cannula. His fever curve is trending down though he did have some fevers up to 100.4 overnight. I discussed with nursing we need to continue to aggressively wean his supplemental oxygen. Patient must use incentive spirometer and flutter valve Pep. I ordered Mucinex to help clear some of the mucus he has in his upper airway. I expect him to remain hospitalized for another 2 to 3 days as he is extremely slow to recover from this pneumonia. - Current hospitalist notes- 04/15/20 Care assumed today. He was seen and examined at bedside. Still feels weak but respiratory-kwok he feels much better. He was seen by Dr. Knight today who recommended to start him on 2.5mg of lisinopril. Currently on ceftri and azithro for CAP, blood culture negative so far. 04/16/20 He was seen and examined at bedside. He still feels very weak but he denies any shortness of breath and reports that his breathing continues to improve. Physical therapy notes reviewed and stated that he becomes short of breath and desaturates but recovers with rest. Lasix was switched over to oral per cardio recs. At this rate he will likely need short term rehab, I will discuss with PT tomorrow. Reason For Visit: ACUTE ON CHRONIC SYSTOLIC CHF EXACERBATION,ACUTE Physical Exam Vital Signs: Temp Pulse Resp BP Pulse Ox 98.7 F 74 20 105/55 L 93 04/16/20 15:28 04/16/20 15:28 04/16/20 15:28 04/16/20 15:28 04/16/20 15:28 Intake & Output 04/15/20 04/16/20 04/17/20 06:59 06:59 06:59 Intake Total 1220 1450 290 Output Total 1670 1350 Balance -450 100 290 Weight 89.5 kg 88.5 kg General appearance: PRESENT: cooperative, mild distress Head exam: PRESENT: atraumatic, normocephalic Eye exam: PRESENT: EOMI, PERRLA Mouth exam: PRESENT: moist Neck exam: PRESENT: full ROM Respiratory exam: PRESENT: crackles, symmetrical, tachypnea Cardiovascular exam: PRESENT: RRR, +S1, +S2 Pulses: PRESENT: +2 pedal pulses bilateral GI/Abdominal exam: PRESENT: normal bowel sounds, soft. ABSENT: rebound, tenderness Extremities exam: PRESENT: full ROM Musculoskeletal exam: PRESENT: full ROM Neurological exam: PRESENT: alert, awake, oriented to person, oriented to place, oriented to time, oriented to situation Psychiatric exam: PRESENT: normal mood Skin exam: PRESENT: normal color Results Laboratory Results: 04/14/20 05:50 04/16/20 08:25 04/16/20 08:25 Sodium 133.7 L Potassium 4.1 Chloride 96 L Carbon Dioxide 29 Anion Gap 9 BUN 34 H Creatinine 0.97 Est GFR ( Amer) > 60 Glucose 110 Calcium 9.0 04/11/20 10:36 Blood Blood Culture - Final NO GROWTH IN 5 DAYS 04/11/20 09:37 Blood Blood Culture - Final NO GROWTH IN 5 DAYS 04/11/20 04/16/20 09:37 08:25 Troponin I < 0.012 NT-Pro-B Natriuret Pep 1750 H 631 H Impressions: Chest/Abdomen CTA 04/11/20 12:23 IMPRESSION: Patchy consolidative opacities in the left upper lobe, left lower lobe and to a lesser extent the right lower lobe concerning for multifocal pneumonia. There is no central or segmental pulmonary embolus. Evaluation of the subsegmental branches of the pulmonary arteries is limited due to respiratory motion artifact. Chest X-Ray 04/16/20 08:05 IMPRESSION: Stable enlarged cardiac silhouette and patchy bibasilar opacities suspicious for pneumonia. Assessment and Plan - Diagnosis (1) Acute hypoxemic respiratory failure Is this a current diagnosis for this admission?: Yes Plan: Multifactorial: Multifocal pneumonia, COPD, acute CHF exacerbation Treat underlying causes with antibiotics, diuresis, duo nebs as needed BiPAP as needed Supplemental oxygen. Wean off as tolerated (2) Multifocal pneumonia Is this a current diagnosis for this admission?: Yes Plan: Chest x-ray showed bilateral opacities CTPA showed negative PE but did show multifocal pneumonia present -Covid negative D5 of ceftri/azithro Respiratory culture growing gram-positive cocci in clusters Blood cultures negative x48 hour Bronchial hygiene (3) Acute on chronic systolic CHF (congestive heart failure) Is this a current diagnosis for this admission?: Yes Plan: -acute systolic chf exacerbation - TTE EF 60 to 65%, LV diastolic function could not be adequately assessed, mild to moderate elevated pulmonary pressures estimated between 45 and 50 -switched to oral lasix 40 mg daily -started on lisinopril, on statin -fluid restriction -I/O monitoring -Cardiology outpt FU needed within 7 days of discharge (4) COPD (chronic obstructive pulmonary disease) Qualifiers: COPD type: unspecified COPD Qualified Code(s): J44.9 - Chronic obstructive pulmonary disease, unspecified Is this a current diagnosis for this admission?: Yes Plan: -Continue Singulair and Spiriva (5) Chronic a-fib Is this a current diagnosis for this admission?: Yes Plan: Continue home apixaban Rate controlled Continue home medications (6) Coronary artery disease Qualifiers: Coronary Disease-Associated Artery/Lesion type: bypass graft, autologous artery Associated angina: without angina Qualified Code(s): I25.810 - Atherosclerosis of coronary artery bypass graft(s) without angina pectoris Is this a current diagnosis for this admission?: Yes Plan: On statin and lisinopril -Not on aspirin (7) HLD (hyperlipidemia) Is this a current diagnosis for this admission?: Yes Plan: -Continue statin (8) HTN (hypertension) Qualifiers: Hypertension type: essential hypertension Qualified Code(s): I10 - Essential (primary) hypertension Is this a current diagnosis for this admission?: Yes Plan: Started on lisinopril 2.5 mg daily, beta-harsha held due to wheezing? Controlled (9) Chronic kidney disease, stage III (moderate) Is this a current diagnosis for this admission?: Yes Plan: - Crea 1.13 (10) Ascending aortic aneurysm Is this a current diagnosis for this admission?: Yes Plan: His CTA during this admission demonstrated a stable aneurysm measuring 4.5 cm which is unchanged from a prior study in August 2017. His blood pressure is at goal. Recommendations: -Continue with current medical management. -Repeat CTA of the chest in April 2021. (11) Physical deconditioning Is this a current diagnosis for this admission?: Yes Plan: - PT/OT -He is still quite debilitated from his pneumonia and COPD exacerbation. He gets very short of breath when he gets physical therapy. He will likely need subacute rehab and home oxygen at discharge. Will discuss his case with physical therapist tomorrow. - Time Time Spent with patient: 25-34 minutes Medications reviewed and adjusted accordingly: Yes Anticipated Discharge Disposition: Home with Home Health Anticipated Discharge Timeframe: within 48 hours
[2020-04-16] MEDS: AZITHROMYCIN 500 MG in DEXTROSE 5%-WATER 250 ML IV SCH (23:43)
[2020-04-16] MEDS: MONTELUKAST SODIUM 10 MG TABLET PO SCH (23:43)
[2020-04-16] MEDS: ATORVASTATIN CALCIUM 40 MG TABLET PO SCH (23:43)
[2020-04-17] MEDS: PANTOPRAZOLE SODIUM 40 MG TABLET.DR PO SCH (06:04)
--- NOTE | 2020-04-17 09:18 | PDOC PROGRESS REPORT ---
Subjective Date:: 04/17/20 Subjective:: HARVEY YBARRA is a 79 year old male, well-known to me from prior evaluations i n the outpatient setting, with history of three-vessel coronary artery disease status post CABG and status post LHC on 09/27/17 revealing SVG to OM with an 85% ostial stenosis followed by 70% stenosis in the mid vessel which was addressed with a 5.0 mm x 18 mm resolute KIMBERLY to the ostium and 4.0 mm x 18 mm Xience KIMBERLY to the mid vessel stenosis, heart failure with preserved ejection fraction, ascending aortic aneurysm, hypertension, permanent atrial fibrillation on Eliquis and hyperlipidemia who is consulted to our service for further evaluation of heart failure. The patient had been doing well until 2 to 3 days prior to admission when he began with shaking chills, subjective fevers, shortness of breath and cough. He was eventually admitted to our facility on 04/11/2020 when he was found to have multifocal pneumonia. He was also found to have a mildly elevated proBNP which is actually not too far of from his outpatient baseline level. Chart review demonstrates that he has progressed appropriately. This morning he has no cardiovascular complaints although continues to have fevers and cough. His telemetry demonstrates rate controlled atrial fibrillation. 04/17/2020: The patient had an uneventful night from the cardiovascular standpoint. He feels slightly better this morning and denies cardiac complaints. His telemetry shows controlled atrial fibrillation without any significant ventricular dysrhythmias. His lung exam is much improved. Physical exam on 04/17/2020: GENERAL: Pleasant and conversational. Oriented x3 with normal mood. Not in acute distress. Well groomed and well developed. Appears more tired than yesterday. HEENT: Normocephalic, atraumatic. Pupils equal. Sclerae anicteric. Oropharynx moist. NECK: No JVD. No carotid bruits. LUNGS: Very faint, deep inspiratory wheezing at the bases. Normal respiratory effort without the use of accessory muscles or intercostal retractions. CARDIOVASCULAR: Irregularly irregular rate and rhythm, no murmurs, rubs, or gallops. PMI not displaced. ABDOMEN: No masses or tenderness to palpation. No bruit. No splenomegaly or hepatomegaly. No abdominal aorta bruit noted. EXTREMITIES: No edema, no cyanosis, no clubbing. +2 pulses femoral and pedal pulses bilaterally. SKIN: No lesions or rashes. MUSCULOSKELETAL: No chest tenderness to palpation. NEUROLOGIC: Nonfocal. No gross sensory or motor deficits bilateral upper or lower extremities. Cardiac studies: Echocardiogram on 11/20/18: -At least normal in size. -Mild concentric LVH. -EF 55-60%. -Mild biatrial enlargement. -Mild MAC without stenosis. -Trace MR, mild TR, trace AI, trace PI. -Mildly dilated proximal ascending aorta at 3.9 cm. -Moderately dilated aortic root at 4.8 cm. LHC on 09/27/17: -Left main: 40-50% proximal stenosis. -LAD: 50% ostial stenosis followed by high-grade mid stenosis with occlusion in the midportion. -D1: Flush occlusion. -RCA: 100% proximally occluded. -PDA: 30-40% proximal stenosis. -SVG to RCA: Patent. -SVG to D1 -SVG to OM: 85% ostial stenosis followed by 70% stenosis in the mid vessel--> 5.0 mm x 18 mm resolute KIMBERLY to the ostium and 4.0 mm x 18 mm Xience KIMBERLY to the mid vessel stenosis.. -[place] to the LAD: Patent. Chest x-ray on 09/14/17: -Bypass of a scar atelectasis. -No acute pulmonary findings. -Borderline cardiomegaly. -Mild pulmonary vascular redistribution, cephalization, probably a chronic basis. Reason For Visit: ACUTE ON CHRONIC SYSTOLIC CHF EXACERBATION,ACUTE Physical Exam Vital Signs: Temp Pulse Resp BP Pulse Ox 98.5 F 66 20 102/60 97 04/17/20 01:33 04/17/20 04:00 04/17/20 04:00 04/17/20 04:00 04/17/20 04:00 Intake & Output 04/15/20 04/16/20 04/17/20 06:59 06:59 06:59 Intake Total 1220 1450 590 Output Total 1670 1350 Balance -450 100 590 Weight 89.5 kg 88.5 kg 88.5 kg Results Laboratory Results: 04/14/20 05:50 04/16/20 08:25 04/16/20 08:25 Sodium 133.7 L Potassium 4.1 Chloride 96 L Carbon Dioxide 29 Anion Gap 9 BUN 34 H Creatinine 0.97 Est GFR ( Amer) > 60 Glucose 110 Calcium 9.0 04/11/20 10:36 Blood Blood Culture - Final NO GROWTH IN 5 DAYS 04/11/20 09:37 Blood Blood Culture - Final NO GROWTH IN 5 DAYS 04/11/20 04/16/20 09:37 08:25 Troponin I < 0.012 NT-Pro-B Natriuret Pep 1750 H 631 H Impressions: Chest/Abdomen CTA 04/11/20 12:23 IMPRESSION: Patchy consolidative opacities in the left upper lobe, left lower lobe and to a lesser extent the right lower lobe concerning for multifocal pneumonia. There is no central or segmental pulmonary embolus. Evaluation of the subsegmental branches of the pulmonary arteries is limited due to respiratory motion artifact. Chest X-Ray 04/16/20 08:05 IMPRESSION: Stable enlarged cardiac silhouette and patchy bibasilar opacities suspicious for pneumonia. Assessment & Plan - Diagnosis (1) Heart failure with preserved ejection fraction Qualifiers: Heart failure chronicity: acute on chronic Qualified Code(s): I50.33 - Acute on chronic diastolic (congestive) heart failure Is this a current diagnosis for this admission?: Yes Plan: The patient is euvolemic at this point, no evidence of fluid overload on physical exam. He is tolerating low-dose lisinopril and his blood pressure is currently at goal. His echocardiogram on 04/14/2020 demonstrated a normal ejection fraction. His BNP has decreased significantly since admission. His lung exam is significantly improved therefore we can add low-dose beta-harsha to accomplish GDMT. Recommendations: -Continue with current medical management. -Add Toprol 12.5 mg daily. -Continue to restrict fluid intake to 1500 cc daily. -Low sodium diet, less than 1500 mg daily. -Strict intake and output. -Daily weights. -Continue with daily BMP and magnesium and replace electrolytes as needed. -Cardiology does not have further recommendations therefore we will sign off the case. Please reconsult if clinically indicated. (2) Coronary artery disease Qualifiers: Coronary Disease-Associated Artery/Lesion type: bypass graft, autologous artery Associated angina: without angina Qualified Code(s): I25.810 - Atherosclerosis of coronary artery bypass graft(s) without angina pectoris Is this a current diagnosis for this admission?: Yes Plan: [facility] on 09/27/17 was most remarkable for his SVG to OM with an 85% ostial stenosis followed by 70% stenosis in the mid vessel which was addressed with a 5.0 mm x 18 mm resolute KIMBERLY to the ostium and 4.0 mm x 18 mm Xience KIMBERLY to the mid vessel stenosis. He has remained free of angina, anginal equivalents. Recommendations: -Continue with current medical management. -Start Toprol 12.5 mg daily. (3) HLD (hyperlipidemia) Is this a current diagnosis for this admission?: Yes Plan: Continue with current medical management. (4) HTN (hypertension) Qualifiers: Hypertension type: essential hypertension Qualified Code(s): I10 - Essential (primary) hypertension Is this a current diagnosis for this admission?: Yes Plan: His blood pressure is at goal. We will continue with current medical management. (5) Ascending aortic aneurysm Is this a current diagnosis for this admission?: Yes Plan: His CTA during this admission demonstrated a stable aneurysm measuring 4.5 cm which is unchanged from a prior study in August 2017. His blood pressure is at goal. Recommendations: -Continue with current medical management. -Repeat CTA of the chest in April 2021. (6) Permanent atrial fibrillation Is this a current diagnosis for this admission?: Yes Plan: He is currently rate controlled and anticoagulated with Eliquis 5 mg twice daily without bleeding complications. Recommendations: -Continue with current medical management.
[2020-04-17] MEDS ORDERED: FUROSEMIDE 40 MG TABLET PO SCH (10:00)
[2020-04-17] MEDS: ACETAMINOPHEN 325 MG TABLET PO PRN (10:01)
[2020-04-17] MEDS: GABAPENTIN 300 MG CAPSULE PO SCH ×2 (10:02→22:50)
[2020-04-17] MEDS: CETIRIZINE 10 MG TABLET PO SCH (10:02)
[2020-04-17] MEDS: TAMSULOSIN HCL 0.4 MG CAP.SR.24H PO SCH (10:02)
[2020-04-17] MEDS: LISINOPRIL 5 MG TABLET PO SCH (10:02)
[2020-04-17] MEDS: FERROUS SULFATE 325 MG TABLET PO SCH (10:02)
[2020-04-17] MEDS: APIXABAN 5 MG TABLET PO SCH ×2 (10:02→18:28)
[2020-04-17] MEDS: GUAIFENESIN 600 MG TABLET.SA PO SCH ×2 (10:02→22:50)
[2020-04-17] MEDS: DOCUSATE SODIUM 100 MG CAPSULE PO SCH (10:03)
[2020-04-17] MEDS: POTASSIUM CHLORIDE 20 MEQ PACKET PO SCH ×2 (10:03→22:50)
[2020-04-17] MEDS: CEFTRIAXONE 2 GM/D5W RTU 2 GM/50 ML RTUPB IV SCH (10:03)
[2020-04-17] MEDS: UMECLIDINIUM BROMIDE 62.5 MCG/DOSE IH SCH (10:54)
[2020-04-17] MEDS ORDERED: TRAMADOL HCL 50 MG TABLET PO PRN (16:58)
[2020-04-17] MEDS: LEVOFLOXACIN 750 MG/D5W RTU 750 MG/150 ML RTUPB IV SCH (18:29)
[2020-04-17 20:07] LABS: ABSOLUTE BASOPHILS # (AUTO) 0.1 10^3/uL (0.0-0.2); ABSOLUTE EOSINOPHILS # (AUTO) 0.2 10^3/uL (0.0-0.6); ABSOLUTE LYMPHOCYTES (AUTO) 1.2 10^3/uL (0.5-4.7); ABSOLUTE MONOCYTES (AUTO) 0.8 10^3/uL (0.1-1.4); ABSOLUTE NEUT (AUTO) 8.1 10^3/uL (1.7-8.2); BASOPHILS % (AUTO) 0.5 % (0-2); EOSINOPHILS % (AUTO) 2.2 % (0-6); HEMATOCRIT 38.8 % (37.9-51.0); HEMOGLOBIN 13.3 g/dL (13.5-17.0); LYMPHOCYTES % (AUTO) 11.3 % (13-45); MEAN CORPUSCULAR HEMOGLOBIN 32.3 pg (27.0-33.4); MEAN CORPUSCULAR HGB CONC 34.3 g/dL (32.0-36.0); MEAN CORPUSCULAR VOLUME 94 fl (80-97); MONOCYTES % (AUTO) 7.6 % (3-13); PLATELET COUNT 234 10^3/uL (150-450); RED BLOOD COUNT 4.11 10^6/uL (4.35-5.55); RED CELL DISTRIBUTION WIDTH 13.2 % (11.5-14.0); SEGMENTED NEUTROPHILS % (AUTO) 78.4 % (42-78); TOTAL CELLS COUNTED % (AUTO) 100 %; WHITE BLOOD COUNT 10.3 10^3/uL (4.0-10.5)
[2020-04-17 20:26] LABS: ALKALINE PHOSPHATASE 133 U/L (38-126); ANION GAP 9 (5-19); ASPARTATE AMINO TRANSFERASE 225 U/L (17-59); BILIRUBIN,DIRECT 0.3 mg/dL (0.0-0.4); BILIRUBIN,TOTAL 0.8 mg/dL (0.2-1.3); BLOOD UREA NITROGEN 56 mg/dL (7-20); CALCIUM 8.5 mg/dL (8.4-10.2); CARBON DIOXIDE 27 mmol/L (22-30); CHLORIDE 95 mmol/L (98-107); GLUCOSE 129 mg/dL (75-110); POTASSIUM 3.9 mmol/L (3.6-5.0)
--- NOTE | 2020-04-17 21:31 | PDOC PROGRESS REPORT ---
Subjective Date:: 04/17/20 Subjective:: HARVEY YBARRA is a 79 year old male with past medical history significant for CAD status post CABG x5 and stents, COPD, HTN, HLD, paroxysmal atrial fibrillation on Eliquis, history of pneumonia who presents to the ED with 2-day history of progressive shortness of breath/REY/cough which patient states became so severe that he was extremely weak unable to walk across the room. Patient was brought to ED and placed on BiPAP. ABG obtained on BiPAP at 40% supplemental oxygen did not show significant hypoxemia or hypercarbia and pH was normal. Clinically, patient is in acute respiratory distress requiring BiPAP and supplemental oxygen. Chest x-ray showed patchy bilateral basilar opacities. CTPA was negative for PE but did show multifocal pneumonia. Per nursing, patient had a fever on admission. Patient does not recall having fevers at home. COVID-19 rapid test was obtained and this is negative. WBC count up to 13.5 with a left shift. BNP elevated to 1750. Suspect CHF exacerbated by multifocal pneumonia. We will treat cautiously with IV Lasix and close hemody namic monitoring. Patient technically meets criteria for sepsis however in the setting of severe coronary artery disease requiring multiple previous surgeries including a 5X CABG and coronary stents, we will hold off on aggressive IV hydration and instead give the patient diuresis given he has a wet sounding cough and peripheral edema in his legs. If he becomes hypotensive Lasix will need to be stopped and IV fluids will need to be started cautiously. -Previous Hospitalist notes- 04/12/2020 Patient's breathing seems to be significantly improved from yesterday on admission. He is now off the BiPAP and on nasal cannula but still requiring 6 L. Patient states he is on baseline of 2 L nasal cannula with exertion at home. He denies using supplemental oxygen at rest at baseline. Blood cultures are still pending but negative so far. Rapid viral testing for Covid, flu, and RSV was negative on admission. Antibiotics continue. Patient has no new specific complaints. 04/13/2020 Patient is doing better than yesterday in terms of his temperature curve and his breathing. We need to be actively weaning his supplemental oxygen to an appropriate level for COPD. I discussed this with nursing. Potassium is low we will replete this. Creatinine is essentially the same for the third time in a row. Blood cultures negative. Antibiotics continue. Patient has no new complaints. 04/14/2020 Patient seems to be improved today and is breathing comfortably on nasal cannula. His fever curve is trending down though he did have some fevers up to 100.4 overnight. I discussed with nursing we need to continue to aggressively wean his supplemental oxygen. Patient must use incentive spirometer and flutter valve Pep. I ordered Mucinex to help clear some of the mucus he has in his upper airway. I expect him to remain hospitalized for another 2 to 3 days as he is extremely slow to recover from this pneumonia. - Current hospitalist notes- 04/15/20 Care assumed today. He was seen and examined at bedside. Still feels weak but respiratory-kwok he feels much better. He was seen by Dr. Knight today who recommended to start him on 2.5mg of lisinopril. Currently on ceftri and azithro for CAP, blood culture negative so far. 04/16/20 He was seen and examined at bedside. He still feels very weak but he denies any shortness of breath and reports that his breathing continues to improve. Physical therapy notes reviewed and stated that he becomes short of breath and desaturates but recovers with rest. Lasix was switched over to oral per cardio recs. At this rate he will likely need short term rehab, I will discuss with PT tomorrow. 04/17/20 He was seen and examined at bedside. No new complains, denies worsening SOB. No chest pain. I have noted his hypotensive episodes so I will hold his lasix dose for tomorrow and resume on tuesday. Noted increase of his crea from 0.9 to 1.28 which is likely from his hypotension adn recent lisinopril start and this is expected. Will monitor for now. I have switched his abx to levaquin. He refused to participate with PT today. Reason For Visit: ACUTE ON CHRONIC SYSTOLIC CHF EXACERBATION,ACUTE Physical Exam Vital Signs: Temp Pulse Resp BP Pulse Ox 98.2 F 75 17 98/65 L 95 04/17/20 19:35 04/17/20 19:35 04/17/20 19:35 04/17/20 19:35 04/17/20 19:35 Intake & Output 04/16/20 04/17/20 04/18/20 06:59 06:59 06:59 Intake Total 1504 901 8421 Output Total 1350 800 Balance 100 590 370 Weight 88.5 kg 88.5 kg General appearance: PRESENT: no acute distress, cooperative Head exam: PRESENT: atraumatic, normocephalic Eye exam: PRESENT: EOMI, PERRLA Mouth exam: PRESENT: moist Neck exam: PRESENT: full ROM Respiratory exam: PRESENT: clear to auscultation stephanie, symmetrical, unlabored Cardiovascular exam: PRESENT: RRR, +S1, +S2 Pulses: PRESENT: +2 pedal pulses bilateral GI/Abdominal exam: PRESENT: normal bowel sounds, soft. ABSENT: rebound, tenderness Extremities exam: PRESENT: full ROM Musculoskeletal exam: PRESENT: full ROM Neurological exam: PRESENT: alert, awake, oriented to person, oriented to place, oriented to time, oriented to situation Psychiatric exam: PRESENT: normal mood Skin exam: PRESENT: normal color Results Laboratory Results: 04/17/20 19:29 04/17/20 19:29 04/17/20 04/17/20 19:29 19:29 WBC 10.3 RBC 4.11 L Hgb 13.3 L Hct 38.8 MCV 94 MCH 32.3 MCHC 34.3 RDW 13.2 Plt Count 234 Seg Neutrophils % 78.4 H Sodium 131.4 L Potassium 3.9 Chloride 95 L Carbon Dioxide 27 Anion Gap 9 BUN 56 H Creatinine 1.27 H Est GFR ( Amer) > 60 Glucose 129 H Calcium 8.5 Total Bilirubin 0.8 AST 225 H Alkaline Phosphatase 133 H Total Protein 6.0 L Albumin 3.0 L 04/14/20 14:00 Sputum Gram Stain - Final 04/14/20 14:00 Sputum Sputum Culture - Final Staphylococcus Aureus C.albicans/C.dubliniensis Greatly Reduced Normal Natalie 04/11/20 04/16/20 09:37 08:25 Troponin I < 0.012 NT-Pro-B Natriuret Pep 1750 H 631 H Impressions: Chest/Abdomen CTA 04/11/20 12:23 IMPRESSION: Patchy consolidative opacities in the left upper lobe, left lower lobe and to a lesser extent the right lower lobe concerning for multifocal pneumonia. There is no central or segmental pulmonary embolus. Evaluation of the subsegmental branches of the pulmonary arteries is limited due to respiratory motion artifact. Chest X-Ray 04/16/20 08:05 IMPRESSION: Stable enlarged cardiac silhouette and patchy bibasilar opacities suspicious for pneumonia. Assessment and Plan - Diagnosis (1) Acute hypoxemic respiratory failure Is this a current diagnosis for this admission?: Yes Plan: - Improving Multifactorial: Multifocal pneumonia, COPD, acute CHF exacerbation Treat underlying causes with antibiotics, diuresis, duo nebs as needed BiPAP as needed Supplemental oxygen. Wean off as tolerated (2) Multifocal pneumonia Is this a current diagnosis for this admission?: Yes Plan: Chest x-ray showed bilateral opacities CTPA showed negative PE but did show multifocal pneumonia present -Covid negative Received 5 days of ceftri/azithro. I have switched him to levaquin Respiratory culture growing gram-positive cocci in clusters Blood cultures negative x48 hour Bronchial hygiene (3) Acute on chronic systolic CHF (congestive heart failure) Is this a current diagnosis for this admission?: Yes Plan: -acute systolic chf exacerbation - TTE EF 60 to 65%, LV diastolic function could not be adequately assessed, mild to moderate elevated pulmonary pressures estimated between 45 and 50 -switched to oral lasix 40 mg daily -started on lisinopril, on statin -fluid restriction -I/O monitoring -Cardiology outpt FU needed within 7 days of discharge (4) COPD (chronic obstructive pulmonary disease) Qualifiers: COPD type: unspecified COPD Qualified Code(s): J44.9 - Chronic obstructive pulmonary disease, unspecified Is this a current diagnosis for this admission?: Yes Plan: -Continue Singulair and Spiriva (5) Chronic a-fib Is this a current diagnosis for this admission?: Yes Plan: Continue home apixaban Rate controlled Continue home medications (6) Coronary artery disease Qualifiers: Coronary Disease-Associated Artery/Lesion type: bypass graft, autologous artery Associated angina: without angina Qualified Code(s): I25.810 - Atherosclerosis of coronary artery bypass graft(s) without angina pectoris Is this a current diagnosis for this admission?: Yes Plan: On statin and lisinopril -Not on aspirin (7) HLD (hyperlipidemia) Is this a current diagnosis for this admission?: Yes Plan: -Continue statin (8) HTN (hypertension) Qualifiers: Hypertension type: essential hypertension Qualified Code(s): I10 - Essential (primary) hypertension Is this a current diagnosis for this admission?: Yes Plan: Started on lisinopril 2.5 mg daily, beta-harsha held due to wheezing? Controlled (9) Chronic kidney disease, stage III (moderate) Is this a current diagnosis for this admission?: Yes Plan: - Crea 1.13>0.9>1.28 - increased mildly likely due to KANDY effect and recent hypotension (10) Ascending aortic aneurysm Is this a current diagnosis for this admission?: Yes Plan: His CTA during this admission demonstrated a stable aneurysm measuring 4.5 cm which is unchanged from a prior study in August 2017. His blood pressure is at goal. Recommendations: -Continue with current medical management. -Repeat CTA of the chest in April 2021. (11) Physical deconditioning Is this a current diagnosis for this admission?: Yes Plan: - PT/OT -He is still quite debilitated from his pneumonia and COPD exacerbation. He gets very short of breath when he gets physical therapy. He will likely need subacute rehab and home oxygen at discharge. Will discuss his case with physical therapist tomorrow. - Time Time Spent with patient: 25-34 minutes Medications reviewed and adjusted accordingly: Yes Anticipated Discharge Disposition: Home with Home Health Anticipated Discharge Timeframe: TBD
[2020-04-17] MEDS: MONTELUKAST SODIUM 10 MG TABLET PO SCH (22:50)
[2020-04-17] MEDS: ATORVASTATIN CALCIUM 40 MG TABLET PO SCH (22:51)
[2020-04-18] MEDS: PANTOPRAZOLE SODIUM 40 MG TABLET.DR PO SCH (05:48)
[2020-04-18] MEDS: LISINOPRIL 5 MG TABLET PO SCH (10:36)
[2020-04-18] MEDS: GABAPENTIN 300 MG CAPSULE PO SCH (10:36)
[2020-04-18] MEDS: APIXABAN 5 MG TABLET PO SCH (10:36)
[2020-04-18] MEDS: LEVOFLOXACIN 750 MG/D5W RTU 750 MG/150 ML RTUPB IV SCH (10:36)
[2020-04-18] MEDS: DOCUSATE SODIUM 100 MG CAPSULE PO SCH (10:36)
[2020-04-18] MEDS: POTASSIUM CHLORIDE 20 MEQ PACKET PO SCH (10:37)
[2020-04-18] MEDS: CETIRIZINE 10 MG TABLET PO SCH (10:37)
[2020-04-18] MEDS: TAMSULOSIN HCL 0.4 MG CAP.SR.24H PO SCH (10:37)
[2020-04-18] MEDS: FERROUS SULFATE 325 MG TABLET PO SCH (10:37)
[2020-04-18] MEDS: GUAIFENESIN 600 MG TABLET.SA PO SCH (10:38)
[2020-04-18] MEDS: UMECLIDINIUM BROMIDE 62.5 MCG/DOSE IH SCH (10:40)
[2020-04-18 14:57] VITALS: BP 114/66
--- NOTE | 2020-04-19 18:47 | PDOC DISCHARGE SUMMARY ---
Impression - Admit/DC Date/PCP Admission Date/Primary Care Provider: 04/11/20 12:43 BLAINE MCKAY MD Discharge Date: 04/18/20 - Discharge Diagnosis (1) Acute hypoxemic respiratory failure Is this a current diagnosis for this admission?: Yes (2) Multifocal pneumonia Is this a current diagnosis for this admission?: Yes (3) Acute on chronic systolic CHF (congestive heart failure) Is this a current diagnosis for this admission?: Yes (4) COPD (chronic obstructive pulmonary disease) Is this a current diagnosis for this admission?: Yes (5) Chronic a-fib Is this a current diagnosis for this admission?: Yes (6) Coronary artery disease Is this a current diagnosis for this admission?: Yes (7) HLD (hyperlipidemia) Is this a current diagnosis for this admission?: Yes (8) HTN (hypertension) Is this a current diagnosis for this admission?: Yes (9) Chronic kidney disease, stage III (moderate) Is this a current diagnosis for this admission?: Yes (10) Ascending aortic aneurysm Is this a current diagnosis for this admission?: Yes (11) Physical deconditioning Is this a current diagnosis for this admission?: Yes - Assessment Summary: .(1) Acute hypoxemic respiratory failure Is this a current diagnosis for this admission?: Yes Plan: - Improving Multifactorial: Multifocal pneumonia, COPD, acute CHF exacerbation Treat underlying causes with antibiotics, diuresis, duo nebs as needed BiPAP as needed Supplemental oxygen. Wean off as tolerated (2) Multifocal pneumonia Is this a current diagnosis for this admission?: Yes Plan: Chest x-ray showed bilateral opacities CTPA showed negative PE but did show multifocal pneumonia present -Covid negative Received 5 days of ceftri/azithro. I have switched him to levaquin Respiratory culture growing gram-positive cocci in clusters Blood cultures negative x48 hour Bronchial hygiene (3) Acute on chronic systolic CHF (congestive heart failure) Is this a current diagnosis for this admission?: Yes Plan: -acute systolic chf exacerbation - TTE EF 60 to 65%, LV diastolic function could not be adequately assessed, mild to moderate elevated pulmonary pressures estimated between 45 and 50 -switched to oral lasix 40 mg daily -started on lisinopril, on statin -fluid restriction -I/O monitoring -Cardiology outpt FU needed within 7 days of discharge (4) COPD (chronic obstructive pulmonary disease) Qualifiers: COPD type: unspecified COPD Qualified Code(s): J44.9 - Chronic obstructive pulmonary disease, unspecified Is this a current diagnosis for this admission?: Yes Plan: -Continue Singulair and Spiriva (5) Chronic a-fib Is this a current diagnosis for this admission?: Yes Plan: Continue home apixaban Rate controlled Continue home medications (6) Coronary artery disease Qualifiers: Coronary Disease-Associated Artery/Lesion type: bypass graft, autologous artery Associated angina: without angina Qualified Code(s): I25.810 - Atherosclerosis of coronary artery bypass graft(s) without angina pectoris Is this a current diagnosis for this admission?: Yes Plan: On statin and lisinopril -Not on aspirin (7) HLD (hyperlipidemia) Is this a current diagnosis for this admission?: Yes Plan: -Continue statin (8) HTN (hypertension) Qualifiers: Hypertension type: essential hypertension Qualified Code(s): I10 - Essential (primary) hypertension Is this a current diagnosis for this admission?: Yes Plan: Started on lisinopril 2.5 mg daily, beta-harsha held due to wheezing? Controlled (9) Chronic kidney disease, stage III (moderate) Is this a current diagnosis for this admission?: Yes Plan: - Crea 1.13>0.9>1.28 - increased mildly likely due to KANDY effect and recent hypotension (10) Ascending aortic aneurysm Is this a current diagnosis for this admission?: Yes Plan: His CTA during this admission demonstrated a stable aneurysm measuring 4.5 cm which is unchanged from a prior study in August 2017. His blood pressure is at goal. Recommendations: -Continue with current medical management. -Repeat CTA of the chest in April 2021. (11) Physical deconditioning Is this a current diagnosis for this admission?: Yes Plan: - PT/OT -He is still quite debilitated from his pneumonia and COPD exacerbation. He gets very short of breath when he gets physical therapy. He will likely need subacute rehab and home oxygen at discharge. Will discuss his case with physical therapist tomorrow. - Additional Information Resuscitation Status: Full Code Discharge Diet: Cardiac Discharge Activity: Activity As Tolerated, Balance Activity w/Rest, Weigh Daily Referrals: BLAINE MCKAY MD [Primary Care Provider] - 04/28/20 2:15 pm Prescriptions: Potassium Chloride [Potassium Chloride 20 Meq Packet] 20 meq PO Q12 7 Days #14 packet Lisinopril [Prinivil 5 mg Tablet] 2.5 mg PO DAILY 30 Days #30 tablet Metoprolol Succinate [Toprol Xl 25 mg Tab.sr] 12.5 mg PO DAILY 30 Days #30 tab.sr.24h Home Medications: Atorvastatin Calcium [Lipitor 40 mg Tablet] 40 mg PO QHS 04/11/19 Gabapentin [Neurontin 300 mg Capsule] 300 mg PO Q12 04/11/19 Montelukast Sodium [Singulair 10 mg Tablet] 10 mg PO QHS 04/11/19 Tiotropium [place] [Spiriva Respimat] 2 puff IH DAILY 04/11/19 Apixaban [Eliquis 5 mg Tablet] 5 mg PO BID 04/11/20 Cetirizine HCl [Zyrtec 10 mg Tablet] 10 mg PO DAILY 04/11/20 Ferrous Sulfate [Feosol 325 mg Tablet] 325 mg PO DAILY 04/11/20 Furosemide [Lasix 40 mg Tablet] 40 mg PO DAILY 04/11/20 Pantoprazole Sodium [Protonix [address] Tablet] 40 mg PO DAILY 04/11/20 Tamsulosin HCl [Flomax] 0.4 mg PO DAILY 04/11/20 Lisinopril [Prinivil 5 mg Tablet] 2.5 mg PO DAILY 30 Days #30 tablet 04/18/20 Metoprolol Succinate [Toprol Xl 25 mg Tab.sr] 12.5 mg PO DAILY 30 Days #30 tab.sr.24h 04/18/20 Potassium Chloride [Potassium Chloride 20 Meq Packet] 20 meq PO Q12 7 Days #14 packet 04/18/20 Tramadol HCl [Ultram 50 mg Tablet] 50 mg PO Q8HP PRN tablet 04/18/20 History of Present Illiness History of Present Illness: HARVEY YBARRA is a 79 year old male with past medical history significant for CAD status post CABG x5 and stents, COPD, HTN, HLD, paroxysmal atrial fibrillation on Eliquis, history of pneumonia who presents to the ED with 2-day history of progressive shortness of breath/REY/cough which patient states became so severe that he was extremely weak unable to walk across the room. Patient was brought to ED and placed on BiPAP. ABG obtained on BiPAP at 40% supplemental oxygen did not show significant hypoxemia or hypercarbia and pH was normal. Clinically, patient is in acute respiratory distress requiring BiPAP and supplemental oxygen. Chest x-ray showed patchy bilateral basilar opacities. CTPA was negative for PE but did show multifocal pneumonia. Per nursing, patient had a fever on admission. Patient does not recall having fevers at home. COVID-19 rapid test was obtained and this is negative. WBC count up to 13.5 with a left shift. BNP elevated to 1750. Suspect CHF exacerbated by multifocal pneumonia. We will treat cautiously with IV Lasix and close hemodynamic monitoring. Patient technically meets criteria for sepsis however in the setting of severe coronary artery disease requiring multiple previous surgeries including a 5X CABG and coronary stents, we will hold off on aggressive IV hydration and instead give the patient diuresis given he has a wet sounding cough and peripheral edema in his legs. If he becomes hypotensive Lasix will need to be stopped and IV fluids will need to be started cautiously. Hospital Course Hospital Course: -Previous Hospitalist notes- 04/12/2020 Patient's breathing seems to be significantly improved from yesterday on admission. He is now off the BiPAP and on nasal cannula but still requiring 6 L. Patient states he is on baseline of 2 L nasal cannula with exertion at home. He denies using supplemental oxygen at rest at baseline. Blood cultures are still pending but negative so far. Rapid viral testing for Covid, flu, and RSV was negative on admission. Antibiotics continue. Patient has no new specific complaints. 04/13/2020 Patient is doing better than yesterday in terms of his temperature curve and his breathing. We need to be actively weaning his supplemental oxygen to an appropriate level for COPD. I discussed this with nursing. Potassium is low we will replete this. Creatinine is essentially the same for the third time in a row. Blood cultures negative. Antibiotics continue. Patient has no new complaints. 04/14/2020 Patient seems to be improved today and is breathing comfortably on nasal cannula. His fever curve is trending down though he did have some fevers up to 100.4 overnight. I discussed with nursing we need to continue to aggressively wean his supplemental oxygen. Patient must use incentive spirometer and flutter valve Pep. I ordered Mucinex to help clear some of the mucus he has in his upper airway. I expect him to remain hospitalized for another 2 to 3 days as he is extremely slow to recover from this pneumonia. - Current hospitalist notes- 04/15/20 Care assumed today. He was seen and examined at bedside. Still feels weak but respiratory-kwok he feels much better. He was seen by Dr. Knight today who recommended to start him on 2.5mg of lisinopril. Currently on ceftri and azithro for CAP, blood culture negative so far. 04/16/20 He was seen and examined at bedside. He still feels very weak but he denies any shortness of breath and reports that his breathing continues to improve. Physical therapy notes reviewed and stated that he becomes short of breath and desaturates but recovers with rest. Lasix was switched over to oral per cardio recs. At this rate he will likely need short term rehab, I will discuss with PT tomorrow. 04/17/20 He was seen and examined at bedside. No new complains, denies worsening SOB. No chest pain. I have noted his hypotensive episodes so I will hold his lasix dose for tomorrow and resume on tuesday. Noted increase of his crea from 0.9 to 1.28 which is likely from his hypotension adn recent lisinopril start and this is expected. Will monitor for now. I have switched his abx to levaquin. He refused to participate with PT today. 04/18/20 Patient was discharged on antibiotics. FF. up with PC advised Physical Exam Vital Signs: Temp Pulse Resp BP Pulse Ox 98.4 F 80 22 H 114/66 95 04/18/20 14:54 04/18/20 14:54 04/18/20 14:54 04/18/20 14:54 04/18/20 14:54 Intake & Output 04/18/20 04/19/20 04/20/20 06:59 06:59 06:59 Intake Total 1580 Output Total 1600 Balance -20 Weight 90.7 kg 90.7 kg General appearance: PRESENT: no acute distress, cooperative Head exam: PRESENT: atraumatic, normocephalic Eye exam: PRESENT: EOMI, PERRLA Mouth exam: PRESENT: moist Neck exam: PRESENT: full ROM Respiratory exam: PRESENT: rhonchi, symmetrical, unlabored Cardiovascular exam: PRESENT: RRR, +S1, +S2 Pulses: PRESENT: +2 pedal pulses bilateral GI/Abdominal exam: PRESENT: normal bowel sounds, soft. ABSENT: rebound, tenderness Extremities exam: PRESENT: full ROM Musculoskeletal exam: PRESENT: full ROM Neurological exam: PRESENT: alert, awake, oriented to person, oriented to place, oriented to time, oriented to situation Psychiatric exam: PRESENT: normal mood Skin exam: PRESENT: normal color Results Laboratory Results: WBC 10.3 10^3/uL (4.0-10.5) 04/17/20 19: RBC 4.11 10^6/uL (4.35-5.55) L 04/17/20 19: Hgb 13.3 g/dL (13.5-17.0) L 04/17/20 19: Hct 38.8 % (37.9-51.0) 04/17/20: MCV 94 fl (80-97) 04/17/20 19: MCH 32.3 pg (27.0-33.4) 04/17/20: MCHC 34.3 g/dL (32.0-36.0) 04/17/20: RDW 13.2 % (11.5-14.0) 04/17/20 19: Plt Count 234 10^3/uL (150-450) 04/17/20 19: Lymph % (Auto) 11.3 % (13-45) L 04/17/20: [place] % (Auto) 7.6 % (3-13) 04/17/20 19: Eos % (Auto) 2.2 % (0-6) 04/17/20: Baso % (Auto) 0.5 % (0-2) 04/17/20 19: Absolute Neuts (auto) 8.1 10^3/uL (1.7-8.2) 04/17/20 19: Absolute Lymphs (auto) 1.2 10^3/uL (0.5-4.7) 04/17/20 19: Absolute Monos (auto) 0.8 10^3/uL (0.1-1.4) 04/17/20 19: Absolute Eos (auto) 0.2 10^3/uL (0.0-0.6) 04/17/20: Absolute Basos (auto) 0.1 10^3/uL (0.0-0.2) 04/17/20 19:29 Total Counted 100 04/14/20 05:50 Seg Neutrophils % 78.4 % (42-78) H 04/17/20 19:29 Seg Neuts % (Manual) 87 % (42-78) H 04/14/20 05:50 Band Neutrophils % 6 % (3-5) H 04/13/20 04:37 Lymphocytes % (Manual) 6 % (13-45) L 04/14/20 05:50 Atypical Lymphs % 2 % (0) 04/14/20 05:50 Monocytes % (Manual) 4 % (3-13) 04/14/20 05:50 Eosinophils % (Manual) 1 % (0-6) 04/14/20 05:50 Basophils % (Manual) 0 % (0-2) 04/14/20 05:50 Abs Neuts (Manual) 12.4 10^3/uL (1.7-8.2) H 04/14/20 05:50 Abs Lymphs (Manual) 1.1 10^3/uL (0.5-4.7) 04/14/20 05:50 Abs Monocytes (Manual) 0.6 10^3/uL (0.1-1.4) 04/14/20 05:50 Absolute Eos (Manual) 0.1 10^3/uL (0.0-0.6) 04/14/20 05:50 Abs Basophils (Manual) 0.0 10^3/uL (0.0-0.2) 04/14/20 05:50 Platelet Comment ADEQUATE 04/14/20 05:50 Polychromasia SLIGHT 04/14/20 05:50 Ovalocytes SLIGHT 04/14/20 05:50 Tessa Cells SLIGHT 04/14/20 05:50 RBC Morph Comment NORMO-CYTIC/CHROMIC 04/13/20 04:37 PT 21.0 SEC (11.4-15.4) H 04/11/20 09:37 INR 1.80 04/11/20 09:37 APTT 35.3 SEC (23.5-35.8) 04/11/20 09:37 Carbonic Acid 1.08 mmol/L (1.05-1.35) 04/11/20 11:18 HCO3/H2CO3 Ratio 21:1 04/11/20 11:18 ABG pH 7.43 (7.35-7.45) 04/11/20 11:18 ABG pCO2 35.9 mmHg (35-45) 04/11/20 11:18 ABG pO2 95.1 mmHg (80-100) 04/11/20 11:18 ABG HCO3 23.1 mmol/L (20-24) 04/11/20 11:18 ABG Total CO2 24.2 mmol/L (23-27) 04/11/20 11:18 ABG O2 Saturation 97.5 % (94-98) 04/11/20 11:18 ABG Base Excess -0.8 mmol/L 04/11/20 11:18 FiO2 40% 04/11/20 11:18 Sodium 131.4 mmol/L (137-145) L 04/17/20 19:29 Potassium 3.9 mmol/L (3.6-5.0) 04/17/20 19:29 Chloride 95 mmol/L (98-107) L 04/17/20 19:29 Carbon Dioxide 27 mmol/L (22-30) 04/17/20 19:29 Anion Gap 9 (5-19) 04/17/20 19:29 BUN 56 mg/dL (7-20) H 04/17/20 19:29 Creatinine 1.27 mg/dL (0.52-1.25) H 04/17/20 19:29 Est GFR ( Amer) > 60 (>60) 04/17/20 19:29 Est GFR (MDRD) Non-Af 55 (>60) L 04/17/20 19:29 Glucose 129 mg/dL (75-110) H 04/17/20 19:29 Lactic Acid 1.8 mmol/L (0.7-2.1) 04/11/20 09:37 Calcium 8.5 mg/dL (8.4-10.2) 04/17/20 19:29 Phosphorus 3.8 mg/dL (2.5-4.5) 04/12/20 05:04 Magnesium 1.8 mg/dL (1.6-2.3) 04/12/20 05:04 Total Bilirubin 0.8 mg/dL (0.2-1.3) 04/17/20 19:29 Direct Bilirubin 0.3 mg/dL (0.0-0.4) 04/17/20 19:29 Neonat Total Bilirubin Not Reportable 04/17/20 19:29 Neonat Direct Bilirubin Not Reportable 04/17/20 19:29 Neonat Indirect Bili Not Reportable 04/17/20 19:29 AST 225 U/L (17-59) H 04/17/20 19:29 ALT 209 U/L (<50) H 04/17/20 19:29 Alkaline Phosphatase 133 U/L (38-126) H 04/17/20 19:29 Troponin I < 0.012 ng/mL 04/11/20 09:37 NT-Pro-B Natriuret Pep 631 pg/mL (<450) H 04/16/20 08:25 Total Protein 6.0 g/dL (6.3-8.2) L 04/17/20 19:29 Albumin 3.0 g/dL (3.5-5.0) L 04/17/20 19:29 Urine Color Cancelled 04/11/20 09:37 Urine Color YELLOW 04/11/20 09:37 Urine Appearance CLEAR 04/11/20 09:37 Urine Appearance Cancelled 04/11/20 09:37 Urine pH 5.0 (5.0-9.0) 04/11/20 09:37 Urine pH Cancelled 04/11/20 09:37 Ur Specific [place] 1.014 04/11/20 09:37 Ur Specific [place] Cancelled 04/11/20 09:37 Urine Protein Cancelled 04/11/20 09:37 Urine Protein NEGATIVE mg/dL (NEGATIVE) 04/11/20 09:37 Urine Glucose (UA) Cancelled 04/11/20 09:37 Urine Glucose (UA) NEGATIVE mg/dL (NEGATIVE) 04/11/20 09:37 Urine Ketones Cancelled 04/11/20 09:37 Urine Ketones NEGATIVE mg/dL (NEGATIVE) 04/11/20 09:37 Urine Blood Cancelled 04/11/20 09:37 Urine Blood NEGATIVE (NEGATIVE) 04/11/20 09:37 Urine Nitrite Cancelled 04/11/20 09:37 Urine Nitrite NEGATIVE (NEGATIVE) 04/11/20 09:37 Urine Bilirubin Cancelled 04/11/20 09:37 Urine Bilirubin NEGATIVE (NEGATIVE) 04/11/20 09:37 Urine Urobilinogen Cancelled 04/11/20 09:37 Urine Urobilinogen NEGATIVE mg/dL (<2.0) 04/11/20 09:37 Ur Leukocyte Esterase Cancelled 04/11/20 09:37 Ur Leukocyte Esterase NEGATIVE (NEGATIVE) 04/11/20 09:37 Urine WBC (Auto) 0 /HPF 04/11/20 09:37 Urine WBC (Auto) Cancelled 04/11/20 09:37 Urine RBC (Auto) 1 /HPF 04/11/20 09:37 Urine RBC (Auto) Cancelled 04/11/20 09:37 U Hyaline Cast (Auto) 1 /LPF 04/11/20 09:37 U Hyaline Cast (Auto) Cancelled 04/11/20 09:37 Urine Bacteria (Auto) Cancelled 04/11/20 09:37 Urine Red Cell Clumps Cancelled 04/11/20 09:37 Urine WBC Clumps Cancelled 04/11/20 09:37 Squamous Epi Cells Auto Cancelled 04/11/20 09:37 U Non-Squamous Epis Auto Cancelled 04/11/20 09:37 Calcium Carbonate Cryst Cancelled 04/11/20 09:37 Calcium Phosphate Cryst Cancelled 04/11/20 09:37 Calcium Oxalate Cr Auto Cancelled 04/11/20 09:37 Leucine Crystals Cancelled 04/11/20 09:37 Cystine Crystals Cancelled 04/11/20 09:37 Uric Acid Cryst (Auto) Cancelled 04/11/20 09:37 Triple Phos Cryst (Auto) Cancelled 04/11/20 09:37 Tyrosine Crystals Cancelled 04/11/20 09:37 Amorphous Sediment Auto Cancelled 04/11/20 09:37 Cellular Casts Cancelled 04/11/20 09:37 Epithelial Casts (Auto) Cancelled 04/11/20 09:37 Fatty Casts Cancelled 04/11/20 09:37 Granular Casts (Auto) Cancelled 04/11/20 09:37 Waxy Casts (Auto) Cancelled 04/11/20 09:37 Broad Casts Cancelled 04/11/20 09:37 RBC Casts (Auto) Cancelled 04/11/20 09:37 WBC Casts (Auto) Cancelled 04/11/20 09:37 Urine Mucus (Auto) Cancelled 04/11/20 09:37 Urine Mucus (Auto) RARE /LPF 04/11/20 09:37 U Trichomonas (Auto) Cancelled 04/11/20 09:37 Ur Yeast w Hyphae Cancelled 04/11/20 09:37 Urine Yeast (Budding) Cancelled 04/11/20 09:37 Urine Ascorbic Acid 40 (NEGATIVE) H 04/11/20 09:37 Urine Ascorbic Acid Cancelled 04/11/20 09:37 Influenza A (RT-PCR) NEGATIVE (NEGATIVE) 04/11/20 12:27 Influenza B (RT-PCR) NEGATIVE (NEGATIVE) 04/11/20 12:27 RSV (RT-PCR) NEGATIVE (NEGATIVE) 04/11/20 12:27 SARS-CoV-2 Rap RNA(RT-PCR) NEGATIVE (NEGATIVE) 04/11/20 12:27 04/11/20 04/16/20 09:37 08:25 Troponin I < 0.012 NT-Pro-B Natriuret Pep 1750 H 631 H Impressions: Chest X-Ray 04/11/20 09:30 IMPRESSION: Cardiomegaly and patchy bilateral basilar-predominant parenchymal opacities. Differential considerations include asymmetric pulmonary edema multifocal pneumonia. Chest/Abdomen CTA 04/11/20 12:23 IMPRESSION: Patchy consolidative opacities in the left upper lobe, left lower lobe and to a lesser extent the right lower lobe concerning for multifocal pneumonia. There is no central or segmental pulmonary embolus. Evaluation of the subsegmental branches of the pulmonary arteries is limited due to respiratory motion artifact. Chest X-Ray 04/16/20 08:05 IMPRESSION: Stable enlarged cardiac silhouette and patchy bibasilar opacities suspicious for pneumonia. Plan Plan of Treatment: - Complete abx at home - Home health PT/OT - ff.up with PCP within 1 week Stroke Is this a Stroke Patient?: No Acute Heart Failure Is this a Heart Failure Patient?: Yes Documentation of LVEF assessment?: Yes LVEF: LVEF Greater Than 40% Anticoagulant Therapy: Yes Discharged on Evidence-Based Beta Blockers: Yes Discharged on ARNI?: No-Document Contraindications Reason(s) not discharged on ARNI: ACEI use within the prior 36 hours Discharged on ACEI?: Yes For LVEF <35%, discharged on Aldosterone Antagonist?: N/A (LVEF > or = 35%) Follow-up Appointment scheduled within 7 days?: Yes
== END 2020-04-18 15:30 | disposition home or self-care (01) | DRG 193 ==
LOC: ER 09:15 → EH 12:43 → 5 15:54
PROVIDERS: ADMIT Internal Medicine; ATTEND Internal Medicine
PROC: 5A09357 Assistance with Respiratory Ventilation, Less than 24 Consecutive Hours, Continuous Positive Airway Pressure (ICD-10-PCS; principal; 2020-04-11)
DX: J18.8 Other pneumonia, unspecified organism (principal); J96.01 Acute respiratory failure with hypoxia; I50.23 Acute on chronic systolic (congestive) heart failure; I13.0 Hypertensive heart and chronic kidney disease with heart failure and stage 1 through stage 4 chronic kidney disease, or unspecified chronic kidney disease; I25.810 Atherosclerosis of coronary artery bypass graft(s) without angina pectoris; J44.1 Chronic obstructive pulmonary disease with (acute) exacerbation; I48.21 Permanent atrial fibrillation; N18.30 Chronic kidney disease, stage 3 unspecified; E78.5 Hyperlipidemia, unspecified; I71.4 Abdominal aortic aneurysm, without rupture; I73.9 Peripheral vascular disease, unspecified; K21.9 Gastro-esophageal reflux disease without esophagitis; Z20.828 Contact with and (suspected) exposure to other viral communicable diseases; Z79.899 Other long term (current) drug therapy; Z79.01 Long term (current) use of anticoagulants; Z95.1 Presence of aortocoronary bypass graft; Z95.5 Presence of coronary angioplasty implant and graft; Z90.49 Acquired absence of other specified parts of digestive tract; Z88.5 Allergy status to narcotic agent; Z87.891 Personal history of nicotine dependence; Z82.49 Family history of ischemic heart disease and other diseases of the circulatory system
CPT/HCPCS: 36415; 71045; 71046; 71275; 80048; 80053; 81001; 82803; 83605; 83735; 83880; 84100; 84484; 85025; 85610; 85730; 87040; 87070; 87077; 87186; 87205; 93005; 93010; 93306; 94660; 94667; 94799; 96374; 99285; 0241U; C9803; J0456; J0696; J1940; J1956; J3490; J7060

== ENCOUNTER → 2020-05-20 | Outpatient (CLI) | payer BC, MEDICARE, OTHER ==
--- NOTE | 2020-05-20 15:39 | RADIOLOGY REPORT (SQ) ---
EXAM DESCRIPTION: CHEST 2 VIEWS IMAGES COMPLETED DATE/TIME: 05/20/2020 2:06 pm REASON FOR STUDY: PNEUMONIA COMPARISON: 04/16/2020 EXAM PARAMETERS: NUMBER OF VIEWS: two views TECHNIQUE: Digital Frontal and Lateral radiographic views of the chest acquired. RADIATION DOSE: NA LIMITATIONS: none FINDINGS: LUNGS AND PLEURA: Persistent airspace disease in the left base. New linear opacity in the right perihilar region extending laterally. Most likely atelectasis. No pneumothorax or definite e ffusion. MEDIASTINUM AND HILAR STRUCTURES: No masses or contour abnormalities. HEART AND VASCULAR STRUCTURES: Stable in appearance. BONES: No acute findings. HARDWARE: Sternotomy wires are in place. OTHER: No other significant finding. IMPRESSION: Persistent left basilar airspace disease either atelectasis or pneumonia. New linear op acity in the right midlung field most likely atelectasis. TECHNICAL DOCUMENTATION: JOB ID: [id number] 2010 [employer]- All Rights Reserved Reading location - IP/workstation name: [email or web address]
== END ==
LOC: RAD 13:48
PROVIDERS: ATTEND Internal Medicine
DX: J18.9 Pneumonia, unspecified organism (principal); J44.9 Chronic obstructive pulmonary disease, unspecified; R06.02 Shortness of breath
CPT/HCPCS: 71046